=== PATIENT | female | born 1950 | race Caucasian/White ===

== ENCOUNTER 2016-08-07 04:04 | Inpatient (IN) | payer OTHER ==
[2016-08-07 04:35] LABS: MCH 31.9 pg (25.7-33.7); MCHC 32.9 g/dl (32.0-36.0); MEAN CELL VOLUME 96.7 fl (80-96); MEAN PLT VOLUME 7.9 fl (7.5-11.1); PLATELET COUNT 189 K/MM3 (134-434); RDW 14.4 % (11.6-15.6); WHITE BLOOD COUNT 9.3 K/mm3 (4.0-10.0)
[2016-08-07 04:48] LABS: INR 2.95 (0.82-1.09); PROTHROMBIN TIME (PATIENT) 33.2 SEC (9.98-11.88)
--- NOTE | 2016-08-07 05:02 | PDOC ---
History of Present Illness - General History Source: Patient Exam Limitations: No Limitations - History of Present Illness Initial Comments: 08/07/16 06:48 The patient is a 65-year-old female with a significant past medical history of diabetes, HTN, HLD, and presents to the emergency department from [facility] for evaluation of vaginal bleeding vs. rectal bleeding. As per DC, the patient has had blood in her diapers for the past few days, that are clotted in appearance. They are not sure whether the source of the bleeding is from the vagina or the rectum. The patient reports gassiness but states she has been having regular bowel movements. The patient denies chest pain, shortness of breath, headache and dizziness. The patient denies fever, chills, nausea, vomit, and constipation. The patient denies dysuria, frequency, urgency. Allergies: sulfa, penicillins Past Surgical History: two amputated toes Social History: No toxic habits reported PCP: Dr. Clyde Negron <Louisa Aguila - Last Filed: 08/07/16 06:48> <Allison Serrano - Last Filed: 08/07/16 22:55> - General Chief Complaint: Vaginal Bleeding Stated Complaint: VAGINAL BLEEING Time Seen by Provider: 08/07/16 04:18 Past History <Louisa Aguila - Last Filed: 08/07/16 06:48> - Past Medical History Diabetes: Yes HTN: Yes Hypercholesterolemia: Yes - Surgical History Abdominal Surgery: No Appendectomy: No Cardiac Surgery: No Cholecystectomy: No Lung Surgery: No Neurologic Surgery: No Orthopedic Surgery: Yes - Immunization History Immunization Up to Date: (PT NOT CLEAR ON STATUS) - Psycho/Social/Smoking Cessation Hx Anxiety: No Suicidal Ideation: No Smoking Status: No Smoking History: Never smoked Years of Tobacco Use: 0 Have you smoked in the past 12 months: No Number of Cigarettes Smoked Daily: 0 Cigars Per Day: 0 Information on smoking cessation initiated: No Hx Alcohol Use: No Drug/Substance Use Hx: No Substance Use Type: None Hx Substance Use Treatment: No <Allison Serrano - Last Filed: 08/07/16 22:55> - Past Medical History Allergies/Adverse Reactions: Allergies Allergy/AdvReac Type Severity Reaction Status Date / Time Sulfa (Sulfonamide Allergy Unknown Verified 08/07/16 04:08 Antibiotics) Penicillins Allergy Verified 08/07/16 04:08 Home Medications: Ambulatory Orders Atorvastatin Ca [Lipitor] 20 mg PO HS 04/11/15 Fenofibrate Nanocrystallized [Fenofibrate] 145 mg PO DAILY 04/11/15 Acetaminophen [Tylenol] 650 mg PO PRN 08/07/16 Docusate Sodium [Colace -] 100 mg PO DAILY 08/07/16 Escitalopram Oxalate [Lexapro -] 10 mg PO DAILY 08/07/16 Insulin Sliding Scale [Novolog Vial Sliding Scale -] 0 units SQ TIDAC 08/07/16 Oxybutynin Chloride 5 mg PO BID 08/07/16 Repaglinide 2 mg PO BID 08/07/16 Saxagliptin HCl [Onglyza] 5 mg PO DAILY 08/07/16 Saxagliptin HCl [Onglyza] 5 mg PO DAILY 08/07/16 Trazodone HCl 100 mg PO DAILY 08/07/16 Valsartan 80 mg PO DAILY 08/07/16 Warfarin Sodium [Coumadin] 4 mg PO HS 08/07/16 Review of Systems - Review of Systems Able to Perform ROS?: Yes Comments:: 08/07/16 06:48 CONSTITUTIONAL: Absent: fever, chills, diaphoresis, generalized weakness, malaise, loss of appetite HEENT: Absent: rhinorrhea, nasal congestion, throat pain, throat swelling, difficulty swallowing, mouth swelling, ear pain, eye pain, visual changes CARDIOVASCULAR: Absent: chest pain, syncope, palpitations, irregular heart rate, lightheadedness , peripheral edema RESPIRATORY: Absent: cough, shortness of breath, dyspnea with exertion, orthopnea, wheezing, stridor, hemoptysis GASTROINTESTINAL: Present: (+) gassiness Absent: abdominal pain, abdominal distension, nausea, vomiting, diarrhea, constipation, melena, hematochezia GENITOURINARY: Present: (+) hematuria Absent: dysuria, frequency, urgency, hesitancy, flank pain, genital pain MUSCULOSKELETAL: Absent: myalgia, arthralgia, joint swelling SKIN: Absent: rash, itching, pallor HEMATOLOGIC/IMMUNOLOGIC: Absent: easy bleeding, easy bruising, lymphadenopathy, frequent infections ENDOCRINE: Absent: unexplained weight gain, unexplained weight loss, heat intolerance, cold intolerance NEUROLOGIC: Absent: headache, focal weakness or paresthesias, dizziness, unsteady gait, seizure, mental status changes, bladder or bowel incontinence PSYCHIATRIC: Absent: anxiety, depression, suicidal or homicidal ideation, hallucinations. <AguilaLouisa - Last Filed: 08/07/16 06:48> *Physical Exam - Vital Signs Last Vital Signs Temp Pulse Resp BP Pulse Ox 97.6 F 89 18 146/79 96 08/07/16 04:08 08/07/16 04:08 08/07/16 04:08 08/07/16 04:08 08/07/16 04:08 - Physical Exam Comments: 08/07/16 06:49 GENERAL: Well developed, well nourished. Awake and alert. No acute distress. (+) Answering questions. HEENT: Normocephalic, atraumatic. PERRLA, EOMI. No conjunctival pallor. Sclera are non- icteric. (+) Dry mouth. Oropharynx is clear. NECK: Supple. Full ROM. No JVD. Carotid pulses 2+ and symmetric, without bruits. No thyromegaly. No lymphadenopathy. CARDIOVASCULAR: Regular rate and rhythm. No murmurs, rubs, or gallops. Distal pulses are 2+ and symmetric. PULMONARY: No evidence of respiratory distress. Lungs clear to auscultation bilaterally. No wheezing, rales or rhonchi. ABDOMINAL: (+) Diffusely tender. Soft. Non-distended. No rebound or guarding. No organomegaly. Normoactive bowel sounds. (+) Guaic negative. GENITOURINARY: No blood in the vaginal exam. (+) Hematuria with straight catheter. MUSCULOSKELETAL Normal range of motion at all joints. No bony deformities or tenderness. No CVA tenderness. EXTREMITIES: No cyanosis. No clubbing. No pitting edema. No calf tenderness. SKIN: (+) Tinea capitus at center of scalp. (+) Small abrasion on the right LE. (+) Healed sacral ulcer. Warm and dry. Normal capillary refill. No rashes. No jaundice. NEUROLOGICAL: Alert, awake, appropriate. Cranial nerves 2-12 intact. No deficits to light touch and temperature in face, upper extremities and lower extremities. No motor deficits in the in face, upper extremities and lower extremities. Normoreflexic in the upper and lower extremities. Normal speech. Toes are down- going bilaterally. PSYCHIATRIC: Cooperative. Good eye contact. Appropriate mood and affect. <Aguila,Louisa - Last Filed: 08/07/16 06:48> - Vital Signs Last Vital Signs Temp Pulse Resp BP Pulse Ox 97.6 F 89 18 146/79 96 08/07/16 04:08 08/07/16 04:08 08/07/16 04:08 08/07/16 04:08 08/07/16 04:08 <SerranoAllison - Last Filed: 08/07/16 22:55> ED Treatment Course - LABORATORY CBC & Chemistry Diagram: 08/07/16 04:28 08/07/16 04:28 - ADDITIONAL ORDERS Additional order review: Laboratory Results 08/07/16 08/07/16 08/07/16 05:00 04:44 04:28 INR Sodium 142 Potassium 4.9 Chloride 109 H Carbon Dioxide 20 L Anion Gap 13 BUN 39 H Creatinine 1.3 H D Creat Clearance w eGFR 40.98 Random Glucose 280 H D Calcium 9.3 Total Bilirubin 0.3 AST 25 D ALT 18 Alkaline Phosphatase 60 D Total Protein 6.6 Albumin 2.8 L Urine Color Red Urine Appearance Cloudy Urine pH 8.5 H D Urine Protein 3+ H Urine Glucose (UA) Negative Urine Ketones Trace H Urine Blood 3+ H Urine Nitrite Positive Urine Bilirubin 1+ H Urine Urobilinogen 1.0 e.u/dl Ur Leukocyte Esterase 2+ H Urine RBC 6354 Urine WBC 598 Urine Bacteria Few Stool Occult Blood Negative 08/07/16 04:28 INR 2.95 H D Sodium Potassium Chloride Carbon Dioxide Anion Gap BUN Creatinine Creat Clearance w eGFR Random Glucose Calcium Total Bilirubin AST ALT Alkaline Phosphatase Total Protein Albumin Urine Color Urine Appearance Urine pH Urine Protein Urine Glucose (UA) Urine Ketones Urine Blood Urine Nitrite Urine Bilirubin Urine Urobilinogen Ur Leukocyte Esterase Urine RBC Urine WBC Urine Bacteria Stool Occult Blood 08/07/16 04:28 RBC 3.08 L MCV 96.7 H MCHC 32.9 RDW 14.4 MPV 7.9 D Neutrophils % Y Lymphocytes % Y - Medications Given in the ED: ED Medications Discontinued Medications Generic Name Dose Route Start Last Admin Trade Name Freq PRN Reason Stop Dose Admin Levofloxacin 100 mls @ 100 mls/hr 08/07/16 05:49 08/07/16 05:51 Levaquin 500 Mg Premixed Ivpb - IVPB 08/07/16 06:48 100 mls/hr ONCE ONE Administration Sodium Chloride 500 ml 08/07/16 05:52 08/07/16 05:58 Normal Saline - IV 08/07/16 05:53 500 ml ONCE ONE Administration <Louisa Aguila - Last Filed: 08/07/16 06:48> - LABORATORY CBC & Chemistry Diagram: 08/07/16 04:28 08/07/16 04:28 - ADDITIONAL ORDERS Additional order review: 08/07/16 04:28 RBC 3.08 L MCV 96.7 H MCHC 32.9 RDW 14.4 MPV 7.9 D Neutrophils % Y Lymphocytes % Y <Allison Serrano - Last Filed: 08/07/16 22:55> Medical Decision Making - Medical Decision Making 08/07/16 05:02 Pt comes with bleeding in her diaper unclear if this is from GI tract or vaginal. On exam, she has brown stool; stool guaiac sent. Pt has no blood in the vagina; I cannot examine deep into her vagina secondary to atrophy and stricture.. Pt has faint blood in her diaper. Likely blood iis coming from her urethra. Straight cath urine specimen confims that her urine is bloody with clots and is the source of the blood in her diaper. Labs pending. 08/07/16 05:05 Pt's Hb/HCT is stable, compared to old results. INR is 2.95 Chem pending. 08/07/16 06:59 Admitted to hospitalist service for hematuria and clots in the urine. Pt is on coumadin. SHe will be followed on med surg and treated for UTI, if she has infection. Urology consult as needed <Allison Serrano - Last Filed: 08/07/16 22:55> *DC/Admit/Observation/Transfer - Attestations Scribe Attestion: 08/07/16 06:49 Documentation prepared by Louisa Aguila, acting as medical examiner for Allison Serrano MD. <Louisa Aguila - Last Filed: 08/07/16 06:48> - Discharge Dispostion Admit: Yes <Allison Serrano - Last Filed: 08/07/16 22:55> Diagnosis at time of Disposition: Hematuria, Abdominal pain, Elevated INR - Referrals
[2016-08-07 05:19] LABS: PH,URINE 8.5 (5.0-8.0); URINE BILIRUBIN 1+ (NEGATIVE); URINE COLOR RED; URINE GLUCOSE (UA) NEGATIVE (NEGATIVE); URINE KETONE TRACE (NEGATIVE); URINE UROBILINOGEN 1.0 E.U/dl E.U./dl (0.2-1.0)
[2016-08-07 05:34] LABS: CALCIUM 9.3 mg/dL (8.5-10.1); COCKROFT - GAULT 91.443; CREATININE 1.3 mg/dL (0.55-1.02); TOT PROT 6.6 g/dl (6.4-8.2)
[2016-08-07 05:35] LABS: URINE BLOOD 3+ (NEGATIVE); URINE LEUK ESTERASE 2+ (NEGATIVE); URINE NITRITE POSITIVE (NEGATIVE); URINE PROTEIN 3+ (NEGATIVE)
[2016-08-07 05:35] LABS: ALBUMIN 2.8 g/dl (3.4-5.0); BILIRUBIN,TOTAL 0.3 mg/dL (0.2-1.0)
[2016-08-07 05:36] LABS: URINE APPEARANCE CLOUDY
[2016-08-07] MEDS ORDERED: LEVOFLOXACIN 500 MG IVPB 100 ML IVPB ONE ×2 (05:49→05:53)
[2016-08-07] MEDS ORDERED: SODIUM CHLORIDE 0.9% 1000 ML INFUS.BAG IV ONE (05:52)
[2016-08-07 05:56] LABS: URINE BACTERIA FEW /hpf (NONE SEEN); URINE RBC 6354 /hpf (0-3); URINE WBC 598 /hpf (3-5)
[2016-08-07] MEDS ORDERED: ACETAMINOPHEN 325 MG TABLET (FP) PO PRN (10:16)
[2016-08-07] MEDS ORDERED: ONDANSETRON 4 MG/2 ML VIAL IVPB PRN (10:16)
--- NOTE | 2016-08-07 10:20 | HP ---
Admitting History and Physical - Primary Care Physician PCP: Clyde Negron - Admission Chief Complaint: I was told I was bleeding History of Present Illness: Ms Mckeon is a 65 year old woman who is at [facility] that was sent in for bleeding. Patient says she did not notice any bleeding and feels so-so. When asked to describe why she feels so-so she cannot tell me, she says she just does. She says she has lightheadedness when asked, and says it has been present all her life. She states she is at [facility] because the lightheadedness causes her difficulty walking. She denies passing out, chest pain, shortness of breath, nausea, vomiting, diarrhea, constipation, or swelling. Per medical notes she was noted to have blood in her diapers at [facility] for the past few days. There was uncertainty whether it was rectal or vaginal and she was sent here for further evaluation. History Source: Patient, Medical Record Limitations to Obtaining History: Poor Historian - Past Medical History Cardiovascular: Yes: AFIB Psych: Yes: Other (Unspecified Psychiatric Disorder) Endocrine: Yes: Diabetes Mellitus - Past Surgical History Past Surgical History: Yes: None - Smoking History Smoking history: Never smoked Have you smoked in the past 12 months: No Aproximately how many cigarettes per day: 0 - Alcohol/Substance Use Hx Alcohol Use: No History of Substance Use: reports: None - Social History Usual Living Arrangement: Yes: Long Term ADL: Family Assistance Occupation: Retired History of Recent Travel: No Home Medications - Allergies Allergies/Adverse Reactions: Allergies Allergy/AdvReac Type Severity Reaction Status Date / Time Sulfa (Sulfonamide Allergy Unknown Verified 08/07/16 04:08 Antibiotics) Penicillins Allergy Verified 08/07/16 04:08 - Home Medications Home Medications: Ambulatory Orders Atorvastatin Ca [Lipitor] 20 mg PO HS 04/11/15 Fenofibrate Nanocrystallized [Fenofibrate] 145 mg PO DAILY 04/11/15 Acetaminophen [Tylenol] 650 mg PO PRN 08/07/16 Docusate Sodium [Colace -] 100 mg PO DAILY 08/07/16 Escitalopram Oxalate [Lexapro -] 10 mg PO DAILY 08/07/16 Novolog Vial Sliding Scale - 08/07/16 Onglyza 5 mg PO DAILY 08/07/16 Oxybutynin Chloride 5 mg PO BID 08/07/16 Repaglinide 2 mg PO BID 08/07/16 Saxagliptin HCl [Onglyza] 5 mg PO DAILY 08/07/16 Trazodone HCl 100 mg PO DAILY 08/07/16 Valsartan 80 mg PO DAILY 08/07/16 Warfarin Sodium [Coumadin] 4 mg PO HS 08/07/16 Family Disease History - Family Disease History Family Disease History: Diabetes: Grandparent (Grandmother), Other: Father ( , unknown cause), Mother (, unknown cause) Review of Systems Findings/Remarks: Full review of systems obtained, as per HPI and otherwise negative Physical Examination Vital Signs: Vital Signs Temperature 97.6 F 08/07/16 04:08 Pulse Rate 80 08/07/16 07:24 Respiratory Rate 18 08/07/16 07:24 Blood Pressure 129/73 08/07/16 07:24 O2 Sat by Pulse Oximetry (%) 97 08/07/16 07:24 Constitutional: Yes: Well Nourished, No Distress, Calm Eyes: Yes: Conjunctiva Clear, EOM Intact, PERRL HENT: Yes: Atraumatic, Normocephalic Cardiovascular: Yes: Pulse Irregular. No: Tachycardia, Gallop, Murmur, Rub Respiratory: Yes: Regular, CTA Bilaterally. No: Rales, Rhonchi, Wheezes Gastrointestinal: Yes: Normal Bowel Sounds, Soft. No: Distention, Tenderness Extremities: Yes: WNL Edema: No Labs: Laboratory Results - last 24 hr 08/07/16 08/07/16 08/07/16 04:28 04:28 04:28 WBC 9.3 RBC 3.08 L Hgb 9.8 L D Hct 29.8 L D MCV 96.7 H MCHC 32.9 RDW 14.4 Plt Count 189 D MPV 7.9 D Neutrophils % Y Lymphocytes % Y INR 2.95 H D Sodium 142 Potassium 4.9 Chloride 109 H Carbon Dioxide 20 L Anion Gap 13 BUN 39 H Creatinine 1.3 H D Creat Clearance w eGFR 40.98 Random Glucose 280 H D Calcium 9.3 Total Bilirubin 0.3 AST 25 D ALT 18 Alkaline Phosphatase 60 D Total Protein 6.6 Albumin 2.8 L Urine Color Urine Appearance Urine pH Urine Protein Urine Glucose (UA) Urine Ketones Urine Blood Urine Nitrite Urine Bilirubin Urine Urobilinogen Ur Leukocyte Esterase Urine RBC Urine WBC Urine Bacteria Stool Occult Blood Blood Type Antibody Screen 08/07/16 08/07/16 08/07/16 04:28 04:44 05:00 WBC RBC Hgb Hct MCV MCHC RDW Plt Count MPV Neutrophils % Lymphocytes % INR Sodium Potassium Chloride Carbon Dioxide Anion Gap BUN Creatinine Creat Clearance w eGFR Random Glucose Calcium Total Bilirubin AST ALT Alkaline Phosphatase Total Protein Albumin Urine Color Red Urine Appearance Cloudy Urine pH 8.5 H D Urine Protein 3+ H Urine Glucose (UA) Negative Urine Ketones Trace H Urine Blood 3+ H Urine Nitrite Positive Urine Bilirubin 1+ H Urine Urobilinogen 1.0 e.u/dl Ur Leukocyte Esterase 2+ H Urine RBC 6354 Urine WBC 598 Urine Bacteria Few Stool Occult Blood Negative Blood Type O POSITIVE Antibody Screen Negative Problem List - Problems (1) Urinary tract infection Assessment/Plan: -urinalysis positive for UTI -previous admission last year showing UTI in April -given levaquin in the ED -will place on rocephin -follow up culture Code(s): N39.0 - URINARY TRACT INFECTION, SITE NOT SPECIFIED Qualifiers: Urinary tract infection type: acute cystitis Hematuria presence: with hematuria Qualified Code(s): N30.01 - Acute cystitis with hematuria (2) Hematuria Assessment/Plan: -with therapeutic INR -however suspect secondary to UTI -consult urology -hydration Code(s): R31.9 - HEMATURIA, UNSPECIFIED (3) Diabetes Assessment/Plan: -diabetic diet -continue outpatient regimen -FSBS and SSI Code(s): E11.9 - TYPE 2 DIABETES MELLITUS WITHOUT COMPLICATIONS Qualifiers: Diabetes mellitus type: type 2 Diabetes mellitus complication status: with unspecified complications Diabetes mellitus middle or intermediate school principal insulin use: without middle or intermediate school principal use Qualified Code(s): E11.8 - Type 2 diabetes mellitus with unspecified complications; Z79.4 - skilled nursing (current) use of insulin (4) Afib Assessment/Plan: -rate controlled -holding coumadin secondary to bleeding Code(s): I48.91 - UNSPECIFIED ATRIAL FIBRILLATION Qualifiers: Atrial fibrillation type: chronic Qualified Code(s): I48.2 - Chronic atrial fibrillation (5) Anemia Assessment/Plan: -stable -monitor Code(s): D64.9 - ANEMIA, UNSPECIFIED (6) HTN (hypertension) Assessment/Plan: -continue diovan Code(s): I10 - ESSENTIAL (PRIMARY) HYPERTENSION (7) HLD (hyperlipidemia) Assessment/Plan: -continue statin Code(s): E78.5 - HYPERLIPIDEMIA, UNSPECIFIED
[2016-08-07] MEDS: LACTOBACILLUS ACIDOPHILUS 1 EACH TAB (FP) PO SCH (10:58)
[2016-08-07] MEDS: SODIUM CHLORIDE 1,000 ML IV SCH (10:58)
[2016-08-07 11:10] LABS: PLATELET ESTIMATE ADEQUATE (NORMAL); SMUDGE CELLS MANY
[2016-08-07] MEDS: INSULIN SLIDING SCALE (NOVOLOG) 1 VIAL SQ SCH ×3 (11:42→21:32)
[2016-08-07 13:25] VITALS: BMI 32.1
[2016-08-07] MEDS: CEFTRIAXONE 50 ML IVPB SCH (14:39)
--- NOTE | 2016-08-07 16:25 | EKG ---
Test Reason : Blood Pressure : / mmHG Vent. Rate : 070 BPM Atrial Rate : 070 BPM P-R Int : 258 ms QRS Dur : 144 ms QT Int : 484 ms P-R-T Axes : 042 -06 096 degrees QTc Int : 522 ms SINUS RHYTHM WITH 1ST DEGREE A-V BLOCK LEFT BUNDLE BRANCH BLOCK ABNORMAL ECG WHEN COMPARED WITH ECG OF 24-JUL-2015 16:30, PREMATURE SUPRAVENTRICULAR COMPLEXES ARE NO LONGER PRESENT OK INTERVAL HAS INCREASED Confirmed by RUTH COLVIN MD ([id number]) on 08/07/2016 4:25:09 PM Referred By: Confirmed By:RUTH COLVIN MD
[2016-08-07] MEDS ORDERED: WARFARIN NA 2 MG TABLET (UD) PO SCH (18:00)
[2016-08-07] MEDS ORDERED: INSULIN (NOVOLOG) ASPART 100 UNITS/ML 10ML VIAL ONE (20:34)
[2016-08-07] MEDS: ATORVASTATIN CA 20 MG TABLET (FP) PO SCH (21:32)
[2016-08-07] MEDS: OXYBUTYNIN CHLORIDE 5 MG TABLET PO SCH (21:32)
[2016-08-07] MEDS ORDERED: REPAGLINIDE 2 MG TABLET (FP) PO SCH (22:00)
[2016-08-07] MEDS ORDERED: PATIENT'S OWN MEDICATION (NON-FORMULARY) (Warfarin Sodium [Coumadin] 4 MG) PO SCH (22:00)
[2016-08-08] MEDS: sitaGLIPtin PHOSPHATE 100 MG TABLET (FP) PO SCH (06:00)
[2016-08-08] MEDS: INSULIN SLIDING SCALE (NOVOLOG) 1 VIAL SQ SCH ×4 (06:00→22:02)
[2016-08-08] MEDS ORDERED: PT OWN MED DRAWER 7, Y5N ONE ×2 (06:39→08:50)
[2016-08-08] MEDS ORDERED: INSULIN (NOVOLOG) ASPART 100 UNITS/ML 10ML VIAL ONE (06:39)
[2016-08-08 08:09] LABS: BASOPHIL 0.4 % (0-2.0); EOSINOPHIL 1.9 % (0-4.5); MCH 32.8 pg (25.7-33.7); MCHC 33.9 g/dl (32.0-36.0); MEAN CELL VOLUME 96.7 fl (80-96); MEAN PLT VOLUME 7.6 fl (7.5-11.1); NEUTROPHILS 45.8 % (42.8-82.8); PLATELET COUNT 161 K/MM3 (134-434); RDW 13.8 % (11.6-15.6)
[2016-08-08 08:30] LABS: CALCIUM 8.7 mg/dL (8.5-10.1); COCKROFT - GAULT 71.6805; CREATININE 1.1 mg/dL (0.55-1.02); MAGNESIUM 1.7 mg/dL (1.8-2.4); PHOSPHOROUS 2.5 mg/dL (2.5-4.9)
[2016-08-08 08:38] LABS: INR 1.98 (0.82-1.09); PROTHROMBIN TIME (PATIENT) 22.1 SEC (9.98-11.88)
[2016-08-08] MEDS: REPAGLINIDE 2 MG TABLET (FP) PO SCH ×2 (08:58→17:25)
[2016-08-08] MEDS ORDERED: LEVOFLOXACIN 500 MG IVPB 100 ML IVPB SCH (10:00)
[2016-08-08] MEDS ORDERED: traZODone HCL 50 MG TABLET (FP) ONE (10:07)
[2016-08-08] MEDS: CEFTRIAXONE 50 ML IVPB SCH (10:22)
[2016-08-08] MEDS: FENOFIBRIC ACID 135 MG CAP PO SCH (10:22)
[2016-08-08] MEDS: ESCITALOPRAM OXALATE 10 MG TABLET (FP) PO SCH (10:23)
[2016-08-08] MEDS: DOCUSATE SODIUM 100 MG CAPSULE (FP) PO SCH (10:23)
[2016-08-08] MEDS: OXYBUTYNIN CHLORIDE 5 MG TABLET PO SCH ×2 (10:23→22:02)
[2016-08-08] MEDS: LACTOBACILLUS ACIDOPHILUS 1 EACH TAB (FP) PO SCH (10:24)
[2016-08-08] MEDS: traZODone HCL 100 MG TABLET (FP) PO SCH (10:24)
[2016-08-08] MEDS: VALSARTAN 80 MG TABLET (UD) PO SCH (10:24)
[2016-08-08] MEDS: SODIUM CHLORIDE 1,000 ML IV SCH (11:19)
--- NOTE | 2016-08-08 15:40 | PN ---
Progress Note, Physician Chief Complaint: Ms Mckeon says she feels so-so, but says she does not know why she feels so-so. She denies fevers, cp, sob, n/v, or any other concerns. She does not know if she is still bleeding. - Current Medication List Current Medications: Active Medications Acetaminophen (Tylenol -) 650 mg PO Q4H PRN PRN Reason: FEVER OR PAIN Atorvastatin Calcium (Lipitor -) 20 mg PO HS [facility] Last Admin: 08/07/16 21:32 Dose: 20 mg Docusate Sodium (Colace -) 100 mg PO DAILY [facility] Last Admin: 08/08/16 10:23 Dose: 100 mg Escitalopram Oxalate (Lexapro -) 10 mg PO DAILY [facility] Last Admin: 08/08/16 10:23 Dose: 10 mg Fenofibric Acid (Trilipix -) 135 mg PO DAILY [facility] Last Admin: 08/08/16 10:22 Dose: 135 mg Sodium Chloride (Normal Saline -) 1,000 mls @ 42 mls/hr IV ASDIR [facility] Last Admin: 08/08/16 11:19 Dose: 42 mls/hr Ceftriaxone Sodium (Rocephin 1gm Ivpb (Pre-Docked)) 50 mls @ 100 mls/hr IVPB DAILY [facility] Last Admin: 08/08/16 10:22 Dose: 100 mls/hr Insulin Aspart (Novolog Vial Sliding Scale -) 0 vial SQ ACHS [facility] PRN Reason: Protocol Last Admin: 08/08/16 11:19 Dose: 5 units Lactobacillus Acidophilus (Bacid -) 1 tab PO DAILY [facility] Last Admin: 08/08/16 10:24 Dose: 1 tab Ondansetron HCl (Zofran Injection) 4 mg IVPB Q6H PRN PRN Reason: NAUSEA Oxybutynin Chloride (Ditropan -) 5 mg PO BID [facility] Last Admin: 08/08/16 10:23 Dose: 5 mg Repaglinide (Prandin -) 2 mg PO BIDWM [facility] Last Admin: 08/08/16 08:58 Dose: 2 mg Sitagliptin Phosphate (Januvia -) 100 mg PO DAILY@0700 [facility] Last Admin: 08/08/16 06:00 Dose: 100 mg Trazodone HCl (Desyrel -) 100 mg PO DAILY [facility] Last Admin: 08/08/16 10:24 Dose: 100 mg Valsartan (Diovan -) 80 mg PO DAILY [facility] Last Admin: 08/08/16 10:24 Dose: 80 mg - Objective Vital Signs: Vital Signs Temperature 98.1 F 08/08/16 09:00 Pulse Rate 70 08/08/16 09:00 Respiratory Rate 18 08/08/16 09:00 Blood Pressure 110/62 08/08/16 09:00 O2 Sat by Pulse Oximetry (%) 92 L 08/07/16 21:00 Constitutional: Yes: No Distress, Calm, Obese Cardiovascular: Yes: Regular Rate and Rhythm. No: Gallop, Murmur, Rub Respiratory: Yes: Regular, CTA Bilaterally. No: Rales, Rhonchi, Wheezes Gastrointestinal: Yes: Normal Bowel Sounds, Soft. No: Distention, Tenderness Extremities: Yes: WNL Edema: No Labs: CBC, BMP 08/08/16 07:08 08/08/16 07:08 INR, PTT INR 1.98 (0.82-1.09) H D 08/08/16 07:08 Problem List - Problems (1) Urinary tract infection Code(s): N39.0 - URINARY TRACT INFECTION, SITE NOT SPECIFIED Qualifiers: Urinary tract infection type: acute cystitis Hematuria presence: with hematuria Qualified Code(s): N30.01 - Acute cystitis with hematuria (2) Hematuria Code(s): R31.9 - HEMATURIA, UNSPECIFIED (3) Diabetes Code(s): E11.9 - TYPE 2 DIABETES MELLITUS WITHOUT COMPLICATIONS Qualifiers: Diabetes mellitus type: type 2 Diabetes mellitus complication status: with unspecified complications Diabetes mellitus mcfp insulin use: without mcfp use Qualified Code(s): E11.8 - Type 2 diabetes mellitus with unspecified complications; Z79.4 - intermediate frame tender (current) use of insulin (4) Afib Code(s): I48.91 - UNSPECIFIED ATRIAL FIBRILLATION Qualifiers: Atrial fibrillation type: chronic Qualified Code(s): I48.2 - Chronic atrial fibrillation (5) Anemia Code(s): D64.9 - ANEMIA, UNSPECIFIED (6) HTN (hypertension) Code(s): I10 - ESSENTIAL (PRIMARY) HYPERTENSION (7) HLD (hyperlipidemia) Code(s): E78.5 - HYPERLIPIDEMIA, UNSPECIFIED Assessment/Plan (1) Urinary tract infection Assessment/Plan: -urinalysis positive for UTI -urine culture growing proteus -continue rocephin, day 2 of antibiotics Code(s): N39.0 - URINARY TRACT INFECTION, SITE NOT SPECIFIED Qualifiers: Urinary tract infection type: acute cystitis Hematuria presence: with hematuria Qualified Code(s): N30.01 - Acute cystitis with hematuria (2) Hematuria Assessment/Plan: -holding coumadin currently -suspect secondary to UTI -urology consulted Code(s): R31.9 - HEMATURIA, UNSPECIFIED (3) Diabetes Assessment/Plan: -diabetic diet -continue outpatient regimen -FSBS and SSI Code(s): E11.9 - TYPE 2 DIABETES MELLITUS WITHOUT COMPLICATIONS Qualifiers: Diabetes mellitus type: type 2 Diabetes mellitus complication status: with unspecified complications Diabetes mellitus termite technician insulin use: without termite technician use Qualified Code(s): E11.8 - Type 2 diabetes mellitus with unspecified complications; Z79.4 - residential (current) use of insulin (4) Afib Assessment/Plan: -rate controlled -holding coumadin secondary to bleeding Code(s): I48.91 - UNSPECIFIED ATRIAL FIBRILLATION Qualifiers: Atrial fibrillation type: chronic Qualified Code(s): I48.2 - Chronic atrial fibrillation (5) Anemia Assessment/Plan: -stable -monitor Code(s): D64.9 - ANEMIA, UNSPECIFIED (6) HTN (hypertension) Assessment/Plan: -continue diovan Code(s): I10 - ESSENTIAL (PRIMARY) HYPERTENSION (7) HLD (hyperlipidemia) Assessment/Plan: -continue statin Code(s): E78.5 - HYPERLIPIDEMIA, UNSPECIFIED
[2016-08-08] MEDS: ATORVASTATIN CA 20 MG TABLET (FP) PO SCH (22:02)
[2016-08-09] MEDS: SODIUM CHLORIDE 1,000 ML IV SCH ×2 (05:14→12:04)
[2016-08-09] MEDS: sitaGLIPtin PHOSPHATE 100 MG TABLET (FP) PO SCH (06:09)
[2016-08-09] MEDS: INSULIN SLIDING SCALE (NOVOLOG) 1 VIAL SQ SCH ×4 (06:12→21:39)
[2016-08-09 06:49] LABS: MCH 32.7 pg (25.7-33.7); MCHC 33.3 g/dl (32.0-36.0); MEAN CELL VOLUME 98.2 fl (80-96); MEAN PLT VOLUME 7.9 fl (7.5-11.1); PLATELET COUNT 167 K/MM3 (134-434); RDW 14.6 % (11.6-15.6); WHITE BLOOD COUNT 10.4 K/mm3 (4.0-10.0)
[2016-08-09 07:04] LABS: INR 1.43 (0.82-1.09); PROTHROMBIN TIME (PATIENT) 15.9 SEC (9.98-11.88)
[2016-08-09 07:22] LABS: CALCIUM 8.8 mg/dL (8.5-10.1); MAGNESIUM 1.7 mg/dL (1.8-2.4)
[2016-08-09 07:25] LABS: COCKROFT - GAULT 65.7135; CREATININE 1.2 mg/dL (0.55-1.02); PHOSPHOROUS 3.2 mg/dL (2.5-4.9)
[2016-08-09] MEDS ORDERED: PT OWN MED DRAWER 7, Y5N ONE (08:44)
[2016-08-09 09:03] LABS: PLATELET ESTIMATE ADEQUATE (NORMAL)
[2016-08-09] MEDS: REPAGLINIDE 1 MG TABLET PO SCH ×2 (09:18→17:51)
[2016-08-09] MEDS ORDERED: traZODone HCL 50 MG TABLET (FP) ONE (10:01)
[2016-08-09] MEDS: FENOFIBRIC ACID 135 MG CAP PO SCH (10:15)
[2016-08-09] MEDS: traZODone HCL 100 MG TABLET (FP) PO SCH (10:15)
[2016-08-09] MEDS: LACTOBACILLUS ACIDOPHILUS 1 EACH TAB (FP) PO SCH (10:15)
[2016-08-09] MEDS: ESCITALOPRAM OXALATE 10 MG TABLET (FP) PO SCH (10:15)
[2016-08-09] MEDS: OXYBUTYNIN CHLORIDE 5 MG TABLET PO SCH ×2 (10:15→21:37)
[2016-08-09] MEDS: DOCUSATE SODIUM 100 MG CAPSULE (FP) PO SCH (10:16)
[2016-08-09] MEDS: CEFTRIAXONE 50 ML IVPB SCH (10:16)
[2016-08-09] MEDS: VALSARTAN 80 MG TABLET (UD) PO SCH (10:16)
--- NOTE | 2016-08-09 10:27 | CONSULT ---
Consult Consult Specialty:: urology Referred by:: Cain Reason for Consultation:: bleeding - History of Present Illness Chief Complaint: bleeding History of Present Illness: 65 year old female with complaints of bleeding. 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 She is not in pain. UA has 3+ blood and is nitrite pos. Urine culture is positive - History Source History Provided By: Patient, Medical Record Limitations to Obtaining History: No Limitations - Past Medical History Cardio/Vascular: Yes: AFIB Renal/: Yes: Hematuria ...: No Psych: Yes: Other (Unspecified Psychiatric Disorder) Endocrine: Yes: Diabetes Mellitus - Past Surgical History Past Surgical History: Yes: None - Alcohol/Substance Use Hx Alcohol Use: No History of Substance Use: reports: None - Smoking History Smoking history: Never smoked Have you smoked in the past 12 months: No Aproximately how many cigarettes per day: 0 - Social History Usual Living Arrangement: Alone ADL: Family Assistance Occupation: Retired History of Recent Travel: No Home Medications - Allergies Allergies/Adverse Reactions: Allergies Allergy/AdvReac Type Severity Reaction Status Date / Time Sulfa (Sulfonamide Allergy Unknown Verified 08/07/16 04:08 Antibiotics) Penicillins Allergy Verified 08/07/16 04:08 - Home Medications Home Medications: Ambulatory Orders Atorvastatin Ca [Lipitor] 20 mg PO HS 04/11/15 Fenofibrate Nanocrystallized [Fenofibrate] 145 mg PO DAILY 04/11/15 Acetaminophen [Tylenol] 650 mg PO PRN 08/07/16 Docusate Sodium [Colace -] 100 mg PO DAILY 08/07/16 Escitalopram Oxalate [Lexapro -] 10 mg PO DAILY 08/07/16 Insulin Sliding Scale [Novolog Vial Sliding Scale -] 0 units SQ TIDAC 08/07/16 Oxybutynin Chloride 5 mg PO BID 08/07/16 Repaglinide 2 mg PO BID 08/07/16 Saxagliptin HCl [Onglyza] 5 mg PO DAILY 08/07/16 Saxagliptin HCl [Onglyza] 5 mg PO DAILY 08/07/16 Trazodone HCl 100 mg PO DAILY 08/07/16 Valsartan 80 mg PO DAILY 08/07/16 Warfarin Sodium [Coumadin] 4 mg PO HS 08/07/16 Family Disease History - Family Disease History Family Disease History: Diabetes: Grandparent (Grandmother), Other: Father ( , unknown cause), Mother (, unknown cause) Review of Systems - Review of Systems Genitourinary: reports: Hematuria. denies: Dysuria, Flank Pain, Frequency Physical Exam Vital Signs: Vital Signs Temperature 98.3 F 08/09/16 09:27 Pulse Rate 71 08/09/16 09:27 Respiratory Rate 20 08/09/16 09:27 Blood Pressure 127/68 08/09/16 09:27 O2 Sat by Pulse Oximetry (%) 93 L 08/08/16 21:00 Renal/: No: Bladder Distention, CVA Tenderness - Left, CVA Tenderness - Right Labs: CBC, BMP 08/09/16 06:20 08/09/16 06:20 Problem List - Problems (1) Hematuria Assessment/Plan: in presence of a UTI. CT scan ordered. Cysto to follow Code(s): R31.9 - HEMATURIA, UNSPECIFIED
[2016-08-09 11:09] LABS: SMUDGE CELLS MANY
[2016-08-09] MEDS ORDERED: INSULIN (NOVOLOG) ASPART 100 UNITS/ML 10ML VIAL ONE (12:00)
[2016-08-09] MEDS: MAGNESIUM OXIDE 400 MG TABLET (FP) PO SCH ×2 (12:33→21:37)
--- NOTE | 2016-08-09 14:22 | PN ---
Progress Note, Physician Chief Complaint: Ms Mckeon is without complaint. Says she is feeling fine. No cp, sob, n/v. - Current Medication List Current Medications: Active Medications Acetaminophen (Tylenol -) 650 mg PO Q4H PRN PRN Reason: FEVER OR PAIN Atorvastatin Calcium (Lipitor -) 20 mg PO HS [facility] Last Admin: 08/08/16 22:02 Dose: 20 mg Docusate Sodium (Colace -) 100 mg PO DAILY [facility] Last Admin: 08/09/16 10:16 Dose: 100 mg Escitalopram Oxalate (Lexapro -) 10 mg PO DAILY [facility] Last Admin: 08/09/16 10:15 Dose: 10 mg Fenofibric Acid (Trilipix -) 135 mg PO DAILY [facility] Last Admin: 08/09/16 10:15 Dose: 135 mg Sodium Chloride (Normal Saline -) 1,000 mls @ 42 mls/hr IV ASDIR [facility] Last Admin: 08/09/16 12:04 Dose: Not Given Ceftriaxone Sodium (Rocephin 1gm Ivpb (Pre-Docked)) 50 mls @ 100 mls/hr IVPB DAILY [facility] Last Admin: 08/09/16 10:16 Dose: 100 mls/hr Insulin Aspart (Novolog Vial Sliding Scale -) 0 vial SQ ACHS MEG PRN Reason: Protocol Last Admin: 08/09/16 12:05 Dose: 5 units Lactobacillus Acidophilus (Bacid -) 1 tab PO DAILY [facility] Last Admin: 08/09/16 10:15 Dose: 1 tab Magnesium Oxide (Mag-Ox -) 400 mg PO BID [facility] Last Admin: 08/09/16 12:33 Dose: 400 mg Ondansetron HCl (Zofran Injection) 4 mg IVPB Q6H PRN PRN Reason: NAUSEA Oxybutynin Chloride (Ditropan -) 5 mg PO BID [facility] Last Admin: 08/09/16 10:15 Dose: 5 mg Repaglinide (Prandin -) 2 mg PO BIDWM [facility] Last Admin: 08/09/16 09:18 Dose: 2 mg Sitagliptin Phosphate (Januvia -) 100 mg PO DAILY@0700 [facility] Last Admin: 08/09/16 06:09 Dose: 100 mg Trazodone HCl (Desyrel -) 100 mg PO DAILY [facility] Last Admin: 08/09/16 10:15 Dose: 100 mg Valsartan (Diovan -) 80 mg PO DAILY [facility] Last Admin: 08/09/16 10:16 Dose: 80 mg - Objective Vital Signs: Vital Signs Temperature 98.3 F 08/09/16 09:27 Pulse Rate 71 08/09/16 09:27 Respiratory Rate 20 08/09/16 09:27 Blood Pressure 127/68 08/09/16 09:27 O2 Sat by Pulse Oximetry (%) 95 08/09/16 09:00 Constitutional: Yes: Well Nourished, No Distress, Calm Cardiovascular: Yes: Pulse Irregular. No: Tachycardia, Gallop, Murmur, Rub Respiratory: Yes: Regular, CTA Bilaterally. No: Rales, Rhonchi, Wheezes Gastrointestinal: Yes: Normal Bowel Sounds, Soft. No: Distention, Tenderness Extremities: Yes: WNL Edema: No Labs: CBC, BMP 08/09/16 06:20 08/09/16 06:20 INR, PTT INR 1.43 (0.82-1.09) H 08/09/16 06:20 Problem List - Problems (1) Urinary tract infection Code(s): N39.0 - URINARY TRACT INFECTION, SITE NOT SPECIFIED Qualifiers: Urinary tract infection type: acute cystitis Hematuria presence: with hematuria Qualified Code(s): N30.01 - Acute cystitis with hematuria (2) Hematuria Code(s): R31.9 - HEMATURIA, UNSPECIFIED (3) Diabetes Code(s): E11.9 - TYPE 2 DIABETES MELLITUS WITHOUT COMPLICATIONS Qualifiers: Diabetes mellitus type: type 2 Diabetes mellitus complication status: with unspecified complications Diabetes mellitus pin game machine inspector insulin use: without senior living use Qualified Code(s): E11.8 - Type 2 diabetes mellitus with unspecified complications; Z79.4 - longterm (current) use of insulin (4) Afib Code(s): I48.91 - UNSPECIFIED ATRIAL FIBRILLATION Qualifiers: Atrial fibrillation type: chronic Qualified Code(s): I48.2 - Chronic atrial fibrillation (5) Anemia Code(s): D64.9 - ANEMIA, UNSPECIFIED (6) HTN (hypertension) Code(s): I10 - ESSENTIAL (PRIMARY) HYPERTENSION (7) HLD (hyperlipidemia) Code(s): E78.5 - HYPERLIPIDEMIA, UNSPECIFIED Assessment/Plan (1) Urinary tract infection Assessment/Plan: -urinalysis positive for UTI -urine culture growing proteus and e. coli, both sensitive to rocephin -proteus was not sensitive to levaquin -continue rocephin day 2 Code(s): N39.0 - URINARY TRACT INFECTION, SITE NOT SPECIFIED Qualifiers: Urinary tract infection type: acute cystitis Hematuria presence: with hematuria Qualified Code(s): N30.01 - Acute cystitis with hematuria (2) Hematuria Assessment/Plan: -holding coumadin currently -suspect secondary to UTI -appreciate urology assistance Code(s): R31.9 - HEMATURIA, UNSPECIFIED (3) Diabetes Assessment/Plan: -diabetic diet -continue outpatient regimen -FSBS and SSI Code(s): E11.9 - TYPE 2 DIABETES MELLITUS WITHOUT COMPLICATIONS Qualifiers: Diabetes mellitus type: type 2 Diabetes mellitus complication status: with unspecified complications Diabetes mellitus pin game machine inspector insulin use: without senior living use Qualified Code(s): E11.8 - Type 2 diabetes mellitus with unspecified complications; Z79.4 - tube inspector (current) use of insulin (4) Afib Assessment/Plan: -rate controlled -holding coumadin secondary to bleeding Code(s): I48.91 - UNSPECIFIED ATRIAL FIBRILLATION Qualifiers: Atrial fibrillation type: chronic Qualified Code(s): I48.2 - Chronic atrial fibrillation (5) Anemia Assessment/Plan: -stable -monitor Code(s): D64.9 - ANEMIA, UNSPECIFIED (6) HTN (hypertension) Assessment/Plan: -continue diovan Code(s): I10 - ESSENTIAL (PRIMARY) HYPERTENSION (7) HLD (hyperlipidemia) Assessment/Plan: -continue statin Code(s): E78.5 - HYPERLIPIDEMIA, UNSPECIFIED
[2016-08-09] MEDS: ATORVASTATIN CA 20 MG TABLET (FP) PO SCH (21:37)
[2016-08-10] MEDS: sitaGLIPtin PHOSPHATE 100 MG TABLET (FP) PO SCH (06:20)
[2016-08-10] MEDS: INSULIN SLIDING SCALE (NOVOLOG) 1 VIAL SQ SCH ×4 (06:24→23:00)
[2016-08-10 07:42] LABS: MCH 32.8 pg (25.7-33.7); MCHC 33.7 g/dl (32.0-36.0); MEAN CELL VOLUME 97.2 fl (80-96); MEAN PLT VOLUME 7.8 fl (7.5-11.1); PLATELET COUNT 173 K/MM3 (134-434); RDW 14.3 % (11.6-15.6); WHITE BLOOD COUNT 10.9 K/mm3 (4.0-10.0)
[2016-08-10 08:00] LABS: COCKROFT - GAULT 71.6805; CREATININE 1.1 mg/dL (0.55-1.02); MAGNESIUM 1.9 mg/dL (1.8-2.4); PHOSPHOROUS 2.9 mg/dL (2.5-4.9)
[2016-08-10 08:12] LABS: INR 1.2 (0.82-1.09); PROTHROMBIN TIME (PATIENT) 13.2 SEC (9.98-11.88)
[2016-08-10] MEDS ORDERED: PT OWN MED DRAWER 7, Y5N ONE ×3 (08:33→18:39)
[2016-08-10] MEDS: REPAGLINIDE 1 MG TABLET PO SCH ×2 (08:35→17:51)
[2016-08-10 09:17] LABS: PLATELET ESTIMATE ADEQUATE (NORMAL)
[2016-08-10] MEDS ORDERED: traZODone HCL 50 MG TABLET (FP) ONE (09:56)
[2016-08-10] MEDS: FENOFIBRIC ACID 135 MG CAP PO SCH (10:03)
[2016-08-10] MEDS: VALSARTAN 80 MG TABLET (UD) PO SCH (10:04)
[2016-08-10] MEDS: DOCUSATE SODIUM 100 MG CAPSULE (FP) PO SCH ×2 (10:04→10:13)
[2016-08-10] MEDS: ESCITALOPRAM OXALATE 10 MG TABLET (FP) PO SCH (10:04)
[2016-08-10] MEDS: LACTOBACILLUS ACIDOPHILUS 1 EACH TAB (FP) PO SCH (10:04)
[2016-08-10] MEDS: MAGNESIUM OXIDE 400 MG TABLET (FP) PO SCH ×2 (10:04→22:59)
[2016-08-10] MEDS: OXYBUTYNIN CHLORIDE 5 MG TABLET PO SCH ×2 (10:05→22:59)
[2016-08-10] MEDS: traZODone HCL 100 MG TABLET (FP) PO SCH (10:05)
[2016-08-10] MEDS: CEFTRIAXONE 50 ML IVPB SCH (10:06)
[2016-08-10] MEDS: SODIUM CHLORIDE 1,000 ML IV SCH (11:16)
[2016-08-10] MEDS ORDERED: INSULIN (NOVOLOG) ASPART 100 UNITS/ML 10ML VIAL ONE ×2 (11:49→18:38)
--- NOTE | 2016-08-10 12:32 | PN ---
Progress Note, Physician Chief Complaint: Ms Mckeon says she is feeling a lot better. No cp, sob, n/v. Does not think she is bleeding anymore but is unsure. - Current Medication List Current Medications: Active Medications Acetaminophen (Tylenol -) 650 mg PO Q4H PRN PRN Reason: FEVER OR PAIN Atorvastatin Calcium (Lipitor -) 20 mg PO HS [facility] Last Admin: 08/09/16 21:37 Dose: 20 mg Docusate Sodium (Colace -) 100 mg PO DAILY [facility] Last Admin: 08/10/16 10:13 Dose: Not Given Escitalopram Oxalate (Lexapro -) 10 mg PO DAILY [facility] Last Admin: 08/10/16 10:04 Dose: 10 mg Fenofibric Acid (Trilipix -) 135 mg PO DAILY [facility] Last Admin: 08/10/16 10:03 Dose: 135 mg Sodium Chloride (Normal Saline -) 1,000 mls @ 42 mls/hr IV ASDIR [facility] Last Admin: 08/10/16 11:16 Dose: 42 mls/hr Ceftriaxone Sodium (Rocephin 1gm Ivpb (Pre-Docked)) 50 mls @ 100 mls/hr IVPB DAILY [facility] Last Admin: 08/10/16 10:06 Dose: 100 mls/hr Insulin Aspart (Novolog Vial Sliding Scale -) 0 vial SQ ACHS MEG PRN Reason: Protocol Last Admin: 08/10/16 12:05 Dose: 3 units Lactobacillus Acidophilus (Bacid -) 1 tab PO DAILY [facility] Last Admin: 08/10/16 10:04 Dose: 1 tab Magnesium Oxide (Mag-Ox -) 400 mg PO BID [facility] Last Admin: 08/10/16 10:04 Dose: 400 mg Ondansetron HCl (Zofran Injection) 4 mg IVPB Q6H PRN PRN Reason: NAUSEA Oxybutynin Chloride (Ditropan -) 5 mg PO BID [facility] Last Admin: 08/10/16 10:05 Dose: 5 mg Repaglinide (Prandin -) 2 mg PO BIDWM [facility] Last Admin: 08/10/16 08:35 Dose: 2 mg Sitagliptin Phosphate (Januvia -) 100 mg PO DAILY@0700 [facility] Last Admin: 08/10/16 06:20 Dose: 100 mg Trazodone HCl (Desyrel -) 100 mg PO DAILY [facility] Last Admin: 08/10/16 10:05 Dose: 100 mg Valsartan (Diovan -) 80 mg PO DAILY [facility] Last Admin: 08/10/16 10:04 Dose: 80 mg - Objective Vital Signs: Vital Signs Temperature 97.4 F L 08/10/16 09:45 Pulse Rate 69 08/10/16 09:45 Respiratory Rate 20 08/10/16 09:45 Blood Pressure 135/68 08/10/16 09:45 O2 Sat by Pulse Oximetry (%) 95 08/09/16 21:00 Constitutional: Yes: Well Nourished, No Distress, Calm Cardiovascular: Yes: Pulse Irregular. No: Tachycardia, Gallop, Murmur, Rub Respiratory: Yes: Regular, CTA Bilaterally. No: Rales, Rhonchi, Wheezes Gastrointestinal: Yes: Normal Bowel Sounds, Soft. No: Distention, Tenderness Extremities: Yes: WNL Edema: No Labs: CBC, BMP 08/10/16 06:52 08/10/16 06:52 INR, PTT INR 1.20 (0.82-1.09) H 08/10/16 06:52 Problem List - Problems (1) Urinary tract infection Code(s): N39.0 - URINARY TRACT INFECTION, SITE NOT SPECIFIED Qualifiers: Urinary tract infection type: acute cystitis Hematuria presence: with hematuria Qualified Code(s): N30.01 - Acute cystitis with hematuria (2) Hematuria Code(s): R31.9 - HEMATURIA, UNSPECIFIED (3) Diabetes Code(s): E11.9 - TYPE 2 DIABETES MELLITUS WITHOUT COMPLICATIONS Qualifiers: Diabetes mellitus type: type 2 Diabetes mellitus complication status: with unspecified complications Diabetes mellitus detention insulin use: without detention use Qualified Code(s): E11.8 - Type 2 diabetes mellitus with unspecified complications; Z79.4 - retort engineer (current) use of insulin (4) Afib Code(s): I48.91 - UNSPECIFIED ATRIAL FIBRILLATION Qualifiers: Atrial fibrillation type: chronic Qualified Code(s): I48.2 - Chronic atrial fibrillation (5) Anemia Code(s): D64.9 - ANEMIA, UNSPECIFIED (6) HTN (hypertension) Code(s): I10 - ESSENTIAL (PRIMARY) HYPERTENSION (7) HLD (hyperlipidemia) Code(s): E78.5 - HYPERLIPIDEMIA, UNSPECIFIED Assessment/Plan (1) Urinary tract infection Assessment/Plan: -urinalysis positive for UTI -urine culture growing proteus and e. coli, both sensitive to rocephin -continue rocephin day 3 Code(s): N39.0 - URINARY TRACT INFECTION, SITE NOT SPECIFIED Qualifiers: Urinary tract infection type: acute cystitis Hematuria presence: with hematuria Qualified Code(s): N30.01 - Acute cystitis with hematuria (2) Hematuria Assessment/Plan: -holding coumadin currently -suspect secondary to UTI -appreciate urology assistance -urology planning for cystoscopy per note Code(s): R31.9 - HEMATURIA, UNSPECIFIED (3) Diabetes Assessment/Plan: -diabetic diet -continue outpatient regimen -FSBS and SSI Code(s): E11.9 - TYPE 2 DIABETES MELLITUS WITHOUT COMPLICATIONS Qualifiers: Diabetes mellitus type: type 2 Diabetes mellitus complication status: with unspecified complications Diabetes mellitus lens edge grinder machine insulin use: without detention use Qualified Code(s): E11.8 - Type 2 diabetes mellitus with unspecified complications; Z79.4 - skilled nursing (current) use of insulin (4) Afib Assessment/Plan: -rate controlled -holding coumadin secondary to bleeding -restart pending cystoscopy Code(s): I48.91 - UNSPECIFIED ATRIAL FIBRILLATION Qualifiers: Atrial fibrillation type: chronic Qualified Code(s): I48.2 - Chronic atrial fibrillation (5) Anemia Assessment/Plan: -stable -monitor Code(s): D64.9 - ANEMIA, UNSPECIFIED (6) HTN (hypertension) Assessment/Plan: -continue diovan Code(s): I10 - ESSENTIAL (PRIMARY) HYPERTENSION (7) HLD (hyperlipidemia) Assessment/Plan: -continue statin Code(s): E78.5 - HYPERLIPIDEMIA, UNSPECIFIED
[2016-08-10] MEDS: ATORVASTATIN CA 20 MG TABLET (FP) PO SCH (22:59)
[2016-08-11] MEDS: sitaGLIPtin PHOSPHATE 100 MG TABLET (FP) PO SCH (07:05)
[2016-08-11] MEDS: INSULIN SLIDING SCALE (NOVOLOG) 1 VIAL SQ SCH ×4 (07:06→22:12)
[2016-08-11 08:17] LABS: MCH 32.4 pg (25.7-33.7); MCHC 33.1 g/dl (32.0-36.0); MEAN CELL VOLUME 97.9 fl (80-96); MEAN PLT VOLUME 8.1 fl (7.5-11.1); PLATELET COUNT 168 K/MM3 (134-434); RDW 14.3 % (11.6-15.6); WHITE BLOOD COUNT 10.2 K/mm3 (4.0-10.0)
[2016-08-11 08:32] LABS: CALCIUM 8.9 mg/dL (8.5-10.1); COCKROFT - GAULT 65.7135; CREATININE 1.2 mg/dL (0.55-1.02); MAGNESIUM 1.9 mg/dL (1.8-2.4); PHOSPHOROUS 2.7 mg/dL (2.5-4.9)
[2016-08-11] MEDS: REPAGLINIDE 1 MG TABLET PO SCH ×2 (08:40→17:53)
[2016-08-11] MEDS ORDERED: traZODone HCL 50 MG TABLET (FP) ONE (08:41)
[2016-08-11] MEDS: OXYBUTYNIN CHLORIDE 5 MG TABLET PO SCH ×2 (09:18→22:11)
[2016-08-11] MEDS: ESCITALOPRAM OXALATE 10 MG TABLET (FP) PO SCH (09:18)
[2016-08-11] MEDS: DOCUSATE SODIUM 100 MG CAPSULE (FP) PO SCH (09:18)
[2016-08-11] MEDS: LACTOBACILLUS ACIDOPHILUS 1 EACH TAB (FP) PO SCH (09:19)
[2016-08-11] MEDS: CEFTRIAXONE 50 ML IVPB SCH (09:20)
[2016-08-11] MEDS: VALSARTAN 80 MG TABLET (UD) PO SCH (09:20)
[2016-08-11] MEDS: MAGNESIUM OXIDE 400 MG TABLET (FP) PO SCH ×2 (09:20→22:11)
[2016-08-11] MEDS: FENOFIBRIC ACID 135 MG CAP PO SCH (09:20)
[2016-08-11] MEDS: traZODone HCL 100 MG TABLET (FP) PO SCH (09:21)
[2016-08-11] MEDS: SODIUM CHLORIDE 1,000 ML IV SCH ×2 (09:25→12:10)
[2016-08-11 09:39] LABS: METAMYELOCYTE 1 % (0-2); PLATELET ESTIMATE ADEQUATE (NORMAL)
[2016-08-11 09:42] LABS: SMUDGE CELLS MANY
--- NOTE | 2016-08-11 12:12 | PN ---
Progress Note, Physician Chief Complaint: Ms Mckeon says she is feeling a lot better. No cp, sob, n/v. - Current Medication List Current Medications: Active Medications Acetaminophen (Tylenol -) 650 mg PO Q4H PRN PRN Reason: FEVER OR PAIN Atorvastatin Calcium (Lipitor -) 20 mg PO HS [facility] Last Admin: 08/10/16 22:59 Dose: 20 mg Docusate Sodium (Colace -) 100 mg PO DAILY [facility] Last Admin: 08/11/16 09:18 Dose: 100 mg Escitalopram Oxalate (Lexapro -) 10 mg PO DAILY [facility] Last Admin: 08/11/16 09:18 Dose: 10 mg Fenofibric Acid (Trilipix -) 135 mg PO DAILY [facility] Last Admin: 08/11/16 09:20 Dose: 135 mg Sodium Chloride (Normal Saline -) 1,000 mls @ 42 mls/hr IV ASDIR [facility] Last Admin: 08/11/16 09:25 Dose: 42 mls/hr Ceftriaxone Sodium (Rocephin 1gm Ivpb (Pre-Docked)) 50 mls @ 100 mls/hr IVPB DAILY [facility] Last Admin: 08/11/16 09:20 Dose: 100 mls/hr Insulin Aspart (Novolog Vial Sliding Scale -) 0 vial SQ ACHS MEG PRN Reason: Protocol Last Admin: 08/11/16 07:06 Dose: 3 units Lactobacillus Acidophilus (Bacid -) 1 tab PO DAILY [facility] Last Admin: 08/11/16 09:19 Dose: 1 tab Magnesium Oxide (Mag-Ox -) 400 mg PO BID [facility] Last Admin: 08/11/16 09:20 Dose: 400 mg Ondansetron HCl (Zofran Injection) 4 mg IVPB Q6H PRN PRN Reason: NAUSEA Oxybutynin Chloride (Ditropan -) 5 mg PO BID [facility] Last Admin: 08/11/16 09:18 Dose: 5 mg Repaglinide (Prandin -) 2 mg PO BIDWM [facility] Last Admin: 08/11/16 08:40 Dose: 2 mg Sitagliptin Phosphate (Januvia -) 100 mg PO DAILY@0700 [facility] Last Admin: 08/11/16 07:05 Dose: 100 mg Trazodone HCl (Desyrel -) 100 mg PO DAILY [facility] Last Admin: 08/11/16 09:21 Dose: 100 mg Valsartan (Diovan -) 80 mg PO DAILY [facility] Last Admin: 08/11/16 09:20 Dose: 80 mg Warfarin Sodium (Coumadin -) 4 mg PO DAILY@1800 [facility] - Objective Vital Signs: Vital Signs Temperature 98.5 F 08/11/16 06:00 Pulse Rate 76 08/11/16 06:00 Respiratory Rate 20 08/11/16 06:00 Blood Pressure 125/74 08/11/16 06:00 O2 Sat by Pulse Oximetry (%) 98 08/10/16 21:00 Constitutional: Yes: Well Nourished, No Distress, Calm Cardiovascular: Yes: Regular Rate and Rhythm. No: Gallop, Murmur, Rub Respiratory: Yes: Regular, CTA Bilaterally. No: Rales, Rhonchi, Wheezes Gastrointestinal: Yes: Normal Bowel Sounds, Soft. No: Distention, Tenderness Extremities: Yes: WNL Edema: No Labs: CBC, BMP 08/11/16 07:00 08/11/16 07:30 INR, PTT INR 1.20 (0.82-1.09) H 08/10/16 06:52 Problem List - Problems (1) Urinary tract infection Code(s): N39.0 - URINARY TRACT INFECTION, SITE NOT SPECIFIED Qualifiers: Urinary tract infection type: acute cystitis Hematuria presence: with hematuria Qualified Code(s): N30.01 - Acute cystitis with hematuria (2) Hematuria Code(s): R31.9 - HEMATURIA, UNSPECIFIED (3) Diabetes Code(s): E11.9 - TYPE 2 DIABETES MELLITUS WITHOUT COMPLICATIONS Qualifiers: Diabetes mellitus type: type 2 Diabetes mellitus complication status: with unspecified complications Diabetes mellitus skilled nursing insulin use: without skilled nursing use Qualified Code(s): E11.8 - Type 2 diabetes mellitus with unspecified complications; Z79.4 - extermination supervisor (current) use of insulin (4) Afib Code(s): I48.91 - UNSPECIFIED ATRIAL FIBRILLATION Qualifiers: Atrial fibrillation type: chronic Qualified Code(s): I48.2 - Chronic atrial fibrillation (5) Anemia Code(s): D64.9 - ANEMIA, UNSPECIFIED (6) HTN (hypertension) Code(s): I10 - ESSENTIAL (PRIMARY) HYPERTENSION (7) HLD (hyperlipidemia) Code(s): E78.5 - HYPERLIPIDEMIA, UNSPECIFIED Assessment/Plan (1) Urinary tract infection Assessment/Plan: -urinalysis positive for UTI -urine culture growing proteus and e. coli, both sensitive to rocephin -continue rocephin day 5 Code(s): N39.0 - URINARY TRACT INFECTION, SITE NOT SPECIFIED Qualifiers: Urinary tract infection type: acute cystitis Hematuria presence: with hematuria Qualified Code(s): N30.01 - Acute cystitis with hematuria (2) Hematuria Assessment/Plan: -well d/w urology if planning on cystoscopy as inpatient vs outpatient Code(s): R31.9 - HEMATURIA, UNSPECIFIED (3) Diabetes Assessment/Plan: -diabetic diet -continue outpatient regimen -FSBS and SSI Code(s): E11.9 - TYPE 2 DIABETES MELLITUS WITHOUT COMPLICATIONS Qualifiers: Diabetes mellitus type: type 2 Diabetes mellitus complication status: with unspecified complications Diabetes mellitus skilled nursing insulin use: without manager long term care use Qualified Code(s): E11.8 - Type 2 diabetes mellitus with unspecified complications; Z79.4 - extermination supervisor (current) use of insulin (4) Afib Assessment/Plan: -rate controlled -will restart coumadin unless planning for cystoscopy as an inpatient Code(s): I48.91 - UNSPECIFIED ATRIAL FIBRILLATION Qualifiers: Atrial fibrillation type: chronic Qualified Code(s): I48.2 - Chronic atrial fibrillation (5) Anemia Assessment/Plan: -stable -monitor Code(s): D64.9 - ANEMIA, UNSPECIFIED (6) HTN (hypertension) Assessment/Plan: -continue diovan Code(s): I10 - ESSENTIAL (PRIMARY) HYPERTENSION (7) HLD (hyperlipidemia) Assessment/Plan: -continue statin Code(s): E78.5 - HYPERLIPIDEMIA, UNSPECIFIED Dispo -possible discharge tomorrow
[2016-08-11] MEDS ORDERED: WARFARIN NA 2 MG TABLET (UD) PO SCH (18:00)
[2016-08-11 18:23] LABS: INR 1.1 (0.82-1.09); PROTHROMBIN TIME (PATIENT) 12.1 SEC (9.98-11.88)
[2016-08-11] MEDS: ATORVASTATIN CA 20 MG TABLET (FP) PO SCH (22:11)
[2016-08-12] MEDS: sitaGLIPtin PHOSPHATE 100 MG TABLET (FP) PO SCH (06:34)
[2016-08-12] MEDS: INSULIN SLIDING SCALE (NOVOLOG) 1 VIAL SQ SCH ×2 (06:36→11:50)
[2016-08-12 07:39] LABS: MCH 32.8 pg (25.7-33.7); MCHC 33.5 g/dl (32.0-36.0); MEAN PLT VOLUME 8.1 fl (7.5-11.1); PLATELET COUNT 179 K/MM3 (134-434); RDW 14.6 % (11.6-15.6); WHITE BLOOD COUNT 10.9 K/mm3 (4.0-10.0)
[2016-08-12 07:44] LABS: INR 1.08 (0.82-1.09); PROTHROMBIN TIME (PATIENT) 11.9 SEC (9.98-11.88)
[2016-08-12 08:00] LABS: CALCIUM 9.4 mg/dL (8.5-10.1)
[2016-08-12 08:01] LABS: COCKROFT - GAULT 65.7135; CREATININE 1.2 mg/dL (0.55-1.02)
[2016-08-12] MEDS ORDERED: traZODone HCL 50 MG TABLET (FP) ONE (09:09)
[2016-08-12 09:14] LABS: HYPOCHROMIA 1+; PLATELET ESTIMATE ADEQUATE (NORMAL); POLYCHROMASIA FEW
[2016-08-12 09:15] LABS: SMUDGE CELLS FEW
[2016-08-12] MEDS: SODIUM CHLORIDE 1,000 ML IV SCH (10:38)
[2016-08-12] MEDS: CEFTRIAXONE 50 ML IVPB SCH (10:38)
[2016-08-12] MEDS: OXYBUTYNIN CHLORIDE 5 MG TABLET PO SCH (10:40)
[2016-08-12] MEDS: VALSARTAN 80 MG TABLET (UD) PO SCH (10:40)
[2016-08-12] MEDS: MAGNESIUM OXIDE 400 MG TABLET (FP) PO SCH (10:40)
[2016-08-12] MEDS: DOCUSATE SODIUM 100 MG CAPSULE (FP) PO SCH (10:40)
[2016-08-12] MEDS: LACTOBACILLUS ACIDOPHILUS 1 EACH TAB (FP) PO SCH (10:40)
[2016-08-12] MEDS: ESCITALOPRAM OXALATE 10 MG TABLET (FP) PO SCH (10:40)
[2016-08-12] MEDS: REPAGLINIDE 1 MG TABLET PO SCH (10:41)
[2016-08-12] MEDS: traZODone HCL 100 MG TABLET (FP) PO SCH (10:41)
--- NOTE | 2016-08-12 12:29 | DS ---
Physical Examination Vital Signs: Vital Signs Temperature 98.3 F 08/12/16 10:00 Pulse Rate 74 08/12/16 10:00 Respiratory Rate 18 08/12/16 10:00 Blood Pressure 154/84 08/12/16 10:00 O2 Sat by Pulse Oximetry (%) 98 08/11/16 21:00 Constitutional: Yes: Well Nourished, No Distress, Calm Cardiovascular: Yes: Regular Rate and Rhythm. No: Gallop, Murmur, Rub Respiratory: Yes: Regular, CTA Bilaterally. No: Rales, Rhonchi, Wheezes Gastrointestinal: Yes: Normal Bowel Sounds, Soft. No: Distention, Tenderness Extremities: Yes: WNL Edema: No Labs: CBC, BMP 08/12/16 06:45 08/12/16 06:45 Discharge Summary Reason For Visit: HEMATURIA, ELEVATED INR, ABDOMINAL PAIN Current Active Problems Abdominal pain (Acute) Anemia (Acute) Elevated INR (Acute) HLD (hyperlipidemia) (Acute) HTN (hypertension) (Acute) Hematuria (Acute) Hospital Course: (1) Urinary tract infection Code(s): N39.0 - URINARY TRACT INFECTION, SITE NOT SPECIFIED Qualifiers: Urinary tract infection type: acute cystitis Hematuria presence: with hematuria Qualified Code(s): N30.01 - Acute cystitis with hematuria (2) Hematuria Code(s): R31.9 - HEMATURIA, UNSPECIFIED (3) Diabetes Code(s): E11.9 - TYPE 2 DIABETES MELLITUS WITHOUT COMPLICATIONS Qualifiers: Diabetes mellitus type: type 2 Diabetes mellitus complication status: with unspecified complications Diabetes mellitus continuous churn buttermaker insulin use: without continuous churn buttermaker use Qualified Code(s): E11.8 - Type 2 diabetes mellitus with unspecified complications; Z79.4 - correction (current) use of insulin (4) Afib Code(s): I48.91 - UNSPECIFIED ATRIAL FIBRILLATION Qualifiers: Atrial fibrillation type: chronic Qualified Code(s): I48.2 - Chronic atrial fibrillation (5) Anemia Code(s): D64.9 - ANEMIA, UNSPECIFIED (6) HTN (hypertension) Code(s): I10 - ESSENTIAL (PRIMARY) HYPERTENSION (7) HLD (hyperlipidemia) Code(s): E78.5 - HYPERLIPIDEMIA, UNSPECIFIED Ms Mckeon is a 65 year old female who was sent in with hematuria and supratherapeutic INR. She was admitted to the hospital and found to have a UTI. She finished a course of antibiotics and her hematuria resolved. She was seen by urology and plans for outpatient cystoscopy if hematuria recurred. Most likely cause is UTI with supratherapeutic INR. She can restart her coumadin and is safe for discharge home. 32 minutes spent in preparation of this discharge Condition: Good - Instructions Diet, Activity, Other Instructions: diabetic diet. Up with assistance, further activity per PT Referrals: Clyde Negron MD [Primary Care Provider] - Riki Mccartney MD [Staff Physician] - Disposition: [facility] - Home Medications Comprehensive Discharge Medication List: Ambulatory Orders Atorvastatin Ca [Lipitor] 20 mg PO HS 04/11/15 Fenofibrate Nanocrystallized [Fenofibrate] 145 mg PO DAILY 04/11/15 Acetaminophen [Tylenol] 650 mg PO PRN 08/07/16 Docusate Sodium [Colace -] 100 mg PO DAILY 08/07/16 Escitalopram Oxalate [Lexapro -] 10 mg PO DAILY 08/07/16 Insulin Sliding Scale [Novolog Vial Sliding Scale -] 0 units SQ TIDAC 08/07/16 Oxybutynin Chloride 5 mg PO BID 08/07/16 Repaglinide 2 mg PO BID 08/07/16 Saxagliptin HCl [Onglyza] 5 mg PO DAILY 08/07/16 Saxagliptin HCl [Onglyza] 5 mg PO DAILY 08/07/16 Trazodone HCl 100 mg PO DAILY 08/07/16 Valsartan 80 mg PO DAILY 08/07/16 Warfarin Sodium [Coumadin] 4 mg PO HS 08/07/16
[2016-08-12] MEDS: FENOFIBRIC ACID 135 MG CAP PO SCH (13:53)
[2016-08-12 14:00] VITALS: BP 111/62; PULSE 72; TEMP 97.8
== END 2016-08-12 16:40 | DRG 813 ==
LOC: JER 04:04 → JERBED 07:05 → OBSVTOIN 10:17 → J5S 11:25
PROVIDERS: ADMIT Internal Medicine Geriatric Medicine; ATTEND Internal Medicine Geriatric Medicine
DX: D68.32 Hemorrhagic disorder due to extrinsic circulating anticoagulants (principal); N39.0 Urinary tract infection, site not specified; E11.9 Type 2 diabetes mellitus without complications; T45.515A Adverse effect of anticoagulants, initial encounter; I48.2 Chronic atrial fibrillation; D64.9 Anemia, unspecified; I10 Essential (primary) hypertension; E78.5 Hyperlipidemia, unspecified; Z79.4 Long term (current) use of insulin; Z88.0 Allergy status to penicillin; Z89.429 Acquired absence of other toe(s), unspecified side; Z79.01 Long term (current) use of anticoagulants
CPT/HCPCS: 36415; 71010-TC; 80048; 80053; 81003; 81015; 82272; 83735; 84100; 85025; 85610; 86850; 86900; 86901; 87086; 87186; 93005; 93010; 94010; 97116-GP; 97161-GP; 99283-25; G0378

== ENCOUNTER 2016-09-14 12:50 | Emergency (ER) | payer OTHER ==
--- NOTE | 2016-09-14 13:08 | PDOC ---
History of Present Illness - General Chief Complaint: Injury Stated Complaint: FALL Time Seen by Provider: 09/14/16 13:06 Past History - Past Medical History Allergies/Adverse Reactions: Allergies Allergy/AdvReac Type Severity Reaction Status Date / Time Sulfa (Sulfonamide Allergy Unknown Verified 08/07/16 04:08 Antibiotics) Penicillins Allergy Verified 08/07/16 04:08 Home Medications: Ambulatory Orders Atorvastatin Ca [Lipitor] 20 mg PO HS 04/11/15 Fenofibrate Nanocrystallized [Fenofibrate] 145 mg PO DAILY 04/11/15 Acetaminophen [Tylenol] 650 mg PO PRN 08/07/16 Docusate Sodium [Colace -] 100 mg PO DAILY 08/07/16 Escitalopram Oxalate [Lexapro -] 10 mg PO DAILY 08/07/16 Insulin Sliding Scale [Novolog Vial Sliding Scale -] 0 units SQ TIDAC 08/07/16 Oxybutynin Chloride 5 mg PO BID 08/07/16 Repaglinide 2 mg PO BID 08/07/16 Saxagliptin HCl [Onglyza] 5 mg PO DAILY 08/07/16 Saxagliptin HCl [Onglyza] 5 mg PO DAILY 08/07/16 Trazodone HCl 100 mg PO DAILY 08/07/16 Valsartan 80 mg PO DAILY 08/07/16 Warfarin Sodium [Coumadin] 4 mg PO HS 08/07/16 Cardiac Disorders: Yes (A FIB) Diabetes: Yes HTN: Yes Hypercholesterolemia: Yes Psychiatric Problems: Yes (depression) - Surgical History Abdominal Surgery: No Appendectomy: No Cardiac Surgery: No Cholecystectomy: No Lung Surgery: No Neurologic Surgery: No Orthopedic Surgery: Yes - Immunization History Immunization Up to Date: (PT NOT CLEAR ON STATUS) - Psycho/Social/Smoking Cessation Hx Anxiety: No Suicidal Ideation: No Smoking Status: No Smoking History: Never smoked Years of Tobacco Use: 0 Have you smoked in the past 12 months: No Number of Cigarettes Smoked Daily: 0 Cigars Per Day: 0 Hx Alcohol Use: No Drug/Substance Use Hx: No Substance Use Type: None Hx Substance Use Treatment: No
--- NOTE | 2016-09-14 13:08 | PDOC ---
History of Present Illness - General History Source: Patient Exam Limitations: No Limitations - History of Present Illness Initial Comments: CHIEF COMPLAINT: 64 y/o afebrile female with PMH HTN, DM, HLD sent in from [facility] after unwitnessed fall this morning. HISTORY OF PRESENT ILLNESS: The patient states while eating breakfast she slipped off of the bed and admits hitting her head. She is on coumadin. She also admits that both of her hips are sore. She denies LOC, bleeding from ears/ nose, f/c, n/v/d, CP, SOB, abd pain, back pain, numbness/tingling in extremities. Vital signs on arrival are within normal limits. REVIEW OF SYSTEMS: GENERAL/CONSTITUTIONAL: No fever/chills. No weakness. No weight change. HEAD, EYES, EARS, NOSE AND THROAT: No change in vision. No ear pain or discharge. No sore throat. CARDIOVASCULAR: No chest pain or shortness of breath. RESPIRATORY: No cough, wheezing, or hemoptysis. GASTROINTESTINAL: No abd pain, nausea, vomiting, diarrhea. GENITOURINARY: No dysuria, frequency, or change in urination. MUSCULOSKELETAL: No joint or muscle swelling or pain. No neck or back pain. SKIN: No rash or easy bruising. NEUROLOGIC: +head trauma. No headache, vertigo, loss of consciousness, or loss of sensation. PHYSICAL EXAM: GENERAL: The patient is awake, alert, sometimes confused (this is her baseline) , in NAD or obvious discomfort. HEAD: Normal with no signs of trauma. No hematomas. Shaved area on top of head with healing psoriasis NECK: No midline cervical spine TTP or step offs. ENT: Pupils equal, round and reactive to light, extraocular movements intact, sclera anicteric. Conjunctivitis in right eye (currently being treated) LUNGS: Clear to auscultation bilaterally. Normal excursion. No respiratory distress or use of accessory muscles. CV: RRR, S1/S2, no MRG. Cap refill < 2 sec. ABDOMEN: Soft, non-distended, non-tender even to deep palpation, no hepatomegaly or splenomegaly, no masses. BACK: No midline thoracic or lumbar spine TTP or step offs. EXTREMITIES: Normal range of motion, no edema. NEUROLOGICAL: Normal speech. CN II-XII grossly intact. PSYCH: Normal mood, normal affect. SKIN: Warm, dry, normal turgor, no rashes or lesions noted. <YamileMaria Luz ken - Last Filed: 09/14/16 15:08> <Carlin Luther - Last Filed: 09/15/16 09:53> - General Chief Complaint: Injury Stated Complaint: FALL Time Seen by Provider: 09/14/16 13:06 Past History - Past Medical History Cardiac Disorders: Yes (A FIB) Diabetes: Yes HTN: Yes Hypercholesterolemia: Yes Psychiatric Problems: Yes (depression) - Surgical History Abdominal Surgery: No Appendectomy: No Cardiac Surgery: No Cholecystectomy: No Lung Surgery: No Neurologic Surgery: No Orthopedic Surgery: Yes - Immunization History Immunization Up to Date: (PT NOT CLEAR ON STATUS) - Psycho/Social/Smoking Cessation Hx Anxiety: No Suicidal Ideation: No Smoking Status: No Smoking History: Never smoked Years of Tobacco Use: 0 Have you smoked in the past 12 months: No Number of Cigarettes Smoked Daily: 0 Cigars Per Day: 0 Hx Alcohol Use: No Drug/Substance Use Hx: No Substance Use Type: None Hx Substance Use Treatment: No <Maria Luz Rodriguez - Last Filed: 09/14/16 15:08> <Carlin Luther - Last Filed: 09/15/16 09:53> - Past Medical History Allergies/Adverse Reactions: Allergies Allergy/AdvReac Type Severity Reaction Status Date / Time Sulfa (Sulfonamide Allergy Unknown Verified 09/14/16 13:26 Antibiotics) Penicillins Allergy Verified 09/14/16 13:26 Home Medications: Ambulatory Orders Atorvastatin Ca [Lipitor] 20 mg PO HS 04/11/15 Acetaminophen [Tylenol] 650 mg PO PRN 08/07/16 Docusate Sodium [Colace -] 100 mg PO DAILY 08/07/16 Escitalopram Oxalate [Lexapro -] 10 mg PO DAILY 08/07/16 Insulin Sliding Scale [Novolog Vial Sliding Scale -] 0 units SQ TIDAC 08/07/16 Oxybutynin Chloride 5 mg PO BID 08/07/16 Repaglinide 2 mg PO BID 08/07/16 Trazodone HCl 100 mg PO DAILY 08/07/16 Valsartan 80 mg PO DAILY 08/07/16 Warfarin Sodium [Coumadin] 5 mg PO HS 08/07/16 Lactobacillus Acidophilus [Bacid -] 1 each PO DAILY 09/14/16 Lofibra 160 mg PO DAILY 09/14/16 Magnesium Oxide 400 mg PO BID 09/14/16 Sitagliptin Phosphate [Januvia] 100 mg PO DAILY 09/14/16 *Physical Exam - Vital Signs Last Vital Signs Temp Pulse Resp BP Pulse Ox 98.1 F 69 20 112/63 98 09/14/16 13:05 09/14/16 15:34 09/14/16 15:34 09/14/16 15:34 09/14/16 13:05 <Carlin Luther - Last Filed: 09/15/16 09:53> Medical Decision Making - Medical Decision Making A/P: 65 y/o afebrile female with unwitnessed fall and reported head trauma this morning. Plan is as follows: 1. Head CT 2. B/l hip and pelvis xrays Head CT IMPRESSION: No evidence of acute intracranial hemorrhage, edema, midline shift , mass effect, or skull fracture. No CT evidence of acute territorial ischemic changes. Hip/pelvis xray b/l IMPRESSION: No acute fracture The patient was given all of her results. Will discharge back to [facility]. <Maria Luz Rodriguez - Last Filed: 09/14/16 15:08> - Medical Decision Making The patient was seen and evaluated in conjunction with MAHAMED Rodriguez under my direct supervision, ancillary studies were reviewed. I agree with the plan as outlined by MAHAMED Rodriguez . <Carlin Luther - Last Filed: 09/15/16 09:53> *DC/Admit/Observation/Transfer <Maria Luz Rodriguez - Last Filed: 09/14/16 15:08> <Carlin Luther - Last Filed: 09/15/16 09:53> Diagnosis at time of Disposition: Hip pain, bilateral Fall Qualifiers: Encounter type: initial encounter Qualified Code(s): W19.XXXA - Unspecified fall, initial encounter Head trauma Qualifiers: Encounter type: initial encounter Qualified Code(s): S09.90XA - Unspecified injury of head, initial encounter - Discharge Dispostion Disposition: LONGTERM FACILITY Condition at time of disposition: Good - Referrals Referrals: Clyde Negron MD [Primary Care Provider] - - Patient Instructions Printed Discharge Instructions: DI for Closed Head Injury, Help for Hip Pain Additional Instructions: Discharge Instructions: -The CT scan of your head was normal -The xrays of your pelvic and hip bones were normal -Please return to the ER with any worsening or concerning symptoms
[2016-09-14 13:11] VITALS: TEMP 98.1; BMI 31.0
[2016-09-14 15:35] VITALS: BP 112/63; PULSE 69
== END 2016-09-14 16:21 ==
LOC: JER 12:50
DX: M25.552 Pain in left hip (principal); M25.551 Pain in right hip; W06.XXXA Fall from bed, initial encounter; Y93.89 Activity, other specified; Y92.129 Unspecified place in nursing home as the place of occurrence of the external cause; I48.91 Unspecified atrial fibrillation; E11.9 Type 2 diabetes mellitus without complications; I10 Essential (primary) hypertension; E78.00 Pure hypercholesterolemia, unspecified; F32.9 Major depressive disorder, single episode, unspecified; Z79.01 Long term (current) use of anticoagulants
CPT/HCPCS: 70450-TC; 73523-TC; 99282-25

== ENCOUNTER 2017-05-04 20:40 | Inpatient (IN) | payer OTHER ==
[2017-05-04 20:57] VITALS: BMI 26.5
--- NOTE | 2017-05-04 21:09 | PDOC ---
History of Present Illness - General Chief Complaint: Coffee Ground Emesis Stated Complaint: POSSIBLE GI BLEED Time Seen by Provider: 05/04/17 20:47 History Source: Patient Exam Limitations: No Limitations - History of Present Illness Travel History: No Initial Comments: 05/04/17 21:10 65y from [facility] with hx of dm, htn, hl, on coumadin, presents with complaint of coffee ground emesis. Pt states she had a couple of episodes of vomiting today that was dark in color, but she didnt have her glassess so couldnt see it cleraly, but does ont think it looked red. pt also recalls having a few episodes of dark color stool without blood. pt denies any abdominal pain but notes it feels 'gassy'. denies any chest pain, sob, headache, lightheadedness. denies any nausa currently. pt states she has ahisotory of bleeding bu tis not sure if itwas GIB or vag bleeing in the past. Past History - Past Medical History Allergies/Adverse Reactions: Allergies Allergy/AdvReac Type Severity Reaction Status Date / Time Sulfa (Sulfonamide Allergy Unknown Verified 05/04/17 21:52 Antibiotics) Penicillins Allergy Verified 05/04/17 21:52 Home Medications: Ambulatory Orders Atorvastatin Ca [Lipitor] 20 mg PO HS 04/11/15 Acetaminophen [Tylenol] 650 mg PO PRN 08/07/16 Docusate Sodium [Colace -] 100 mg PO DAILY 08/07/16 Escitalopram Oxalate [Lexapro -] 10 mg PO DAILY 08/07/16 Insulin Sliding Scale [Novolog Vial Sliding Scale -] 0 units SQ TIDAC 08/07/16 Oxybutynin Chloride 5 mg PO BID 08/07/16 Repaglinide 2 mg PO BID 08/07/16 Trazodone HCl 100 mg PO DAILY 08/07/16 Valsartan 80 mg PO DAILY 08/07/16 Warfarin Sodium [Coumadin] 5 mg PO HS 08/07/16 Lactobacillus Acidophilus [Bacid -] 1 each PO DAILY 09/14/16 Lofibra 160 mg PO DAILY 09/14/16 Magnesium Oxide 400 mg PO BID 09/14/16 Sitagliptin Phosphate [Januvia] 100 mg PO DAILY 09/14/16 Cardiac Disorders: Yes (A FIB) Diabetes: Yes Disorders: Yes (chronic obstructive pylonephritis) HTN: Yes Hypercholesterolemia: Yes Psychiatric Problems: Yes (depression) - Surgical History Abdominal Surgery: No Appendectomy: No Cardiac Surgery: No Cholecystectomy: No Lung Surgery: No Neurologic Surgery: No Orthopedic Surgery: Yes - Immunization History Immunization Up to Date: (PT NOT CLEAR ON STATUS) - Suicide/Smoking/Psychosocial Hx Smoking Status: No Smoking History: Unknown if ever smoked Years of Tobacco Use: 0 Have you smoked in the past 12 months: No Number of Cigarettes Smoked Daily: 0 Cigars Per Day: 0 Information on smoking cessation initiated: No Hx Alcohol Use: No Drug/Substance Use Hx: No Substance Use Type: None Hx Substance Use Treatment: No Review of Systems - Review of Systems Able to Perform ROS?: Yes Comments:: 05/04/17 21:18 All other systems reviewed and are negative except noted in HPI *Physical Exam - Vital Signs Last Vital Signs Temp Pulse Resp BP Pulse Ox 97.4 F L 82 18 112/58 96 05/04/17 20:55 05/04/17 20:55 05/04/17 20:55 05/04/17 20:55 05/04/17 20:55 - Physical Exam Comments: 05/04/17 21:18 GENERAL: The patient is awake, alert, Nontoxic - in no acute distress. morbidly obedse HEAD: Normocephalic, atraumatic. EYES: extraocular movements intact, sclera anicteric, conjunctiva clear. ENT: Normal voice, Dry mucous membranes. NECK: Normal range of motion, supple LUNGS: Breath sounds equal, clear to auscultation bilaterally. No wheezes, no rhonchi, no rales. HEART: irregular ABDOMEN: Soft, nontender, slidghtly distended/obese, No guarding, no rebound. no CVA tenderness RECTAL: brown/yellow stool EXTREMITIES: Normal range of motion, no edema. No clubbing or cyanosis. No cords, erythema, or tenderness. NEUROLOGICAL: No facial assymetry, Normal speech, PSYCH: Normal mood, normal affect. SKIN: Warm, Dry, normal turgor, Heart Score/ECG Review - ECG Impressions Comment:: 05/04/17 21:19 Twelve-lead EKG was performed and reviewed by me. There is normal sinus rhythm with a normal rate. rate of 87 1st degere av block lbbb no st changes suggestie of ischemia ED Treatment Course - LABORATORY CBC & Chemistry Diagram: 05/04/17 21:20 05/04/17 21:20 - RADIOLOGY Radiology Studies Ordered: Category Date Time Status CHEST X-RAY PORTABLE* [RAD] Stat Radiology 05/04/17 20:57 Ordered Medical Decision Making - Medical Decision Making 05/04/17 22:05 ddx - GIB, gastritis, pt noted febrile here to 100.9 - sepsis orderset placed will ck labs tylenol for fever will reassess, anticpate admission for concern of GIB 05/05/17 00:08 pts UA cw UTI unclera if pts vomiting was due to GIB vs rection to her UTI but iwll give her dose of protonix will admit for further management 05/05/17 01:[address] polanco agreed with management and admission for UTI and possible hemetemsis Vitals stable stable for med surg Case discussed in detail with admitting physician including history, physical exam and ancillary studies. Admitting physician has assumed care for the patient, will follow all pending diagnostics and will complete the evaluation and treatment. *DC/Admit/Observation/Transfer Diagnosis at time of Disposition: Vomiting Qualifiers: Vomiting type: unspecified Vomiting Intractability: unspecified Nausea presence : with nausea Qualified Code(s): R11.2 - Nausea with vomiting, unspecified Anemia Qualifiers: Anemia type: other cause Other causes of anemia: other cause, not classified Qualified Code(s): D64.89 - Other specified anemias UTI (urinary tract infection) Qualifiers: Urinary tract infection type: site unspecified Hematuria presence: with hematuria Qualified Code(s): N39.0 - Urinary tract infection, site not specified ; R31.9 - Hematuria, unspecified; R31.9 - Hematuria, unspecified Sepsis Qualifiers: Sepsis type: sepsis due to unspecified organism Qualified Code(s): A41.9 - Sepsis, unspecified organism Acute renal failure Qualifiers: Acute renal failure type: unspecified Qualified Code(s): N17.9 - Acute kidney failure, unspecified - Discharge Dispostion Condition at time of disposition: Guarded Admit: Yes - Referrals - Patient Instructions - Post Discharge Activity
[2017-05-04 21:32] LABS: BASO % 0.2 % (0-2.0); EOS % 0.2 % (0-4.5); HEMATOCRIT 24.7 % (32.4-45.2); HEMOGLOBIN 8.1 GM/dL (10.7-15.3); LYMPH % 43.1 % (8-40); MCH 30.9 pg (25.7-33.7); MCHC 32.9 g/dl (32.0-36.0); MEAN CELL VOLUME 93.9 fl (80-96); MEAN PLT VOLUME 7.9 fl (7.5-11.1); MONO % 2.8 % (3.8-10.2); NEUT % 53.7 % (42.8-82.8); PLATELET COUNT 376 K/MM3 (134-434); RBC 2.63 M/mm3 (3.60-5.2); RDW 16.1 % (11.6-15.6); WHITE BLOOD COUNT 12.1 K/mm3 (4.0-10.0)
[2017-05-04] MEDS ORDERED: ACETAMINOPHEN 325 MG TABLET (FP) PO ONE (21:58)
[2017-05-04 22:03] LABS: ALBUMIN 2.5 g/dl (3.4-5.0); ANION GAP 14 (8-16); BILIRUBIN,TOTAL 0.3 mg/dL (0.2-1.0); BLOOD UREA NITROGEN 90 mg/dL (7-18); CALCIUM 7.8 mg/dL (8.5-10.1); CHLORIDE 104 mmol/L (98-107); CO2 16 mmol/L (21-32); CREATININE 4.5 mg/dL (0.55-1.02); GLUCOSE,RANDOM 115 mg/dL (74-106); LIPASE 59 U/L (73-393); POTASSIUM 4.1 mmol/L (3.5-5.1); SGOT/AST 9 U/L (15-37); SGPT/ALT 8 U/L (12-78); SODIUM 134 mmol/L (136-145); TOT PROT 7.2 g/dl (6.4-8.2)
[2017-05-04 22:06] LABS: ALK PHOS 34 U/L (45-117)
[2017-05-04] MEDS ORDERED: ACETAMINOPHEN 325 MG TABLET (FP) ONE (22:07)
[2017-05-04 22:35] LABS: VENOUS PC02 32.9 mmHg (38-52); VENOUS PH 7.34 (7.32-7.42)
[2017-05-04 22:36] LABS: VENOUS PO2 24.3 mmHg (28-48)
[2017-05-04 22:36] LABS: INR 3.65 (0.82-1.09); PROTHROMBIN TIME (PATIENT) 41.3 SEC (9.98-11.88)
[2017-05-04 22:38] LABS: ACTIVATED PTT 42.2 SECONDS (26.9-34.4)
[2017-05-04] MEDS ORDERED: SODIUM CHLORIDE 1,000 ML IV ONE (23:03)
[2017-05-04 23:41] LABS: URINE APPEARANCE TURBID; URINE BILIRUBIN NEGATIVE (NEGATIVE); URINE BLOOD 1+ (NEGATIVE); URINE COLOR YELLOW; URINE GLUCOSE (UA) NEGATIVE (NEGATIVE); URINE KETONE NEGATIVE (NEGATIVE); URINE LEUK ESTERASE 2+ (NEGATIVE); URINE NITRITE NEGATIVE (NEGATIVE); URINE PROTEIN 3+ (NEGATIVE); URINE UROBILINOGEN NEGATIVE mg/dL (0.2-1.0)
[2017-05-04 23:43] LABS: EPI CELLS RARE /HPF (FEW); URINE BACTERIA MODERATE /hpf (NONE SEEN); URINE MUCUS RARE
[2017-05-05] MEDS ORDERED: PANTOPRAZOLE SODIUM 40 MG in SODIUM CHLORIDE 100 ML IVPB ONE (00:08)
[2017-05-05] MEDS ORDERED: PANTOPRAZOLE SODIUM 40 MG VIAL ONE (00:44)
--- NOTE | 2017-05-05 02:46 | HP ---
CHIEF COMPLAINT: coffee ground emesis PCP: Migdalia HISTORY OF PRESENT ILLNESS: This is a 66 year old female with a significant PMH of Afib on coumadin who presented to the ED with a report of coffee ground emesis. On exam pt was sound asleep and had to be awoken and wasn't very communicative. She denies pain or further vomiting. ER course was notable for: (1) Hgb 8.1 (2) WBC 12.1 (3) stool occ blood neg Recent Travel: pt denies PAST MEDICAL HISTORY: DM, HTN, HLD, afib on coumadin, chronic obstructive pyelonephritis, depression PAST SURGICAL HISTORY: none Social History: Smoking: pt denies Alcohol: pt denies Drugs: pt denies Family History: unk Allergies Sulfa (Sulfonamide Antibiotics) Allergy (Unknown, Verified 05/04/17 21:52) Penicillins Allergy (Verified 05/04/17 21:52) HOME MEDICATIONS: 3 Medication Instructions Recorded Atorvastatin Ca [Lipitor] 20 mg PO HS 04/11/15 Acetaminophen [Tylenol] 650 mg PO PRN 08/07/16 Docusate Sodium [Colace -] 100 mg PO DAILY 08/07/16 Escitalopram Oxalate [Lexapro -] 10 mg PO DAILY 08/07/16 Insulin Sliding Scale [Novolog 0 units SQ TIDAC 08/07/16 Vial Sliding Scale -] Oxybutynin Chloride 5 mg PO BID 08/07/16 Repaglinide 2 mg PO BID 08/07/16 Trazodone HCl 100 mg PO DAILY 08/07/16 Valsartan 80 mg PO DAILY 08/07/16 Warfarin Sodium [Coumadin] 5 mg PO HS 08/07/16 Lactobacillus Acidophilus [Bacid -] 1 each PO DAILY 09/14/16 Lofibra 160 mg PO DAILY 09/14/16 Magnesium Oxide 400 mg PO BID 09/14/16 Sitagliptin Phosphate [Januvia] 100 mg PO DAILY 09/14/16 REVIEW OF SYSTEMS CONSTITUTIONAL: Absent: fever, chills, diaphoresis, generalized weakness, malaise, loss of appetite, weight change HEENT: Absent: rhinorrhea, nasal congestion, throat pain, throat swelling, difficulty swallowing, mouth swelling, ear pain, eye pain, visual changes CARDIOVASCULAR: Absent: chest pain, syncope, palpitations, irregular heart rate, lightheadedness , peripheral edema RESPIRATORY: Absent: cough, shortness of breath, dyspnea with exertion, orthopnea, wheezing, stridor, hemoptysis GASTROINTESTINAL: Present: nausea, vomiting, coffee ground emesis Absent: abdominal pain, abdominal distension, diarrhea, constipation, melena, hematochezia GENITOURINARY: Absent: dysuria, frequency, urgency, hesitancy, hematuria, flank pain, genital pain MUSCULOSKELETAL: Absent: myalgia, arthralgia, joint swelling, back pain, neck pain SKIN: Absent: rash, itching, pallor HEMATOLOGIC/IMMUNOLOGIC: Absent: easy bleeding, easy bruising, lymphadenopathy, frequent infections ENDOCRINE: Absent: unexplained weight gain, unexplained weight loss, heat intolerance, cold intolerance NEUROLOGIC: Absent: headache, focal weakness or paresthesias, dizziness, unsteady gait, seizure, mental status changes, bladder or bowel incontinence PSYCHIATRIC: Absent: anxiety, depression, suicidal or homicidal ideation, hallucinations. PHYSICAL EXAMINATION Vital Signs - 24 hr 3 05/04/17 05/04/17 05/05/17 20:55 21:59 02:18 Temperature 97.4 F L 100.9 F H 98.9 F Pulse Rate 82 Pulse Rate [ 89 69 Left Apical] Respiratory 18 19 18 Rate Blood Pressure 112/58 Blood Pressure 110/56 116/72 [Right Arm] O2 Sat by Pulse 96 96 99 Oximetry (%) GENERAL: Awake, alert, and fully oriented, in no acute distress. HEAD: Normal with no signs of trauma. EYES: Pupils equal, round and reactive to light, extraocular movements intact, sclera anicteric, conjunctiva clear. No lid lag. EARS, NOSE, THROAT: Ears normal, nares patent, oropharynx clear without exudates. Moist mucous membranes. NECK: Normal range of motion, supple without lymphadenopathy, JVD, or masses. LUNGS: Breath sounds equal, clear to auscultation bilaterally. No wheezes, and no crackles. No accessory muscle use. HEART: Regular rate and rhythm, normal S1 and S2 without murmur, rub or gallop. ABDOMEN: Soft, nontender, not distended, normoactive bowel sounds, no guarding, no rebound, no masses. No hepatomegaly or splenomegaly. MUSCULOSKELETAL: Normal range of motion at all joints. No bony deformities or tenderness. No CVA tenderness. UPPER EXTREMITIES: 2+ pulses, warm, well-perfused. No cyanosis. No clubbing. No peripheral edema. LOWER EXTREMITIES: 2+ pulses, warm, well-perfused. No calf tenderness. No peripheral edema. NEUROLOGICAL: Cranial nerves II-XII intact. Normal speech. Normal gait. PSYCHIATRIC: Cooperative. Good eye contact. Appropriate mood and affect. SKIN: Warm, dry, normal turgor, no rashes or lesions noted, normal capillary refill. Laboratory Results - last 24 hr 3 05/04/17 05/04/17 05/04/17 21:20 21:20 21:20 WBC 12.1 H RBC 2.63 L Hgb 8.1 L D Hct 24.7 L D MCV 93.9 MCH 30.9 MCHC 32.9 RDW 16.1 H D Plt Count 376 D MPV 7.9 Neutrophils % 53.7 D Lymphocytes % 43.1 H D Monocytes % 2.8 L Eosinophils % 0.2 D Basophils % 0.2 PT with INR INR PTT (Actin FS) VBG pH POC VBG pCO2 POC VBG pO2 Mixed VBG HCO3 Sodium 134 L Potassium 4.1 Chloride 104 Carbon Dioxide 16 L Anion Gap 14 BUN 90 H Creatinine 4.5 H Creat Clearance w eGFR 9.75 Random Glucose 115 H Lactic Acid Calcium 7.8 L Total Bilirubin 0.3 AST 9 L ALT 8 L Alkaline Phosphatase 34 L Creatine Kinase 97 Troponin I < 0.02 Total Protein 7.2 Albumin 2.5 L Lipase 59 L Urine Color Urine Appearance Urine pH Ur Specific Farner Urine Protein Urine Glucose (UA) Urine Ketones Urine Blood Urine Nitrite Urine Bilirubin Urine Urobilinogen Ur Leukocyte Esterase Urine WBC (Auto) Urine RBC (Auto) Ur Epithelial Cells Urine Bacteria Urine Mucus Stool Occult Blood Blood Type O POSITIVE Antibody Screen Negative 3 05/04/17 05/04/17 05/04/17 21:30 22:11 22:15 WBC RBC Hgb Hct MCV MCH MCHC RDW Plt Count MPV Neutrophils % Lymphocytes % Monocytes % Eosinophils % Basophils % PT with INR 41.30 H INR 3.65 H D PTT (Actin FS) 42.2 H VBG pH 7.34 POC VBG pCO2 32.9 L POC VBG pO2 24.3 L Mixed VBG HCO3 17.2 L Sodium Potassium Chloride Carbon Dioxide Anion Gap BUN Creatinine Creat Clearance w eGFR Random Glucose Lactic Acid 0.6 Calcium Total Bilirubin AST ALT Alkaline Phosphatase Creatine Kinase Troponin I Total Protein Albumin Lipase Urine Color Urine Appearance Urine pH Ur Specific Farner Urine Protein Urine Glucose (UA) Urine Ketones Urine Blood Urine Nitrite Urine Bilirubin Urine Urobilinogen Ur Leukocyte Esterase Urine WBC (Auto) Urine RBC (Auto) Ur Epithelial Cells Urine Bacteria Urine Mucus Stool Occult Blood Negative Blood Type Antibody Screen 3 Urine Color Yellow 05/04/17 23:30 Urine Appearance Turbid 05/04/17 23:30 Urine pH 8.0 (5.0-8.0) 05/04/17 23:30 Ur Specific Farner 1.010 (1.001-1.035) 05/04/17 23:30 Urine Protein 3+ (NEGATIVE) H 05/04/17 23:30 Urine Glucose (UA) Negative (NEGATIVE) 05/04/17 23:30 Urine Ketones Negative (NEGATIVE) 05/04/17 23:30 Urine Blood 1+ (NEGATIVE) H 05/04/17 23:30 Urine Nitrite Negative (NEGATIVE) 05/04/17 23:30 Urine Bilirubin Negative (NEGATIVE) 05/04/17 23:30 Ur Leukocyte Esterase 2+ (NEGATIVE) H 05/04/17 23:30 Ur Epithelial Cells Rare /HPF (FEW) 05/04/17 23:30 Urine WBC (Auto) 645 05/04/17 23:30 Urine RBC (Auto) 43 05/04/17 23:30 Ur Epithelial Cells Rare 05/04/17 23:30 Urine Bacteria Moderate /hpf (NONE SEEN) 05/04/17 23:30 Urine Mucus Rare 05/04/17 23:30 ECG Sinus rhythm with 1st degree AV block vent rate 87, QTC 539 LBBB ASSESSMENT/PLAN: 66yF with PMH DM, HTN, HLD, afib on coumadin, chronic obstructive pyelonephritis , depression presented to the ED with coffee ground emesis. Coffee ground emesis - guaiac negative - trend H/H - consider Gi consult - NPO Acute kidney failure - Cr 4.5 up from 1.2 - will need renal consult, defer to PCP - gentle IV hydration NS @75cc/hr UTI - given levaquin in the ED, will change to ceftriaxone as previous culture organism resistant to levaquin HTN - cont home meds Afib - hold warfarin DM - home lantus changed to levemir depression - cont home meds DVT PPX - Hold coumadin, inr elevated FEN - NS @ 75cc/hr - BMP in am - NPO Dispo: pt currently requires inpatient management of her emergent conditions. Visit type - Emergency Visit Emergency Visit: Yes ED Registration Date: 05/04/17 Care time: The patient presented to the Emergency Department on the above date and was hospitalized for further evaluation of their emergent condition. - New Patient This patient is new to me today: Yes Date on this admission: 05/05/17 - Critical Care Critical Care patient: No Hospitalist Screening - Colonoscopy Questionnaire Colonoscopy Questionnaire: Colonoscopy Questionnaire - Patient: 50 - 75 years old and never had a screening colonoscopy: Unknown History of colon or rectal polyps, or CA: Unknown History of IBD, Crohn's disease or UC: Unknown History of abdominal radiation therapy as a child: Unknown - Relative: 1 with colon or rectal CA, or polyps at age 60 or younger: Unknown Colon or rectal CA diagnosed at age 45 or younger: Unknown Multiple relatives with colon or rectal CA: Unknown - Outcome: Screening Result: Negative Screen
[2017-05-05] MEDS ORDERED: SODIUM CHLORIDE 1,000 ML IV SCH (04:45)
[2017-05-05] MEDS ORDERED: HEPARIN NA (PORCINE) 5,000 UNITS/ML 1ML VIAL SQ SCH (06:00)
[2017-05-05] MEDS ORDERED: DEXTROSE 50%-WATER 25 GM/50 ML DISP.SYRIN IVPUSH ONE (06:00)
[2017-05-05] MEDS: INSULIN DETEMIR 100 UNITS/ML MDV SQ SCH ×2 (06:17→22:25)
[2017-05-05] MEDS: INSULIN SLIDING SCALE (NOVOLOG) 1 VIAL SQ SCH ×3 (06:17→17:19)
[2017-05-05 09:00] LABS: BASO % 0.3 % (0-2.0); EOS % 0.7 % (0-4.5); HEMATOCRIT 23.1 % (32.4-45.2); HEMOGLOBIN 7.6 GM/dL (10.7-15.3); LYMPH % 48.1 % (8-40); MCH 31.1 pg (25.7-33.7); MCHC 32.8 g/dl (32.0-36.0); MEAN CELL VOLUME 94.8 fl (80-96); MEAN PLT VOLUME 8.5 fl (7.5-11.1); MONO % 2.7 % (3.8-10.2); NEUT % 48.2 % (42.8-82.8); PLATELET COUNT 351 K/MM3 (134-434); RBC 2.44 M/mm3 (3.60-5.2); RDW 16.1 % (11.6-15.6); WHITE BLOOD COUNT 11.1 K/mm3 (4.0-10.0)
[2017-05-05 09:18] LABS: ANION GAP 13 (8-16); BLOOD UREA NITROGEN 88 mg/dL (7-18); CALCIUM 7.5 mg/dL (8.5-10.1); CHLORIDE 108 mmol/L (98-107); CO2 15 mmol/L (21-32); GLUCOSE,RANDOM 109 mg/dL (74-106); MAGNESIUM 3.3 mg/dL (1.8-2.4); POTASSIUM 4.2 mmol/L (3.5-5.1); SODIUM 136 mmol/L (136-145)
[2017-05-05 09:21] LABS: CREATININE 4.3 mg/dL (0.55-1.02); PHOSPHOROUS 5.2 mg/dL (2.5-4.9)
--- NOTE | 2017-05-05 09:55 | PN ---
Progress Note, Physician Chief Complaint: No c/o hemetmesis or melena since hospitalization History of Present Illness: 66 yrs old F with H/O HTN, PAfib on AC, HTN, Chronic anemia, Depression, chronic obstructive Pyelonephritis transferred from [facility] after staff noticed brown color vomiting in the Ed stool occult blood -ve. - Current Medication List Current Medications: Active Medications Artificial Tears (Artificial Tears) 1 drop OU BID [facility] Atorvastatin Calcium (Lipitor -) 20 mg PO HS [facility] Cholecalciferol (Vitamin D3 -) 2,000 unit PO DAILY [facility] Citalopram Hydrobromide (Celexa -) 20 mg PO DAILY [facility] Docusate Sodium (Colace -) 100 mg PO DAILY [facility] Fenofibric Acid (Trilipix -) 135 mg PO DAILY [facility] Sodium Chloride (Normal Saline -) 1,000 mls @ 75 mls/hr IV ASDIR [facility] Last Admin: 05/05/17 05:42 Dose: 75 mls/hr CEFTRIAXONE 1 G/50 ML PREMIX (Ceftriaxone 1 Gm-D5w Bag) 50 mls @ 100 mls/hr IVPB HS [facility] Influenza Virus Vaccine Quadrival (Flulaval Quad 9200-9018) 60 mcg IM .ONCE ONE Stop: 05/05/17 10:01 Insulin Aspart (Novolog Vial Sliding Scale -) 1 vial SQ TIDAC [facility] PRN Reason: Protocol Last Admin: 05/05/17 06:17 Dose: Not Given Insulin Detemir (Levemir Vial) 14 units SQ AM [facility] Last Admin: 05/05/17 06:17 Dose: Not Given Insulin Detemir (Levemir Vial) 22 units SQ HS [facility] Lactobacillus Acidophilus (Bacid -) 1 tab PO DAILY [facility] Magnesium Oxide (Mag-Ox -) 400 mg PO BID [facility] Olanzapine (Zyprexa -) 5 mg PO DAILY@1700 [facility] Oxybutynin Chloride (Ditropan -) 5 mg PO BID [facility] Trazodone HCl (Desyrel -) 100 mg PO DAILY [facility] - Objective Vital Signs: Vital Signs Temperature 98.3 F 05/05/17 06:00 Pulse Rate 86 05/05/17 06:00 Respiratory Rate 18 05/05/17 06:00 Blood Pressure 99/49 05/05/17 06:00 O2 Sat by Pulse Oximetry (%) 99 05/05/17 02:18 Elderly F no c/o nausea, vomiting abd distention or melena HEENT: Mm moist, anemia, no JVd No Bruit CHEST: Minimal basal crepts CVS: S1S2 R no m/g/r ABD: obese, non tender Bs + EXT: No lyudmila afeet, no calf tenderness EROSION CONTROL SPECIALIST: Alert but oriented to self moving all extermities Labs: CBC, BMP 05/05/17 08:22 05/05/17 08:22 INR, PTT INR 3.65 (0.82-1.09) H D 05/04/17 22:11 Problem List - Problems (1) Upper GI bleed Assessment/Plan: as per ID chart patient had ?? coffe ground vomiting , no melena base line H/H 9.8/28.3 69/17 last night 8.1/24.7 normocytic am after hydration 7.8/24.7 no active bleeding patient is on coumadin will start PPI, GI Consult F/U serial H/ H Type and screen. Code(s): K92.2 - GASTROINTESTINAL HEMORRHAGE, UNSPECIFIED (2) Anemia Assessment/Plan: Chronic normocytic anemia most likely due to cKD will F/U anemia w/u Sr Iron TIBC B12, Ferritin Code(s): D64.9 - ANEMIA, UNSPECIFIED Qualifiers: Anemia type: other cause Other causes of anemia: other cause, not classified Qualified Code(s): D64.89 - Other specified anemias (3) HTN (hypertension) Code(s): I10 - ESSENTIAL (PRIMARY) HYPERTENSION (4) HTN (hypertension) Assessment/Plan: Cont Home meds Code(s): I10 - ESSENTIAL (PRIMARY) HYPERTENSION (5) ESRD (end stage renal disease) Assessment/Plan: Gradually worsening renal functions from 30/1.2 on 08/12/16 to 91/4.5 documented obstructive Pyelonephritis renal ultrasound and Nephrology consult F/U BMP Code(s): N18.6 - END STAGE RENAL DISEASE (6) Depressed Assessment/Plan: Cont all home meds Code(s): F32.9 - MAJOR DEPRESSIVE DISORDER, SINGLE EPISODE, UNSPECIFIED (7) Elevated INR Assessment/Plan: low dose vit K 2.5 mg F/U INR in am Code(s): R79.1 - ABNORMAL COAGULATION PROFILE (8) Paroxysmal A-fib Assessment/Plan: rate controlled on AC , INR supratherapeutic will add low dose Vit K as admitted with coffe ground emesis with dropping H/H Code(s): I48.0 - PAROXYSMAL ATRIAL FIBRILLATION (9) Urinary tract infection Assessment/Plan: f/u urine culture cont Ceftriaxone Code(s): N39.0 - URINARY TRACT INFECTION, SITE NOT SPECIFIED Qualifiers: Urinary tract infection type: site unspecified Hematuria presence: with hematuria Qualified Code(s): N39.0 - Urinary tract infection, site not specified; R31.9 - Hematuria, unspecified; R31.9 - Hematuria, unspecified
[2017-05-05] MEDS ORDERED: DOCUSATE SODIUM 100 MG CAPSULE (FP) PO SCH (10:00)
[2017-05-05] MEDS ORDERED: FLU VACCINE QUAD 60 MCG/0.5 ML (MDV 17-18) IM ONE (10:00)
--- NOTE | 2017-05-05 10:03 | EKG ---
Test Reason : Blood Pressure : / mmHG Vent. Rate : 087 BPM Atrial Rate : 087 BPM P-R Int : 230 ms QRS Dur : 138 ms QT Int : 448 ms P-R-T Axes : 000 -06 092 degrees QTc Int : 539 ms SINUS RHYTHM WITH 1ST DEGREE A-V BLOCK LEFT BUNDLE BRANCH BLOCK ABNORMAL ECG WHEN COMPARED WITH ECG OF 07-AUG-2016 08:28, NO SIGNIFICANT CHANGE WAS FOUND Confirmed by BRANDAN ORDOÑEZ MD ([id number]) on 05/05/2017 10:03:00 AM Referred By: Confirmed By:BRANDAN ORDOÑEZ MD
[2017-05-05] MEDS ORDERED: PT OWN MED DRAWER 7, Y5N ONE ×2 (10:05→17:15)
[2017-05-05] MEDS: LACTOBACILLUS ACIDOPHILUS 1 CAP PO SCH (10:09)
[2017-05-05] MEDS: ARTIFICIAL TEARS (POLYVINYL ALCOHOL 1.4%) OPTH DROPS OU SCH ×2 (10:09→22:24)
[2017-05-05] MEDS: CITALOPRAM HYDROBROMIDE 20 MG TABLET (FP) PO SCH (10:10)
[2017-05-05] MEDS: traZODone HCL 50 MG TABLET (FP) PO SCH (10:10)
[2017-05-05] MEDS: OXYBUTYNIN CHLORIDE 5 MG TABLET PO SCH ×2 (10:10→22:25)
[2017-05-05] MEDS: CHOLECALCIFEROL (VITAMIN D3) 1,000 UNIT TABLET (FP) PO SCH (10:12)
[2017-05-05] MEDS: MAGNESIUM OXIDE 400 MG TABLET (FP) PO SCH ×2 (10:12→22:26)
[2017-05-05] MEDS: FENOFIBRIC ACID 135 MG CAP PO SCH (10:12)
[2017-05-05 10:55] LABS: PROTHROMBIN TIME (PATIENT) 50.6 SEC (9.98-11.88)
[2017-05-05 11:14] LABS: INR 4.48 (0.82-1.09)
[2017-05-05] MEDS ORDERED: D5-1/2NS+10 MEQ KCL - 10 MEQ/1,000 ML INFUS.BAG IV SCH (12:15)
[2017-05-05] MEDS ORDERED: PHYTONADIONE 10 MG/1 ML AMP IVPB ONE (12:45)
--- NOTE | 2017-05-05 14:59 | CON.GI ---
Consult Consult Specialty:: GI Referred by:: Dr. Jarvis Elise Reason for Consultation:: Coffee ground vomiting - History of Present Illness Chief Complaint: I vomited History of Present Illness: 66F Admitted through [facility] ER for evaluation of coffee ground emesis. There has been no vomiting since admission and she denies any abdominal pain / similar episodes in the past. She has a supratherapeutic INR. She has never had an upper endoiscopy or colonoscopy. There is no family history of colorectal cancer or other GI malignancy. - History Source History Provided By: Patient, Medical Record - Past Medical History Cardio/Vascular: Yes: AFIB Renal/: Yes: Hematuria Psych: Yes: Other (Unspecified Psychiatric Disorder) Musculoskeletal: Yes: Osteoarthritis Endocrine: Yes: Diabetes Mellitus - Past Surgical History Past Surgical History: Yes: None - Alcohol/Substance Use Hx Alcohol Use: No History of Substance Use: reports: None - Smoking History Smoking history: Unknown if ever smoked Have you smoked in the past 12 months: No Aproximately how many cigarettes per day: 0 - Social History Usual Living Arrangement: Alone ADL: Family Assistance 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 History of Recent Travel: No Home Medications - Allergies Allergies/Adverse Reactions: Allergies Allergy/AdvReac Type Severity Reaction Status Date / Time Sulfa (Sulfonamide Allergy Unknown Verified 05/04/17 21:52 Antibiotics) Penicillins Allergy Verified 05/04/17 21:52 - Home Medications Home Medications: Ambulatory Orders Atorvastatin Ca [Lipitor] 20 mg PO HS 04/11/15 Acetaminophen [Tylenol] 650 mg PO PRN 08/07/16 Docusate Sodium [Colace -] 100 mg PO DAILY 08/07/16 Insulin Sliding Scale [Novolog Vial Sliding Scale -] 0 units SQ TIDAC 08/07/16 Oxybutynin Chloride 5 mg PO BID 08/07/16 Trazodone HCl 100 mg PO DAILY 08/07/16 Warfarin Sodium [Coumadin] 3 mg PO HS 08/07/16 Lactobacillus Acidophilus [Bacid -] 1 each PO DAILY 09/14/16 Lofibra 160 mg PO DAILY 09/14/16 Magnesium Oxide 400 mg PO BID 09/14/16 Citalopram Hydrobromide [Citalopram HBr] 20 mg PO DAILY 05/05/17 Ergocalciferol (Vitamin D2) [Vitamin D2] 2,000 unit PO DAILY 05/05/17 Glipizide [Glipizide ER] 2.5 mg PO DAILY 05/05/17 Insulin Glargine,Hum.rec.anlog [Lantus (nf)] units SQ HS 05/05/17 Olanzapine 5 mg PO DAILY@1700 05/05/17 Polyvinyl Alcohol [Artificial Tears] 1 drop OU BID 05/05/17 Saxagliptin HCl [Onglyza] 2.5 mg PO DAILY 05/05/17 Family Disease History - Family Disease History Family Disease History: Diabetes: Grandparent (Grandmother), Other: Father ( , unknown cause), Mother (, unknown cause) Other Family History: No children. No siblings. No family history of colorectal cancer or other GI malignancy Review of Systems - Review of Systems Constitutional: denies: Chills Cardiovascular: denies: Chest Pain Respiratory: denies: Cough Gastrointestinal: reports: Bloating, Constipation, Vomiting. denies: Abdominal Pain, Diarrhea, Melena, Nausea, Rectal Bleeding, Vomiting Blood Physical Exam-GI Vital Signs: Vital Signs Temperature 98.1 F 05/05/17 14:00 Pulse Rate 86 05/05/17 14:00 Respiratory Rate 20 05/05/17 14:00 Blood Pressure 104/44 05/05/17 14:00 O2 Sat by Pulse Oximetry (%) 100 05/05/17 09:00 Constitutional: No: Calm Cardiovascular: Yes: Regular Rate and Rhythm, Murmur Respiratory: Yes: CTA Bilaterally Gastrointestinal Inspection: Yes: Other (softly protuberant) ...Auscultate: Yes: Normoactive Bowel Sounds ...Palpate: Yes: Soft (Protuberant abdomen). No: Hepatomegaly, Splenomegaly ...Percussion: Yes: Tympanitic (Mild central abdominal tympany) ...Rectal Exam: Yes: Other (With chaerpone present: External skin tags. Rectum impacted with a large amount of light brown guaiac negative stool.) Edema: No (No LE edema) Neurological: Yes: Alert, Oriented Labs: CBC, BMP 05/05/17 08:22 05/05/17 08:22 INR, PTT INR 4.48 (0.82-1.09) H* 05/05/17 10:10 Imaging - Results Ultrasound: Report Reviewed (bilateral hydronephrosis) Problem List - Problems (1) Coffee ground emesis Assessment/Plan: No further vomiting Suspect that her vomiting is secondary to her fecal retention / fecal impaction with suspected subsequent obstructive uropathy as opposed to UGIB. She was disimpacted as much as could be reached however I suspect that she will have more proximally impacted stool as well I did discuss the possibility of performing EGD/Colonoscopy on Ms. Li when acute issues are resolved. We discussed potential rirks of the procedure like but not limited to bleeding, perforation, infection, sedation medication effects all of which could be potentially life threatening. She has declined procedures In the interim: CT scan of the abdomen/pelvis with PO contrast to assess fecal retention / hydronephrosis and exclude alternate bowel pathololgy such as SBO Clear liquid diet Protonix 40mg once daily Mineral oil enema daily x 3 days Check TSH MiraLAX 17g PO TID. If not facilitating bowel movements, syeda Code(s): K92.0 - HEMATEMESIS
--- NOTE | 2017-05-05 15:09 | CONSULT ---
Consultation: REQUESTING PROVIDER: Dr. Arik Tesfaye CONSULT REQUEST: We have been asked to medically evaluate this patient for BRYAN. HISTORY OF PRESENT ILLNESS: Patient is a 65 year old female with a PMHx of HTN, HLD, IDDMII, A.fib on Coumadin, Chronic pylenephritis who was sent [facility] after an episode of dark bloody vomiting. Patient is a poor historian and reports that she did not see blood but then reports she had 3 pints of bloody vomitous. Patient reports she is feeling weak and fatigued for the last week. Since admission, patient has not had an episode of vomiting or bloody stool. In the ED, patient was found to have acute kidney injury with a BUN/Cr 90/4.5, UTI, and supratherapeutic INR. Patient otherwise denies fever, chills, nausea, abdominal pain, chest pain, palpitations, headaches, acute vision changes, dysuria, frequency. PMHx: HTN, HLD, IDDMII, A.fib on Coumadin, Depression PSHx: Unknown orthopedic surgery Social: Denies drugs, alcohol, smoking. Lives in [facility] [place]. 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 [place] Allergies: Penicillins and Sulfa drugs REVIEW OF SYSTEMS: CONSTITUTIONAL: generalized weakness Absent: fever, chills, diaphoresis, malaise, loss of appetite, weight change HEENT: Absent: rhinorrhea, nasal congestion, throat pain, throat swelling, difficulty swallowing, mouth swelling, ear pain, eye pain, visual changes CARDIOVASCULAR: Absent: chest pain, syncope, palpitations, irregular heart rate, lightheadedness , peripheral edema RESPIRATORY: shortness of breath Absent: cough, dyspnea with exertion, orthopnea, wheezing, stridor, hemoptysis GASTROINTESTINAL: Absent: abdominal pain, abdominal distension, nausea, vomiting, diarrhea, constipation, melena, hematochezia GENITOURINARY: hematuria Absent: dysuria, frequency, urgency, hesitancy, flank pain, genital pain MUSCULOSKELETAL: Absent: myalgia, arthralgia, joint swelling, back pain, neck pain SKIN: Absent: rash, itching, pallor HEMATOLOGIC/IMMUNOLOGIC: Absent: easy bleeding, easy bruising, lymphadenopathy, frequent infections ENDOCRINE: Absent: unexplained weight gain, unexplained weight loss, heat intolerance, cold intolerance NEUROLOGIC: Absent: headache, focal weakness or paresthesias, dizziness, unsteady gait, seizure, mental status changes, bladder or bowel incontinence PSYCHIATRIC: Absent: anxiety, depression, suicidal or homicidal ideation, hallucinations. PHYSICAL EXAMINATION Vital Signs - 24 hr 05/04/17 05/04/17 05/05/17 20:55 21:59 02:18 Temperature 97.4 F L 100.9 F H 98.9 F Pulse Rate 82 Pulse Rate [ 89 69 Left Apical] Respiratory 18 19 18 Rate Blood Pressure 112/58 Blood Pressure 110/56 116/72 [Right Arm] O2 Sat by Pulse 96 96 99 Oximetry (%) 05/05/17 05/05/17 05/05/17 03:00 04:32 06:00 Temperature 98.8 F 98.8 F 98.3 F Pulse Rate 87 87 86 Pulse Rate [ Left Apical] Respiratory 18 18 18 Rate Blood Pressure 100/52 100/52 99/49 Blood Pressure [Right Arm] O2 Sat by Pulse Oximetry (%) 05/05/17 05/05/17 05/05/17 09:00 09:54 14:00 Temperature 98.1 F Pulse Rate 80 86 Pulse Rate [ Left Apical] Respiratory 20 20 Rate Blood Pressure 96/37 104/44 Blood Pressure [Right Arm] O2 Sat by Pulse 100 Oximetry (%) GENERAL: Awake, alert, and fully oriented, in no acute distress. HEAD: Normal with no signs of trauma. EYES: Pupils equal, round and reactive to light, extraocular movements intact, sclera anicteric, conjunctiva clear. No lid lag. EARS, NOSE, THROAT: Oropharynx clear without exudates. Moist mucous membranes. NECK: Normal range of motion, supple without lymphadenopathy, JVD, or masses. LUNGS: Decreased breath sounds throughout lung bases, No wheezes, and no crackles. No accessory muscle use. HEART: Irregularly irregular rhythm with regular rate, normal S1 and S2 without murmur, rub or gallop. ABDOMEN: Soft, nontender, not distended, hyperactive bowel sounds, no guarding, no rebound, no masses. MUSCULOSKELETAL: No CVA tenderness. UPPER EXTREMITIES: No peripheral edema. LOWER EXTREMITIES: No calf tenderness. Trace pitting edema bilaterally NEUROLOGICAL: Cranial nerves II-XII intact. Normal speech. No facial droop. PSYCHIATRIC: Cooperative. Good eye contact. Appropriate mood and affect. SKIN: Warm, dry, normal turgor, no rashes or lesions noted. Laboratory Results - last 24 hr CBC, BMP 05/05/17 08:22 05/05/17 08:22 Laboratory Tests 05/04/17 05/04/17 05/05/17 21:30 23:30 08:22 INR Calcium 7.5 L Phosphorus 5.2 H Magnesium 3.3 H Urine pH 8.0 Urine Protein 3+ H Urine Blood 1+ H Ur Leukocyte Esterase 2+ H Urine WBC (Auto) 645 Urine RBC (Auto) 43 Urine Bacteria Moderate Stool Occult Blood Negative 05/05/17 10:10 INR 4.48 H* Calcium Phosphorus Magnesium Urine pH Urine Protein Urine Blood Ur Leukocyte Esterase Urine WBC (Auto) Urine RBC (Auto) Urine Bacteria Stool Occult Blood Active Medications Generic Name Dose Route Start Last Admin Trade Name Freq PRN Reason Stop Dose Admin Artificial Tears 1 drop 05/05/17 10:00 05/05/17 10:09 Artificial Tears OU 1 drop BID MEG Administration Atorvastatin Calcium 20 mg 05/05/17 22:00 Lipitor - PO HS MEG Cholecalciferol 2,000 unit 05/05/17 10:00 05/05/17 10:12 Vitamin D3 - PO 2,000 unit DAILY MEG Administration Citalopram Hydrobromide 20 mg 05/05/17 10:00 05/05/17 10:10 Celexa - PO 20 mg DAILY MEG Administration Docusate Sodium 100 mg 05/05/17 10:00 05/05/17 10:10 Colace - PO 100 mg DAILY MEG Administration Fenofibric Acid 135 mg 05/05/17 10:00 05/05/17 10:12 Trilipix - PO 135 mg DAILY MEG Administration CEFTRIAXONE 1 G/50 ML PREMIX 50 mls @ 100 mls/hr 05/05/17 22:00 Ceftriaxone 1 Gm-D5w Bag IVPB HS MEG Ceftriaxone Sodium 1 gm/ 50 mls @ 100 mls/hr 05/06/17 10:00 Dextrose IVPB DAILY [facility] Potassium Chloride/Dextrose/Sod Cl 10 meq in 1,000 mls @ 75 mls/hr 05/05/17 12 :15 D5-1/2ns+10 Meq Kcl - IV ASDIR [facility] Insulin Aspart 1 vial 05/05/17 07:00 05/05/17 11:43 Novolog Vial Sliding Scale - SQ Not Given TIDAC [facility] Protocol Insulin Detemir 14 units 05/05/17 07:00 05/05/17 06:17 Levemir Vial SQ Not Given AM [facility] Insulin Detemir 22 units 05/05/17 22:00 Levemir Vial SQ HS MEG Lactobacillus Acidophilus 1 tab 05/05/17 10:00 05/05/17 10:09 Bacid - PO 1 tab DAILY MEG Administration Magnesium Oxide 400 mg 05/05/17 10:00 05/05/17 10:12 Mag-Ox - PO 400 mg BID MEG Administration Olanzapine 5 mg 05/05/17 17:00 Zyprexa - PO DAILY@1700 [facility] Oxybutynin Chloride 5 mg 05/05/17 10:00 05/05/17 10:10 Ditropan - PO 5 mg BID MEG Administration Pantoprazole Sodium 40 mg 05/05/17 22:00 Protonix Iv IVPUSH BID MEG Trazodone HCl 100 mg 05/05/17 10:00 05/05/17 10:10 Desyrel - PO 100 mg DAILY MEG Administration ASSESSMENT/PLAN: Patient is a 66 year old female who was sent over from [facility] [place] after an episode of coffee ground emesis. Patient was found to have acute kidney injury and admitted for further monitoring and management. Acute Kidney Injury -Likely secondary to obstructive uropathy with hypovolemia and hypoperfusion -Patient had disimpaction by GI and is likely a cause of the BRYAN -Will Continue IV fluids with Isotonic fluids - D5-1/2 NS @75mls/hr -Renal U/S revealed chronic pyelo with bilateral hydronephrosis. Urology consult recommended if obstruction does not improve -Caclulate FeNa -Avoid Nephrotoxic medications -Renally dose medications -Continue to trend BMP daily Anion Gap with Non Anion Gap Metabolic Acidosis -Anion Gap likely secondary to Uremia from BRYAN -Non anion gap likely secondary to GI losses vs. RTA -Will need to calculate urine anion gap to differentiate for non anion gap causes -Sodium Bicarbonate started at 650mg BID -Continue to monitor Bicarb and calcium -Continue to monitor BMP daily Hematemesis -Suspected GI bleed -GI consult placed -Patient denied procedures -Patient placed on clear liquid diet with Protonix 40mg daily, Mineral oil enema daily for three days, and Miralax TID Dispo: We will continue to follow the patient. Thank you for this consultative opportunity. Tracie Lao [id number] Visit type - Emergency Visit Emergency Visit: Yes ED Registration Date: 05/05/17 Care time: The patient presented to the Emergency Department on the above date and was hospitalized for further evaluation of their emergent condition. - New Patient This patient is new to me today: Yes Date on this admission: 05/05/17 - Critical Care Critical Care patient: No
[2017-05-05] MEDS: DEXTROSE 5%-0.45% SALINE 1,000 ML IV SCH (15:23)
--- NOTE | 2017-05-05 15:42 | PN ---
Teaching Attending Note Name of Resident: Tracie Lao (Nephrology) ATTENDING PHYSICIAN STATEMENT I saw and evaluated the patient. I reviewed the resident's note and discussed the case with the resident. I agree with the resident's findings and plan as documented. SUBJECTIVE: This is a 66 year old woman with PMhx of Afib on coumadin, Hypertension, CKD who presented with N/v with suspected coffee grounds and found to have BRYAN with BUN/Cr of 88/4.3 and b/l hydronephrosis. Pt denies any history of CKD but does have urinary incontiance. NO NSAID use at home. NO contrast expsoure. PMHx: as above Allergies: PCN, Sulfa ROS: No QUEEN, confuison, CP, abd pain, N/V/D + constapation. Family Hx: NC social Hx: No T/A/D Home Medications Medication Instructions Recorded Atorvastatin Ca [Lipitor] 20 mg PO HS 04/11/15 Acetaminophen [Tylenol] 650 mg PO PRN 08/07/16 Docusate Sodium [Colace -] 100 mg PO DAILY 08/07/16 Insulin Sliding Scale [Novolog 0 units SQ TIDAC 08/07/16 Vial Sliding Scale -] Oxybutynin Chloride 5 mg PO BID 08/07/16 Trazodone HCl 100 mg PO DAILY 08/07/16 Warfarin Sodium [Coumadin] 3 mg PO HS 08/07/16 Lactobacillus Acidophilus [Bacid -] 1 each PO DAILY 09/14/16 Lofibra 160 mg PO DAILY 09/14/16 Magnesium Oxide 400 mg PO BID 09/14/16 Citalopram Hydrobromide 20 mg PO DAILY 05/05/17 [Citalopram HBr] Ergocalciferol (Vitamin D2) 2,000 unit PO DAILY 05/05/17 [Vitamin D2] Glipizide [Glipizide ER] 2.5 mg PO DAILY 05/05/17 Insulin Glargine,Hum.rec.anlog units SQ HS 05/05/17 [Lantus (nf)] Olanzapine 5 mg PO DAILY@1700 05/05/17 Polyvinyl Alcohol [Artificial 1 drop OU BID 05/05/17 Tears] Saxagliptin HCl [Onglyza] 2.5 mg PO DAILY 05/05/17 OBJECTIVE: Vital Signs Temperature 98.1 F 05/05/17 14:00 Pulse Rate 86 05/05/17 14:00 Respiratory Rate 20 05/05/17 14:00 Blood Pressure 104/44 05/05/17 14:00 O2 Sat by Pulse Oximetry (%) 100 05/05/17 09:00 Intake & Output 05/02/17 05/03/17 05/04/17 05/05/17 23:59 23:59 23:59 23:59 Intake Total 100 Balance 100 Weight 68.039 kg 68.039 kg NAD awake and alert RRR soft NT/ND No LE edema CBC, BMP 05/05/17 08:22 05/05/17 08:22 Laboratory Tests 05/04/17 05/04/17 05/05/17 21:30 23:30 08:22 MCV 94.8 Calcium Phosphorus Magnesium Urine pH 8.0 Urine Protein 3+ H Urine Blood 1+ H Urine Urobilinogen Negative Stool Occult Blood Negative 05/05/17 08:22 MCV Calcium 7.5 L Phosphorus 5.2 H Magnesium 3.3 H Urine pH Urine Protein Urine Blood Urine Urobilinogen Stool Occult Blood Current Medications Artificial Tears (Artificial Tears) 1 drop OU BID [facility] Last Admin: 05/05/17 10:09 Dose: 1 drop Atorvastatin Calcium (Lipitor -) 20 mg PO [facility] Cholecalciferol (Vitamin D3 -) 2,000 unit PO DAILY [facility] Last Admin: 05/05/17 10:12 Dose: 2,000 unit Citalopram Hydrobromide (Celexa -) 20 mg PO DAILY [facility] Last Admin: 05/05/17 10:10 Dose: 20 mg Docusate Sodium (Colace -) 100 mg PO DAILY [facility] Last Admin: 05/05/17 10:10 Dose: 100 mg Fenofibric Acid (Trilipix -) 135 mg PO DAILY [facility] Last Admin: 05/05/17 10:12 Dose: 135 mg CEFTRIAXONE 1 G/50 ML PREMIX (Ceftriaxone 1 Gm-D5w Bag) 50 mls @ 100 mls/hr IVPB [facility] Ceftriaxone Sodium 1 gm/ (Dextrose) 50 mls @ 100 mls/hr IVPB DAILY [facility] Dextrose/Sodium Chloride (D5-1/2ns -) 1,000 mls @ 75 mls/hr IV ASDIR [facility] Last Admin: 05/05/17 15:23 Dose: 75 mls/hr Insulin Aspart (Novolog Vial Sliding Scale -) 1 vial SQ TIDAC [facility] PRN Reason: Protocol Last Admin: 05/05/17 11:43 Dose: Not Given Insulin Detemir (Levemir Vial) 14 units SQ AM [facility] Last Admin: 05/05/17 06:17 Dose: Not Given Insulin Detemir (Levemir Vial) 22 units SQ HS [facility] Lactobacillus Acidophilus (Bacid -) 1 tab PO DAILY [facility] Last Admin: 05/05/17 10:09 Dose: 1 tab Magnesium Oxide (Mag-Ox -) 400 mg PO BID [facility] Last Admin: 05/05/17 10:12 Dose: 400 mg Olanzapine (Zyprexa -) 5 mg PO DAILY@1700 [facility] Oxybutynin Chloride (Ditropan -) 5 mg PO BID [facility] Last Admin: 05/05/17 10:10 Dose: 5 mg Pantoprazole Sodium (Protonix Iv) 40 mg IVPUSH BID [facility] Trazodone HCl (Desyrel -) 100 mg PO DAILY [facility] Last Admin: 05/05/17 10:10 Dose: 100 mg ASSESSMENT AND PLAN: 66 year old woman with PMhx of Afib on coumadin, Hypertension, CKD who presented with N/v with suspected coffee grounds and found to have BRYAN with BUN/ Cr of 88/4.3 and b/l hydronephrosis. #BRYAN secondary to obstructive uropathy +/- volume depletion cause of obstruction could have been severe stool impaction s/p disimpaction by GI Would repeat BMP this evening continue gentle isotonic fluids dose all meds for CrCl less then 15 avoid nephrotoxins, IV contrast #Anion gap + non-anion gap metabolic acidosis from renal failure +/- GI losses/RTA would start oral sodium bicarb 650mg BID Trend serum bicarb for now check urine electrolytes for urine anion gap #N/V with suspected GI bleed management per GI #Anemia Trend CBC transfuse as per primary team Thank you Robert Casiano DO
[2017-05-05] MEDS: OLANZapine 5 MG TABLET PO SCH (17:19)
[2017-05-05 17:38] LABS: BASO % 0.1 % (0-2.0); EOS % 0.6 % (0-4.5); HEMATOCRIT 24.4 % (32.4-45.2); LYMPH % 47.6 % (8-40); MCH 31.3 pg (25.7-33.7); MCHC 32.7 g/dl (32.0-36.0); MEAN CELL VOLUME 95.5 fl (80-96); MEAN PLT VOLUME 8.6 fl (7.5-11.1); MONO % 2.8 % (3.8-10.2); NEUT % 48.9 % (42.8-82.8); PLATELET COUNT 334 K/MM3 (134-434); RBC 2.55 M/mm3 (3.60-5.2); RDW 16.2 % (11.6-15.6); WHITE BLOOD COUNT 11.6 K/mm3 (4.0-10.0)
[2017-05-05] MEDS ORDERED: WARFARIN NA 3 MG TABLET PO SCH (18:00)
[2017-05-05 19:12] LABS: ANION GAP 11 (8-16); BLOOD UREA NITROGEN 84 mg/dL (7-18); CALCIUM 7.5 mg/dL (8.5-10.1); CHLORIDE 109 mmol/L (98-107); CO2 17 mmol/L (21-32); CREATININE 4.3 mg/dL (0.55-1.02); GLUCOSE,RANDOM 126 mg/dL (74-106); POTASSIUM 4.1 mmol/L (3.5-5.1); SODIUM 137 mmol/L (136-145)
[2017-05-05] MEDS ORDERED: WARFARIN SODIUM 3 MG PO SCH (22:00)
[2017-05-05] MEDS: CEFTRIAXONE 1 G/50 ML PREMIX 50 ML IVPB SCH (22:24)
[2017-05-05] MEDS: PANTOPRAZOLE SODIUM 40 MG VIAL IVPUSH SCH (22:26)
[2017-05-05] MEDS: ATORVASTATIN CA 20 MG TABLET (FP) PO SCH (22:26)
[2017-05-05] MEDS: SODIUM BICARBONATE 650 MG TABLET PO SCH (22:26)
[2017-05-05] MEDS: POLYETHYLENE GLYCOL 3350 119 GM BTL PO SCH (22:26)
[2017-05-06] MEDS: POLYETHYLENE GLYCOL 3350 119 GM BTL PO SCH ×3 (06:38→21:18)
[2017-05-06] MEDS: INSULIN SLIDING SCALE (NOVOLOG) 1 VIAL SQ SCH ×3 (06:39→16:43)
[2017-05-06] MEDS: INSULIN DETEMIR 100 UNITS/ML MDV SQ SCH ×2 (06:40→21:13)
[2017-05-06] MEDS: DEXTROSE 5%-0.45% SALINE 1,000 ML IV SCH ×2 (06:42→18:13)
[2017-05-06 08:27] LABS: CHLORIDE 110 mmol/L (98-107); POTASSIUM 4.3 mmol/L (3.5-5.1); SODIUM 137 mmol/L (136-145)
[2017-05-06 08:36] LABS: ALBUMIN 1.9 g/dl (3.4-5.0); ALK PHOS 30 U/L (45-117); ANION GAP 10 (8-16); BASO % 0.2 % (0-2.0); BILIRUBIN,TOTAL 0.4 mg/dL (0.2-1.0); BLOOD UREA NITROGEN 80 mg/dL (7-18); CALCIUM 7.1 mg/dL (8.5-10.1); CO2 17 mmol/L (21-32); EOS % 1.4 % (0-4.5); GLUCOSE,RANDOM 100 mg/dL (74-106); LYMPH % 46.8 % (8-40); MCH 31.6 pg (25.7-33.7); MCHC 33.4 g/dl (32.0-36.0); MEAN CELL VOLUME 94.6 fl (80-96); MEAN PLT VOLUME 8.3 fl (7.5-11.1); MONO % 3.6 % (3.8-10.2); PLATELET COUNT 309 K/MM3 (134-434); RBC 2.09 M/mm3 (3.60-5.2); RDW 16.1 % (11.6-15.6); SGOT/AST 11 U/L (15-37); SGPT/ALT 6 U/L (12-78); TOT PROT 5.8 g/dl (6.4-8.2)
[2017-05-06 08:45] LABS: INR 1.52 (0.82-1.09); PROTHROMBIN TIME (PATIENT) 17.2 SEC (9.98-11.88)
[2017-05-06 08:46] LABS: HEMATOCRIT 19.7 % (32.4-45.2); HEMOGLOBIN 6.6 GM/dL (10.7-15.3)
[2017-05-06] MEDS ORDERED: PT OWN MED DRAWER 7, Y5N ONE ×2 (09:37→16:35)
[2017-05-06] MEDS: LACTOBACILLUS ACIDOPHILUS 1 CAP PO SCH (09:50)
[2017-05-06] MEDS: traZODone HCL 50 MG TABLET (FP) PO SCH (09:51)
[2017-05-06] MEDS: MAGNESIUM OXIDE 400 MG TABLET (FP) PO SCH ×2 (09:51→21:13)
[2017-05-06] MEDS: OXYBUTYNIN CHLORIDE 5 MG TABLET PO SCH ×2 (09:51→21:12)
[2017-05-06] MEDS: SODIUM BICARBONATE 650 MG TABLET PO SCH ×2 (09:51→21:13)
[2017-05-06] MEDS: CITALOPRAM HYDROBROMIDE 20 MG TABLET (FP) PO SCH (09:51)
[2017-05-06] MEDS: FENOFIBRIC ACID 135 MG CAP PO SCH (09:52)
[2017-05-06] MEDS: CHOLECALCIFEROL (VITAMIN D3) 1,000 UNIT TABLET (FP) PO SCH (09:52)
[2017-05-06] MEDS: PANTOPRAZOLE SODIUM 40 MG VIAL IVPUSH SCH ×2 (09:52→21:16)
[2017-05-06] MEDS ORDERED: CEFTRIAXONE 1 GM in DEXTROSE 5%-WATER - 50 ML IVPB SCH (10:00)
[2017-05-06 10:27] LABS: HEMATOCRIT 23.6 % (32.4-45.2); HEMOGLOBIN 7.8 GM/dL (10.7-15.3); MCH 31.2 pg (25.7-33.7); MEAN CELL VOLUME 94.4 fl (80-96); MEAN PLT VOLUME 8.4 fl (7.5-11.1); PLATELET COUNT 328 K/MM3 (134-434); RDW 15.9 % (11.6-15.6); WHITE BLOOD COUNT 11.9 K/mm3 (4.0-10.0)
[2017-05-06] MEDS: MINERAL OIL ENEMA 133 ML ENEMA PR SCH (11:01)
[2017-05-06] MEDS: ARTIFICIAL TEARS (POLYVINYL ALCOHOL 1.4%) OPTH DROPS OU SCH ×2 (11:38→21:15)
[2017-05-06] MEDS: OLANZapine 5 MG TABLET PO SCH (16:43)
--- NOTE | 2017-05-06 17:53 | PN ---
Progress Note, Physician History of Present Illness: Covering for Dr. Perera, who will resume care on Monday No events. Hgb 7.8g/dl this am (6.6 - ?lab error) . No signs of bleeding. CT scan results reviewed. Renal on the case. Had BMs overnight and one at the time of this encounter. Abdomen soft and non-tender. - Current Medication List Current Medications: Active Medications Artificial Tears (Artificial Tears) 1 drop OU BID [facility] Last Admin: 05/06/17 11:38 Dose: 1 drop Atorvastatin Calcium (Lipitor -) 20 mg PO HS [facility] Last Admin: 05/05/17 22:26 Dose: 20 mg Cholecalciferol (Vitamin D3 -) 2,000 unit PO DAILY [facility] Last Admin: 05/06/17 09:52 Dose: 2,000 unit Citalopram Hydrobromide (Celexa -) 20 mg PO DAILY [facility] Last Admin: 05/06/17 09:51 Dose: 20 mg Fenofibric Acid (Trilipix -) 135 mg PO DAILY [facility] Last Admin: 05/06/17 09:52 Dose: 135 mg CEFTRIAXONE 1 G/50 ML PREMIX (Ceftriaxone 1 Gm-D5w Bag) 50 mls @ 100 mls/hr IVPB HS [facility] Last Admin: 05/05/17 22:24 Dose: 100 mls/hr Dextrose/Sodium Chloride (D5-1/2ns -) 1,000 mls @ 75 mls/hr IV ASDIR [facility] Last Admin: 05/06/17 06:42 Dose: 75 mls/hr Insulin Aspart (Novolog Vial Sliding Scale -) 1 vial SQ TIDAC [facility] PRN Reason: Protocol Last Admin: 05/06/17 16:43 Dose: 3 units Insulin Detemir (Levemir Vial) 14 units SQ AM [facility] Last Admin: 05/06/17 06:40 Dose: Not Given Insulin Detemir (Levemir Vial) 22 units SQ HS [facility] Last Admin: 05/05/17 22:25 Dose: 22 units Lactobacillus Acidophilus (Bacid -) 1 tab PO DAILY [facility] Last Admin: 05/06/17 09:50 Dose: 1 tab Magnesium Oxide (Mag-Ox -) 400 mg PO BID [facility] Last Admin: 05/06/17 09:51 Dose: 400 mg Mineral Oil (Fleet Mineral Oil Rectal Enema -) 133 ml AL DAILY [facility] Stop: 05/09/17 09:59 Last Admin: 05/06/17 11:01 Dose: 133 ml Olanzapine (Zyprexa -) 5 mg PO DAILY@1700 [facility] Last Admin: 05/06/17 16:43 Dose: 5 mg Oxybutynin Chloride (Ditropan -) 5 mg PO BID [facility] Last Admin: 05/06/17 09:51 Dose: 5 mg Pantoprazole Sodium (Protonix Iv) 40 mg IVPUSH BID [facility] Last Admin: 05/06/17 09:52 Dose: 40 mg Polyethylene Glycol (Miralax (For Daily Use) -) 17 gm PO TID [facility] Last Admin: 05/06/17 13:32 Dose: 17 gm Sodium Bicarbonate (Sodium Bicarbonate -) 650 mg PO BID [facility] Last Admin: 05/06/17 09:51 Dose: 650 mg Trazodone HCl (Desyrel -) 100 mg PO DAILY [facility] Last Admin: 05/06/17 09:51 Dose: 100 mg Warfarin Sodium (Coumadin -) 3 mg PO DAILY@1800 [facility] - Objective Vital Signs: Vital Signs Temperature 98.0 F 05/06/17 15:08 Pulse Rate 70 05/06/17 15:08 Respiratory Rate 16 05/06/17 15:08 Blood Pressure 100/58 05/06/17 15:08 O2 Sat by Pulse Oximetry (%) 98 05/05/17 21:00 Labs: CBC, BMP 05/06/17 09:20 05/06/17 07:00 INR, PTT INR 1.52 (0.82-1.09) H D 05/06/17 07:00 CBCD WBC 11.9 K/mm3 (4.0-10.0) H 05/06/17 09:20 RBC 2.50 M/mm3 (3.60-5.2) L 05/06/17 09:20 Hgb 7.8 GM/dL (10.7-15.3) L D 05/06/17 09:20 Hct 23.6 % (32.4-45.2) L D 05/06/17 09:20 MCV 94.4 fl (80-96) 05/06/17 09:20 MCHC 33.0 g/dl (32.0-36.0) 05/06/17 09:20 RDW 15.9 % (11.6-15.6) H 05/06/17 09:20 Plt Count 328 K/MM3 (134-434) 05/06/17 09:20 MPV 8.4 fl (7.5-11.1) 05/06/17 09:20 CMP Sodium 137 mmol/L (136-145) 05/06/17 07:00 Potassium 4.3 mmol/L (3.5-5.1) 05/06/17 07:00 Chloride 110 mmol/L (98-107) H 05/06/17 07:00 Carbon Dioxide 17 mmol/L (21-32) L 05/06/17 07:00 Anion Gap 10 (8-16) 05/06/17 07:00 BUN 80 mg/dL (7-18) H 05/06/17 07:00 Creatinine 4.0 mg/dL (0.55-1.02) H 05/06/17 07:00 Creat Clearance w eGFR 11.17 (>60) 05/06/17 07:00 Calcium 7.1 mg/dL (8.5-10.1) L 05/06/17 07:00 Total Bilirubin 0.4 mg/dL (0.2-1.0) D 05/06/17 07:00 AST 11 U/L (15-37) L 05/06/17 07:00 ALT 6 U/L (12-78) L 05/06/17 07:00 Alkaline Phosphatase 30 U/L (45-117) L 05/06/17 07:00 Total Protein 5.8 g/dl (6.4-8.2) L 05/06/17 07:00 Albumin 1.9 g/dl (3.4-5.0) L 05/06/17 07:00 Assessment/Plan continue current bowel regiment Hgb in am monitor for signs of bleeding
[2017-05-06] MEDS: WARFARIN NA 3 MG TABLET PO SCH (18:12)
--- NOTE | 2017-05-06 19:08 | PN ---
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 #BRYAN secondary to obstructive uropathy +/- volume depletion cause of obstruction could have been severe stool impaction s/p disimpaction by GI Would repeat BMP this evening continue gentle isotonic fluids dose all meds for CrCl less then 15 avoid nephrotoxins, IV contrast #Anion gap + non-anion gap metabolic acidosis from renal failure +/- GI losses/RTA would start oral sodium bicarb 650mg BID Trend serum bicarb for now check urine electrolytes for urine anion gap #N/V with suspected GI bleed management per GI #Anemia Trend CBC transfuse as per primary team Current Medications Artificial Tears (Artificial Tears) 1 drop OU BID [facility] Last Admin: 05/06/17 11:38 Dose: 1 drop Atorvastatin Calcium (Lipitor -) 20 mg PO HS [facility] Last Admin: 05/05/17 22:26 Dose: 20 mg Cholecalciferol (Vitamin D3 -) 2,000 unit PO DAILY [facility] Last Admin: 05/06/17 09:52 Dose: 2,000 unit Citalopram Hydrobromide (Celexa -) 20 mg PO DAILY [facility] Last Admin: 05/06/17 09:51 Dose: 20 mg Fenofibric Acid (Trilipix -) 135 mg PO DAILY [facility] Last Admin: 05/06/17 09:52 Dose: 135 mg CEFTRIAXONE 1 G/50 ML PREMIX (Ceftriaxone 1 Gm-D5w Bag) 50 mls @ 100 mls/hr IVPB HS [facility] Last Admin: 05/05/17 22:24 Dose: 100 mls/hr Dextrose/Sodium Chloride (D5-1/2ns -) 1,000 mls @ 75 mls/hr IV ASDIR [facility] Last Admin: 05/06/17 18:13 Dose: Not Given Insulin Aspart (Novolog Vial Sliding Scale -) 1 vial SQ TIDAC [facility] PRN Reason: Protocol Last Admin: 05/06/17 16:43 Dose: 3 units Insulin Detemir (Levemir Vial) 14 units SQ AM [facility] Last Admin: 05/06/17 06:40 Dose: Not Given Insulin Detemir (Levemir Vial) 22 units SQ HS [facility] Last Admin: 03/02/18 22:25 Dose: 22 units Lactobacillus Acidophilus (Bacid -) 1 tab PO DAILY [facility] Last Admin: 05/06/17 09:50 Dose: 1 tab Magnesium Oxide (Mag-Ox -) 400 mg PO BID [facility] Last Admin: 05/06/17 09:51 Dose: 400 mg Mineral Oil (Fleet Mineral Oil Rectal Enema -) 133 ml ME DAILY [facility] Stop: 05/09/17 09:59 Last Admin: 05/06/17 11:01 Dose: 133 ml Olanzapine (Zyprexa -) 5 mg PO DAILY@1700 [facility] Last Admin: 05/06/17 16:43 Dose: 5 mg Oxybutynin Chloride (Ditropan -) 5 mg PO BID [facility] Last Admin: 05/06/17 09:51 Dose: 5 mg Pantoprazole Sodium (Protonix Iv) 40 mg IVPUSH BID [facility] Last Admin: 05/06/17 09:52 Dose: 40 mg Polyethylene Glycol (Miralax (For Daily Use) -) 17 gm PO TID [facility] Last Admin: 05/06/17 13:32 Dose: 17 gm Sodium Bicarbonate (Sodium Bicarbonate -) 650 mg PO BID [facility] Last Admin: 05/06/17 09:51 Dose: 650 mg Trazodone HCl (Desyrel -) 100 mg PO DAILY [facility] Last Admin: 05/06/17 09:51 Dose: 100 mg Warfarin Sodium (Coumadin -) 3 mg PO DAILY@1800 [facility] Last Admin: 05/06/17 18:12 Dose: 3 mg Last Vital Signs Temp Pulse Resp BP Pulse Ox 98.0 F 70 16 100/58 98 05/06/17 15:08 05/06/17 15:08 05/06/17 15:08 05/06/17 15:08 05/05/17 21:00 CBC, BMP 05/06/17 09:20 05/06/17 07:00
[2017-05-06 20:24] LABS: URINE APPEARANCE TURBID; URINE BILIRUBIN NEGATIVE (NEGATIVE); URINE BLOOD 2+ (NEGATIVE); URINE COLOR YELLOW; URINE GLUCOSE (UA) 1+ (NEGATIVE); URINE KETONE NEGATIVE (NEGATIVE); URINE NITRITE NEGATIVE (NEGATIVE); URINE UROBILINOGEN NEGATIVE mg/dL (0.2-1.0)
[2017-05-06 20:48] LABS: URINE LEUK ESTERASE 3+ (NEGATIVE); URINE PROTEIN 1+ (NEGATIVE)
[2017-05-06 20:49] LABS: URINE BACTERIA RARE /hpf (NONE SEEN)
[2017-05-06] MEDS ORDERED: INSULIN (NOVOLOG) ASPART 100 UNITS/ML 10ML VIAL ONE (20:59)
[2017-05-06] MEDS: CEFTRIAXONE 1 G/50 ML PREMIX 50 ML IVPB SCH (21:11)
[2017-05-06] MEDS: ATORVASTATIN CA 20 MG TABLET (FP) PO SCH (21:12)
--- NOTE | 2017-05-06 22:49 | PN ---
Physical Exam: SUBJECTIVE: Patient seen and examined at bedside. Several BMs today. OBJECTIVE: Vital Signs Period Temp Pulse Resp BP Sys/[place] Pulse Ox Last 24 Hr 97.3 F-98.1 F 70-86 16-20 95-110/45-60 100 GENERAL: The patient is awake, alert, and fully oriented, in no acute distress HEAD: patch of hair pulled out center forehead LUNGS: Breath sounds equal, clear to auscultation bilaterally, no wheezes, no crackles, no accessory muscle use. HEART: Regular rate and rhythm, S1, S2 ABDOMEN: Soft, nontender, nondistended, normoactive bowel sounds, no guarding, no rebound EXTREMITIES: 2+ pulses, warm, well-perfused, no edema. NEUROLOGICAL: Cranial nerves II through XII grossly intact. Normal speech, gait not observed. Laboratory Results - last 24 hr 05/05/17 05/06/17 05/06/17 16:20 02:56 06:38 WBC RBC Hgb Hct MCV MCH MCHC RDW Plt Count MPV Neutrophils % Lymphocytes % Monocytes % Eosinophils % Basophils % PT with INR INR Sodium Potassium Chloride Carbon Dioxide Anion Gap BUN Creatinine Creat Clearance w eGFR POC Glucometer 104 109 Random Glucose Hemoglobin A1c % Calcium Total Bilirubin AST ALT Alkaline Phosphatase Total Protein Albumin Urine Color Urine Appearance Urine pH Ur Specific [place] Urine Protein Urine Glucose (UA) Urine Ketones Urine Blood Urine Nitrite Urine Bilirubin Urine Urobilinogen Ur Leukocyte Esterase Urine WBC (Auto) Urine RBC (Auto) Urine Bacteria U Random Total Protein 295 H 05/06/17 05/06/17 05/06/17 07:00 07:00 07:00 WBC 10.0 RBC 2.09 L Hgb 6.6 L* D Hct 19.7 L D MCV 94.6 MCH 31.6 MCHC 33.4 RDW 16.1 H Plt Count 309 MPV 8.3 Neutrophils % 48.0 Lymphocytes % 46.8 H Monocytes % 3.6 L Eosinophils % 1.4 D Basophils % 0.2 PT with INR 17.20 H INR 1.52 H D Sodium 137 Potassium 4.3 Chloride 110 H Carbon Dioxide 17 L Anion Gap 10 BUN 80 H Creatinine 4.0 H Creat Clearance w eGFR 11.17 POC Glucometer Random Glucose 100 Hemoglobin A1c % Calcium 7.1 L Total Bilirubin 0.4 D AST 11 L ALT 6 L Alkaline Phosphatase 30 L Total Protein 5.8 L Albumin 1.9 L Urine Color Urine Appearance Urine pH Ur Specific [place] Urine Protein Urine Glucose (UA) Urine Ketones Urine Blood Urine Nitrite Urine Bilirubin Urine Urobilinogen Ur Leukocyte Esterase Urine WBC (Auto) Urine RBC (Auto) Urine Bacteria U Random Total Protein 05/06/17 05/06/17 05/06/17 07:00 09:20 11:40 WBC 11.9 H RBC 2.50 L Hgb 7.8 L D Hct 23.6 L D MCV 94.4 MCH 31.2 MCHC 33.0 RDW 15.9 H Plt Count 328 MPV 8.4 Neutrophils % Lymphocytes % Monocytes % Eosinophils % Basophils % PT with INR INR Sodium Potassium Chloride Carbon Dioxide Anion Gap BUN Creatinine Creat Clearance w eGFR POC Glucometer 344 Random Glucose Hemoglobin A1c % 8.5 H Calcium Total Bilirubin AST ALT Alkaline Phosphatase Total Protein Albumin Urine Color Urine Appearance Urine pH Ur Specific [place] Urine Protein Urine Glucose (UA) Urine Ketones Urine Blood Urine Nitrite Urine Bilirubin Urine Urobilinogen Ur Leukocyte Esterase Urine WBC (Auto) Urine RBC (Auto) Urine Bacteria U Random Total Protein 05/06/17 05/06/17 05/06/17 16:40 17:42 21:12 WBC RBC Hgb Hct MCV MCH MCHC RDW Plt Count MPV Neutrophils % Lymphocytes % Monocytes % Eosinophils % Basophils % PT with INR INR Sodium Potassium Chloride Carbon Dioxide Anion Gap BUN Creatinine Creat Clearance w eGFR POC Glucometer 203 252 Random Glucose Hemoglobin A1c % Calcium Total Bilirubin AST ALT Alkaline Phosphatase Total Protein Albumin Urine Color Yellow Urine Appearance Turbid Urine pH 6.0 D Ur Specific [place] 1.008 Urine Protein 1+ H D Urine Glucose (UA) 1+ H Urine Ketones Negative Urine Blood 2+ H Urine Nitrite Negative Urine Bilirubin Negative Urine Urobilinogen Negative Ur Leukocyte Esterase 3+ H Urine WBC (Auto) 905 Urine RBC (Auto) 17 Urine Bacteria Rare U Random Total Protein Active Medications Generic Name Dose Route Start Last Admin Trade Name Freq PRN Reason Stop Dose Admin Artificial Tears 1 drop 05/05/17 10:00 05/06/17 21:15 Artificial Tears OU 1 drop BID MEG Administration Atorvastatin Calcium 20 mg 05/05/17 22:00 05/06/17 21:12 Lipitor - PO 20 mg HS MEG Administration Cholecalciferol 2,000 unit 05/05/17 10:00 05/06/17 09:52 Vitamin D3 - PO 2,000 unit DAILY MEG Administration Citalopram Hydrobromide 20 mg 05/05/17 10:00 05/06/17 09:51 Celexa - PO 20 mg DAILY MEG Administration Fenofibric Acid 135 mg 05/05/17 10:00 05/06/17 09:52 Trilipix - PO 135 mg DAILY MEG Administration CEFTRIAXONE 1 G/50 ML PREMIX 50 mls @ 100 mls/hr 05/05/17 22:00 05/06/17 21: 11 Ceftriaxone 1 Gm-D5w Bag IVPB 100 mls/hr HS MEG Administration Sodium Chloride 1,000 mls @ 50 mls/hr 05/06/17 23:00 Normal Saline - IV 05/07/17 22:47 ASDIR MEG Insulin Aspart 1 vial 05/05/17 07:00 05/06/17 16:43 Novolog Vial Sliding Scale - SQ 3 units TIDAC MEG Administration Protocol Insulin Detemir 14 units 05/05/17 07:00 05/06/17 06:40 Levemir Vial SQ Not Given AM [facility] Insulin Detemir 22 units 05/05/17 22:00 05/06/17 21:13 Levemir Vial SQ 22 units HS MEG Administration Lactobacillus Acidophilus 1 tab 05/05/17 10:00 05/06/17 09:50 Bacid - PO 1 tab DAILY MEG Administration Magnesium Oxide 400 mg 05/05/17 10:00 05/06/17 21:13 Mag-Ox - PO 400 mg BID MEG Administration Mineral Oil 133 ml 05/06/17 10:00 05/06/17 11:01 Fleet Mineral Oil Rectal Enema - IN 05/09/17 09:59 133 ml DAILY MEG Administration Olanzapine 5 mg 05/05/17 17:00 05/06/17 16:43 Zyprexa - PO 5 mg DAILY@1700 MEG Administration Oxybutynin Chloride 5 mg 05/05/17 10:00 05/06/17 21:12 Ditropan - PO 5 mg BID MEG Administration Pantoprazole Sodium 40 mg 05/05/17 22:00 05/06/17 21:16 Protonix Iv IVPUSH 40 mg BID MEG Administration Polyethylene Glycol 17 gm 05/05/17 22:00 05/06/17 21:18 Miralax (For Daily Use) - PO 17 gm TID MEG Administration Sodium Bicarbonate 650 mg 05/05/17 22:00 05/06/17 21:13 Sodium Bicarbonate - PO 650 mg BID MEG Administration Trazodone HCl 100 mg 05/05/17 10:00 05/06/17 09:51 Desyrel - PO 100 mg DAILY [facility]G Administration Warfarin Sodium 3 mg 05/06/17 18:00 05/06/17 18:12 Coumadin - PO 3 mg DAILY@1800 [facility]G Administration ASSESSMENT/PLAN 66 year-old female with a PMH significant for HTN, HLD, afib on coumadin, chronic anemia, CKD, chronic obstructive pyelonephritis, depression. Sent from [facility] with a report of "brown" vomiting. Patient found in ED with acute renal failure, UTI, and supratherapeutic INR. r/o upper GI bleed --no episodes of coffee-ground emesis or any other vomiting since admission --Hgb 8.1 on admission, 7.8 today, continue to trend --protonix BID Fecal retention --seen and evaluated by GI, disimpacted --patient declines EGD/colonoscopy --CTAP: moderate fecal retention --bowel regimen per GI Hydronephrosis --CTAP: moderate bilateral hydronephrosis with marked dilitation both ureters to bladder Acute on chronic renal insufficiency --BUN/Cr 90/4.5 on admission, baseline 1.2 --Cr trending down, 4.0 today --continue IV fluids --continue ditropan UTI --given levaquin in the ED, will change to ceftriaxone as previous cultured organism resistant to levaquin HTN --BP stable --not on anti-hypertensives Atrial fibrillation --rate well-controlled --INR on admission 4.48, today 1.52 --dose coumadin 3mg tonight --trend INR IDDM --Levemir 14U am, 22U qhs --Novolog sliding scale coverage Depression --continue Celexa, trazadone, Zyprexa FEN Fluids: NS@50mL/hr Electrolytes: replete as indicated Nutrition: clears DVT prophylaxis: restart coumadin, oob, ambulation Physical therapy evaluation Dispo: continues to require inpatient care. Full code. Visit type - Emergency Visit Emergency Visit: Yes ED Registration Date: 05/05/17 Care time: The patient presented to the Emergency Department on the above date and was hospitalized for further evaluation of their emergent condition. - New Patient This patient is new to me today: Yes Date on this admission: 05/07/17 - Critical Care Critical Care patient: No
[2017-05-06] MEDS ORDERED: SODIUM CHLORIDE 1,000 ML IV SCH (23:00)
[2017-05-07] MEDS: POLYETHYLENE GLYCOL 3350 119 GM BTL PO SCH ×3 (06:23→21:13)
[2017-05-07] MEDS: INSULIN SLIDING SCALE (NOVOLOG) 1 VIAL SQ SCH ×3 (06:38→16:58)
[2017-05-07] MEDS: INSULIN DETEMIR 100 UNITS/ML MDV SQ SCH ×2 (06:38→21:11)
[2017-05-07 07:44] LABS: HEMOGLOBIN 7.3 GM/dL (10.7-15.3); MCH 31.5 pg (25.7-33.7); MCHC 33.2 g/dl (32.0-36.0); MEAN CELL VOLUME 94.9 fl (80-96); MEAN PLT VOLUME 8.4 fl (7.5-11.1); PLATELET COUNT 301 K/MM3 (134-434); RBC 2.32 M/mm3 (3.60-5.2); RDW 16.2 % (11.6-15.6)
[2017-05-07 07:46] LABS: INR 1.42 (0.82-1.09)
[2017-05-07 08:13] LABS: ALBUMIN 1.9 g/dl (3.4-5.0); ALK PHOS 33 U/L (45-117); ANION GAP 15 (8-16); BILIRUBIN,TOTAL 0.2 mg/dL (0.2-1.0); BLOOD UREA NITROGEN 61 mg/dL (7-18); CALCIUM 7.9 mg/dL (8.5-10.1); CHLORIDE 109 mmol/L (98-107); CO2 18 mmol/L (21-32); CREATININE 3.5 mg/dL (0.55-1.02); GLUCOSE,RANDOM 75 mg/dL (74-106); MAGNESIUM 3.5 mg/dL (1.8-2.4); PHOSPHOROUS 3.3 mg/dL (2.5-4.9); POTASSIUM 3.9 mmol/L (3.5-5.1); SGOT/AST 12 U/L (15-37); SGPT/ALT 8 U/L (12-78); SODIUM 142 mmol/L (136-145); TOT PROT 6.2 g/dl (6.4-8.2)
[2017-05-07] MEDS ORDERED: PT OWN MED DRAWER 7, Y5N ONE ×2 (09:53→16:51)
[2017-05-07] MEDS: CITALOPRAM HYDROBROMIDE 20 MG TABLET (FP) PO SCH (09:57)
[2017-05-07] MEDS: LACTOBACILLUS ACIDOPHILUS 1 CAP PO SCH (09:57)
[2017-05-07] MEDS: MAGNESIUM OXIDE 400 MG TABLET (FP) PO SCH ×2 (09:58→21:08)
[2017-05-07] MEDS: SODIUM BICARBONATE 650 MG TABLET PO SCH ×2 (09:58→21:07)
[2017-05-07] MEDS: OXYBUTYNIN CHLORIDE 5 MG TABLET PO SCH ×2 (09:58→21:08)
[2017-05-07] MEDS: traZODone HCL 50 MG TABLET (FP) PO SCH (09:58)
[2017-05-07] MEDS: FENOFIBRIC ACID 135 MG CAP PO SCH (09:59)
[2017-05-07] MEDS: CHOLECALCIFEROL (VITAMIN D3) 1,000 UNIT TABLET (FP) PO SCH (09:59)
[2017-05-07] MEDS: ARTIFICIAL TEARS (POLYVINYL ALCOHOL 1.4%) OPTH DROPS OU SCH ×2 (09:59→21:09)
[2017-05-07] MEDS: PANTOPRAZOLE SODIUM 40 MG VIAL IVPUSH SCH ×2 (09:59→21:13)
[2017-05-07 10:02] LABS: PLATELET ESTIMATE ADEQUATE
[2017-05-07] MEDS: MINERAL OIL ENEMA 133 ML ENEMA PR SCH (11:32)
[2017-05-07] MEDS: OLANZapine 5 MG TABLET PO SCH (16:58)
--- NOTE | 2017-05-07 17:05 | PN ---
Progress Note, Physician History of Present Illness: Covering for Dr. Maria, who will resume care tomorrow. Hg7 No events. Comfortable. No signs of bleeding. Abdomen soft and non-tender. Brown stools, per nurse. Hgb 7.3 g/dl. - Current Medication List Current Medications: Active Medications Artificial Tears (Artificial Tears) 1 drop OU BID [facility] Last Admin: 05/07/17 09:59 Dose: 1 drop Atorvastatin Calcium (Lipitor -) 20 mg PO HS [facility] Last Admin: 05/06/17 21:12 Dose: 20 mg Cholecalciferol (Vitamin D3 -) 2,000 unit PO DAILY [facility] Last Admin: 05/07/17 09:59 Dose: 2,000 unit Citalopram Hydrobromide (Celexa -) 20 mg PO DAILY [facility] Last Admin: 05/07/17 09:57 Dose: 20 mg Fenofibric Acid (Trilipix -) 135 mg PO DAILY [facility] Last Admin: 05/07/17 09:59 Dose: 135 mg CEFTRIAXONE 1 G/50 ML PREMIX (Ceftriaxone 1 Gm-D5w Bag) 50 mls @ 100 mls/hr IVPB HS [facility] Last Admin: 05/06/17 21:11 Dose: 100 mls/hr Sodium Chloride (Normal Saline -) 1,000 mls @ 50 mls/hr IV ASDIR [facility] Stop: 05/07/17 22:47 Last Admin: 05/06/17 22:57 Dose: 50 mls/hr Insulin Aspart (Novolog Vial Sliding Scale -) 1 vial SQ TIDAC [facility] PRN Reason: Protocol Last Admin: 05/07/17 16:58 Dose: 3 units Insulin Detemir (Levemir Vial) 14 units SQ AM [facility] Last Admin: 05/07/17 06:38 Dose: Not Given Insulin Detemir (Levemir Vial) 22 units SQ HS [facility] Last Admin: 05/06/17 21:13 Dose: 22 units Lactobacillus Acidophilus (Bacid -) 1 tab PO DAILY [facility] Last Admin: 05/07/17 09:57 Dose: 1 tab Magnesium Oxide (Mag-Ox -) 400 mg PO BID [facility] Last Admin: 05/07/17 09:58 Dose: 400 mg Mineral Oil (Fleet Mineral Oil Rectal Enema -) 133 ml SC DAILY [facility] Stop: 05/09/17 09:59 Last Admin: 05/07/17 11:32 Dose: 133 ml Olanzapine (Zyprexa -) 5 mg PO DAILY@1700 [facility] Last Admin: 05/07/17 16:58 Dose: 5 mg Oxybutynin Chloride (Ditropan -) 5 mg PO BID [facility] Last Admin: 05/07/17 09:58 Dose: 5 mg Pantoprazole Sodium (Protonix Iv) 40 mg IVPUSH BID [facility] Last Admin: 05/07/17 09:59 Dose: 40 mg Polyethylene Glycol (Miralax (For Daily Use) -) 17 gm PO TID [facility] Last Admin: 05/07/17 13:56 Dose: 17 gm Sodium Bicarbonate (Sodium Bicarbonate -) 650 mg PO BID [facility] Last Admin: 05/07/17 09:58 Dose: 650 mg Trazodone HCl (Desyrel -) 100 mg PO DAILY [facility] Last Admin: 05/07/17 09:58 Dose: 100 mg Warfarin Sodium (Coumadin -) 3 mg PO DAILY@1800 [facility] Last Admin: 05/06/17 18:12 Dose: 3 mg - Objective Vital Signs: Vital Signs Temperature 98.2 F 05/07/17 14:59 Pulse Rate 78 05/07/17 14:59 Respiratory Rate 16 05/07/17 14:59 Blood Pressure 129/78 05/07/17 14:59 O2 Sat by Pulse Oximetry (%) 100 05/06/17 21:00 Gastrointestinal: Yes: Soft. No: Distention, Tenderness, Vomiting Neurological: Yes: Alert Labs: CBC, BMP 05/07/17 07:27 05/07/17 07:27 INR, PTT INR 1.42 (0.82-1.09) H 05/07/17 07:27 CBCD WBC 13.0 K/mm3 (4.0-10.0) H 05/07/17 07:27 RBC 2.32 M/mm3 (3.60-5.2) L 05/07/17 07:27 Hgb 7.3 GM/dL (10.7-15.3) L 05/07/17 07:27 Hct 22.0 % (32.4-45.2) L 05/07/17 07:27 MCV 94.9 fl (80-96) 05/07/17 07:27 MCHC 33.2 g/dl (32.0-36.0) 05/07/17 07:27 RDW 16.2 % (11.6-15.6) H 05/07/17 07:27 Plt Count 301 K/MM3 (134-434) 05/07/17 07:27 MPV 8.4 fl (7.5-11.1) 05/07/17 07:27 CMP Sodium 142 mmol/L (136-145) 05/07/17 07:27 Potassium 3.9 mmol/L (3.5-5.1) 05/07/17 07:27 Chloride 109 mmol/L (98-107) H 05/07/17 07:27 Carbon Dioxide 18 mmol/L (21-32) L 05/07/17 07:27 Anion Gap 15 (8-16) 05/07/17 07:27 BUN 61 mg/dL (7-18) H 05/07/17 07:27 Creatinine 3.5 mg/dL (0.55-1.02) H 05/07/17 07:27 Creat Clearance w eGFR 13.03 (>60) 05/07/17 07:27 Calcium 7.9 mg/dL (8.5-10.1) L 05/07/17 07:27 Total Bilirubin 0.2 mg/dL (0.2-1.0) D 05/07/17 07:27 AST 12 U/L (15-37) L 05/07/17 07:27 ALT 8 U/L (12-78) L 05/07/17 07:27 Alkaline Phosphatase 33 U/L (45-117) L 05/07/17 07:27 Total Protein 6.2 g/dl (6.4-8.2) L 05/07/17 07:27 Albumin 1.9 g/dl (3.4-5.0) L 05/07/17 07:27 Assessment/Plan continue current bowel regiment Hgb in am monitor for signs of bleeding
[2017-05-07] MEDS: WARFARIN NA 3 MG TABLET PO SCH (17:57)
--- NOTE | 2017-05-07 20:07 | PN ---
Physical Exam: SUBJECTIVE: Patient seen and examined at bedside. Has no complaints. Two BMs today, one very large. OBJECTIVE: Vital Signs Period Temp Pulse Resp BP Sys/[place] Pulse Ox Last 24 Hr 97.3 F-98.2 F 72-85 16-20 100-129/49-78 100 GENERAL: The patient is awake, alert, and fully oriented, in no acute distress HEAD: patch of hair pulled out center forehead LUNGS: Breath sounds equal, clear to auscultation bilaterally, no wheezes, no crackles, no accessory muscle use. HEART: Regular rate and rhythm, S1, S2 ABDOMEN: Soft, nontender, nondistended, normoactive bowel sounds, no guarding, no rebound EXTREMITIES: 2+ pulses, warm, well-perfused, no edema. NEUROLOGICAL: Cranial nerves II through XII grossly intact. Normal speech, gait not observed. Laboratory Results - last 24 hr 05/06/17 05/06/17 05/07/17 17:42 21:12 06:37 WBC RBC Hgb Hct MCV MCH MCHC RDW Plt Count MPV Total Counted Neutrophils % Neutrophils % (Manual) Band Neutrophils % Lymphocytes % Lymphocytes % (Manual) Eosinophils % (Manual) Platelet Estimate PT with INR INR Sodium Potassium Chloride Carbon Dioxide Anion Gap BUN Creatinine Creat Clearance w eGFR POC Glucometer 252 84 Random Glucose Calcium Phosphorus Magnesium Total Bilirubin AST ALT Alkaline Phosphatase Total Protein Albumin Urine Color Yellow Urine Appearance Turbid Urine pH 6.0 D Ur Specific [place] 1.008 Urine Protein 1+ H D Urine Glucose (UA) 1+ H Urine Ketones Negative Urine Blood 2+ H Urine Nitrite Negative Urine Bilirubin Negative Urine Urobilinogen Negative Ur Leukocyte Esterase 3+ H Urine WBC (Auto) 905 Urine RBC (Auto) 17 Urine Bacteria Rare 05/07/17 05/07/17 05/07/17 07:27 07:27 07:27 WBC 13.0 H RBC 2.32 L Hgb 7.3 L Hct 22.0 L MCV 94.9 MCH 31.5 MCHC 33.2 RDW 16.2 H Plt Count 301 MPV 8.4 Total Counted 100 Neutrophils % No Result Required. Neutrophils % (Manual) 36.0 L Band Neutrophils % 1.0 Lymphocytes % No Result Required. Lymphocytes % (Manual) 59.0 H Eosinophils % (Manual) 4.0 Platelet Estimate Adequate PT with INR 16.00 H INR 1.42 H Sodium 142 Potassium 3.9 Chloride 109 H Carbon Dioxide 18 L Anion Gap 15 BUN 61 H Creatinine 3.5 H Creat Clearance w eGFR 13.03 POC Glucometer Random Glucose 75 Calcium 7.9 L Phosphorus 3.3 Magnesium 3.5 H Total Bilirubin 0.2 D AST 12 L ALT 8 L Alkaline Phosphatase 33 L Total Protein 6.2 L Albumin 1.9 L Urine Color Urine Appearance Urine pH Ur Specific [place] Urine Protein Urine Glucose (UA) Urine Ketones Urine Blood Urine Nitrite Urine Bilirubin Urine Urobilinogen Ur Leukocyte Esterase Urine WBC (Auto) Urine RBC (Auto) Urine Bacteria 05/07/17 05/07/17 11:43 16:55 WBC RBC Hgb Hct MCV MCH MCHC RDW Plt Count MPV Total Counted Neutrophils % Neutrophils % (Manual) Band Neutrophils % Lymphocytes % Lymphocytes % (Manual) Eosinophils % (Manual) Platelet Estimate PT with INR INR Sodium Potassium Chloride Carbon Dioxide Anion Gap BUN Creatinine Creat Clearance w eGFR POC Glucometer 210 205 Random Glucose Calcium Phosphorus Magnesium Total Bilirubin AST ALT Alkaline Phosphatase Total Protein Albumin Urine Color Urine Appearance Urine pH Ur Specific [place] Urine Protein Urine Glucose (UA) Urine Ketones Urine Blood Urine Nitrite Urine Bilirubin Urine Urobilinogen Ur Leukocyte Esterase Urine WBC (Auto) Urine RBC (Auto) Urine Bacteria Current Medications Generic Name Dose Route Start Last Admin Trade Name Freq PRN Reason Stop Dose Admin Artificial Tears 1 drop 05/05/17 10:00 05/07/17 21:09 Artificial Tears OU 1 drop BID [facility] Administration Atorvastatin Calcium 20 mg 05/05/17 22:00 05/07/17 21:07 Lipitor - PO 20 mg HS [facility] Administration Cholecalciferol 2,000 unit 05/05/17 10:00 05/07/17 09:59 Vitamin D3 - PO 2,000 unit DAILY [facility] Administration Citalopram Hydrobromide 20 mg 05/05/17 10:00 05/07/17 09:57 Celexa - PO 20 mg DAILY [facility] Administration Fenofibric Acid 135 mg 05/05/17 10:00 05/07/17 09:59 Trilipix - PO 135 mg DAILY [facility] Administration CEFTRIAXONE 1 G/50 ML PREMIX 50 mls @ 100 mls/hr 05/05/17 22:00 05/07/17 21: 09 Ceftriaxone 1 Gm-D5w Bag IVPB 100 mls/hr HS [facility] Administration Sodium Chloride 1,000 mls @ 50 mls/hr 05/06/17 23:00 05/06/17 22:57 Normal Saline - IV 05/07/17 22:47 50 mls/hr ASDIR [facility] Administration Insulin Aspart 1 vial 05/05/17 07:00 05/07/17 16:58 Novolog Vial Sliding Scale - SQ 3 units TIDAC [facility] Administration Protocol Insulin Detemir 14 units 05/05/17 07:00 05/07/17 06:38 Levemir Vial SQ Not Given AM [facility] Insulin Detemir 22 units 05/05/17 22:00 05/07/17 21:11 Levemir Vial SQ 22 units HS [facility] Administration Lactobacillus Acidophilus 1 tab 05/05/17 10:00 05/07/17 09:57 Bacid - PO 1 tab DAILY [facility] Administration Magnesium Oxide 400 mg 05/05/17 10:00 05/07/17 21:08 Mag-Ox - PO 400 mg BID [facility] Administration Mineral Oil 133 ml 05/06/17 10:00 05/07/17 11:32 Fleet Mineral Oil Rectal Enema - [place] 05/09/17 09:59 133 ml DAILY [facility] Administration Olanzapine 5 mg 05/05/17 17:00 05/07/17 16:58 Zyprexa - PO 5 mg DAILY@1700 [facility] Administration Oxybutynin Chloride 5 mg 05/05/17 10:00 05/07/17 21:08 Ditropan - PO 5 mg BID [facility] Administration Pantoprazole Sodium 40 mg 05/05/17 22:00 05/07/17 21:13 Protonix Iv IVPUSH 40 mg BID [facility] Administration Polyethylene Glycol 17 gm 05/05/17 22:00 05/07/17 21:13 Miralax (For Daily Use) - PO 17 gm TID [facility] Administration Sodium Bicarbonate 650 mg 05/05/17 22:00 05/07/17 21:07 Sodium Bicarbonate - PO 650 mg BID [facility] Administration Trazodone HCl 100 mg 05/05/17 10:00 05/07/17 09:58 Desyrel - PO 100 mg DAILY [facility] Administration Warfarin Sodium 5 mg 05/08/17 18:00 Coumadin - PO DAILY@1800 [facility] ASSESSMENT/PLAN 66 year-old female with a PMH significant for HTN, HLD, afib on coumadin, chronic anemia, CKD, chronic obstructive pyelonephritis, depression. Sent from [facility] with a report of "brown" vomiting. Patient found in ED with acute renal failure, UTI, and supratherapeutic INR. r/o upper GI bleed Normocytic anemia --no episodes of coffee-ground emesis or any other vomiting since admission; no signs of bleeding --Hgb 8.1 on admission-->7.8-->7.3 today --hemodynamically stable --refusing EGD and colonoscopy --anemia studies ordered --transfuse <7 --continue protonix BID --closely monitor h/h Fecal retention --CTAP: moderate fecal retention --seen and evaluated by GI, disimpacted --four BMs over past 2 days --bowel regimen per GI Hydronephrosis --CTAP: moderate bilateral hydronephrosis with marked dilitation both ureters to bladder Acute on chronic renal insufficiency --BUN/Cr 90/4.5 on admission, baseline 1.2 --Cr continues to trend down, 3.5 today --continue IV fluids UTI --continue ceftriaxone (day #3) HTN --BP stable --not on anti-hypertensives Atrial fibrillation --rate well-controlled --INR on admission 4.48, today 1.42 --increase coumadin dose tonight to 5mg --trend INR --if h/h drops again, will need to stop coumadin and start heparin drip IDDM --Levemir 14U am, 22U qhs --Novolog sliding scale coverage Depression --continue Celexa, trazadone, Zyprexa FEN Fluids: NS@50mL/hr Electrolytes: replete as indicated Nutrition: clears DVT prophylaxis: coumadin, oob, ambulation Physical therapy evaluation Dispo: continues to require inpatient care. Full code. Visit type - Emergency Visit Emergency Visit: Yes ED Registration Date: 05/05/17 Care time: The patient presented to the Emergency Department on the above date and was hospitalized for further evaluation of their emergent condition. - New Patient This patient is new to me today: No - Critical Care Critical Care patient: No
[2017-05-07] MEDS ORDERED: WARFARIN NA 2 MG TABLET (UD) PO ONE (20:30)
[2017-05-07] MEDS ORDERED: INSULIN (NOVOLOG) ASPART 100 UNITS/ML 10ML VIAL ONE (21:05)
[2017-05-07] MEDS: ATORVASTATIN CA 20 MG TABLET (FP) PO SCH (21:07)
[2017-05-07] MEDS: CEFTRIAXONE 1 G/50 ML PREMIX 50 ML IVPB SCH (21:09)
--- NOTE | 2017-05-07 21:39 | PN ---
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 #BRYAN secondary to obstructive uropathy +/- volume depletion cause of obstruction could have been severe stool impaction s/p disimpaction by GI Would repeat BMP this evening continue gentle isotonic fluids dose all meds for CrCl less then 15 avoid nephrotoxins, IV contrast #Anion gap + non-anion gap metabolic acidosis from renal failure +/- GI losses/RTA would start oral sodium bicarb 650mg BID Trend serum bicarb for now check urine electrolytes for urine anion gap #N/V with suspected GI bleed management per GI #Anemia Trend CBC transfuse as per primary team Current Medications Artificial Tears (Artificial Tears) 1 drop OU BID [facility] Last Admin: 05/07/17 21:09 Dose: 1 drop Atorvastatin Calcium (Lipitor -) 20 mg PO [facility] Last Admin: 05/07/17 21:07 Dose: 20 mg Cholecalciferol (Vitamin D3 -) 2,000 unit PO DAILY [facility] Last Admin: 05/07/17 09:59 Dose: 2,000 unit Citalopram Hydrobromide (Celexa -) 20 mg PO DAILY [facility] Last Admin: 05/07/17 09:57 Dose: 20 mg Fenofibric Acid (Trilipix -) 135 mg PO DAILY [facility] Last Admin: 05/07/17 09:59 Dose: 135 mg CEFTRIAXONE 1 G/50 ML PREMIX (Ceftriaxone 1 Gm-D5w Bag) 50 mls @ 100 mls/hr IVPB HS [facility] Last Admin: 05/07/17 21:09 Dose: 100 mls/hr Sodium Chloride (Normal Saline -) 1,000 mls @ 50 mls/hr IV ASDIR [facility] Stop: 05/07/17 22:47 Last Admin: 05/06/17 22:57 Dose: 50 mls/hr Insulin Aspart (Novolog Vial Sliding Scale -) 1 vial SQ TIDAC [facility] PRN Reason: Protocol Last Admin: 05/07/17 16:58 Dose: 3 units Insulin Detemir (Levemir Vial) 14 units SQ AM [facility] Last Admin: 05/07/17 06:38 Dose: Not Given Insulin Detemir (Levemir Vial) 22 units SQ HS [facility] Last Admin: 05/07/17 21:11 Dose: 22 units Lactobacillus Acidophilus (Bacid -) 1 tab PO DAILY [facility] Last Admin: 05/07/17 09:57 Dose: 1 tab Magnesium Oxide (Mag-Ox -) 400 mg PO BID [facility] Last Admin: 05/07/17 21:08 Dose: 400 mg Mineral Oil (Fleet Mineral Oil Rectal Enema -) 133 ml [place] DAILY [facility] Stop: 05/09/17 09:59 Last Admin: 05/07/17 11:32 Dose: 133 ml Olanzapine (Zyprexa -) 5 mg PO DAILY@1700 [facility] Last Admin: 05/07/17 16:58 Dose: 5 mg Oxybutynin Chloride (Ditropan -) 5 mg PO BID [facility] Last Admin: 05/07/17 21:08 Dose: 5 mg Pantoprazole Sodium (Protonix Iv) 40 mg IVPUSH BID [facility] Last Admin: 05/07/17 21:13 Dose: 40 mg Polyethylene Glycol (Miralax (For Daily Use) -) 17 gm PO TID [facility] Last Admin: 05/07/17 21:13 Dose: 17 gm Sodium Bicarbonate (Sodium Bicarbonate -) 650 mg PO BID [facility] Last Admin: 05/07/17 21:07 Dose: 650 mg Trazodone HCl (Desyrel -) 100 mg PO DAILY [facility] Last Admin: 05/07/17 09:58 Dose: 100 mg Last Vital Signs Temp Pulse Resp BP Pulse Ox 97.5 F L 75 20 103/56 100 05/07/17 17:37 05/07/17 17:37 05/07/17 17:37 05/07/17 17:37 05/06/17 21:00 CBC, BMP 05/07/17 07:27 05/07/17 07:27
[2017-05-07] MEDS ORDERED: POLYETHYLENE GLYCOL 3350 119 GM BTL PO PRN (21:41)
[2017-05-07] MEDS ORDERED: SODIUM CHLORIDE 1,000 ML IV SCH (22:00)
[2017-05-08] MEDS: INSULIN SLIDING SCALE (NOVOLOG) 1 VIAL SQ SCH ×3 (06:01→17:43)
[2017-05-08] MEDS: INSULIN DETEMIR 100 UNITS/ML MDV SQ SCH ×2 (06:47→22:03)
[2017-05-08 07:24] LABS: HEMATOCRIT 21.2 % (32.4-45.2); MCH 31.5 pg (25.7-33.7); MCHC 33.1 g/dl (32.0-36.0); MEAN PLT VOLUME 8.3 fl (7.5-11.1); PLATELET COUNT 295 K/MM3 (134-434); RBC 2.24 M/mm3 (3.60-5.2); RDW 16.3 % (11.6-15.6); WHITE BLOOD COUNT 12.2 K/mm3 (4.0-10.0)
[2017-05-08 07:32] LABS: INR 1.8 (0.82-1.09); PROTHROMBIN TIME (PATIENT) 20.3 SEC (9.98-11.88)
[2017-05-08 07:52] LABS: CHLORIDE 115 mmol/L (98-107); SODIUM 145 mmol/L (136-145)
[2017-05-08 08:01] LABS: ALBUMIN 1.9 g/dl (3.4-5.0); ALK PHOS 30 U/L (45-117); ANION GAP 12 (8-16); BILIRUBIN,DIRECT < 0.2 mg/dL (0.0-0.2); BILIRUBIN,TOTAL 0.3 mg/dL (0.2-1.0); BLOOD UREA NITROGEN 45 mg/dL (7-18); CALCIUM 7.7 mg/dL (8.5-10.1); CO2 18 mmol/L (21-32); CREATININE 2.9 mg/dL (0.55-1.02); GLUCOSE,RANDOM 81 mg/dL (74-106); MAGNESIUM 3.2 mg/dL (1.8-2.4); PHOSPHOROUS 3.1 mg/dL (2.5-4.9); SGOT/AST 13 U/L (15-37); SGPT/ALT 9 U/L (12-78)
[2017-05-08] MEDS ORDERED: PT OWN MED DRAWER 7, Y5N ONE (09:49)
[2017-05-08] MEDS: PANTOPRAZOLE SODIUM 40 MG VIAL IVPUSH SCH (09:54)
[2017-05-08] MEDS: ARTIFICIAL TEARS (POLYVINYL ALCOHOL 1.4%) OPTH DROPS OU SCH ×2 (09:54→22:02)
[2017-05-08] MEDS: OXYBUTYNIN CHLORIDE 5 MG TABLET PO SCH ×2 (09:55→22:01)
[2017-05-08] MEDS: LACTOBACILLUS ACIDOPHILUS 1 CAP PO SCH (09:56)
[2017-05-08] MEDS: traZODone HCL 50 MG TABLET (FP) PO SCH (09:56)
[2017-05-08] MEDS: CITALOPRAM HYDROBROMIDE 20 MG TABLET (FP) PO SCH (09:56)
[2017-05-08] MEDS: MAGNESIUM OXIDE 400 MG TABLET (FP) PO SCH ×2 (09:56→22:01)
[2017-05-08] MEDS: CHOLECALCIFEROL (VITAMIN D3) 1,000 UNIT TABLET (FP) PO SCH (09:57)
[2017-05-08] MEDS: SODIUM BICARBONATE 650 MG TABLET PO SCH ×2 (09:57→22:00)
[2017-05-08] MEDS: FENOFIBRIC ACID 135 MG CAP PO SCH (09:57)
[2017-05-08 11:04] LABS: PLATELET ESTIMATE ADEQUATE
--- NOTE | 2017-05-08 11:59 | PN ---
GI Progress Note Subjective: No acute events No abdominal pain + BM's have been reported by nursing with large BM on monday recorded - Objective Vital Signs: Vital Signs Temperature 97.4 F L 05/08/17 06:17 Pulse Rate 75 05/08/17 06:17 Respiratory Rate 18 05/08/17 06:17 Blood Pressure 124/65 05/08/17 06:17 O2 Sat by Pulse Oximetry (%) 100 05/07/17 21:00 Constitutional: Calm Eyes: No: Sclera Icterus Cardiovascular: Yes: Regular Rate and Rhythm Respiratory: Yes: CTA Bilaterally Gastrointestinal Inspection: No: Distention ...Auscultate: Yes: Normoactive Bowel Sounds ...Palpate: No: Hepatomegaly, Splenomegaly, Tenderness ...Percussion: No: Tympanitic Edema: No (No LE edema) Neurological: Yes: Alert Labs: CBC, BMP 05/08/17 06:15 05/08/17 06:15 INR, PTT INR 1.80 (0.82-1.09) H 05/08/17 06:15 Problem List - Problems (1) Fecal impaction in rectum Assessment/Plan: Patient having BM's Continue MiraLAX 17g BID Check TSH Code(s): K56.41 - FECAL IMPACTION (2) Coffee ground emesis Assessment/Plan: No further vomiting. Suspect secondary to fecal impaction / renal insufficiency Refused EGD / colonoscopy No need for BID IV protonix. 20mg PO once daily. Code(s): K92.0 - HEMATEMESIS
--- NOTE | 2017-05-08 14:49 | PN ---
Physical Exam: SUBJECTIVE: Patient seen and examined Sat with patient at bedside. Reintroduced myself. Explained patient might be bleeding from somewhere in her GI tract. Might require transfusion of blood. Needs EGD/colon to identify source of bleeding and repair it. I reminded patient Dr. Maria had spoken with her about this on Monday. She recalled speaking with him but could not tell me in her own words what they talked about. I explained the procedures a second time and she responded, "just do it because you're going to do it anyway." I explained we would not transfuse her or perform an invasive procedure without her permission. She started talking about the soup she was eating for lunch. I attempted to redirect her but she focused on the soup. I was unable to redirect the patient back to her health issues. Spoke with Lisbet Haynes, router operator at [facility]. The patient does not have a health-care proxy. She has been asked on a number of occasions to select someone but patient has refused. Patient has a friend, Melinda Duval, who sometimes attends the patient's quarterly progress meeting. Ms. Duval has never been designated as HCP. Called and spoke with Melinda Duval ([phone]). She was asked several years ago by the patient to serve as a HCP but Ms. Duval declined. She said she did not want the responsibility and feels medical decisions should be made by [facility]. Called and spoke with psychiatrist Dr. Wlison who will come and evaluate the patient. The patient has the following psychiatric diagnoses: mood disorder, major depressive disorder, and trichotillomania. She is followed regularly by a psychiatrist at [facility]. Her physician at [facility] is Dr. Negron. OBJECTIVE: Vital Signs Period Temp Pulse Resp BP Sys/Washburn Pulse Ox Last 24 Hr 97.4 F-98.2 F 75-84 16-20 103-129/53-78 95-100 GENERAL: The patient is awake, alert. In no acute distress HEAD: patch of hair pulled out center forehead, mild erythema, no bleeding, no sign of infection LUNGS: Breath sounds equal, clear to auscultation bilaterally, no wheezes, no crackles, no accessory muscle use. HEART: Regular rate and rhythm, S1, S2 ABDOMEN: Soft, nontender, nondistended, normoactive bowel sounds, no guarding, no rebound EXTREMITIES: 2+ pulses, warm, well-perfused, no edema. NEUROLOGICAL: Cranial nerves II through XII grossly intact. Normal speech, gait not observed. Laboratory Results - last 24 hr 05/07/17 05/07/17 05/07/17 16:55 21:10 21:45 WBC RBC Hgb Hct MCV MCH MCHC RDW Plt Count MPV Neutrophils % Neutrophils % (Manual) Lymphocytes % Lymphocytes % (Manual) Monocytes % (Manual) Eosinophils % (Manual) Basophils % (Manual) Differential Comment Platelet Estimate Retic Count 1.77 H D PT with INR INR Sodium Potassium Chloride Carbon Dioxide Anion Gap BUN Creatinine POC Glucometer 205 192 Random Glucose Calcium Phosphorus Magnesium Ferritin Total Bilirubin Direct Bilirubin AST ALT Alkaline Phosphatase LD Total Total Protein Albumin Blood Type Antibody Screen 05/07/17 05/07/17 05/08/17 21:45 21:45 05:50 WBC RBC Hgb Hct MCV MCH MCHC RDW Plt Count MPV Neutrophils % Neutrophils % (Manual) Lymphocytes % Lymphocytes % (Manual) Monocytes % (Manual) Eosinophils % (Manual) Basophils % (Manual) Differential Comment Platelet Estimate Retic Count PT with INR INR Sodium Potassium Chloride Carbon Dioxide Anion Gap BUN Creatinine POC Glucometer 81 Random Glucose Calcium Phosphorus Magnesium Ferritin 189.212 Total Bilirubin Direct Bilirubin AST ALT Alkaline Phosphatase LD Total 115 Total Protein Albumin Blood Type Antibody Screen 05/08/17 05/08/17 05/08/17 06:15 06:15 06:15 WBC 12.2 H RBC 2.24 L Hgb 7.0 L Hct 21.2 L MCV 95.0 MCH 31.5 MCHC 33.1 RDW 16.3 H Plt Count 295 MPV 8.3 Neutrophils % No Result Required. Neutrophils % (Manual) 30.0 L Lymphocytes % No Result Required. Lymphocytes % (Manual) 57.0 H Monocytes % (Manual) 7 Eosinophils % (Manual) 2.0 Basophils % (Manual) 1.0 Differential Comment Man diff performed Platelet Estimate Adequate Retic Count PT with INR 20.30 H INR 1.80 H Sodium 145 Potassium 4.0 Chloride 115 H Carbon Dioxide 18 L Anion Gap 12 BUN 45 H Creatinine 2.9 H POC Glucometer Random Glucose 81 Calcium 7.7 L Phosphorus 3.1 Magnesium 3.2 H Ferritin Total Bilirubin 0.3 D Direct Bilirubin < 0.2 AST 13 L ALT 9 L Alkaline Phosphatase 30 L LD Total Total Protein 6.0 L Albumin 1.9 L Blood Type Antibody Screen 05/08/17 05/08/17 05/08/17 06:15 12:15 13:00 WBC RBC Hgb Hct MCV MCH MCHC RDW Plt Count MPV Neutrophils % Neutrophils % (Manual) Lymphocytes % Lymphocytes % (Manual) Monocytes % (Manual) Eosinophils % (Manual) Basophils % (Manual) Differential Comment Platelet Estimate Retic Count PT with INR INR Sodium Potassium Chloride Carbon Dioxide Anion Gap BUN Creatinine POC Glucometer 152 Random Glucose Calcium Phosphorus Magnesium Ferritin 194.745 Total Bilirubin Direct Bilirubin AST ALT Alkaline Phosphatase LD Total Total Protein Albumin Blood Type O POSITIVE Antibody Screen Negative Current Medications Generic Name Dose Route Start Trade Name Freq PRN Reason Stop Artificial Tears 1 drop 05/05/17 10:00 Artificial Tears OU BID [facility] Atorvastatin Calcium 20 mg 05/05/17 22:00 Lipitor - PO HS [facility] Cholecalciferol 2,000 unit 05/05/17 10:00 Vitamin D3 - PO DAILY [facility] Citalopram Hydrobromide 20 mg 05/05/17 10:00 Celexa - PO DAILY [facility] Fenofibric Acid 135 mg 05/05/17 10:00 Trilipix - PO DAILY MEG Heparin Sodium (Porcine) 1,000 unit 05/08/17 18:07 Heparin - IVPUSH PRN PRN Heparin Heparin Sodium (Porcine) 5,000 unit 05/08/17 18:07 Heparin - IVPUSH PRN PRN Heparin CEFTRIAXONE 1 G/50 ML PREMIX 50 mls @ 100 mls/hr 05/05/17 22:00 Ceftriaxone 1 Gm-D5w Bag IVPB HS MEG HEPARIN SOD,PORK IN 0.45% NACL 25,000 units in 500 mls @ 21.6 mls/hr 05/08/17 18:45 Heparin-1/2ns 25,000 Units/500 IVPB TITR [facility] Protocol 1,080 UNITS/HR Insulin Aspart 1 vial 05/05/17 07:00 Novolog Vial Sliding Scale - SQ TIDAC [facility] Protocol Insulin Detemir 14 units 05/05/17 07:00 Levemir Vial SQ AM MEG Insulin Detemir 22 units 05/05/17 22:00 Levemir Vial SQ HS [facility] Lactobacillus Acidophilus 1 tab 05/05/17 10:00 Bacid - PO DAILY [facility] Magnesium Oxide 400 mg 05/05/17 10:00 Mag-Ox - PO BID [facility] Olanzapine 5 mg 05/05/17 17:00 Zyprexa - PO DAILY@1700 [facility] Oxybutynin Chloride 5 mg 05/05/17 10:00 Ditropan - PO BID [facility] Pantoprazole Sodium 40 mg 05/09/17 10:00 Protonix - PO DAILY [facility] Polyethylene Glycol 17 gm 05/08/17 22:00 Miralax (For Daily Use) - PO BID [facility] Sodium Bicarbonate 650 mg 05/05/17 22:00 Sodium Bicarbonate - PO BID [facility] Trazodone HCl 100 mg 05/05/17 10:00 Desyrel - PO DAILY [facility] ASSESSMENT/PLAN 66 year-old female with a PMH significant for HTN, HLD, afib on coumadin, chronic anemia, CKD, chronic obstructive pyelonephritis, depression. r/o upper GI bleed Normocytic anemia --Hgb 8.1 on admission-->7.8-->7.3-->7.0 --hemodynamically stable --refusing EGD and colonoscopy; issue of competency (see above); psych consult requested --anemia studies pending --transfuse <7 --continue protonix BID Atrial fibrillation --rate well-controlled --stop coumadin due to bleeding --start heparin drip Fecal retention, resolved --CTAP: moderate fecal retention --seen and evaluated by GI, disimpacted --four BMs over past 2 days --bowel regimen per GI Hydronephrosis --3/2 CTAP: moderate bilateral hydronephrosis with marked dilitation both ureters to bladder Acute kidney injury --volume depletion v. obstructive uropathy v. both --Cr continues to trend down, 2,9 today --continue IV fluids UTI --continue ceftriaxone (day #4) HTN --BP stable --not on anti-hypertensives IDDM --Levemir 14U am, 22U qhs --Novolog sliding scale coverage Depression --continue Celexa, trazadone, Zyprexa FEN Fluids: NS@50mL/hr Electrolytes: replete as indicated Nutrition: clears DVT prophylaxis: heparin drip Physical therapy evaluation Dispo: continues to require inpatient care. Full code. Visit type - Emergency Visit Emergency Visit: Yes ED Registration Date: 05/05/17 Care time: The patient presented to the Emergency Department on the above date and was hospitalized for further evaluation of their emergent condition. - New Patient This patient is new to me today: No - Critical Care Critical Care patient: No
--- NOTE | 2017-05-08 17:23 | PN ---
Progress Note (short form) - Note Progress Note: Renal followup for BRYAN Pt seen and examined at the bedside awake and alert no acute complaints making urine Vital Signs Temperature 97.6 F 05/08/17 15:40 Pulse Rate 67 05/08/17 15:40 Respiratory Rate 18 05/08/17 15:40 Blood Pressure 125/68 05/08/17 15:40 O2 Sat by Pulse Oximetry (%) 95 05/08/17 09:00 Intake & Output 05/05/17 05/06/17 05/07/17 05/08/17 23:59 23:59 23:59 23:59 Intake Total 1050 2140 1100 900 Balance 1050 2140 1100 900 Weight 68.039 kg NAD awake and alert RRR CTA no LE edema no bladder distension CBC, BMP 05/08/17 06:15 05/08/17 06:15 Current Medications Artificial Tears (Artificial Tears) 1 drop OU BID [facility] Last Admin: 05/08/17 09:54 Dose: 1 drop Atorvastatin Calcium (Lipitor -) 20 mg PO [facility] Last Admin: 05/07/17 21:07 Dose: 20 mg Cholecalciferol (Vitamin D3 -) 2,000 unit PO DAILY [facility] Last Admin: 05/08/17 09:57 Dose: 2,000 unit Citalopram Hydrobromide (Celexa -) 20 mg PO DAILY [facility] Last Admin: 05/08/17 09:56 Dose: 20 mg Fenofibric Acid (Trilipix -) 135 mg PO DAILY [facility] Last Admin: 05/08/17 09:57 Dose: 135 mg CEFTRIAXONE 1 G/50 ML PREMIX (Ceftriaxone 1 Gm-D5w Bag) 50 mls @ 100 mls/hr IVPB HS [facility] Last Admin: 05/07/17 21:09 Dose: 100 mls/hr Sodium Chloride (Normal Saline -) 1,000 mls @ 50 mls/hr IV ASDIR [facility] Stop: 05/08/17 17:59 Last Admin: 05/07/17 22:56 Dose: 50 mls/hr Insulin Aspart (Novolog Vial Sliding Scale -) 1 vial SQ TIDAC [facility] PRN Reason: Protocol Last Admin: 05/08/17 12:16 Dose: 2 units Insulin Detemir (Levemir Vial) 14 units SQ AM [facility] Last Admin: 05/08/17 06:47 Dose: 14 units Insulin Detemir (Levemir Vial) 22 units SQ HS [facility] Last Admin: 05/07/17 21:11 Dose: 22 units Lactobacillus Acidophilus (Bacid -) 1 tab PO DAILY [facility] Last Admin: 05/08/17 09:56 Dose: 1 tab Magnesium Oxide (Mag-Ox -) 400 mg PO BID [facility] Last Admin: 05/08/17 09:56 Dose: 400 mg Olanzapine (Zyprexa -) 5 mg PO DAILY@1700 [facility] Last Admin: 05/07/17 16:58 Dose: 5 mg Oxybutynin Chloride (Ditropan -) 5 mg PO BID [facility] Last Admin: 05/08/17 09:55 Dose: 5 mg Pantoprazole Sodium (Protonix -) 40 mg PO DAILY [facility] Polyethylene Glycol (Miralax (For Daily Use) -) 17 gm PO BID [facility] Sodium Bicarbonate (Sodium Bicarbonate -) 650 mg PO BID [facility] Last Admin: 05/08/17 09:57 Dose: 650 mg Trazodone HCl (Desyrel -) 100 mg PO DAILY [facility] Last Admin: 05/08/17 09:56 Dose: 100 mg 66 year old woman with PMhx of Afib on coumadin, Hypertension, CKD who presented with N/v with suspected coffee grounds and found to have BRYAN with BUN/ Cr of 88/4.3 and b/l hydronephrosis. #BRYAN secondary to obstructive uropathy +/- volume depletion Renal function with mild improvement repeat US of the kidney to access for any resolution of obstruction urology consult trend BUN/Cr oral intake as tolerated #Anion gap + non-anion gap metabolic acidosis from renal failure +/- GI losses/RTA would start oral sodium bicarb 650mg BID Thank you Robert Casiano DO
[2017-05-08] MEDS: OLANZapine 5 MG TABLET PO SCH (17:55)
[2017-05-08] MEDS ORDERED: WARFARIN NA 5 MG TABLET (UD) PO SCH (18:00)
[2017-05-08] MEDS ORDERED: HEPARIN NA (PORCINE) 5,000 UNITS/ML 1ML VIAL IVPUSH PRN ×2 (18:07)
--- NOTE | 2017-05-08 18:08 | CON.PSY ---
Psychiatry Consult Chief Complaint: 66 year old female admitted from [facility] for [facility]. p[ atient has a history of vMajor Depressive Disorder and Trichotillomania. On Pay meds. Patient seen for Capacity to make informed medical decisions cat this time. Patientaris sky need Bloodc tRANSFUSION ABD OPTHER medical procedures. she seems reluctant and hesirtantb t5o engage in anyb conversation, appearts defensive and confused. Symptoms: reports: Depressed Mood, Irritability, Disorganized/Disruptive Thoughts, Attention Deficit - Previous Psychiatric Treatment Outpatient: None Inpatient: None - Previous Substance Abuse Treatment Outpatient: None Inpatient: None - Reason for Previous Treatment Reason for Previous Treatment: Major Depression, Psychotic Episode - Current Medications Current Medications: Active Medications Artificial Tears (Artificial Tears) 1 drop OU BID [facility] Last Admin: 05/08/17 09:54 Dose: 1 drop Atorvastatin Calcium (Lipitor -) 20 mg PO [facility] Last Admin: 05/07/17 21:07 Dose: 20 mg Cholecalciferol (Vitamin D3 -) 2,000 unit PO DAILY [facility] Last Admin: 05/08/17 09:57 Dose: 2,000 unit Citalopram Hydrobromide (Celexa -) 20 mg PO DAILY [facility] Last Admin: 05/08/17 09:56 Dose: 20 mg Fenofibric Acid (Trilipix -) 135 mg PO DAILY [facility] Last Admin: 05/08/17 09:57 Dose: 135 mg CEFTRIAXONE 1 G/50 ML PREMIX (Ceftriaxone 1 Gm-D5w Bag) 50 mls @ 100 mls/hr IVPB [facility] Last Admin: 05/07/17 21:09 Dose: 100 mls/hr Insulin Aspart (Novolog Vial Sliding Scale -) 1 vial SQ TIDAC [facility] PRN Reason: Protocol Last Admin: 05/08/17 17:43 Dose: Not Given Insulin Detemir (Levemir Vial) 14 units SQ AM [facility] Last Admin: 05/08/17 06:47 Dose: 14 units Insulin Detemir (Levemir Vial) 22 units SQ HS [facility] Last Admin: 05/07/17 21:11 Dose: 22 units Lactobacillus Acidophilus (Bacid -) 1 tab PO DAILY [facility] Last Admin: 05/08/17 09:56 Dose: 1 tab Magnesium Oxide (Mag-Ox -) 400 mg PO BID [facility] Last Admin: 05/08/17 09:56 Dose: 400 mg Olanzapine (Zyprexa -) 5 mg PO DAILY@1700 [facility] Last Admin: 05/08/17 17:55 Dose: 5 mg Oxybutynin Chloride (Ditropan -) 5 mg PO BID [facility] Last Admin: 05/08/17 09:55 Dose: 5 mg Pantoprazole Sodium (Protonix -) 40 mg PO DAILY [facility] Polyethylene Glycol (Miralax (For Daily Use) -) 17 gm PO BID [facility] Sodium Bicarbonate (Sodium Bicarbonate -) 650 mg PO BID [facility] Last Admin: 05/08/17 09:57 Dose: 650 mg Trazodone HCl (Desyrel -) 100 mg PO DAILY [facility] Last Admin: 05/08/17 09:56 Dose: 100 mg - Allergies Allergies: Allergies Allergy/AdvReac Type Severity Reaction Status Date / Time Sulfa (Sulfonamide Allergy Unknown Verified 05/04/17 21:52 Antibiotics) Penicillins Allergy Verified 05/04/17 21:52 - Current Living Status Usual Living Arrangement: Assisted - Current Mental Status Evaluation Appearance: Disheveled Attitude: Guarded - Affect Affect: Constrictive Appropriateness: Not Appropriate - Mood Mood: Depressed - Speech/Language Expressive: Delayed - Psychomotor Activity Psychomotor Activity: Slowed - Thought Process Thought Process: Circumstantial - Thought Content Hallucinations: Absent Delusions: Absent - Self Perception Self Perception: No Impairment - Cognition Attention: Alert Orientation: Time Memory, Short Term: 1/3 Memory, Remote with Promptin/3 - Concentration Serial Sevens Intact: No Simple Calculations Intact: No - Abstraction Proverb Interpretation: Impaired Judgement: Moderately Impaired - Insight Insight: Impaired - Impulse Control Impulse Control: Moderately Impaired - Suicidal Ideation Suicidal Ideation: No - Homicidal Ideation Homicidal Ideation: No Assessment/Plan 1)_ Continue with [employer] psych meds. 2) Patient lacks functional capacity to make informed decisions due to Chronic Psychiatric Disorders.
[2017-05-08] MEDS ORDERED: HEPARIN NA (PORCINE) 5,000 UNITS/ML 1ML VIAL IVPUSH ONE ×2 (18:20)
[2017-05-08] MEDS ORDERED: HEPARIN SOD,PORK IN 0.45% NACL 25,000 UNITS/500 ML INFUS.BAG IVPB SCH (18:45)
[2017-05-08] MEDS: HEPARIN SOD,PORK IN 0.45% NACL 25,000 UNITS/500 ML INFUS.BAG IVPB SCH (20:21)
[2017-05-08] MEDS: ATORVASTATIN CA 20 MG TABLET (FP) PO SCH (22:01)
[2017-05-08] MEDS: POLYETHYLENE GLYCOL 3350 119 GM BTL PO SCH (22:01)
[2017-05-08] MEDS: CEFTRIAXONE 1 G/50 ML PREMIX 50 ML IVPB SCH (22:02)
[2017-05-09 07:22] LABS: HEMATOCRIT 21.6 % (32.4-45.2); HEMOGLOBIN 7.1 GM/dL (10.7-15.3); MCH 31.2 pg (25.7-33.7); MEAN CELL VOLUME 94.4 fl (80-96); MEAN PLT VOLUME 8.3 fl (7.5-11.1); PLATELET COUNT 285 K/MM3 (134-434); RBC 2.28 M/mm3 (3.60-5.2); RDW 16.1 % (11.6-15.6); WHITE BLOOD COUNT 13.4 K/mm3 (4.0-10.0)
[2017-05-09] MEDS: INSULIN SLIDING SCALE (NOVOLOG) 1 VIAL SQ SCH ×3 (07:25→17:52)
[2017-05-09] MEDS: INSULIN DETEMIR 100 UNITS/ML MDV SQ SCH ×2 (07:28→22:10)
[2017-05-09 07:47] LABS: ANION GAP 9 (8-16); BLOOD UREA NITROGEN 33 mg/dL (7-18); CALCIUM 7.5 mg/dL (8.5-10.1); CHLORIDE 117 mmol/L (98-107); CO2 19 mmol/L (21-32); CREATININE 2.3 mg/dL (0.55-1.02); GLUCOSE,RANDOM 87 mg/dL (74-106); MAGNESIUM 2.5 mg/dL (1.8-2.4); PHOSPHOROUS 2.4 mg/dL (2.5-4.9); POTASSIUM 4.1 mmol/L (3.5-5.1); SODIUM 145 mmol/L (136-145)
[2017-05-09 08:07] LABS: SERUM IRON SATURATION 38 % (15-55); TOTAL IRON BINDING CAPACITY 212 ug/dL (250-450); UIBC 131 ug/dL (118-369)
--- NOTE | 2017-05-09 08:14 | PN ---
Physical Exam: SUBJECTIVE: Patient seen and examined. Patient found by Dr. Wilson to lack capacity to make health-care decisions. Discussed with case management. We will explore whether [facility], where patient is a long-term resident, is her legal guardian. OBJECTIVE: Vital Signs Period Temp Pulse Resp BP Sys/Washburn Pulse Ox Last 24 Hr 97.3 F-98.1 F 64-84 18-20 115-133/56-68 95-95 GENERAL: The patient is awake, alert. In no acute distress HEAD: patch of hair pulled out center forehead, mild erythema, no bleeding, no sign of infection LUNGS: Breath sounds equal, clear to auscultation bilaterally, no wheezes, no crackles, no accessory muscle use. HEART: Regular rate and rhythm, S1, S2 ABDOMEN: Soft, nontender, nondistended, normoactive bowel sounds, no guarding, no rebound EXTREMITIES: 2+ pulses, warm, well-perfused, no edema. NEUROLOGICAL: Cranial nerves II through XII grossly intact. Normal speech, gait not observed. Laboratory Results - last 24 hr 05/07/17 05/08/17 05/08/17 21:45 06:15 06:15 WBC 12.2 H RBC 2.24 L Hgb 7.0 L Hct 21.2 L MCV 95.0 MCH 31.5 MCHC 33.1 RDW 16.3 H Plt Count 295 MPV 8.3 Neutrophils % No Result Required. Neutrophils % (Manual) 30.0 L Lymphocytes % No Result Required. Lymphocytes % (Manual) 57.0 H Monocytes % (Manual) 7 Eosinophils % (Manual) 2.0 Basophils % (Manual) 1.0 Differential Comment Man diff performed Platelet Estimate Adequate Haptoglobin 366 H PTT (Actin FS) Sodium Potassium Chloride Carbon Dioxide Anion Gap BUN Creatinine POC Glucometer Random Glucose Calcium Phosphorus Magnesium Iron 81 TIBC 212 L Iron Saturation 38 Blood Type Antibody Screen 05/08/17 05/08/17 05/08/17 12:15 13:00 16:48 WBC RBC Hgb Hct MCV MCH MCHC RDW Plt Count MPV Neutrophils % Neutrophils % (Manual) Lymphocytes % Lymphocytes % (Manual) Monocytes % (Manual) Eosinophils % (Manual) Basophils % (Manual) Differential Comment Platelet Estimate Haptoglobin PTT (Actin FS) Sodium Potassium Chloride Carbon Dioxide Anion Gap BUN Creatinine POC Glucometer 152 147 Random Glucose Calcium Phosphorus Magnesium Iron TIBC Iron Saturation Blood Type O POSITIVE Antibody Screen Negative 05/08/17 05/09/17 05/09/17 21:59 02:00 06:02 WBC RBC Hgb Hct MCV MCH MCHC RDW Plt Count MPV Neutrophils % Neutrophils % (Manual) Lymphocytes % Lymphocytes % (Manual) Monocytes % (Manual) Eosinophils % (Manual) Basophils % (Manual) Differential Comment Platelet Estimate Haptoglobin PTT (Actin FS) 65.6 H D Sodium Potassium Chloride Carbon Dioxide Anion Gap BUN Creatinine POC Glucometer 153 92 Random Glucose Calcium Phosphorus Magnesium Iron TIBC Iron Saturation Blood Type Antibody Screen 05/09/17 05/09/17 06:24 06:24 WBC 13.4 H RBC 2.28 L Hgb 7.1 L Hct 21.6 L MCV 94.4 MCH 31.2 MCHC 33.0 RDW 16.1 H Plt Count 285 MPV 8.3 Neutrophils % No Result Required. Neutrophils % (Manual) Lymphocytes % No Result Required. Lymphocytes % (Manual) Monocytes % (Manual) Eosinophils % (Manual) Basophils % (Manual) Differential Comment Platelet Estimate Haptoglobin PTT (Actin FS) Sodium 145 Potassium 4.1 Chloride 117 H Carbon Dioxide 19 L Anion Gap 9 BUN 33 H Creatinine 2.3 H POC Glucometer Random Glucose 87 Calcium 7.5 L Phosphorus 2.4 L Magnesium 2.5 H Iron TIBC Iron Saturation Blood Type Antibody Screen Active Medications Generic Name Dose Route Start Last Admin Trade Name Freq PRN Reason Stop Dose Admin Artificial Tears 1 drop 05/05/17 10:00 05/08/17 22:02 Artificial Tears OU 1 drop BID [facility]G Administration Atorvastatin Calcium 20 mg 05/05/17 22:00 05/08/17 22:01 Lipitor - PO 20 mg HS MEG Administration Cholecalciferol 2,000 unit 05/05/17 10:00 05/08/17 09:57 Vitamin D3 - PO 2,000 unit DAILY [facility]G Administration Citalopram Hydrobromide 20 mg 05/05/17 10:00 05/08/17 09:56 Celexa - PO 20 mg DAILY [facility] Administration Fenofibric Acid 135 mg 05/05/17 10:00 05/08/17 09:57 Trilipix - PO 135 mg DAILY [facility] Administration Heparin Sodium (Porcine) 1,000 unit 05/08/17 18:07 Heparin - IVPUSH PRN PRN Heparin Heparin Sodium (Porcine) 5,000 unit 05/08/17 18:07 Heparin - IVPUSH PRN PRN Heparin CEFTRIAXONE 1 G/50 ML PREMIX 50 mls @ 100 mls/hr 05/05/17 22:00 05/08/17 22: 02 Ceftriaxone 1 Gm-D5w Bag IVPB 100 mls/hr HS MEG Administration HEPARIN SOD,PORK IN 0.45% NACL 25,000 units in 500 mls @ 21.6 mls/hr 05/08/17 18:45 05/09/17 02:43 Heparin-1/2ns 25,000 Units/500 IVPB 1,080 units/hr TITR MEG 21.6 mls/hr Protocol Titration 1,080 UNITS/HR Insulin Aspart 1 vial 05/05/17 07:00 05/09/17 07:25 Novolog Vial Sliding Scale - SQ Not Given TIDAC [facility] Protocol Insulin Detemir 14 units 05/05/17 07:00 05/09/17 07:28 Levemir Vial SQ 14 units AM [facility]G Administration Insulin Detemir 22 units 05/05/17 22:00 05/08/17 22:03 Levemir Vial SQ 22 units HS [facility]G Administration Lactobacillus Acidophilus 1 tab 05/05/17 10:00 05/08/17 09:56 Bacid - PO 1 tab DAILY [facility] Administration Magnesium Oxide 400 mg 05/05/17 10:00 05/08/17 22:01 Mag-Ox - PO 400 mg BID [facility]G Administration Olanzapine 5 mg 05/05/17 17:00 05/08/17 17:55 Zyprexa - PO 5 mg DAILY@1700 [facility] Administration Oxybutynin Chloride 5 mg 05/05/17 10:00 05/08/17 22:01 Ditropan - PO 5 mg BID MEG Administration Pantoprazole Sodium 40 mg 05/09/17 10:00 Protonix - PO DAILY [facility] Polyethylene Glycol 17 gm 05/08/17 22:00 05/08/17 22:01 Miralax (For Daily Use) - PO 17 gm BID [facility]G Administration Sodium Bicarbonate 650 mg 05/05/17 22:00 05/08/17 22:00 Sodium Bicarbonate - PO 650 mg BID [facility]G Administration Trazodone HCl 100 mg 05/05/17 10:00 05/08/17 09:56 Desyrel - PO 100 mg DAILY [facility]G Administration ASSESSMENT/PLAN 66 year-old female with a PMH significant for HTN, HLD, afib on coumadin, chronic anemia, CKD, chronic obstructive pyelonephritis, depression. r/o upper GI bleed Normocytic anemia --Hgb 8.1 on admission; 7.1 today --hemodynamically stable --refusing EGD and colonoscopy; issue of competency (see above); psych consult requested --anemia studies pending --transfuse <7 --continue protonix BID Atrial fibrillation --rate well-controlled --stop coumadin due to bleeding --start heparin drip Fecal retention, resolved --CTAP: moderate fecal retention --seen and evaluated by GI, disimpacted --four BMs over past 2 days --bowel regimen per GI Hydronephrosis --3/2 CTAP: moderate bilateral hydronephrosis with marked dilitation both ureters to bladder Acute kidney injury --volume depletion v. obstructive uropathy v. both --Cr continues to trend down, 2,9 today --continue IV fluids UTI --no fever, but WBC trending up --re-culture --continue ceftriaxone (day #5) HTN --BP stable --not on anti-hypertensives IDDM --Levemir 14U am, 22U qhs --Novolog sliding scale coverage Depression --continue Celexa, trazadone, Zyprexa FEN Fluids: NS@50mL/hr Electrolytes: replete as indicated Nutrition: clears DVT prophylaxis: heparin drip Physical therapy evaluation Dispo: continues to require inpatient care. Full code. Visit type - Emergency Visit Emergency Visit: Yes ED Registration Date: 05/05/17 Care time: The patient presented to the Emergency Department on the above date and was hospitalized for further evaluation of their emergent condition. - New Patient This patient is new to me today: No - Critical Care Critical Care patient: No
[2017-05-09] MEDS: MAGNESIUM OXIDE 400 MG TABLET (FP) PO SCH ×2 (09:15→22:09)
[2017-05-09] MEDS: traZODone HCL 50 MG TABLET (FP) PO SCH (09:16)
[2017-05-09] MEDS: SODIUM BICARBONATE 650 MG TABLET PO SCH ×2 (09:16→22:09)
[2017-05-09] MEDS: LACTOBACILLUS ACIDOPHILUS 1 CAP PO SCH (09:16)
[2017-05-09] MEDS: CHOLECALCIFEROL (VITAMIN D3) 1,000 UNIT TABLET (FP) PO SCH (09:16)
[2017-05-09] MEDS: PANTOPRAZOLE 40 MG TABLET (FP) PO SCH (09:16)
[2017-05-09] MEDS: OXYBUTYNIN CHLORIDE 5 MG TABLET PO SCH ×2 (09:16→22:09)
[2017-05-09] MEDS: CITALOPRAM HYDROBROMIDE 20 MG TABLET (FP) PO SCH (09:16)
[2017-05-09] MEDS ORDERED: PT OWN MED DRAWER 7, Y5N ONE ×3 (09:21→20:06)
[2017-05-09] MEDS: ARTIFICIAL TEARS (POLYVINYL ALCOHOL 1.4%) OPTH DROPS OU SCH ×2 (09:40→22:10)
[2017-05-09] MEDS: POLYETHYLENE GLYCOL 3350 119 GM BTL PO SCH ×2 (09:43→22:09)
[2017-05-09] MEDS: FENOFIBRIC ACID 135 MG CAP PO SCH (09:44)
[2017-05-09] MEDS ORDERED: PANTOPRAZOLE 20 MG TABLET (FP) PO SCH (10:00)
[2017-05-09 10:09] LABS: PLATELET ESTIMATE ADEQUATE; SMUDGE CELLS MANY
[2017-05-09] MEDS: OLANZapine 5 MG TABLET PO SCH (17:49)
[2017-05-09] MEDS: HEPARIN SOD,PORK IN 0.45% NACL 25,000 UNITS/500 ML INFUS.BAG IVPB SCH (19:54)
[2017-05-09] MEDS: ATORVASTATIN CA 20 MG TABLET (FP) PO SCH (22:08)
[2017-05-09] MEDS: CEFTRIAXONE 1 G/50 ML PREMIX 50 ML IVPB SCH (22:10)
--- NOTE | 2017-05-09 23:19 | PN ---
Progress Note (short form) - Note Progress Note: Renal followup for BRYAN Pt seen and examined at the bedside no complaints no sob, chest pain, abd pain Vital Signs Temperature 98.2 F 05/09/17 15:43 Pulse Rate 68 05/09/17 15:43 Respiratory Rate 16 05/09/17 15:43 Blood Pressure 120/82 05/09/17 15:43 O2 Sat by Pulse Oximetry (%) 95 05/08/17 21:00 Intake & Output 05/06/17 05/07/17 05/08/17 05/09/17 23:59 23:59 23:59 23:59 Intake Total 2140 1100 900 656 Balance 2140 1100 900 656 NAD awake and alert RRR CTA no LE edema no bladder distension CBC, BMP 05/09/17 06:24 05/09/17 06:24 Current Medications Artificial Tears (Artificial Tears) 1 drop OU BID [facility] Last Admin: 05/09/17 22:10 Dose: 1 drop Atorvastatin Calcium (Lipitor -) 20 mg PO HS [facility] Last Admin: 05/09/17 22:08 Dose: 20 mg Cholecalciferol (Vitamin D3 -) 2,000 unit PO DAILY [facility] Last Admin: 05/09/17 09:16 Dose: 2,000 unit Citalopram Hydrobromide (Celexa -) 20 mg PO DAILY [facility] Last Admin: 05/09/17 09:16 Dose: 20 mg Fenofibric Acid (Trilipix -) 135 mg PO DAILY [facility] Last Admin: 05/09/17 09:44 Dose: 135 mg Heparin Sodium (Porcine) (Heparin -) 1,000 unit IVPUSH PRN PRN PRN Reason: Heparin Heparin Sodium (Porcine) (Heparin -) 5,000 unit IVPUSH PRN PRN PRN Reason: Heparin CEFTRIAXONE 1 G/50 ML PREMIX (Ceftriaxone 1 Gm-D5w Bag) 50 mls @ 100 mls/hr IVPB HS [facility] Last Admin: 05/09/17 22:10 Dose: 100 mls/hr HEPARIN SOD,PORK IN 0.45% NACL (Heparin-1/2ns 25,000 Units/500) 25,000 units in 500 mls @ 21.6 mls/hr IVPB TITR MEG; 1,080 UNITS/HR PRN Reason: Protocol Last Admin: 05/09/17 19:54 Dose: 1,080 units/hr, 21.6 mls/hr Insulin Aspart (Novolog Vial Sliding Scale -) 1 vial SQ TIDAC [facility] PRN Reason: Protocol Last Admin: 05/09/17 17:52 Dose: Not Given Insulin Detemir (Levemir Vial) 14 units SQ AM [facility] Last Admin: 05/09/17 07:28 Dose: 14 units Insulin Detemir (Levemir Vial) 22 units SQ HS [facility] Last Admin: 05/09/17 22:10 Dose: 22 units Lactobacillus Acidophilus (Bacid -) 1 tab PO DAILY [facility] Last Admin: 05/09/17 09:16 Dose: 1 tab Magnesium Oxide (Mag-Ox -) 400 mg PO BID [facility] Last Admin: 05/09/17 22:09 Dose: 400 mg Olanzapine (Zyprexa -) 5 mg PO DAILY@1700 [facility] Last Admin: 05/09/17 17:49 Dose: 5 mg Oxybutynin Chloride (Ditropan -) 5 mg PO BID [facility] Last Admin: 05/09/17 22:09 Dose: 5 mg Pantoprazole Sodium (Protonix -) 40 mg PO DAILY [facility] Last Admin: 05/09/17 09:16 Dose: 40 mg Polyethylene Glycol (Miralax (For Daily Use) -) 17 gm PO BID [facility] Last Admin: 05/09/17 22:09 Dose: 17 gm Sodium Bicarbonate (Sodium Bicarbonate -) 650 mg PO BID [facility] Last Admin: 05/09/17 22:09 Dose: 650 mg Trazodone HCl (Desyrel -) 100 mg PO DAILY [facility] Last Admin: 05/09/17 09:16 Dose: 100 mg 66 year old woman with PMhx of Afib on coumadin, Hypertension, CKD who presented with N/v with suspected coffee grounds and found to have BRYAN with BUN/ Cr of 88/4.3 and b/l hydronephrosis. #BRYAN secondary to obstructive uropathy +/- volume depletion Renal function improving repeat US showed persistent hydronephrosis urology consult for eval of obstruction continue oral intake as tolerated no indication for RECEIVING TELLER #Anion gap + non-anion gap metabolic acidosis from renal failure +/- GI losses/RTA continue sodium bicarb 650mg BID Thank you Robert Casiano DO
[2017-05-10] MEDS: INSULIN DETEMIR 100 UNITS/ML MDV SQ SCH ×2 (06:51→22:29)
[2017-05-10] MEDS: INSULIN SLIDING SCALE (NOVOLOG) 1 VIAL SQ SCH ×3 (07:58→17:26)
[2017-05-10 08:08] LABS: HEMATOCRIT 21.3 % (32.4-45.2); MCH 31.3 pg (25.7-33.7); MCHC 32.9 g/dl (32.0-36.0); MEAN PLT VOLUME 8.2 fl (7.5-11.1); PLATELET COUNT 279 K/MM3 (134-434); RBC 2.25 M/mm3 (3.60-5.2); RDW 16.4 % (11.6-15.6); WHITE BLOOD COUNT 14.3 K/mm3 (4.0-10.0)
[2017-05-10 08:20] LABS: INR 3.14 (0.82-1.09); PROTHROMBIN TIME (PATIENT) 35.5 SEC (9.98-11.88)
[2017-05-10 08:37] LABS: CHLORIDE 114 mmol/L (98-107); POTASSIUM 4.3 mmol/L (3.5-5.1); SODIUM 145 mmol/L (136-145)
[2017-05-10 08:47] LABS: ALK PHOS 30 U/L (45-117); ANION GAP 10 (8-16); BILIRUBIN,TOTAL 0.2 mg/dL (0.2-1.0); BLOOD UREA NITROGEN 23 mg/dL (7-18); CALCIUM 8.1 mg/dL (8.5-10.1); CO2 21 mmol/L (21-32); CREATININE 2.2 mg/dL (0.55-1.02); GLUCOSE,RANDOM 111 mg/dL (74-106); MAGNESIUM 2.4 mg/dL (1.8-2.4); SGOT/AST 15 U/L (15-37); SGPT/ALT 10 U/L (12-78); TOT PROT 5.9 g/dl (6.4-8.2)
--- NOTE | 2017-05-10 09:24 | PN ---
Physical Exam: SUBJECTIVE: Patient seen and examined. OBJECTIVE: Vital Signs Period Temp Pulse Resp BP Sys/Washburn Pulse Ox Last 24 Hr 97.5 F-98.4 F 64-73 16-20 115-120/50-82 GENERAL: The patient is awake, alert. In no acute distress HEAD: patch of hair pulled out center forehead, mild erythema, no bleeding, no sign of infection; picks hair continuously LUNGS: Breath sounds equal, clear to auscultation bilaterally, no wheezes, no crackles, no accessory muscle use. HEART: Regular rate and rhythm, S1, S2 ABDOMEN: Soft, nontender, nondistended, normoactive bowel sounds, no guarding, no rebound; soft BM in diaper EXTREMITIES: 2+ pulses, warm, well-perfused, no edema. NEUROLOGICAL: Cranial nerves II through XII grossly intact. Normal speech, gait not observed. SKIN: Stage II on left buttock; I examined patient's skin on admission, there were no pressure ulcers present on admission; this is new Laboratory Results - last 24 hr 05/09/17 05/09/17 05/09/17 06:24 10:30 17:51 WBC RBC Hgb Hct MCV MCH MCHC RDW Plt Count MPV Total Counted 100 Neutrophils % Neutrophils % (Manual) 42.0 L Lymphocytes % Lymphocytes % (Manual) 51.0 H Monocytes % (Manual) 2 L Eosinophils % (Manual) 3.0 Myelocytes % (Man) 1 Nucleated RBC % 1 H Metamyelocytes 1 Smudge Cells Many Platelet Estimate Adequate PT with INR INR Sodium Potassium Chloride Carbon Dioxide Anion Gap BUN Creatinine Creat Clearance w eGFR POC Glucometer 141 Random Glucose Calcium Magnesium Total Bilirubin AST ALT Alkaline Phosphatase Total Protein Albumin Stool Occult Blood Negative 05/09/17 05/10/17 05/10/17 22:07 05:54 06:55 WBC RBC Hgb Hct MCV MCH MCHC RDW Plt Count MPV Total Counted Neutrophils % Neutrophils % (Manual) Lymphocytes % Lymphocytes % (Manual) Monocytes % (Manual) Eosinophils % (Manual) Myelocytes % (Man) Nucleated RBC % Metamyelocytes Smudge Cells Platelet Estimate PT with INR 35.50 H INR 3.14 H D Sodium Potassium Chloride Carbon Dioxide Anion Gap BUN Creatinine Creat Clearance w eGFR POC Glucometer 216 111 Random Glucose Calcium Magnesium Total Bilirubin AST ALT Alkaline Phosphatase Total Protein Albumin Stool Occult Blood 05/10/17 05/10/17 06:55 06:55 WBC 14.3 H RBC 2.25 L Hgb 7.0 L Hct 21.3 L MCV 95.0 MCH 31.3 MCHC 32.9 RDW 16.4 H Plt Count 279 MPV 8.2 Total Counted Neutrophils % No Result Required. Neutrophils % (Manual) Lymphocytes % No Result Required. Lymphocytes % (Manual) Monocytes % (Manual) Eosinophils % (Manual) Myelocytes % (Man) Nucleated RBC % Metamyelocytes Smudge Cells Platelet Estimate PT with INR INR Sodium 145 Potassium 4.3 Chloride 114 H Carbon Dioxide 21 Anion Gap 10 BUN 23 H Creatinine 2.2 H Creat Clearance w eGFR 22.26 POC Glucometer Random Glucose 111 H Calcium 8.1 L Magnesium 2.4 Total Bilirubin 0.2 D AST 15 ALT 10 L Alkaline Phosphatase 30 L Total Protein 5.9 L Albumin 2.0 L Stool Occult Blood Active Medications Generic Name Dose Route Start Last Admin Trade Name Freq PRN Reason Stop Dose Admin Artificial Tears 1 drop 05/05/17 10:00 05/09/17 22:10 Artificial Tears OU 1 drop BID MEG Administration Atorvastatin Calcium 20 mg 05/05/17 22:00 05/09/17 22:08 Lipitor - PO 20 mg HS MEG Administration Cholecalciferol 2,000 unit 05/05/17 10:00 05/09/17 09:16 Vitamin D3 - PO 2,000 unit DAILY MEG Administration Citalopram Hydrobromide 20 mg 05/05/17 10:00 05/09/17 09:16 Celexa - PO 20 mg DAILY MEG Administration Fenofibric Acid 135 mg 05/05/17 10:00 05/09/17 09:44 Trilipix - PO 135 mg DAILY MEG Administration Heparin Sodium (Porcine) 1,000 unit 05/08/17 18:07 Heparin - IVPUSH PRN PRN Heparin Heparin Sodium (Porcine) 5,000 unit 05/08/17 18:07 Heparin - IVPUSH PRN PRN Heparin HEPARIN SOD,PORK IN 0.45% NACL 25,000 units in 500 mls @ 21.6 mls/hr 05/08/17 18:45 05/09/17 19:54 Heparin-1/2ns 25,000 Units/500 IVPB 1,080 units/hr TITR MEG 21.6 mls/hr Protocol Administration 1,080 UNITS/HR Insulin Aspart 1 vial 05/05/17 07:00 05/10/17 07:58 Novolog Vial Sliding Scale - SQ Not Given TIDAC [facility] Protocol Insulin Detemir 14 units 05/05/17 07:00 05/10/17 06:51 Levemir Vial SQ 14 units AM [facility]G Administration Insulin Detemir 22 units 05/05/17 22:00 05/09/17 22:10 Levemir Vial SQ 22 units HS [facility]G Administration Lactobacillus Acidophilus 1 tab 05/05/17 10:00 05/09/17 09:16 Bacid - PO 1 tab DAILY [facility] Administration Magnesium Oxide 400 mg 05/05/17 10:00 05/09/17 22:09 Mag-Ox - PO 400 mg BID MEG Administration Olanzapine 5 mg 05/05/17 17:00 05/09/17 17:49 Zyprexa - PO 5 mg DAILY@1700 [facility] Administration Oxybutynin Chloride 5 mg 05/05/17 10:00 05/09/17 22:09 Ditropan - PO 5 mg BID MEG Administration Pantoprazole Sodium 40 mg 05/09/17 10:00 05/09/17 09:16 Protonix - PO 40 mg DAILY [facility]G Administration Piperacillin/Tazobactam/Dextrose 3.375 gm 05/10/17 10:00 Zosyn 3.375gm Ivpb (Premix) IVPB Q8H-IV MEG Polyethylene Glycol 17 gm 05/08/17 22:00 05/09/17 22:09 Miralax (For Daily Use) - PO 17 gm BID MEG Administration Sodium Bicarbonate 650 mg 05/05/17 22:00 05/09/17 22:09 Sodium Bicarbonate - PO 650 mg BID MEG Administration Trazodone HCl 100 mg 05/05/17 10:00 05/09/17 09:16 Desyrel - PO 100 mg DAILY [facility]G Administration ASSESSMENT/PLAN: 66 year-old female with a PMH significant for HTN, HLD, afib on coumadin, chronic anemia, CKD, chronic obstructive pyelonephritis, depression. r/o upper GI bleed Acute blood loss anemia --Hgb 8.1 on admission; stable at 7.0 x 3 days --remains hemodynamically stable --needs EGD/colon but lacks capacity to consent to blood transfusion or invasive procedures, and there is no HCP at this time --we will continue to monitor closely; if she becomes unstable, treat emergently --continue protonix daily Atrial fibrillation --rate well-controlled --continue heparin drip Fecal retention, resolved h/o obstructive pyelonephritis Hydronephrosis --05/05 CTAP: moderate bilateral hydronephrosis with marked dilitation both ureters to bladder --05/09 US: moderate right and mild left hydro; no significant change from 05/05 CT study --place hernandez --urology consult requested Acute kidney injury --volume depletion v. obstructive uropathy v. both --Cr continues to improve; 4.5 on admission, 2.2 today UTI --05/05 CTAP: thick-walled urinary bladder with inflammatory changes, c/w cystitis --afebrile but WBC continues to trend up --reculture --discussed with ID Dr. Allen, observe off antibiotics HTN --BP stable --not on anti-hypertensives IDDM --Levemir 14U am, 22U qhs --Novolog sliding scale coverage Depression --continue Celexa, trazadone, Zyprexa Stage II Pressure ulcer --left buttock --was not present on admission --Allevyn dressing FEN Fluids: PO intake Electrolytes: replete as indicated Nutrition: low sodium DVT prophylaxis: heparin drip Physical therapy evaluation Daily PT Dispo: [employer] Nursing, Dir of Case Management made aware of guardianship issue; ethics consult with Dr. Hou requested; no word yet from Fredis. Full code. Visit type - Emergency Visit Emergency Visit: Yes ED Registration Date: 05/05/17 Care time: The patient presented to the Emergency Department on the above date and was hospitalized for further evaluation of their emergent condition. - New Patient This patient is new to me today: No - Critical Care Critical Care patient: No
[2017-05-10] MEDS ORDERED: PIPERACIL/TAZOB 3.375 GM 3.375 GM/50 ML PREMIX IVPB SCH (10:00)
[2017-05-10] MEDS ORDERED: PIPERACILLIN/TAZOB 3.375 GM 3.375 GM in DEXTROSE 5%-WATER - 50 ML IVPB ONE (10:00)
--- NOTE | 2017-05-10 10:39 | CON.ID ---
Consult Consult Specialty:: Infectious Disease Referred by:: Primary Team Reason for Consultation:: UTI, Leukocytosis - History of Present Illness History of Present Illness: 66 year old F with pmh of HTN, HLD, DM, AF on coumadin, chronic obstructive pyelo, depression, and trichotillomania presented on 05/04 with coffee ground emesis from [facility]. Patient is a poor historian. We are evaluating her for increasing leukocytosis. She states sh is in the hospital because she vomited. Patient was admitted with acute renal failure and UTI (tx with ceftriaxone x 5 days). Patient states she has mild dysuria and is incontinent. Denies fevers. - History Source History Provided By: Patient Limitations to Obtaining History: Poor Historian - Past Medical History Cardio/Vascular: Yes: AFIB Renal/: Yes: Hematuria Psych: Yes: Other (Unspecified Psychiatric Disorder) Musculoskeletal: Yes: Osteoarthritis Endocrine: Yes: Diabetes Mellitus - Past Surgical History Past Surgical History: Yes: None - Alcohol/Substance Use Hx Alcohol Use: No History of Substance Use: reports: None - Smoking History Smoking history: Unknown if ever smoked Have you smoked in the past 12 months: No Aproximately how many cigarettes per day: 0 - Social History Usual Living Arrangement: [facility] ADL: Family Assistance 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 History of Recent Travel: No Home Medications - Allergies Allergies/Adverse Reactions: Allergies Allergy/AdvReac Type Severity Reaction Status Date / Time Sulfa (Sulfonamide Allergy Unknown Verified 05/04/17 21:52 Antibiotics) Penicillins Allergy Verified 05/04/17 21:52 - Home Medications Home Medications: Ambulatory Orders Atorvastatin Ca [Lipitor] 20 mg PO HS 04/11/15 Acetaminophen [Tylenol] 650 mg PO PRN 08/07/16 Docusate Sodium [Colace -] 100 mg PO DAILY 08/07/16 Insulin Sliding Scale [Novolog Vial Sliding Scale -] 0 units SQ TIDAC 08/07/16 Oxybutynin Chloride 5 mg PO BID 08/07/16 Trazodone HCl 100 mg PO DAILY 08/07/16 Warfarin Sodium [Coumadin] 3 mg PO HS 08/07/16 Lactobacillus Acidophilus [Bacid -] 1 each PO DAILY 09/14/16 Lofibra 160 mg PO DAILY 09/14/16 Magnesium Oxide 400 mg PO BID 09/14/16 Citalopram Hydrobromide [Citalopram HBr] 20 mg PO DAILY 05/05/17 Ergocalciferol (Vitamin D2) [Vitamin D2] 2,000 unit PO DAILY 05/05/17 Glipizide [Glipizide ER] 2.5 mg PO DAILY 05/05/17 Insulin Glargine,Hum.rec.anlog [Lantus (nf)] units SQ HS 05/05/17 Olanzapine 5 mg PO DAILY@1700 05/05/17 Polyvinyl Alcohol [Artificial Tears] 1 drop OU BID 05/05/17 Saxagliptin HCl [Onglyza] 2.5 mg PO DAILY 05/05/17 Family Disease History - Family Disease History Family Disease History: Diabetes: Grandparent (Grandmother), Other: Father ( , unknown cause), Mother (, unknown cause) Other Family History: No children. No siblings. No family history of colorectal cancer or other GI malignancy Review of Systems Unable to obtain ROS, reason: Poor Historian Physical Exam Vital Signs: Vital Signs Temperature 97.5 F L 05/10/17 06:44 Pulse Rate 73 05/10/17 06:44 Respiratory Rate 20 05/10/17 06:44 Blood Pressure 117/50 05/10/17 06:44 O2 Sat by Pulse Oximetry (%) 95 05/08/17 21:00 Constitutional: Yes: No Distress, Calm Eyes: Yes: Conjunctiva Clear, EOM Intact HENT: Yes: Atraumatic, Normocephalic, Other (Patchy hair loss at various stages of growth) Neck: Yes: Supple, Trachea Midline Cardiovascular: Yes: Regular Rate and Rhythm, S1, S2 Respiratory: Yes: Regular, CTA Bilaterally Gastrointestinal: Yes: Normal Bowel Sounds, Soft, Distention. No: Tenderness Edema: No Labs: CBC, BMP 05/10/17 06:55 05/10/17 06:55 Imaging - Results Chest X-ray: Report Reviewed Cat Scan: Report Reviewed Ultrasound: Report Reviewed Assessment/Plan 1. Cystitis and leukocytosis 2/2 to suspecting bladder obstruction 2. Persistent Lymphocytosis x 2 years Plan: -Suspecting obstruction, will insert hernandez. UA and Ucx -Urology consult -Patient with normal Abd/Pelvis CT scan in 2016 -Will monitor off Abx -Recommend oupatient hematology evaluation for persistent lymphocytosis
[2017-05-10 10:49] LABS: PLATELET ESTIMATE ADEQUATE; SMUDGE CELLS MODERATE
[2017-05-10] MEDS: ARTIFICIAL TEARS (POLYVINYL ALCOHOL 1.4%) OPTH DROPS OU SCH ×2 (10:51→22:29)
[2017-05-10] MEDS: traZODone HCL 50 MG TABLET (FP) PO SCH (10:52)
[2017-05-10] MEDS: CHOLECALCIFEROL (VITAMIN D3) 1,000 UNIT TABLET (FP) PO SCH (10:52)
[2017-05-10] MEDS: CITALOPRAM HYDROBROMIDE 20 MG TABLET (FP) PO SCH (10:52)
[2017-05-10] MEDS: SODIUM BICARBONATE 650 MG TABLET PO SCH ×2 (10:52→22:31)
[2017-05-10] MEDS: LACTOBACILLUS ACIDOPHILUS 1 CAP PO SCH (10:52)
[2017-05-10] MEDS: OXYBUTYNIN CHLORIDE 5 MG TABLET PO SCH ×2 (10:53→22:29)
[2017-05-10] MEDS: PANTOPRAZOLE 40 MG TABLET (FP) PO SCH (10:53)
[2017-05-10] MEDS: MAGNESIUM OXIDE 400 MG TABLET (FP) PO SCH ×2 (10:53→22:30)
[2017-05-10] MEDS: FENOFIBRIC ACID 135 MG CAP PO SCH (10:55)
[2017-05-10] MEDS: POLYETHYLENE GLYCOL 3350 119 GM BTL PO SCH ×2 (10:55→22:30)
--- NOTE | 2017-05-10 10:56 | PN ---
Progress Note, Physician Chief Complaint: The patient seen in her room. She is comfortable, but very anxious. Did not sleep well. Reports maintaining good urine output. No chest pain, no shortness of breath. - Current Medication List Current Medications: Active Medications Artificial Tears (Artificial Tears) 1 drop OU BID [facility] Last Admin: 05/09/17 22:10 Dose: 1 drop Atorvastatin Calcium (Lipitor -) 20 mg PO HS [facility] Last Admin: 05/09/17 22:08 Dose: 20 mg Cholecalciferol (Vitamin D3 -) 2,000 unit PO DAILY [facility] Last Admin: 05/09/17 09:16 Dose: 2,000 unit Citalopram Hydrobromide (Celexa -) 20 mg PO DAILY [facility] Last Admin: 05/09/17 09:16 Dose: 20 mg Fenofibric Acid (Trilipix -) 135 mg PO DAILY [facility] Last Admin: 05/09/17 09:44 Dose: 135 mg Heparin Sodium (Porcine) (Heparin -) 1,000 unit IVPUSH PRN PRN PRN Reason: Heparin Heparin Sodium (Porcine) (Heparin -) 5,000 unit IVPUSH PRN PRN PRN Reason: Heparin HEPARIN SOD,PORK IN 0.45% NACL (Heparin-1/2ns 25,000 Units/500) 25,000 units in 500 mls @ 21.6 mls/hr IVPB TITR MEG; 1,080 UNITS/HR PRN Reason: Protocol Last Admin: 05/09/17 19:54 Dose: 1,080 units/hr, 21.6 mls/hr Insulin Aspart (Novolog Vial Sliding Scale -) 1 vial SQ TIDAC [facility] PRN Reason: Protocol Last Admin: 05/10/17 07:58 Dose: Not Given Insulin Detemir (Levemir Vial) 14 units SQ AM [facility] Last Admin: 05/10/17 06:51 Dose: 14 units Insulin Detemir (Levemir Vial) 22 units SQ HS [facility] Last Admin: 05/09/17 22:10 Dose: 22 units Lactobacillus Acidophilus (Bacid -) 1 tab PO DAILY [facility] Last Admin: 05/09/17 09:16 Dose: 1 tab Magnesium Oxide (Mag-Ox -) 400 mg PO BID [facility] Last Admin: 05/09/17 22:09 Dose: 400 mg Olanzapine (Zyprexa -) 5 mg PO DAILY@1700 [facility] Last Admin: 05/09/17 17:49 Dose: 5 mg Oxybutynin Chloride (Ditropan -) 5 mg PO BID [facility] Last Admin: 05/09/17 22:09 Dose: 5 mg Pantoprazole Sodium (Protonix -) 40 mg PO DAILY [facility] Last Admin: 05/09/17 09:16 Dose: 40 mg Polyethylene Glycol (Miralax (For Daily Use) -) 17 gm PO BID [facility] Last Admin: 05/09/17 22:09 Dose: 17 gm Sodium Bicarbonate (Sodium Bicarbonate -) 650 mg PO BID [facility] Last Admin: 05/09/17 22:09 Dose: 650 mg Trazodone HCl (Desyrel -) 100 mg PO DAILY [facility] Last Admin: 05/09/17 09:16 Dose: 100 mg - Objective Vital Signs: Vital Signs Temperature 97.5 F L 05/10/17 06:44 Pulse Rate 73 05/10/17 06:44 Respiratory Rate 20 05/10/17 06:44 Blood Pressure 117/50 05/10/17 06:44 O2 Sat by Pulse Oximetry (%) 95 05/08/17 21:00 Constitutional: Yes: Anxious Eyes: Yes: Conjunctiva Clear HENT: Yes: Normocephalic Neck: Yes: Trachea Midline Cardiovascular: Yes: Pulse Irregular, S1, S2 Respiratory: Yes: CTA Bilaterally, Diminished Gastrointestinal: Yes: Normal Bowel Sounds Labs: CBC, BMP 05/10/17 06:55 05/10/17 06:55 INR, PTT INR 3.14 (0.82-1.09) H D 05/10/17 06:55 Assessment/Plan 66 year old woman with PMhx of Afib on coumadin, Hypertension, CKD who presented with N/v with suspected coffee grounds and found to have BRYAN with BUN/ Cr of 88/4.3 and b/l hydronephrosis. The patient has Delvin. Hydronephrosis, which is unchanged from before. Awaiting eval. Good urine output reported. Renal functions improving. The Serum Cr has improved to 2.2 today. On Sodium Bicarbonate. Will continue the same considering the ongoing metabolic Acidosis. Will monitor the renal functions. Thank you. Jade Powell MD
--- NOTE | 2017-05-10 11:09 | PN ---
Teaching Attending Note Name of Resident: Fredi Chandler ATTENDING PHYSICIAN STATEMENT I saw and evaluated the patient. I reviewed the resident's note and discussed the case with the resident. I agree with the resident's findings and plan as documented. SUBJECTIVE: asked to see for gradually rising WBC count ct scan and sonogram with bilateral hydronephrosis Urine and blood cultures are negative no fever has been on ceftriaxone since admission OBJECTIVE: Vital Signs Period Temp Pulse Resp BP Sys/Washburn Pulse Ox Last 24 Hr 97.5 F-98.4 F 68-73 16-20 117-120/50-82 cor-rrr lungs clear abd soft,nt no cvat ext no edema CBC, BMP 05/10/17 06:55 05/10/17 06:55 ASSESSMENT AND PLAN: leukocytosis due to urinary obstruction- ct scan 2015 no hydronephrosis suggest d/c antibiotics place hernandez, send ua and urine culture urology consult- ?neurogenic bladder repeat cbc in am chronic lylmphocytosis- would benefit from outpt heme evaluation
--- NOTE | 2017-05-10 11:23 | CON.GU ---
Consult Consult Specialty:: Referred by:: medicine Reason for Consultation:: hydronephrosis - History of Present Illness Chief Complaint: hydronephrosis History of Present Illness: 66 year old female noted to have bilateral hydronephrosis on CT scan down to her bladder. She has a thickened bladder wall consistent with Lower urinary tract dysfunction. - History Source History Provided By: Medical Record Limitations to Obtaining History: Dementia - Past Medical History Cardio/Vascular: Yes: AFIB Renal/: Yes: Hematuria Psych: Yes: Other (Unspecified Psychiatric Disorder) Musculoskeletal: Yes: Osteoarthritis Endocrine: Yes: Diabetes Mellitus - Past Surgical History Past Surgical History: Yes: None - Alcohol/Substance Use Hx Alcohol Use: No History of Substance Use: reports: None - Smoking History Smoking history: Unknown if ever smoked Have you smoked in the past 12 months: No Aproximately how many cigarettes per day: 0 - Social History Usual Living Arrangement: Care Home ADL: Family Assistance 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 History of Recent Travel: No Home Medications - Allergies Allergies/Adverse Reactions: Allergies Allergy/AdvReac Type Severity Reaction Status Date / Time Sulfa (Sulfonamide Allergy Unknown Verified 05/04/17 21:52 Antibiotics) Penicillins Allergy Verified 05/04/17 21:52 - Home Medications Home Medications: Ambulatory Orders Atorvastatin Ca [Lipitor] 20 mg PO HS 04/11/15 Acetaminophen [Tylenol] 650 mg PO PRN 08/07/16 Docusate Sodium [Colace -] 100 mg PO DAILY 08/07/16 Insulin Sliding Scale [Novolog Vial Sliding Scale -] 0 units SQ TIDAC 08/07/16 Oxybutynin Chloride 5 mg PO BID 08/07/16 Trazodone HCl 100 mg PO DAILY 08/07/16 Warfarin Sodium [Coumadin] 3 mg PO HS 08/07/16 Lactobacillus Acidophilus [Bacid -] 1 each PO DAILY 09/14/16 Lofibra 160 mg PO DAILY 09/14/16 Magnesium Oxide 400 mg PO BID 09/14/16 Citalopram Hydrobromide [Citalopram HBr] 20 mg PO DAILY 05/05/17 Ergocalciferol (Vitamin D2) [Vitamin D2] 2,000 unit PO DAILY 05/05/17 Glipizide [Glipizide ER] 2.5 mg PO DAILY 05/05/17 Insulin Glargine,Hum.rec.anlog [Lantus (nf)] units SQ HS 05/05/17 Olanzapine 5 mg PO DAILY@1700 05/05/17 Polyvinyl Alcohol [Artificial Tears] 1 drop OU BID 05/05/17 Saxagliptin HCl [Onglyza] 2.5 mg PO DAILY 05/05/17 Family Disease History - Family Disease History Family Disease History: Diabetes: Grandparent (Grandmother), Other: Father ( , unknown cause), Mother (, unknown cause) Other Family History: No children. No siblings. No family history of colorectal cancer or other GI malignancy Review of Systems - Review of Systems Gastrointestinal: reports: No Symptoms Genitourinary: reports: No Symptoms Physical Exam- Vital Signs: Vital Signs Temperature 97.5 F L 05/10/17 06:44 Pulse Rate 73 05/10/17 06:44 Respiratory Rate 20 05/10/17 06:44 Blood Pressure 117/50 05/10/17 06:44 O2 Sat by Pulse Oximetry (%) 95 05/08/17 21:00 Renal/: No: CVA Tenderness - Left, CVA Tenderness - Right, Mccoy Present Labs: CBC, BMP 05/10/17 06:55 05/10/17 06:55 Imaging - Results Cat Scan: Report Reviewed Problem List - Problems (1) Hydronephrosis Assessment/Plan: as it is bilateral and down the bladder it is likely non obstructive and a result of a neurogenic bladder and reflux. Would recommend fecal disimpaction. Code(s): N13.30 - UNSPECIFIED HYDRONEPHROSIS (2) Fecal impaction in rectum Code(s): K56.41 - FECAL IMPACTION
[2017-05-10 12:48] LABS: URINE APPEARANCE TURBID; URINE BILIRUBIN NEGATIVE (NEGATIVE); URINE BLOOD 2+ (NEGATIVE); URINE COLOR YELLOW; URINE GLUCOSE (UA) NEGATIVE (NEGATIVE); URINE KETONE NEGATIVE (NEGATIVE); URINE NITRITE NEGATIVE (NEGATIVE); URINE UROBILINOGEN NEGATIVE mg/dL (0.2-1.0)
[2017-05-10 12:50] LABS: URINE LEUK ESTERASE 3+ (NEGATIVE); URINE PROTEIN 1+ (NEGATIVE)
[2017-05-10 12:53] LABS: EPI CELLS RARE /HPF (FEW); URINE BACTERIA MODERATE /hpf (NONE SEEN); URINE MUCUS RARE
--- NOTE | 2017-05-10 13:46 | PN ---
Progress Note (short form) - Note Progress Note: Ms. Mckeon denies any focal complaints No melena/rectakl bleeding reported I again discussed anemia with her and possible EGD/Colonoscopy to exclude GI source of blood loss. She has again deferred. Please recall if Ms. Mckeon is amenable to endoscopic evaluation. Problem List - Problems (1) Fecal impaction in rectum Code(s): K56.41 - FECAL IMPACTION (2) Coffee ground emesis Code(s): K92.0 - HEMATEMESIS
[2017-05-10] MEDS: OLANZapine 5 MG TABLET PO SCH (17:26)
[2017-05-10] MEDS: HEPARIN SOD,PORK IN 0.45% NACL 25,000 UNITS/500 ML INFUS.BAG IVPB SCH ×2 (17:35→22:22)
[2017-05-10] MEDS ORDERED: PT OWN MED DRAWER 7, Y5N ONE (17:59)
[2017-05-10] MEDS: ATORVASTATIN CA 20 MG TABLET (FP) PO SCH (22:30)
[2017-05-11] MEDS ORDERED: INSULIN (NOVOLOG) ASPART 100 UNITS/ML 10ML VIAL ONE (04:27)
[2017-05-11] MEDS: INSULIN DETEMIR 100 UNITS/ML MDV SQ SCH ×2 (06:11→21:29)
[2017-05-11] MEDS: INSULIN SLIDING SCALE (NOVOLOG) 1 VIAL SQ SCH ×3 (06:11→17:47)
[2017-05-11] MEDS ORDERED: INSULIN DETEMIR 100 UNITS/ML MDV SQ ONE (06:48)
[2017-05-11 07:33] LABS: HEMATOCRIT 22.3 % (32.4-45.2); HEMOGLOBIN 7.3 GM/dL (10.7-15.3); MCH 31.3 pg (25.7-33.7); MCHC 32.9 g/dl (32.0-36.0); MEAN CELL VOLUME 95.2 fl (80-96); MEAN PLT VOLUME 8.4 fl (7.5-11.1); PLATELET COUNT 302 K/MM3 (134-434); RBC 2.34 M/mm3 (3.60-5.2); RDW 15.7 % (11.6-15.6); WHITE BLOOD COUNT 16.9 K/mm3 (4.0-10.0)
[2017-05-11 07:51] LABS: INR 2.8 (0.82-1.09); PROTHROMBIN TIME (PATIENT) 31.6 SEC (9.98-11.88)
[2017-05-11] MEDS ORDERED: MEROPENEM 500 MG VIAL (RESTRICTED TO ID) IVPB SCH (08:30)
[2017-05-11] MEDS ORDERED: PT OWN MED DRAWER 7, Y5N ONE (08:59)
[2017-05-11] MEDS: PANTOPRAZOLE 40 MG TABLET (FP) PO SCH (09:15)
[2017-05-11] MEDS: SODIUM BICARBONATE 650 MG TABLET PO SCH ×2 (09:15→21:29)
[2017-05-11] MEDS: TAMSULOSIN HCL 0.4 MG CAP.ER.24H (FP) PO SCH (09:16)
[2017-05-11] MEDS: OXYBUTYNIN CHLORIDE 5 MG TABLET PO SCH ×2 (09:16→21:29)
[2017-05-11] MEDS: CITALOPRAM HYDROBROMIDE 20 MG TABLET (FP) PO SCH (09:16)
[2017-05-11] MEDS: CHOLECALCIFEROL (VITAMIN D3) 1,000 UNIT TABLET (FP) PO SCH (09:16)
[2017-05-11] MEDS: MAGNESIUM OXIDE 400 MG TABLET (FP) PO SCH ×2 (09:17→21:29)
[2017-05-11] MEDS: LACTOBACILLUS ACIDOPHILUS 1 CAP PO SCH (09:17)
[2017-05-11] MEDS: traZODone HCL 50 MG TABLET (FP) PO SCH (09:17)
[2017-05-11] MEDS: POLYETHYLENE GLYCOL 3350 119 GM BTL PO SCH ×2 (09:18→21:29)
[2017-05-11] MEDS: FENOFIBRIC ACID 135 MG CAP PO SCH (09:19)
--- NOTE | 2017-05-11 09:45 | PN ---
Progress Note, Physician Chief Complaint: ID Asymtomatic with no antibiotics Mccoy catheter inserted - Current Medication List Current Medications: Active Medications Artificial Tears (Artificial Tears) 1 drop OU BID [facility] Last Admin: 05/10/17 22:29 Dose: 1 drop Atorvastatin Calcium (Lipitor -) 20 mg PO HS [facility] Last Admin: 05/10/17 22:30 Dose: 20 mg Cholecalciferol (Vitamin D3 -) 2,000 unit PO DAILY [facility] Last Admin: 05/11/17 09:16 Dose: 2,000 unit Citalopram Hydrobromide (Celexa -) 20 mg PO DAILY [facility] Last Admin: 05/11/17 09:16 Dose: 20 mg Fenofibric Acid (Trilipix -) 135 mg PO DAILY [facility] Last Admin: 05/11/17 09:19 Dose: 135 mg Heparin Sodium (Porcine) (Heparin -) 1,000 unit IVPUSH PRN PRN PRN Reason: Heparin Heparin Sodium (Porcine) (Heparin -) 5,000 unit IVPUSH PRN PRN PRN Reason: Heparin Meropenem (Merrem (Restricted To Id) -) 500 mg in 10 mls @ 120 mls/hr IVPB BID [facility] Insulin Aspart (Novolog Vial Sliding Scale -) 1 vial SQ TIDAC [facility] PRN Reason: Protocol Last Admin: 05/11/17 06:11 Dose: 2 units Insulin Detemir (Levemir Vial) 14 units SQ AM [facility] Last Admin: 05/11/17 06:11 Dose: 14 units Insulin Detemir (Levemir Vial) 22 units SQ HS [facility] Last Admin: 05/10/17 22:29 Dose: 22 units Lactobacillus Acidophilus (Bacid -) 1 tab PO DAILY [facility] Last Admin: 05/11/17 09:17 Dose: 1 tab Magnesium Oxide (Mag-Ox -) 400 mg PO BID [facility] Last Admin: 05/11/17 09:17 Dose: 400 mg Olanzapine (Zyprexa -) 5 mg PO DAILY@1700 [facility] Last Admin: 05/10/17 17:26 Dose: 5 mg Oxybutynin Chloride (Ditropan -) 5 mg PO BID [facility] Last Admin: 05/11/17 09:16 Dose: 5 mg Pantoprazole Sodium (Protonix -) 40 mg PO DAILY [facility] Last Admin: 05/11/17 09:15 Dose: 40 mg Polyethylene Glycol (Miralax (For Daily Use) -) 17 gm PO BID [facility] Last Admin: 05/11/17 09:18 Dose: 17 gm Sodium Bicarbonate (Sodium Bicarbonate -) 650 mg PO BID [facility] Last Admin: 05/11/17 09:15 Dose: 650 mg Tamsulosin HCl (Flomax -) 0.4 mg PO DAILY@0830 [facility] Last Admin: 05/11/17 09:16 Dose: 0.4 mg Trazodone HCl (Desyrel -) 100 mg PO DAILY [facility] Last Admin: 05/11/17 09:17 Dose: 100 mg - Objective Vital Signs: Vital Signs Temperature 98.2 F 05/11/17 06:00 Pulse Rate 73 05/11/17 06:00 Respiratory Rate 20 05/11/17 06:00 Blood Pressure 128/68 05/11/17 06:00 O2 Sat by Pulse Oximetry (%) 98 05/10/17 21:00 Constitutional: Yes: No Distress Cardiovascular: Yes: Regular Rate and Rhythm, S1, S2 Respiratory: Yes: WNL, Regular, CTA Bilaterally Gastrointestinal: Yes: WNL, Normal Bowel Sounds, Soft. No: Tenderness, Tenderness, Rebound Labs: CBC, BMP 05/11/17 06:00 INR, PTT INR 2.80 (0.82-1.09) H 05/11/17 06:00 Assessment/Plan Laboratory Tests 05/08/17 05/09/17 05/10/17 06:15 06:24 06:55 WBC 12.2 H 13.4 H 14.3 H Hgb Hct Plt Count Ur Leukocyte Esterase Urine WBC (Auto) Urine RBC (Auto) 05/10/17 05/11/17 12:00 06:00 WBC 16.9 H Hgb 7.3 L Hct 22.3 L Plt Count 302 Ur Leukocyte Esterase 3+ H Urine WBC (Auto) 2216 Urine RBC (Auto) 151 Assessment Elevated WBC going up ? urinary source PCN allergy ?? Lymphocyte predominant differential noted raising issue of underlying myeloproliferative disorder Previous urine no growth? antibiotic related Plan Agree needs to start empiric antibiotic Vancomycn and Aztreonam adjusted Cr CL Sixto MOBLEY
--- NOTE | 2017-05-11 09:59 | PN ---
Progress Note (short form) - Note Progress Note: Heme consult was placed to evaluate abnormal CBC and differential Problem List - Problems (1) Fecal impaction in rectum Code(s): K56.41 - FECAL IMPACTION (2) Coffee ground emesis Code(s): K92.0 - HEMATEMESIS
[2017-05-11] MEDS ORDERED: AZTREONAM 1 GM in DEXTROSE 5%-WATER - 50 ML IVPB SCH (10:00)
[2017-05-11] MEDS ORDERED: MEROPENEM 500 MG PUSH 500 MG/10 ML DISP.SYRIN IVPB SCH (10:00)
[2017-05-11] MEDS ORDERED: VANCOMYCIN 1,250 MG in DEXTROSE 5%-WATER - 250 ML IVPB ONE (10:00)
[2017-05-11 11:11] LABS: HEMATOCRIT 21.9 % (32.4-45.2); HEMOGLOBIN 7.2 GM/dL (10.7-15.3); MCH 31.2 pg (25.7-33.7); MEAN CELL VOLUME 94.8 fl (80-96); MEAN PLT VOLUME 7.8 fl (7.5-11.1); PLATELET COUNT 282 K/MM3 (134-434); RBC 2.31 M/mm3 (3.60-5.2); RDW 15.7 % (11.6-15.6); WHITE BLOOD COUNT 16.3 K/mm3 (4.0-10.0)
[2017-05-11 11:27] LABS: ALBUMIN 2.2 g/dl (3.4-5.0); ANION GAP 12 (8-16); BILIRUBIN,TOTAL 0.1 mg/dL (0.2-1.0); BLOOD UREA NITROGEN 21 mg/dL (7-18); CHLORIDE 112 mmol/L (98-107); CO2 20 mmol/L (21-32); CREATININE 2.4 mg/dL (0.55-1.02); GLUCOSE,RANDOM 160 mg/dL (74-106); POTASSIUM 4.3 mmol/L (3.5-5.1); SGOT/AST 20 U/L (15-37); SGPT/ALT 13 U/L (12-78); SODIUM 144 mmol/L (136-145); TOT PROT 6.3 g/dl (6.4-8.2)
[2017-05-11 11:28] LABS: ALK PHOS 35 U/L (45-117)
[2017-05-11] MEDS ORDERED: AZTREONAM 2 GRAM SYRINGE 2 GM/10 ML DISP.SYRIN IVPUSH ONE ×2 (11:30→12:45)
--- NOTE | 2017-05-11 11:31 | CONSULT ---
Consult Consult Specialty:: Hematology - History of Present Illness History of Present Illness: 65 year old female with a PMHx of HTN, HLD, IDDMII, A.fib on Coumadin, Chronic pylenephritis who was sent over from [facility] after an episode of dark bloody vomiting. Patient is a poor historian and reports that she did not see blood but then reports she had 3 pints of bloody vomitous. Patient reports she is feeling weak and fatigued for the last week. Since admission, patient has not had an episode of vomiting or bloody stool. In the ED, patient was found to have acute kidney injury with a BUN/Cr 90/4.5, UTI, and supratherapeutic INR. Patient otherwise denies fever, chills, nausea, abdominal pain, chest pain, palpitations, headaches, acute vision changes, dysuria, frequency. Chart reviewed in detail Hematology consulted for leucocytosis. 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 History of Recent Travel: No Home Medications - Allergies Allergies/Adverse Reactions: Allergies Allergy/AdvReac Type Severity Reaction Status Date / Time Sulfa (Sulfonamide Allergy Unknown Verified 05/04/17 21:52 Antibiotics) Penicillins Allergy Verified 05/04/17 21:52 - Home Medications Home Medications: Ambulatory Orders Atorvastatin Ca [Lipitor] 20 mg PO HS 04/11/15 Acetaminophen [Tylenol] 650 mg PO PRN 08/07/16 Docusate Sodium [Colace -] 100 mg PO DAILY 08/07/16 Insulin Sliding Scale [Novolog Vial Sliding Scale -] 0 units SQ TIDAC 08/07/16 Oxybutynin Chloride 5 mg PO BID 08/07/16 Trazodone HCl 100 mg PO DAILY 08/07/16 Warfarin Sodium [Coumadin] 3 mg PO HS 08/07/16 Lactobacillus Acidophilus [Bacid -] 1 each PO DAILY 09/14/16 Lofibra 160 mg PO DAILY 09/14/16 Magnesium Oxide 400 mg PO BID 09/14/16 Citalopram Hydrobromide [Citalopram HBr] 20 mg PO DAILY 05/05/17 Ergocalciferol (Vitamin D2) [Vitamin D2] 2,000 unit PO DAILY 05/05/17 Glipizide [Glipizide ER] 2.5 mg PO DAILY 05/05/17 Insulin Glargine,Hum.rec.anlog [Lantus (nf)] units SQ HS 05/05/17 Olanzapine 5 mg PO DAILY@1700 05/05/17 Polyvinyl Alcohol [Artificial Tears] 1 drop OU BID 05/05/17 Saxagliptin HCl [Onglyza] 2.5 mg PO DAILY 05/05/17 Family Disease History - Family Disease History Family Disease History: Diabetes: Grandparent (Grandmother), Other: Father ( , unknown cause), Mother (, unknown cause) Other Family History: No children. No siblings. No family history of colorectal cancer or other GI malignancy Review of Systems Findings/Remarks: ROS unobtainable Physical Exam Vital Signs: Vital Signs Temperature 98.2 F 05/11/17 06:00 Pulse Rate 73 05/11/17 06:00 Respiratory Rate 20 05/11/17 06:00 Blood Pressure 128/68 05/11/17 06:00 O2 Sat by Pulse Oximetry (%) 98 05/10/17 21:00 Constitutional: Yes: Poor Hygeine Eyes: Yes: Conjunctiva Clear HENT: Yes: Atraumatic, Normocephalic Neck: Yes: Supple, Trachea Midline. No: Lymphadenopathy Cardiovascular: Yes: Regular Rate and Rhythm Respiratory: Yes: Regular Gastrointestinal: Yes: Normal Bowel Sounds, Abdomen, Obese Edema: No Labs: CBC, BMP 05/11/17 11:00 05/11/17 06:00 Imaging - Results Cat Scan: Report Reviewed Problem List - Problems (1) Leucocytosis Code(s): D72.829 - ELEVATED WHITE BLOOD CELL COUNT, UNSPECIFIED (2) Anemia Code(s): D64.9 - ANEMIA, UNSPECIFIED Qualifiers: Anemia type: other cause Other causes of anemia: other cause, not classified Qualified Code(s): D64.89 - Other specified anemias (3) Afib Code(s): I48.91 - UNSPECIFIED ATRIAL FIBRILLATION Qualifiers: Atrial fibrillation type: chronic Qualified Code(s): I48.2 - Chronic atrial fibrillation (4) CKD stage 5 secondary to hypertension Code(s): I12.0 - HYP CHR KIDNEY DISEASE W STAGE 5 CHR KIDNEY DISEASE OR ESRD; N18.5 - CHRONIC KIDNEY DISEASE, STAGE 5 (5) ESRD (end stage renal disease) Code(s): N18.6 - END STAGE RENAL DISEASE (6) Abdominal pain Code(s): R10.9 - UNSPECIFIED ABDOMINAL PAIN Assessment/Plan Highly Suspicious for CLL: send Peripheral blood flow cytometry further recs, after confirmatory test available ( flow result back) her anemia, would consider it to be a multifactorial, at this time, did not see any evidence of hemolysis. Likely ACD/ACI in the setting of CKD than marrow involvement of a hematological disorder. No LAD, no splenomegaly noted. Ideally, would like to give one unit of PRBCs, consent might be an issue? ? alternative will follow
[2017-05-11 12:29] LABS: PLATELET ESTIMATE NORMAL
[2017-05-11] MEDS: ARTIFICIAL TEARS (POLYVINYL ALCOHOL 1.4%) OPTH DROPS OU SCH ×2 (12:51→21:28)
--- NOTE | 2017-05-11 14:24 | PN ---
Progress Note (short form) - Note Progress Note: Subjective: The patient was seen and examined at the bedside, when asked how she is feeling she responded, "I would like a million dollars and a tax break to split between the two of us". Several attempts at redirecting the patient unsuccessful Current Medications Generic Name Dose Route Start Last Admin Trade Name Freq PRN Reason Stop Dose Admin Artificial Tears 1 drop 05/05/17 10:00 05/11/17 12:51 Artificial Tears OU 1 drop BID [facility] Administration Atorvastatin Calcium 20 mg 05/05/17 22:00 05/10/17 22:30 Lipitor - PO 20 mg HS [facility] Administration Cholecalciferol 2,000 unit 05/05/17 10:00 05/11/17 09:16 Vitamin D3 - PO 2,000 unit DAILY [facility] Administration Citalopram Hydrobromide 20 mg 05/05/17 10:00 05/11/17 09:16 Celexa - PO 20 mg DAILY [facility] Administration Fenofibric Acid 135 mg 05/05/17 10:00 05/11/17 09:19 Trilipix - PO 135 mg DAILY [facility] Administration Heparin Sodium (Porcine) 1,000 unit 05/08/17 18:07 Heparin - IVPUSH PRN PRN Heparin Heparin Sodium (Porcine) 5,000 unit 05/08/17 18:07 Heparin - IVPUSH PRN PRN Heparin Aztreonam 1 gm in 10 mls @ 100 mls/hr 05/11/17 22:00 Azactam (Restricted To Id) - IVPUSH BID [facility] Protocol Insulin Aspart 1 vial 05/05/17 07:00 05/11/17 12:49 Novolog Vial Sliding Scale - SQ 2 units TIDAC [facility] Administration Protocol Insulin Detemir 14 units 05/05/17 07:00 05/11/17 06:11 Levemir Vial SQ 14 units AM [facility] Administration Insulin Detemir 22 units 05/05/17 22:00 05/10/17 22:29 Levemir Vial SQ 22 units HS [facility] Administration Lactobacillus Acidophilus 1 tab 05/05/17 10:00 05/11/17 09:17 Bacid - PO 1 tab DAILY [facility] Administration Magnesium Oxide 400 mg 05/05/17 10:00 05/11/17 09:17 Mag-Ox - PO 400 mg BID [facility] Administration Olanzapine 5 mg 05/05/17 17:00 05/10/17 17:26 Zyprexa - PO 5 mg DAILY@1700 [facility] Administration Oxybutynin Chloride 5 mg 05/05/17 10:00 05/11/17 09:16 Ditropan - PO 5 mg BID [facility] Administration Pantoprazole Sodium 40 mg 05/09/17 10:00 05/11/17 09:15 Protonix - PO 40 mg DAILY [facility] Administration Polyethylene Glycol 17 gm 05/08/17 22:00 05/11/17 09:18 Miralax (For Daily Use) - PO 17 gm BID [facility] Administration Sodium Bicarbonate 650 mg 05/05/17 22:00 05/11/17 09:15 Sodium Bicarbonate - PO 650 mg BID [facility] Administration Tamsulosin HCl 0.4 mg 05/11/17 08:30 05/11/17 09:16 Flomax - PO 0.4 mg DAILY@0830 [facility] Administration Trazodone HCl 100 mg 05/05/17 10:00 05/11/17 09:17 Desyrel - PO 100 mg DAILY [facility] Administration Objective: Vital Signs Period Temp Pulse Resp BP Sys/Washburn Pulse Ox Last 24 Hr 98.2 F-98.6 F 73-92 16-20 128-131/63-70 98 Physical Exam: General: NAD HEENT: Frontal area of scalp with short hair 2/2 patient continuously pulling out hair. Mild erythema Patient refused remainder of exam stating "I want to rest" CBCD WBC 16.3 K/mm3 (4.0-10.0) H 05/11/17 11:00 RBC 2.31 M/mm3 (3.60-5.2) L 05/11/17 11:00 Hgb 7.2 GM/dL (10.7-15.3) L 05/11/17 11:00 Hct 21.9 % (32.4-45.2) L 05/11/17 11:00 MCV 94.8 fl (80-96) 05/11/17 11:00 MCHC 33.0 g/dl (32.0-36.0) 05/11/17 11:00 RDW 15.7 % (11.6-15.6) H 05/11/17 11:00 Plt Count 282 K/MM3 (134-434) 05/11/17 11:00 MPV 7.8 fl (7.5-11.1) 05/11/17 11:00 CMP Sodium 144 mmol/L (136-145) 05/11/17 06:00 Potassium 4.3 mmol/L (3.5-5.1) 05/11/17 06:00 Chloride 112 mmol/L (98-107) H 05/11/17 06:00 Carbon Dioxide 20 mmol/L (21-32) L 05/11/17 06:00 Anion Gap 12 (8-16) 05/11/17 06:00 BUN 21 mg/dL (7-18) H 05/11/17 06:00 Creatinine 2.4 mg/dL (0.55-1.02) H 05/11/17 06:00 Creat Clearance w eGFR 20.14 (>60) 05/11/17 06:00 Random Glucose 160 mg/dL (74-106) H 05/11/17 06:00 Calcium 8.0 mg/dL (8.5-10.1) L 05/11/17 06:00 Total Bilirubin 0.1 mg/dL (0.2-1.0) L D 05/11/17 06:00 AST 20 U/L (15-37) 05/11/17 06:00 ALT 13 U/L (12-78) 05/11/17 06:00 Alkaline Phosphatase 35 U/L (45-117) L 05/11/17 06:00 Total Protein 6.3 g/dl (6.4-8.2) L 05/11/17 06:00 Albumin 2.2 g/dl (3.4-5.0) L 05/11/17 06:00 CARDIAC ENZYMES Creatine Kinase 97 IU/L (26-192) 05/04/17 21:20 Troponin I < 0.02 ng/ml (0.00-0.05) 05/04/17 21:20 Microbiology 05/10/17 09:35 Blood - Peripheral Venous Blood Culture - Preliminary NO GROWTH OBTAINED AFTER 24 HOURS, INCUBATION TO CONTINUE FOR 4 DAYS. 05/10/17 09:45 Blood - Peripheral Venous Blood Culture - Preliminary NO GROWTH OBTAINED AFTER 24 HOURS, INCUBATION TO CONTINUE FOR 4 DAYS. 05/04/17 22:30 Blood - Peripheral Venous Blood Culture - Final NO GROWTH AFTER 5 DAYS INCUBATION 05/04/17 22:30 Blood - Peripheral Venous Blood Culture - Final NO GROWTH AFTER 5 DAYS INCUBATION 05/06/17 17:46 Urine - Urine - Catheterized Urine Culture - Final NO GROWTH OBTAINED 05/04/17 23:30 Urine - Urine Clean Catch Urine Culture - Final Contaminated: Please Repeat Assessment: This is a 66 year old female with PMHx of HTN, hyperlipidemia, a.fib (on Coumadin), chronic anemia, CKD, chronic obstructive pyelonephritis, depression, who presented to the ED from [facility] with coffee ground emesis Plan: 1) Acute blood loss anemia 2/2 possible upper GI bleed - Patient is refusing EGD/colonoscopy, however she lacks the capacity to consent for blood transfusions or any procedures at this time. There is no health care proxy to discuss with - Recommendation by hematology for 1u PRBC. Patient remains stable at this time. Awaiting call back from ethics to discuss transfusion as the patient is unable to consent and is stable at this time - When asked if the patient wants PRBC transfusion she states "no" - Appreciate GI consult - Appreciate hematology consult 2) UTI - Hx of obstructive pyelonephritis - Mccoy catheter placed yesterday for acute urinary retention - Elevated WBC - UA with 3+ leuks, 2216 WBC, moderate bacteria - Started on Vancomycin and Aztreonam per ID (05/11- ) - Continue to monitor 3) A.fib - INR therapeutic, will hold Heparin gtt for now and start once INR becomes subtherapeutic 4) BRYAN - Kidney function has improved from admission but not yet at baseline - Continue to trend 5) IDDM - BGM ACHS - Levemir 14u sq am - Levemir 22u sq hs 6) Depression - Continue Zyprexa - Continue Trazadone - Continue Celexa 7) F/E/N: - Sodium controlled diet - Stage II pressure ulcer to buttock - Monitor electrolytes 8) Prophylaxis: - INR therapeutic - PT 9) Dispo: - Requires continued inpatient care - Awaiting Ethics consult CODE STATUS: FULL CODE Visit type - Emergency Visit Emergency Visit: Yes ED Registration Date: 05/05/17 Care time: The patient presented to the Emergency Department on the above date and was hospitalized for further evaluation of their emergent condition. - New Patient This patient is new to me today: Yes Date on this admission: 05/11/17 - Critical Care Critical Care patient: No
--- NOTE | 2017-05-11 15:32 | PN ---
Progress Note (short form) - Note Progress Note: Renal followup for BRYAN Pt seen and examined at the bedside no complaints making urine no sob, chest pain, abd pain had a BM this am Vital Signs Temperature 98.2 F 05/11/17 15:16 Pulse Rate 70 05/11/17 15:16 Respiratory Rate 16 05/11/17 15:16 Blood Pressure 120/72 05/11/17 15:16 O2 Sat by Pulse Oximetry (%) 98 05/11/17 09:00 Intake & Output 05/08/17 05/09/17 05/10/17 05/11/17 23:59 23:59 23:59 23:59 Intake Total 900 656 626.4 802 Output Total 1500 2000 Balance 900 656 -873.6 -1198 CBC, BMP 05/11/17 11:00 05/11/17 06:00 Current Medications Artificial Tears (Artificial Tears) 1 drop OU BID [facility] Last Admin: 05/11/17 12:51 Dose: 1 drop Atorvastatin Calcium (Lipitor -) 20 mg PO HS [facility] Last Admin: 05/10/17 22:30 Dose: 20 mg Cholecalciferol (Vitamin D3 -) 2,000 unit PO DAILY [facility] Last Admin: 05/11/17 09:16 Dose: 2,000 unit Citalopram Hydrobromide (Celexa -) 20 mg PO DAILY [facility] Last Admin: 05/11/17 09:16 Dose: 20 mg Fenofibric Acid (Trilipix -) 135 mg PO DAILY [facility] Last Admin: 05/11/17 09:19 Dose: 135 mg Heparin Sodium (Porcine) (Heparin -) 1,000 unit IVPUSH PRN PRN PRN Reason: Heparin Heparin Sodium (Porcine) (Heparin -) 5,000 unit IVPUSH PRN PRN PRN Reason: Heparin Aztreonam (Azactam (Restricted To Id) -) 1 gm in 10 mls @ 100 mls/hr IVPUSH BID [facility] PRN Reason: Protocol Insulin Aspart (Novolog Vial Sliding Scale -) 1 vial SQ TIDAC [facility] PRN Reason: Protocol Last Admin: 05/11/17 12:49 Dose: 2 units Insulin Detemir (Levemir Vial) 14 units SQ AM [facility] Last Admin: 05/11/17 06:11 Dose: 14 units Insulin Detemir (Levemir Vial) 22 units SQ HS [facility] Last Admin: 05/10/17 22:29 Dose: 22 units Lactobacillus Acidophilus (Bacid -) 1 tab PO DAILY [facility] Last Admin: 05/11/17 09:17 Dose: 1 tab Magnesium Oxide (Mag-Ox -) 400 mg PO BID [facility] Last Admin: 05/11/17 09:17 Dose: 400 mg Olanzapine (Zyprexa -) 5 mg PO DAILY@1700 [facility] Last Admin: 05/10/17 17:26 Dose: 5 mg Oxybutynin Chloride (Ditropan -) 5 mg PO BID [facility] Last Admin: 05/11/17 09:16 Dose: 5 mg Pantoprazole Sodium (Protonix -) 40 mg PO DAILY [facility] Last Admin: 05/11/17 09:15 Dose: 40 mg Polyethylene Glycol (Miralax (For Daily Use) -) 17 gm PO BID [facility] Last Admin: 05/11/17 09:18 Dose: 17 gm Sodium Bicarbonate (Sodium Bicarbonate -) 650 mg PO BID [facility] Last Admin: 05/11/17 09:15 Dose: 650 mg Tamsulosin HCl (Flomax -) 0.4 mg PO DAILY@0830 [facility] Last Admin: 05/11/17 09:16 Dose: 0.4 mg Trazodone HCl (Desyrel -) 100 mg PO DAILY [facility] Last Admin: 05/11/17 09:17 Dose: 100 mg 66 year old woman with PMhx of Afib on coumadin, Hypertension, CKD who presented with N/v with suspected coffee grounds and found to have BRYAN with BUN/ Cr of 88/4.3 and b/l hydronephrosis. #BRYAN secondary to obstructive uropathy +/- volume depletion Renal function improved but not yet at baseline urology eval noted no acute intervention trend renal function and electrolytes #Anion gap + non-anion gap metabolic acidosis from renal failure +/- GI losses/RTA continue sodium bicarb 650mg BID Thank you Robert Casiano DO
[2017-05-11] MEDS: OLANZapine 5 MG TABLET PO SCH (17:47)
[2017-05-11] MEDS: AZTREONAM 1 GRAM SYRINGE 1 GM/10 ML DISP.SYRIN IVPUSH SCH (21:28)
[2017-05-11] MEDS: ATORVASTATIN CA 20 MG TABLET (FP) PO SCH (21:29)
[2017-05-12] MEDS: INSULIN DETEMIR 100 UNITS/ML MDV SQ SCH ×2 (06:19→22:12)
[2017-05-12] MEDS: INSULIN SLIDING SCALE (NOVOLOG) 1 VIAL SQ SCH ×3 (06:20→16:55)
[2017-05-12] MEDS ORDERED: INSULIN DETEMIR 100 UNITS/ML MDV SQ ONE ×2 (06:50→17:42)
[2017-05-12] MEDS ORDERED: INSULIN (NOVOLOG) ASPART 100 UNITS/ML 10ML VIAL ONE ×2 (06:50→17:42)
[2017-05-12 08:16] LABS: HEMATOCRIT 23.1 % (32.4-45.2); HEMOGLOBIN 7.5 GM/dL (10.7-15.3); MCH 31.3 pg (25.7-33.7); MCHC 32.6 g/dl (32.0-36.0); MEAN PLT VOLUME 8.4 fl (7.5-11.1); PLATELET COUNT 300 K/MM3 (134-434); RBC 2.41 M/mm3 (3.60-5.2); RDW 15.8 % (11.6-15.6); RETICULOCYTES 3.05 % (0.5-1.5); WHITE BLOOD COUNT 17.1 K/mm3 (4.0-10.0)
[2017-05-12 09:19] LABS: LDH 168 U/L (84-246)
[2017-05-12] MEDS ORDERED: PT OWN MED DRAWER 7, Y5N ONE (09:29)
[2017-05-12] MEDS: traZODone HCL 50 MG TABLET (FP) PO SCH (09:41)
[2017-05-12] MEDS: TAMSULOSIN HCL 0.4 MG CAP.ER.24H (FP) PO SCH (09:42)
[2017-05-12] MEDS: CHOLECALCIFEROL (VITAMIN D3) 1,000 UNIT TABLET (FP) PO SCH (09:43)
[2017-05-12] MEDS: OXYBUTYNIN CHLORIDE 5 MG TABLET PO SCH ×2 (09:44→22:12)
[2017-05-12] MEDS: LACTOBACILLUS ACIDOPHILUS 1 CAP PO SCH (09:44)
[2017-05-12] MEDS: SODIUM BICARBONATE 650 MG TABLET PO SCH ×2 (09:44→22:12)
[2017-05-12] MEDS: CITALOPRAM HYDROBROMIDE 20 MG TABLET (FP) PO SCH (09:44)
[2017-05-12] MEDS: PANTOPRAZOLE 40 MG TABLET (FP) PO SCH (09:44)
[2017-05-12] MEDS: AZTREONAM 1 GRAM SYRINGE 1 GM/10 ML DISP.SYRIN IVPUSH SCH (09:45)
[2017-05-12] MEDS: FENOFIBRIC ACID 135 MG CAP PO SCH (09:48)
[2017-05-12] MEDS: MAGNESIUM OXIDE 400 MG TABLET (FP) PO SCH ×2 (09:49→22:12)
[2017-05-12 09:51] LABS: ANISOCYTOSIS 1+; MACROCYTOSIS 0; PLATELET ESTIMATE NORMAL
[2017-05-12] MEDS: ARTIFICIAL TEARS (POLYVINYL ALCOHOL 1.4%) OPTH DROPS OU SCH ×2 (09:52→22:11)
[2017-05-12 10:36] LABS: INR 1.99 (0.82-1.09); PROTHROMBIN TIME (PATIENT) 22.5 SEC (9.98-11.88)
--- NOTE | 2017-05-12 10:51 | PN ---
Progress Note (short form) - Note Progress Note: Subjective: The patient was seen at the bedside, she reports "I have a load" and when asked how she is feeling today, she states "it's the weather" According to dietitian, patient reports living at home alone and receiving meals on wheels daily PRBC ordered yesterday by hematology however patient refused blood Current Medications Generic Name Dose Route Start Last Admin Trade Name Freq PRN Reason Stop Dose Admin Artificial Tears 1 drop 05/05/17 10:00 05/12/17 09:52 Artificial Tears OU 1 drop BID MEG Administration Atorvastatin Calcium 20 mg 05/05/17 22:00 05/11/17 21:29 Lipitor - PO 20 mg HS MEG Administration Cholecalciferol 2,000 unit 05/05/17 10:00 05/12/17 09:43 Vitamin D3 - PO 2,000 unit DAILY MEG Administration Citalopram Hydrobromide 20 mg 05/05/17 10:00 05/12/17 09:44 Celexa - PO 20 mg DAILY MEG Administration Fenofibric Acid 135 mg 05/05/17 10:00 05/12/17 09:48 Trilipix - PO 135 mg DAILY MEG Administration Heparin Sodium (Porcine) 1,000 unit 05/08/17 18:07 Heparin - IVPUSH PRN PRN Heparin Heparin Sodium (Porcine) 5,000 unit 05/08/17 18:07 Heparin - IVPUSH PRN PRN Heparin Aztreonam 1 gm in 10 mls @ 100 mls/hr 05/11/17 22:00 05/12/17 09:45 Azactam (Restricted To Id) - IVPUSH 100 mls/hr BID MEG Administration Protocol Insulin Aspart 1 vial 05/05/17 07:00 05/12/17 06:20 Novolog Vial Sliding Scale - SQ 2 units TIDAC MEG Administration Protocol Insulin Detemir 14 units 05/05/17 07:00 05/12/17 06:19 Levemir Vial SQ 14 units AM MEG Administration Insulin Detemir 22 units 05/05/17 22:00 05/11/17 21:29 Levemir Vial SQ 22 units HS MEG Administration Lactobacillus Acidophilus 1 tab 05/05/17 10:00 05/12/17 09:44 Bacid - PO 1 tab DAILY MEG Administration Magnesium Oxide 400 mg 05/05/17 10:00 05/12/17 09:49 Mag-Ox - PO 400 mg BID MEG Administration Olanzapine 5 mg 05/05/17 17:00 05/11/17 17:47 Zyprexa - PO 5 mg DAILY@1700 MEG Administration Oxybutynin Chloride 5 mg 05/05/17 10:00 05/12/17 09:44 Ditropan - PO 5 mg BID MEG Administration Pantoprazole Sodium 40 mg 05/09/17 10:00 05/12/17 09:44 Protonix - PO 40 mg DAILY MEG Administration Polyethylene Glycol 17 gm 05/08/17 22:00 05/11/17 21:29 Miralax (For Daily Use) - PO 17 gm BID MEG Administration Sodium Bicarbonate 650 mg 05/05/17 22:00 05/12/17 09:44 Sodium Bicarbonate - PO 650 mg BID MEG Administration Tamsulosin HCl 0.4 mg 05/11/17 08:30 05/12/17 09:42 Flomax - PO 0.4 mg DAILY@0830 MEG Administration Trazodone HCl 100 mg 05/05/17 10:00 05/12/17 09:41 Desyrel - PO 100 mg DAILY MEG Administration Objective: Vital Signs Period Temp Pulse Resp BP Sys/Washburn Pulse Ox Last 24 Hr 98.2 F-98.6 F 73-92 16-20 128-131/63-70 98 Physical Exam: General: NAD HEENT: Frontal area of scalp with short hair 2/2 patient continuously pulling out hair. Mild erythema Lungs: CTA bilaterally Heart: Irregular rate and rhythm. S1S2 CBCD WBC 17.1 K/mm3 (4.0-10.0) H 05/12/17 07:00 RBC 2.41 M/mm3 (3.60-5.2) L 05/12/17 07:00 Hgb 7.5 GM/dL (10.7-15.3) L 05/12/17 07:00 Hct 23.1 % (32.4-45.2) L 05/12/17 07:00 MCV 96.0 fl (80-96) 05/12/17 07:00 MCHC 32.6 g/dl (32.0-36.0) 05/12/17 07:00 RDW 15.8 % (11.6-15.6) H 05/12/17 07:00 Plt Count 300 K/MM3 (134-434) 05/12/17 07:00 MPV 8.4 fl (7.5-11.1) 05/12/17 07:00 CMP Sodium 144 mmol/L (136-145) 05/11/17 06:00 Potassium 4.3 mmol/L (3.5-5.1) 05/11/17 06:00 Chloride 112 mmol/L (98-107) H 05/11/17 06:00 Carbon Dioxide 20 mmol/L (21-32) L 05/11/17 06:00 Anion Gap 12 (8-16) 05/11/17 06:00 BUN 21 mg/dL (7-18) H 05/11/17 06:00 Creatinine 2.4 mg/dL (0.55-1.02) H 05/11/17 06:00 Creat Clearance w eGFR 20.14 (>60) 05/11/17 06:00 Random Glucose 160 mg/dL (74-106) H 05/11/17 06:00 Calcium 8.0 mg/dL (8.5-10.1) L 05/11/17 06:00 Total Bilirubin 0.1 mg/dL (0.2-1.0) L D 05/11/17 06:00 AST 20 U/L (15-37) 05/11/17 06:00 ALT 13 U/L (12-78) 05/11/17 06:00 Alkaline Phosphatase 35 U/L (45-117) L 05/11/17 06:00 Total Protein 6.3 g/dl (6.4-8.2) L 05/11/17 06:00 Albumin 2.2 g/dl (3.4-5.0) L 05/11/17 06:00 CARDIAC ENZYMES Creatine Kinase 97 IU/L (26-192) 05/04/17 21:20 Troponin I < 0.02 ng/ml (0.00-0.05) 05/04/17 21:20 Microbiology 05/10/17 09:35 Blood - Peripheral Venous Blood Culture - Preliminary NO GROWTH OBTAINED AFTER 48 HOURS, INCUBATION TO CONTINUE FOR 3 DAYS. 05/10/17 09:45 Blood - Peripheral Venous Blood Culture - Preliminary NO GROWTH OBTAINED AFTER 48 HOURS, INCUBATION TO CONTINUE FOR 3 DAYS. 05/10/17 12:00 Urine - Urine Mccoy Urine Culture - Final NO GROWTH OBTAINED 05/04/17 22:30 Blood - Peripheral Venous Blood Culture - Final NO GROWTH AFTER 5 DAYS INCUBATION 05/04/17 22:30 Blood - Peripheral Venous Blood Culture - Final NO GROWTH AFTER 5 DAYS INCUBATION 05/06/17 17:46 Urine - Urine - Catheterized Urine Culture - Final NO GROWTH OBTAINED 05/04/17 23:30 Urine - Urine Clean Catch Urine Culture - Final Contaminated: Please Repeat Assessment: This is a 66 year old female with PMHx of HTN, hyperlipidemia, a.fib (on Coumadin), chronic anemia, CKD, chronic obstructive pyelonephritis, depression, who presented to the ED from [facility] with coffee ground emesis Plan: 1) Acute blood loss anemia 2/2 possible upper GI bleed - Patient is refusing EGD/colonoscopy, however she lacks the capacity to consent for blood transfusions or any procedures at this time. There is no health care proxy to discuss with - Hematology ordered 1u PRBC yesterday. Patient remains stable. While the patient lacks capacity to make her own decisions, when asked if she wants blood products she states "no". Discussed case with Dr. Hou who states that while the patient lacks capacity, cannot force her to receive blood (even with 2 physician consent) without a court order. Recommends reviewing old records and discussing case with psych social worker. Attempted to call Melinda Duval (person to notify), awaiting call back. 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 Urine culture with no growth - Stopped abx today as all cultures negative - Appreciate ID consult 3) A.fib - INR was therapeutic yesterday, was going to start Heparin gtt today however patient is still refusing EGD/colonoscopy. I will restart Coumadin today - Monitor INR 4) BRYAN - Kidney function has improved from admission but not yet at baseline - Continue to trend 5) IDDM - BGM ACHS - Levemir 14u sq am - Levemir 22u sq hs 6) Depression - Continue Zyprexa - Continue Trazadone - Continue Celexa 7) F/E/N: - Sodium controlled diet - Stage II pressure ulcer to buttock - Monitor electrolytes 8) Prophylaxis: - INR therapeutic - PT 9) Dispo: - Requires continued inpatient care - Left message with Lisbet Haynes, corrugated box machine operator at [facility] [phone]) - Awaiting Ethics consult CODE STATUS: FULL CODE Visit type - Emergency Visit Emergency Visit: Yes ED Registration Date: 05/05/17 Care time: The patient presented to the Emergency Department on the above date and was hospitalized for further evaluation of their emergent condition. - New Patient This patient is new to me today: No - Critical Care Critical Care patient: No
[2017-05-12] MEDS: POLYETHYLENE GLYCOL 3350 119 GM BTL PO SCH ×2 (11:03→22:12)
[2017-05-12 12:36] LABS: ALBUMIN 2.4 g/dl (3.4-5.0); ANION GAP 8 (8-16); BILIRUBIN,TOTAL 0.2 mg/dL (0.2-1.0); BLOOD UREA NITROGEN 24 mg/dL (7-18); CHLORIDE 110 mmol/L (98-107); CO2 22 mmol/L (21-32); CREATININE 2.4 mg/dL (0.55-1.02); GLUCOSE,RANDOM 151 mg/dL (74-106); POTASSIUM 4.9 mmol/L (3.5-5.1); SGOT/AST 14 U/L (15-37); SGPT/ALT 11 U/L (12-78); SODIUM 140 mmol/L (136-145); TOT PROT 6.8 g/dl (6.4-8.2)
[2017-05-12 12:37] LABS: ALK PHOS 35 U/L (45-117)
--- NOTE | 2017-05-12 16:45 | PN ---
Progress Note (short form) - Note Progress Note: Renal followup for BRYAN Pt seen and examined at the bedside no complaints making urine via hernandez Vital Signs Temperature 98.2 F 05/12/17 15:22 Pulse Rate 86 05/12/17 15:22 Respiratory Rate 16 05/12/17 15:22 Blood Pressure 103/86 05/12/17 15:22 O2 Sat by Pulse Oximetry (%) 98 05/12/17 09:00 Intake & Output 05/09/17 05/10/17 05/11/17 05/12/17 23:59 23:59 23:59 23:59 Intake Total 656 626.4 1302 150 Output Total 1500 2900 1300 Balance 656 -873.6 -1598 -1150 NAd awake and alert RRR CTA, no rales, wheeze soft NT/ND CBC, BMP 05/12/17 07:00 05/12/17 07:55 Current Medications Artificial Tears (Artificial Tears) 1 drop OU BID [facility] Last Admin: 05/12/17 09:52 Dose: 1 drop Atorvastatin Calcium (Lipitor -) 20 mg PO HS [facility] Last Admin: 05/11/17 21:29 Dose: 20 mg Cholecalciferol (Vitamin D3 -) 2,000 unit PO DAILY [facility] Last Admin: 05/12/17 09:43 Dose: 2,000 unit Citalopram Hydrobromide (Celexa -) 20 mg PO DAILY [facility] Last Admin: 05/12/17 09:44 Dose: 20 mg Fenofibric Acid (Trilipix -) 135 mg PO DAILY [facility] Last Admin: 05/12/17 09:48 Dose: 135 mg Heparin Sodium (Porcine) (Heparin -) 1,000 unit IVPUSH PRN PRN PRN Reason: Heparin Heparin Sodium (Porcine) (Heparin -) 5,000 unit IVPUSH PRN PRN PRN Reason: Heparin Aztreonam (Azactam (Restricted To Id) -) 1 gm in 10 mls @ 100 mls/hr IVPUSH BID [facility] PRN Reason: Protocol Last Admin: 05/12/17 09:45 Dose: 100 mls/hr Insulin Aspart (Novolog Vial Sliding Scale -) 1 vial SQ TIDAC [facility] PRN Reason: Protocol Last Admin: 05/12/17 11:56 Dose: 2 units Insulin Detemir (Levemir Vial) 14 units SQ AM [facility] Last Admin: 05/12/17 06:19 Dose: 14 units Insulin Detemir (Levemir Vial) 22 units SQ HS [facility] Last Admin: 05/11/17 21:29 Dose: 22 units Lactobacillus Acidophilus (Bacid -) 1 tab PO DAILY [facility] Last Admin: 05/12/17 09:44 Dose: 1 tab Magnesium Oxide (Mag-Ox -) 400 mg PO BID [facility] Last Admin: 05/12/17 09:49 Dose: 400 mg Olanzapine (Zyprexa -) 5 mg PO DAILY@1700 [facility] Last Admin: 05/11/17 17:47 Dose: 5 mg Oxybutynin Chloride (Ditropan -) 5 mg PO BID [facility] Last Admin: 05/12/17 09:44 Dose: 5 mg Pantoprazole Sodium (Protonix -) 40 mg PO DAILY [facility] Last Admin: 05/12/17 09:44 Dose: 40 mg Polyethylene Glycol (Miralax (For Daily Use) -) 17 gm PO BID [facility] Last Admin: 05/12/17 11:03 Dose: Not Given Sodium Bicarbonate (Sodium Bicarbonate -) 650 mg PO BID [facility] Last Admin: 05/12/17 09:44 Dose: 650 mg Tamsulosin HCl (Flomax -) 0.4 mg PO DAILY@0830 [facility] Last Admin: 05/12/17 09:42 Dose: 0.4 mg Trazodone HCl (Desyrel -) 100 mg PO DAILY [facility] Last Admin: 05/12/17 09:41 Dose: 100 mg Warfarin Sodium (Coumadin -) 3 mg PO DAILY@1800 [facility] 66 year old woman with PMhx of Afib on coumadin, Hypertension, CKD who presented with N/v with suspected coffee grounds and found to have BRYAN with BUN/ Cr of 88/4.3 and b/l hydronephrosis. #BRYAN secondary to obstructive uropathy +/- volume depletion Renal function improved and stable can continue to trend renal function as inpatient urolgoy w/o any acute intervention at this time oral diet as tolerated #Anion gap + non-anion gap metabolic acidosis from renal failure +/- GI losses/RTA continue sodium bicarb 650mg BID Thank you Robert Casiano DO
[2017-05-12] MEDS: OLANZapine 5 MG TABLET PO SCH (16:55)
[2017-05-12] MEDS: WARFARIN NA 3 MG TABLET PO SCH (17:07)
--- NOTE | 2017-05-12 17:09 | PN ---
Progress Note (short form) - Note Progress Note: awake and alert hernandez in place no fevers Vital Signs Period Temp Pulse Resp BP Sys/Washburn Pulse Ox Last 24 Hr 97.5 F-98.4 F 67-86 16-20 103-158/65-86 95-98 cor-rrr lungs clear abd soft,nt ext no edema hernandez intact CBC, BMP 05/12/17 07:00 05/12/17 07:55 68% Lymphs Microbiology 05/10/17 09:35 Blood - Peripheral Venous Blood Culture - Preliminary NO GROWTH OBTAINED AFTER 48 HOURS, INCUBATION TO CONTINUE FOR 3 DAYS. 05/10/17 09:45 Blood - Peripheral Venous Blood Culture - Preliminary NO GROWTH OBTAINED AFTER 48 HOURS, INCUBATION TO CONTINUE FOR 3 DAYS. 05/10/17 12:00 Urine - Urine Hernandez Urine Culture - Final NO GROWTH OBTAINED 05/04/17 22:30 Blood - Peripheral Venous Blood Culture - Final NO GROWTH AFTER 5 DAYS INCUBATION 05/04/17 22:30 Blood - Peripheral Venous Blood Culture - Final NO GROWTH AFTER 5 DAYS INCUBATION 05/06/17 17:46 Urine - Urine - Catheterized Urine Culture - Final NO GROWTH OBTAINED 05/04/17 23:30 Urine - Urine Clean Catch Urine Culture - Final Active Medications Artificial Tears (Artificial Tears) 1 drop OU BID [facility] Last Admin: 05/12/17 09:52 Dose: 1 drop Atorvastatin Calcium (Lipitor -) 20 mg PO HS [facility] Last Admin: 05/11/17 21:29 Dose: 20 mg Cholecalciferol (Vitamin D3 -) 2,000 unit PO DAILY [facility] Last Admin: 05/12/17 09:43 Dose: 2,000 unit Citalopram Hydrobromide (Celexa -) 20 mg PO DAILY [facility] Last Admin: 05/12/17 09:44 Dose: 20 mg Fenofibric Acid (Trilipix -) 135 mg PO DAILY [facility] Last Admin: 05/12/17 09:48 Dose: 135 mg Heparin Sodium (Porcine) (Heparin -) 1,000 unit IVPUSH PRN PRN PRN Reason: Heparin Heparin Sodium (Porcine) (Heparin -) 5,000 unit IVPUSH PRN PRN PRN Reason: Heparin Aztreonam (Azactam (Restricted To Id) -) 1 gm in 10 mls @ 100 mls/hr IVPUSH BID MEG PRN Reason: Protocol Last Admin: 05/12/17 09:45 Dose: 100 mls/hr Insulin Aspart (Novolog Vial Sliding Scale -) 1 vial SQ TIDAC [facility] PRN Reason: Protocol Last Admin: 05/12/17 16:55 Dose: 2 units Insulin Detemir (Levemir Vial) 14 units SQ AM [facility] Last Admin: 05/12/17 06:19 Dose: 14 units Insulin Detemir (Levemir Vial) 22 units SQ HS [facility] Last Admin: 05/11/17 21:29 Dose: 22 units Lactobacillus Acidophilus (Bacid -) 1 tab PO DAILY [facility] Last Admin: 05/12/17 09:44 Dose: 1 tab Magnesium Oxide (Mag-Ox -) 400 mg PO BID [facility] Last Admin: 05/12/17 09:49 Dose: 400 mg Olanzapine (Zyprexa -) 5 mg PO DAILY@1700 [facility] Last Admin: 05/12/17 16:55 Dose: 5 mg Oxybutynin Chloride (Ditropan -) 5 mg PO BID [facility] Last Admin: 05/12/17 09:44 Dose: 5 mg Pantoprazole Sodium (Protonix -) 40 mg PO DAILY [facility] Last Admin: 05/12/17 09:44 Dose: 40 mg Polyethylene Glycol (Miralax (For Daily Use) -) 17 gm PO BID [facility] Last Admin: 05/12/17 11:03 Dose: Not Given Sodium Bicarbonate (Sodium Bicarbonate -) 650 mg PO BID [facility] Last Admin: 05/12/17 09:44 Dose: 650 mg Tamsulosin HCl (Flomax -) 0.4 mg PO DAILY@0830 [facility] Last Admin: 05/12/17 09:42 Dose: 0.4 mg Trazodone HCl (Desyrel -) 100 mg PO DAILY [facility] Last Admin: 05/12/17 09:41 Dose: 100 mg Warfarin Sodium (Coumadin -) 3 mg PO DAILY@1800 [facility] Last Admin: 05/12/17 17:07 Dose: 3 mg Contaminated: Please Repeat a/p 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
[2017-05-12] MEDS: ATORVASTATIN CA 20 MG TABLET (FP) PO SCH (22:12)
[2017-05-13] MEDS: INSULIN SLIDING SCALE (NOVOLOG) 1 VIAL SQ SCH ×3 (06:17→17:10)
[2017-05-13] MEDS: INSULIN DETEMIR 100 UNITS/ML MDV SQ SCH ×2 (06:18→21:20)
[2017-05-13 08:02] LABS: INR 1.61 (0.82-1.09); PROTHROMBIN TIME (PATIENT) 18.2 SEC (9.98-11.88)
[2017-05-13 08:06] LABS: HEMATOCRIT 22.4 % (32.4-45.2); HEMOGLOBIN 7.4 GM/dL (10.7-15.3); MCH 31.8 pg (25.7-33.7); MCHC 33.1 g/dl (32.0-36.0); MEAN CELL VOLUME 95.9 fl (80-96); MEAN PLT VOLUME 8.3 fl (7.5-11.1); PLATELET COUNT 255 K/MM3 (134-434); RBC 2.34 M/mm3 (3.60-5.2); RDW 15.9 % (11.6-15.6); WHITE BLOOD COUNT 17.7 K/mm3 (4.0-10.0)
[2017-05-13] MEDS ORDERED: PT OWN MED DRAWER 7, Y5N ONE (08:57)
[2017-05-13] MEDS: TAMSULOSIN HCL 0.4 MG CAP.ER.24H (FP) PO SCH (09:03)
[2017-05-13] MEDS: CITALOPRAM HYDROBROMIDE 20 MG TABLET (FP) PO SCH (09:04)
[2017-05-13] MEDS: CHOLECALCIFEROL (VITAMIN D3) 1,000 UNIT TABLET (FP) PO SCH (09:04)
[2017-05-13] MEDS: traZODone HCL 50 MG TABLET (FP) PO SCH (09:04)
[2017-05-13] MEDS: OXYBUTYNIN CHLORIDE 5 MG TABLET PO SCH ×2 (09:04→21:19)
[2017-05-13] MEDS: SODIUM BICARBONATE 650 MG TABLET PO SCH ×2 (09:04→21:19)
[2017-05-13] MEDS: PANTOPRAZOLE 40 MG TABLET (FP) PO SCH (09:04)
[2017-05-13] MEDS: LACTOBACILLUS ACIDOPHILUS 1 CAP PO SCH (09:04)
[2017-05-13] MEDS: MAGNESIUM OXIDE 400 MG TABLET (FP) PO SCH ×2 (09:05→21:24)
[2017-05-13] MEDS: FENOFIBRIC ACID 135 MG CAP PO SCH (09:05)
[2017-05-13] MEDS: POLYETHYLENE GLYCOL 3350 119 GM BTL PO SCH ×2 (09:06→21:23)
[2017-05-13] MEDS: ARTIFICIAL TEARS (POLYVINYL ALCOHOL 1.4%) OPTH DROPS OU SCH ×2 (09:06→21:22)
[2017-05-13] MEDS: MULTIVITAMINS (DAILY MVI) TABLET (FP) PO SCH (10:35)
[2017-05-13] MEDS: ASCORBIC ACID 250 MG TABLET (FP) PO SCH (10:35)
--- NOTE | 2017-05-13 11:51 | PN ---
Progress Note, Physician Chief Complaint: Patient remained at base line no change in MS overnight History of Present Illness: 66 yrs old F with H/O HTN, PAfib on AC, HTN, Chronic anemia, Depression, chronic obstructive Pyelonephritis transferred from [facility] after staff noticed brown color patient has persistently elevated tWBC H/H stable - Current Medication List Current Medications: Active Medications Amino Acids (Prosource No Carb Liquid Pkt) 30 ml PO BID@0800,1730 [facility] Artificial Tears (Artificial Tears) 1 drop OU BID [facility] Last Admin: 05/13/17 09:06 Dose: 1 drop Ascorbic Acid (Vitamin C -) 250 mg PO DAILY [facility] Last Admin: 05/13/17 10:35 Dose: 250 mg Atorvastatin Calcium (Lipitor -) 20 mg PO HS [facility] Last Admin: 05/12/17 22:12 Dose: 20 mg Cholecalciferol (Vitamin D3 -) 2,000 unit PO DAILY [facility] Last Admin: 05/13/17 09:04 Dose: 2,000 unit Citalopram Hydrobromide (Celexa -) 20 mg PO DAILY [facility] Last Admin: 05/13/17 09:04 Dose: 20 mg Fenofibric Acid (Trilipix -) 135 mg PO DAILY [facility] Last Admin: 05/13/17 09:05 Dose: 135 mg Heparin Sodium (Porcine) (Heparin -) 1,000 unit IVPUSH PRN PRN PRN Reason: Heparin Heparin Sodium (Porcine) (Heparin -) 5,000 unit IVPUSH PRN PRN PRN Reason: Heparin Insulin Aspart (Novolog Vial Sliding Scale -) 1 vial SQ TIDAC [facility] PRN Reason: Protocol Last Admin: 05/13/17 06:17 Dose: 2 units Insulin Detemir (Levemir Vial) 14 units SQ AM [facility] Last Admin: 05/13/17 06:18 Dose: 14 units Insulin Detemir (Levemir Vial) 22 units SQ HS [facility] Last Admin: 05/12/17 22:12 Dose: 22 units Lactobacillus Acidophilus (Bacid -) 1 tab PO DAILY [facility] Last Admin: 05/13/17 09:04 Dose: 1 tab Magnesium Oxide (Mag-Ox -) 400 mg PO BID [facility] Last Admin: 05/13/17 09:05 Dose: 400 mg Multivitamins/Minerals/Vitamin C (Tab-A-Vit -) 1 tab PO DAILY [facility] Last Admin: 05/13/17 10:35 Dose: 1 tab Olanzapine (Zyprexa -) 5 mg PO DAILY@1700 [facility] Last Admin: 05/12/17 16:55 Dose: 5 mg Oxybutynin Chloride (Ditropan -) 5 mg PO BID [facility] Last Admin: 05/13/17 09:04 Dose: 5 mg Pantoprazole Sodium (Protonix -) 40 mg PO DAILY [facility] Last Admin: 05/13/17 09:04 Dose: 40 mg Polyethylene Glycol (Miralax (For Daily Use) -) 17 gm PO BID [facility] Last Admin: 05/13/17 09:06 Dose: Not Given Sodium Bicarbonate (Sodium Bicarbonate -) 650 mg PO BID [facility] Last Admin: 05/13/17 09:04 Dose: 650 mg Tamsulosin HCl (Flomax -) 0.4 mg PO DAILY@0830 [facility] Last Admin: 05/13/17 09:03 Dose: 0.4 mg Trazodone HCl (Desyrel -) 100 mg PO DAILY [facility] Last Admin: 05/13/17 09:04 Dose: 100 mg Warfarin Sodium (Coumadin -) 3 mg PO DAILY@1800 [facility] Last Admin: 05/12/17 17:07 Dose: 3 mg - Objective Vital Signs: Vital Signs Temperature 98.1 F 05/13/17 09:00 Pulse Rate 78 05/13/17 09:00 Respiratory Rate 18 05/13/17 09:00 Blood Pressure 112/59 05/13/17 09:00 O2 Sat by Pulse Oximetry (%) 95 05/12/17 21:00 Elderly F no c/o nausea, vomiting abd distention or melena HEENT: Mm moist, anemia, no JVd No Bruit CHEST: Minimal basal crepts CVS: S1S2 R no m/g/r ABD: obese, non tender Bs + EXT: No edema feet, no calf tenderness RN FACULTY: Alert but oriented to self moving all extremities Labs: CBC, BMP 05/13/17 06:00 INR, PTT INR 1.61 (0.82-1.09) H 05/13/17 06:00 Problem List - Problems (1) Anemia Assessment/Plan: Chronic normocytic anemia most likely due to CKD and chronic sickness H/H stable no active bleeding Code(s): D64.9 - ANEMIA, UNSPECIFIED Qualifiers: Anemia type: other cause Other causes of anemia: other cause, not classified Qualified Code(s): D64.89 - Other specified anemias (2) HTN (hypertension) Code(s): I10 - ESSENTIAL (PRIMARY) HYPERTENSION (3) ESRD (end stage renal disease) Assessment/Plan: Gradually worsening renal functions from 30/1.2 on 08/12/16 to 91/4.5 documented obstructive Pyelonephritis renal ultrasound and Nephrology consult F/U BMP Code(s): N18.6 - END STAGE RENAL DISEASE (4) Depressed Assessment/Plan: Cont all home meds Code(s): F32.9 - MAJOR DEPRESSIVE DISORDER, SINGLE EPISODE, UNSPECIFIED (5) Paroxysmal A-fib Assessment/Plan: rate controlled on AC , INR supratherapeutic will add low dose Vit K as admitted with coffe ground emesis with dropping H/H Code(s): I48.0 - PAROXYSMAL ATRIAL FIBRILLATION (6) Urinary tract infection Assessment/Plan: All cultures -ve evaluated by ID off abx Code(s): N39.0 - URINARY TRACT INFECTION, SITE NOT SPECIFIED Qualifiers: Urinary tract infection type: site unspecified Hematuria presence: with hematuria Qualified Code(s): N39.0 - Urinary tract infection, site not specified; R31.9 - Hematuria, unspecified; R31.9 - Hematuria, unspecified (7) Leucocytosis Assessment/Plan: Evaluated by recommended hematological evolution to R/O Hematological malignancy will F/U Hematology recommendation. Code(s): D72.829 - ELEVATED WHITE BLOOD CELL COUNT, UNSPECIFIED
--- NOTE | 2017-05-13 12:27 | PN ---
Progress Note (short form) - Note Progress Note: Renal followup for BRYAN Pt seen and examined at the bedside no acute complaints no sob, chest pain, abd pain Vital Signs Temperature 98.1 F 05/13/17 09:00 Pulse Rate 78 05/13/17 09:00 Respiratory Rate 18 05/13/17 09:00 Blood Pressure 112/59 05/13/17 09:00 O2 Sat by Pulse Oximetry (%) 95 05/12/17 21:00 Intake & Output 05/10/17 05/11/17 05/12/17 05/13/17 23:59 23:59 23:59 23:59 Intake Total 626.4 1302 250 250 Output Total 1500 2900 2200 700 Balance -873.6 -1598 -1950 -450 NAd awake and alert RRR CTA, no rales, wheeze soft NT/ND CBC, BMP 05/13/17 06:00 Current Medications Amino Acids (Prosource No Carb Liquid Pkt) 30 ml PO BID@0800,1730 [facility] Artificial Tears (Artificial Tears) 1 drop OU BID [facility] Last Admin: 05/13/17 09:06 Dose: 1 drop Ascorbic Acid (Vitamin C -) 250 mg PO DAILY [facility] Last Admin: 05/13/17 10:35 Dose: 250 mg Atorvastatin Calcium (Lipitor -) 20 mg PO HS [facility] Last Admin: 05/12/17 22:12 Dose: 20 mg Cholecalciferol (Vitamin D3 -) 2,000 unit PO DAILY [facility] Last Admin: 05/13/17 09:04 Dose: 2,000 unit Citalopram Hydrobromide (Celexa -) 20 mg PO DAILY [facility] Last Admin: 05/13/17 09:04 Dose: 20 mg Fenofibric Acid (Trilipix -) 135 mg PO DAILY [facility] Last Admin: 05/13/17 09:05 Dose: 135 mg Heparin Sodium (Porcine) (Heparin -) 1,000 unit IVPUSH PRN PRN PRN Reason: Heparin Heparin Sodium (Porcine) (Heparin -) 5,000 unit IVPUSH PRN PRN PRN Reason: Heparin Insulin Aspart (Novolog Vial Sliding Scale -) 1 vial SQ TIDAC [facility] PRN Reason: Protocol Last Admin: 05/13/17 12:15 Dose: 3 units Insulin Detemir (Levemir Vial) 14 units SQ AM [facility] Last Admin: 05/13/17 06:18 Dose: 14 units Insulin Detemir (Levemir Vial) 22 units SQ HS [facility] Last Admin: 05/12/17 22:12 Dose: 22 units Lactobacillus Acidophilus (Bacid -) 1 tab PO DAILY [facility] Last Admin: 05/13/17 09:04 Dose: 1 tab Magnesium Oxide (Mag-Ox -) 400 mg PO BID [facility] Last Admin: 05/13/17 09:05 Dose: 400 mg Multivitamins/Minerals/Vitamin C (Tab-A-Vit -) 1 tab PO DAILY [facility] Last Admin: 05/13/17 10:35 Dose: 1 tab Olanzapine (Zyprexa -) 5 mg PO DAILY@1700 [facility] Last Admin: 05/12/17 16:55 Dose: 5 mg Oxybutynin Chloride (Ditropan -) 5 mg PO BID [facility] Last Admin: 05/13/17 09:04 Dose: 5 mg Pantoprazole Sodium (Protonix -) 40 mg PO DAILY [facility] Last Admin: 05/13/17 09:04 Dose: 40 mg Polyethylene Glycol (Miralax (For Daily Use) -) 17 gm PO BID [facility] Last Admin: 05/13/17 09:06 Dose: Not Given Sodium Bicarbonate (Sodium Bicarbonate -) 650 mg PO BID [facility] Last Admin: 05/13/17 09:04 Dose: 650 mg Tamsulosin HCl (Flomax -) 0.4 mg PO DAILY@0830 [facility] Last Admin: 05/13/17 09:03 Dose: 0.4 mg Trazodone HCl (Desyrel -) 100 mg PO DAILY [facility] Last Admin: 05/13/17 09:04 Dose: 100 mg Warfarin Sodium (Coumadin -) 3 mg PO DAILY@1800 [facility] Last Admin: 05/12/17 17:07 Dose: 3 mg 66 year old woman with PMhx of Afib on coumadin, Hypertension, CKD who presented with N/v with suspected coffee grounds and found to have BRYAN with BUN/ Cr of 88/4.3 and b/l hydronephrosis. #BRYAN secondary to obstructive uropathy +/- volume depletion Renal function improved as of yesterday todays labs pending continue oral intake continue flomax avoid nephrotoxins and IV contrast for now urologic follow up as outpatient #Anion gap + non-anion gap metabolic acidosis from renal failure +/- GI losses/RTA continue sodium bicarb 650mg BID Thank you Robert Casiano DO
--- NOTE | 2017-05-13 14:32 | PN ---
Progress Note (short form) - Note Progress Note: awake and alert hernandez in place no fevers no diarrhea Vital Signs Period Temp Pulse Resp BP Sys/Washburn Pulse Ox Last 24 Hr 97.2 F-98.4 F 68-86 16-20 103-158/55-86 95 cor-rrr llungs clear abd soft,nt ext no edema hernandez CBC, BMP 05/13/17 06:00 Microbiology 05/10/17 09:35 Blood - Peripheral Venous Blood Culture - Preliminary NO GROWTH OBTAINED AFTER 72 HOURS, INCUBATION TO CONTINUE FOR 2 DAYS. 05/10/17 09:45 Blood - Peripheral Venous Blood Culture - Preliminary NO GROWTH OBTAINED AFTER 72 HOURS, INCUBATION TO CONTINUE FOR 2 DAYS. 05/10/17 12:00 Urine - Urine Hernandez Urine Culture - Final NO GROWTH OBTAINED 05/04/17 22:30 Blood - Peripheral Venous Blood Culture - Final NO GROWTH AFTER 5 DAYS INCUBATION 05/04/17 22:30 Blood - Peripheral Venous Blood Culture - Final NO GROWTH AFTER 5 DAYS INCUBATION 05/06/17 17:46 Urine - Urine - Catheterized Urine Culture - Final NO GROWTH OBTAINED 05/04/17 23:30 Urine - Urine Clean Catch Urine Culture - Final Contaminated: Please Repeat a/p suspect this is all hematological malignancy- ?CLL observe off antibiotics
[2017-05-13 16:03] LABS: ANION GAP 11 (8-16); BLOOD UREA NITROGEN 24 mg/dL (7-18); CALCIUM 8.6 mg/dL (8.5-10.1); CHLORIDE 107 mmol/L (98-107); CO2 23 mmol/L (21-32); CREATININE 2.5 mg/dL (0.55-1.02); GLUCOSE,RANDOM 158 mg/dL (74-106); POTASSIUM 4.9 mmol/L (3.5-5.1); SODIUM 141 mmol/L (136-145)
[2017-05-13] MEDS: AMINO ACIDS/PROTEIN HYDROLYS 30 ML LIQUID.PKT PO SCH (17:10)
[2017-05-13] MEDS: WARFARIN NA 3 MG TABLET PO SCH (17:10)
[2017-05-13] MEDS: OLANZapine 5 MG TABLET PO SCH (17:10)
[2017-05-13] MEDS: ATORVASTATIN CA 20 MG TABLET (FP) PO SCH (21:20)
[2017-05-14] MEDS: INSULIN SLIDING SCALE (NOVOLOG) 1 VIAL SQ SCH ×3 (06:54→17:06)
[2017-05-14] MEDS: INSULIN DETEMIR 100 UNITS/ML MDV SQ SCH ×2 (06:55→21:03)
[2017-05-14 08:11] LABS: HEMATOCRIT 21.9 % (32.4-45.2); HEMOGLOBIN 7.2 GM/dL (10.7-15.3); MCH 31.7 pg (25.7-33.7); MCHC 32.9 g/dl (32.0-36.0); MEAN CELL VOLUME 96.4 fl (80-96); MEAN PLT VOLUME 8.5 fl (7.5-11.1); PLATELET COUNT 250 K/MM3 (134-434); RBC 2.27 M/mm3 (3.60-5.2); RDW 15.6 % (11.6-15.6)
[2017-05-14 08:30] LABS: ANION GAP 11 (8-16); BLOOD UREA NITROGEN 30 mg/dL (7-18); CALCIUM 8.8 mg/dL (8.5-10.1); CHLORIDE 106 mmol/L (98-107); CO2 22 mmol/L (21-32); GLUCOSE,RANDOM 143 mg/dL (74-106); POTASSIUM 4.6 mmol/L (3.5-5.1); SODIUM 139 mmol/L (136-145)
[2017-05-14 08:31] LABS: CREATININE 2.5 mg/dL (0.55-1.02)
[2017-05-14] MEDS: AMINO ACIDS/PROTEIN HYDROLYS 30 ML LIQUID.PKT PO SCH ×2 (08:34→17:06)
[2017-05-14] MEDS: TAMSULOSIN HCL 0.4 MG CAP.ER.24H (FP) PO SCH (08:34)
[2017-05-14] MEDS ORDERED: PT OWN MED DRAWER 7, Y5N ONE (09:11)
[2017-05-14] MEDS: traZODone HCL 50 MG TABLET (FP) PO SCH (09:14)
[2017-05-14] MEDS: CITALOPRAM HYDROBROMIDE 20 MG TABLET (FP) PO SCH (09:14)
[2017-05-14] MEDS: SODIUM BICARBONATE 650 MG TABLET PO SCH ×2 (09:14→21:09)
[2017-05-14] MEDS: CHOLECALCIFEROL (VITAMIN D3) 1,000 UNIT TABLET (FP) PO SCH (09:15)
[2017-05-14] MEDS: OXYBUTYNIN CHLORIDE 5 MG TABLET PO SCH ×2 (09:15→21:09)
[2017-05-14] MEDS: MAGNESIUM OXIDE 400 MG TABLET (FP) PO SCH ×2 (09:15→21:11)
[2017-05-14] MEDS: PANTOPRAZOLE 40 MG TABLET (FP) PO SCH (09:15)
[2017-05-14] MEDS: MULTIVITAMINS (DAILY MVI) TABLET (FP) PO SCH (09:15)
[2017-05-14] MEDS: LACTOBACILLUS ACIDOPHILUS 1 CAP PO SCH (09:15)
[2017-05-14] MEDS: FENOFIBRIC ACID 135 MG CAP PO SCH (09:16)
[2017-05-14] MEDS: ASCORBIC ACID 250 MG TABLET (FP) PO SCH (09:16)
[2017-05-14] MEDS: POLYETHYLENE GLYCOL 3350 119 GM BTL PO SCH ×2 (09:16→21:10)
[2017-05-14] MEDS: ARTIFICIAL TEARS (POLYVINYL ALCOHOL 1.4%) OPTH DROPS OU SCH ×2 (09:18→21:11)
[2017-05-14 09:33] LABS: INR 1.56 (0.82-1.09); PROTHROMBIN TIME (PATIENT) 17.6 SEC (9.98-11.88)
[2017-05-14 12:26] LABS: PLATELET ESTIMATE ADEQUATE
--- NOTE | 2017-05-14 13:13 | PN ---
Progress Note, Physician Chief Complaint: Patient remained at base line no change in MS overnight History of Present Illness: 66 yrs old F with H/O HTN, PAfib on AC, HTN, Chronic anemia, Depression, chronic obstructive Pyelonephritis transferred from [facility] after staff noticed brown color patient has persistently elevated tWBC H/H stable - Current Medication List Current Medications: Active Medications Amino Acids (Prosource No Carb Liquid Pkt) 30 ml PO BID@0800,1730 [facility] Last Admin: 05/14/17 08:34 Dose: 30 ml Artificial Tears (Artificial Tears) 1 drop OU BID [facility] Last Admin: 05/14/17 09:18 Dose: 1 drop Ascorbic Acid (Vitamin C -) 250 mg PO DAILY [facility] Last Admin: 05/14/17 09:16 Dose: 250 mg Atorvastatin Calcium (Lipitor -) 20 mg PO HS [facility] Last Admin: 05/13/17 21:20 Dose: 20 mg Cholecalciferol (Vitamin D3 -) 2,000 unit PO DAILY [facility] Last Admin: 05/14/17 09:15 Dose: 2,000 unit Citalopram Hydrobromide (Celexa -) 20 mg PO DAILY [facility] Last Admin: 05/14/17 09:14 Dose: 20 mg Fenofibric Acid (Trilipix -) 135 mg PO DAILY [facility] Last Admin: 05/14/17 09:16 Dose: 135 mg Heparin Sodium (Porcine) (Heparin -) 1,000 unit IVPUSH PRN PRN PRN Reason: Heparin Heparin Sodium (Porcine) (Heparin -) 5,000 unit IVPUSH PRN PRN PRN Reason: Heparin Insulin Aspart (Novolog Vial Sliding Scale -) 1 vial SQ TIDAC [facility] PRN Reason: Protocol Last Admin: 05/14/17 12:13 Dose: 2 units Insulin Detemir (Levemir Vial) 14 units SQ AM [facility] Last Admin: 05/14/17 06:55 Dose: 14 units Insulin Detemir (Levemir Vial) 22 units SQ HS [facility] Last Admin: 05/13/17 21:20 Dose: 22 units Lactobacillus Acidophilus (Bacid -) 1 tab PO DAILY [facility] Last Admin: 05/14/17 09:15 Dose: 1 tab Magnesium Oxide (Mag-Ox -) 400 mg PO BID [facility] Last Admin: 05/14/17 09:15 Dose: 400 mg Multivitamins/Minerals/Vitamin C (Tab-A-Vit -) 1 tab PO DAILY [facility] Last Admin: 05/14/17 09:15 Dose: 1 tab Olanzapine (Zyprexa -) 5 mg PO DAILY@1700 [facility] Last Admin: 05/13/17 17:10 Dose: 5 mg Oxybutynin Chloride (Ditropan -) 5 mg PO BID [facility] Last Admin: 05/14/17 09:15 Dose: 5 mg Pantoprazole Sodium (Protonix -) 40 mg PO DAILY [facility] Last Admin: 05/14/17 09:15 Dose: 40 mg Polyethylene Glycol (Miralax (For Daily Use) -) 17 gm PO BID [facility] Last Admin: 05/14/17 09:16 Dose: 17 gm Sodium Bicarbonate (Sodium Bicarbonate -) 650 mg PO BID [facility] Last Admin: 05/14/17 09:14 Dose: 650 mg Tamsulosin HCl (Flomax -) 0.4 mg PO DAILY@0830 [facility] Last Admin: 05/14/17 08:34 Dose: 0.4 mg Trazodone HCl (Desyrel -) 100 mg PO DAILY [facility] Last Admin: 05/14/17 09:14 Dose: 100 mg Warfarin Sodium (Coumadin -) 3 mg PO DAILY@1800 [facility] Last Admin: 05/13/17 17:10 Dose: 3 mg - Objective Vital Signs: Vital Signs Temperature 98.7 F 05/14/17 09:00 Pulse Rate 75 05/14/17 09:00 Respiratory Rate 18 05/14/17 09:00 Blood Pressure 128/65 05/14/17 09:00 O2 Sat by Pulse Oximetry (%) 98 05/14/17 09:00 Elderly F no c/o nausea, vomiting abd distention or melena HEENT: Mm moist, anemia, no JVd No Bruit CHEST: Minimal basal crepts CVS: S1S2 R no m/g/r ABD: obese, non tender Bs + EXT: No edema feet, no calf tenderness MEDICAL AFFAIRS SPECIALIST: Alert but oriented to self moving all extremities Labs: CBC, BMP 05/14/17 06:48 05/14/17 06:48 INR, PTT INR 1.56 (0.82-1.09) H 05/14/17 09:10 Problem List - Problems (1) Anemia Assessment/Plan: Chronic normocytic anemia most likely due to CKD and chronic sickness H/H stable no active bleeding Code(s): D64.9 - ANEMIA, UNSPECIFIED Qualifiers: Anemia type: other cause Other causes of anemia: other cause, not classified Qualified Code(s): D64.89 - Other specified anemias (2) HTN (hypertension) Assessment/Plan: Cont Home meds Code(s): I10 - ESSENTIAL (PRIMARY) HYPERTENSION (3) ESRD (end stage renal disease) Assessment/Plan: Gradually worsening renal functions from 30/1.2 on 08/12/16 to 91/4.5 documented obstructive Pyelonephritis renal ultrasound and Nephrology consult F/U BMP (4) Depressed Assessment/Plan: Cont all home meds Code(s): F32.9 - MAJOR DEPRESSIVE DISORDER, SINGLE EPISODE, UNSPECIFIED (5) Paroxysmal A-fib Assessment/Plan: rate controlled on AC , INR supratherapeutic will add low dose Vit K as admitted with coffe ground emesis with dropping H/H Code(s): I48.0 - PAROXYSMAL ATRIAL FIBRILLATION (6) Urinary tract infection Assessment/Plan: All cultures -ve evaluated by ID off abx Code(s): N39.0 - URINARY TRACT INFECTION, SITE NOT SPECIFIED Qualifiers: Urinary tract infection type: site unspecified Hematuria presence: with hematuria Qualified Code(s): N39.0 - Urinary tract infection, site not specified; R31.9 - Hematuria, unspecified; R31.9 - Hematuria, unspecified (7) Leucocytosis Assessment/Plan: Evaluated by recommended hematological evolution to R/O Hematological malignancy will F/U Hematology recommendation. Code(s): D72.829 - ELEVATED WHITE BLOOD CELL COUNT, UNSPECIFIED (8) Urinary retention Assessment/Plan: HANH Mccoy, voiding trial Code(s): R33.9 - RETENTION OF URINE, UNSPECIFIED
[2017-05-14] MEDS: OLANZapine 5 MG TABLET PO SCH (17:06)
[2017-05-14] MEDS: WARFARIN NA 3 MG TABLET PO SCH (17:18)
[2017-05-14] MEDS: ATORVASTATIN CA 20 MG TABLET (FP) PO SCH (21:09)
[2017-05-15] MEDS: INSULIN DETEMIR 100 UNITS/ML MDV SQ SCH (06:00)
[2017-05-15] MEDS: INSULIN SLIDING SCALE (NOVOLOG) 1 VIAL SQ SCH ×3 (06:00→16:58)
--- NOTE | 2017-05-15 07:26 | PN ---
Physical Exam: SUBJECTIVE: Patient seen and examined at bedside. Still will not agree to transfusion, "I didn't say yes, I didn't say no. Thank you for coming." OBJECTIVE: Vital Signs Period Temp Pulse Resp BP Sys/Washburn Pulse Ox Last 24 Hr 98.2 F-99.2 F 75-89 18-20 108-128/49-65 98-98 GENERAL: The patient is awake, alert. Aware that it is daylight savings time. Pale. EYES: Pale conjunctiva HEAD: patch of hair pulled out center forehead, mild erythema, no bleeding, no sign of infection LUNGS: Breath sounds equal, clear to auscultation bilaterally, no wheezes, no crackles, no accessory muscle use. HEART: Regular rate and rhythm, S1, S2 ABDOMEN: Soft, nontender, nondistended, normoactive bowel sounds, no guarding, no rebound; soft BM in diaper EXTREMITIES: 2+ pulses, warm, well-perfused, no edema. NEUROLOGICAL: Cranial nerves II through XII grossly intact. Normal speech, gait not observed. Laboratory Results - last 24 hr 05/08/17 05/11/17 05/14/17 13:00 13:20 06:48 WBC RBC Hgb Hct MCV MCH MCHC RDW Plt Count MPV Total Counted Neutrophils % Neutrophils % (Manual) Band Neutrophils % Lymphocytes % Lymphocytes % (Manual) Metamyelocytes Platelet Estimate PT with INR INR PTT (Actin FS) 29.2 Sodium Potassium Chloride Carbon Dioxide Anion Gap BUN Creatinine POC Glucometer Random Glucose Calcium Crossmatch See Detail See Detail 05/14/17 05/14/17 05/14/17 06:48 06:48 09:10 WBC 17.0 H RBC 2.27 L Hgb 7.2 L Hct 21.9 L MCV 96.4 H MCH 31.7 MCHC 32.9 RDW 15.6 Plt Count 250 MPV 8.5 Total Counted 100 Neutrophils % No Result Required. Neutrophils % (Manual) 31.0 L Band Neutrophils % 1.0 Lymphocytes % No Result Required. Lymphocytes % (Manual) 67.0 H Metamyelocytes 1 D Platelet Estimate Adequate PT with INR 17.60 H INR 1.56 H PTT (Actin FS) Sodium 139 Potassium 4.6 Chloride 106 Carbon Dioxide 22 Anion Gap 11 BUN 30 H Creatinine 2.5 H POC Glucometer Random Glucose 143 H Calcium 8.8 Crossmatch 05/14/17 05/14/17 05/14/17 12:07 17:01 20:48 WBC RBC Hgb Hct MCV MCH MCHC RDW Plt Count MPV Total Counted Neutrophils % Neutrophils % (Manual) Band Neutrophils % Lymphocytes % Lymphocytes % (Manual) Metamyelocytes Platelet Estimate PT with INR INR PTT (Actin FS) Sodium Potassium Chloride Carbon Dioxide Anion Gap BUN Creatinine POC Glucometer 191 190 192 Random Glucose Calcium Crossmatch 05/15/17 05:57 WBC RBC Hgb Hct MCV MCH MCHC RDW Plt Count MPV Total Counted Neutrophils % Neutrophils % (Manual) Band Neutrophils % Lymphocytes % Lymphocytes % (Manual) Metamyelocytes Platelet Estimate PT with INR INR PTT (Actin FS) Sodium Potassium Chloride Carbon Dioxide Anion Gap BUN Creatinine POC Glucometer 198 Random Glucose Calcium Crossmatch Active Medications Generic Name Dose Route Start Last Admin Trade Name Freq PRN Reason Stop Dose Admin Amino Acids 30 ml 05/13/17 17:30 05/14/17 17:06 Prosource No Carb Liquid Pkt PO 30 ml BID@0800,1730 MEG Administration Artificial Tears 1 drop 05/05/17 10:00 05/14/17 21:11 Artificial Tears OU 1 drop BID MEG Administration Ascorbic Acid 250 mg 05/13/17 10:00 05/14/17 09:16 Vitamin C - PO 250 mg DAILY MEG Administration Atorvastatin Calcium 20 mg 05/05/17 22:00 05/14/17 21:09 Lipitor - PO 20 mg HS MEG Administration Cholecalciferol 2,000 unit 05/05/17 10:00 05/14/17 09:15 Vitamin D3 - PO 2,000 unit DAILY MEG Administration Citalopram Hydrobromide 20 mg 05/05/17 10:00 05/14/17 09:14 Celexa - PO 20 mg DAILY MEG Administration Fenofibric Acid 135 mg 05/05/17 10:00 05/14/17 09:16 Trilipix - PO 135 mg DAILY MEG Administration Heparin Sodium (Porcine) 1,000 unit 05/08/17 18:07 Heparin - IVPUSH PRN PRN Heparin Heparin Sodium (Porcine) 5,000 unit 05/08/17 18:07 Heparin - IVPUSH PRN PRN Heparin Insulin Aspart 1 vial 05/05/17 07:00 05/15/17 06:00 Novolog Vial Sliding Scale - SQ 2 units TIDAC MEG Administration Protocol Insulin Detemir 14 units 05/05/17 07:00 05/15/17 06:00 Levemir Vial SQ 14 units AM MEG Administration Insulin Detemir 22 units 05/05/17 22:00 05/14/17 21:03 Levemir Vial SQ 22 units HS MEG Administration Lactobacillus Acidophilus 1 tab 05/05/17 10:00 05/14/17 09:15 Bacid - PO 1 tab DAILY MEG Administration Magnesium Oxide 400 mg 05/05/17 10:00 05/14/17 21:11 Mag-Ox - PO 400 mg BID MEG Administration Multivitamins/Minerals/Vitamin C 1 tab 05/13/17 10:00 05/14/17 09:15 Tab-A-Vit - PO 1 tab DAILY MEG Administration Olanzapine 5 mg 05/05/17 17:00 05/14/17 17:06 Zyprexa - PO 5 mg DAILY@1700 MEG Administration Oxybutynin Chloride 5 mg 05/05/17 10:00 05/14/17 21:09 Ditropan - PO 5 mg BID MEG Administration Pantoprazole Sodium 40 mg 05/09/17 10:00 05/14/17 09:15 Protonix - PO 40 mg DAILY MEG Administration Polyethylene Glycol 17 gm 05/08/17 22:00 05/14/17 21:10 Miralax (For Daily Use) - PO 17 gm BID MEG Administration Sodium Bicarbonate 650 mg 05/05/17 22:00 05/14/17 21:09 Sodium Bicarbonate - PO 650 mg BID MEG Administration Tamsulosin HCl 0.4 mg 05/11/17 08:30 05/14/17 08:34 Flomax - PO 0.4 mg DAILY@0830 MEG Administration Trazodone HCl 100 mg 05/05/17 10:00 05/14/17 09:14 Desyrel - PO 100 mg DAILY MEG Administration Warfarin Sodium 3 mg 05/12/17 18:00 05/14/17 17:18 Coumadin - PO 3 mg DAILY@1800 MEG Administration ASSESSMENT/PLAN 66 year-old female with a PMH significant for HTN, HLD, afib on coumadin, chronic anemia, CKD, chronic obstructive pyelonephritis, depression. r/o upper GI bleed r/o CLL Anemia --Hgb 8.1 on admission; has been stable 7.0--7.5 x 1 week --remains hemodynamically stable --needs EGD/colon but lacks capacity to consent to blood transfusion or invasive procedures, and there is no HCP at this time --flow cytometry pending --hematology following --patient continues to refuse transfusion Atrial fibrillation --rate well-controlled --continue heparin drip Fecal retention, resolved h/o obstructive pyelonephritis Hydronephrosis --05/05 CTAP: moderate bilateral hydronephrosis with marked dilitation both ureters to bladder --05/09 US: moderate right and mild left hydro; no significant change from 05/05 CT study --hernandez placed 05/10-->05/14 --voiding freely Acute kidney injury Azotemia --volume depletion v. obstructive uropathy v. both --Cr 4.5 on admission, reached 2.2 on 05/10 and steadily trending up since then today 2.7 --BUN also trending up since 05/10 --start gentle IV fluids UTI --05/05 CTAP: thick-walled urinary bladder with inflammatory changes, c/w cystitis --afebrile, cultures negative --continue to observe off antibiotics HTN --BP stable --not on anti-hypertensives IDDM --Levemir 14U am, 22U qhs --Novolog sliding scale coverage Depression --continue Celexa, trazadone, Zyprexa Stage II Pressure ulcer --left buttock --Allevyn dressing FEN Fluids: PO intake Electrolytes: replete as indicated Nutrition: low sodium DVT prophylaxis: heparin drip Physical therapy evaluation Daily PT Dispo: Ethics consult pending; patient is stable for transfer back to [facility]. Full code. Visit type - Emergency Visit Emergency Visit: Yes ED Registration Date: 05/05/17 Care time: The patient presented to the Emergency Department on the above date and was hospitalized for further evaluation of their emergent condition. - New Patient This patient is new to me today: No - Critical Care Critical Care patient: No
[2017-05-15] MEDS: TAMSULOSIN HCL 0.4 MG CAP.ER.24H (FP) PO SCH (08:21)
[2017-05-15] MEDS: AMINO ACIDS/PROTEIN HYDROLYS 30 ML LIQUID.PKT PO SCH ×2 (08:21→17:38)
--- NOTE | 2017-05-15 08:22 | PN ---
Progress Note, Physician Chief Complaint: ID Afebrile off antibiotics - Current Medication List Current Medications: Active Medications Amino Acids (Prosource No Carb Liquid Pkt) 30 ml PO BID@0800,1730 [facility] Last Admin: 05/14/17 17:06 Dose: 30 ml Artificial Tears (Artificial Tears) 1 drop OU BID [facility] Last Admin: 05/14/17 21:11 Dose: 1 drop Ascorbic Acid (Vitamin C -) 250 mg PO DAILY [facility] Last Admin: 05/14/17 09:16 Dose: 250 mg Atorvastatin Calcium (Lipitor -) 20 mg PO HS [facility] Last Admin: 05/14/17 21:09 Dose: 20 mg Cholecalciferol (Vitamin D3 -) 2,000 unit PO DAILY [facility] Last Admin: 05/14/17 09:15 Dose: 2,000 unit Citalopram Hydrobromide (Celexa -) 20 mg PO DAILY [facility] Last Admin: 05/14/17 09:14 Dose: 20 mg Fenofibric Acid (Trilipix -) 135 mg PO DAILY [facility] Last Admin: 05/14/17 09:16 Dose: 135 mg Heparin Sodium (Porcine) (Heparin -) 1,000 unit IVPUSH PRN PRN PRN Reason: Heparin Heparin Sodium (Porcine) (Heparin -) 5,000 unit IVPUSH PRN PRN PRN Reason: Heparin Insulin Aspart (Novolog Vial Sliding Scale -) 1 vial SQ TIDAC [facility] PRN Reason: Protocol Last Admin: 05/15/17 06:00 Dose: 2 units Insulin Detemir (Levemir Vial) 14 units SQ AM [facility] Last Admin: 05/15/17 06:00 Dose: 14 units Insulin Detemir (Levemir Vial) 22 units SQ HS [facility] Last Admin: 05/14/17 21:03 Dose: 22 units Lactobacillus Acidophilus (Bacid -) 1 tab PO DAILY [facility] Last Admin: 05/14/17 09:15 Dose: 1 tab Magnesium Oxide (Mag-Ox -) 400 mg PO BID [facility] Last Admin: 05/14/17 21:11 Dose: 400 mg Multivitamins/Minerals/Vitamin C (Tab-A-Vit -) 1 tab PO DAILY [facility] Last Admin: 05/14/17 09:15 Dose: 1 tab Olanzapine (Zyprexa -) 5 mg PO DAILY@1700 [facility] Last Admin: 03/11/18 17:06 Dose: 5 mg Oxybutynin Chloride (Ditropan -) 5 mg PO BID [facility] Last Admin: 05/14/17 21:09 Dose: 5 mg Pantoprazole Sodium (Protonix -) 40 mg PO DAILY [facility] Last Admin: 05/14/17 09:15 Dose: 40 mg Polyethylene Glycol (Miralax (For Daily Use) -) 17 gm PO BID [facility] Last Admin: 05/14/17 21:10 Dose: 17 gm Sodium Bicarbonate (Sodium Bicarbonate -) 650 mg PO BID [facility] Last Admin: 05/14/17 21:09 Dose: 650 mg Tamsulosin HCl (Flomax -) 0.4 mg PO DAILY@0830 [facility] Last Admin: 05/14/17 08:34 Dose: 0.4 mg Trazodone HCl (Desyrel -) 100 mg PO DAILY [facility] Last Admin: 05/14/17 09:14 Dose: 100 mg Warfarin Sodium (Coumadin -) 3 mg PO DAILY@1800 [facility] Last Admin: 05/14/17 17:18 Dose: 3 mg - Objective Vital Signs: Vital Signs Temperature 98.2 F 05/15/17 06:00 Pulse Rate 79 05/15/17 06:00 Respiratory Rate 18 05/15/17 06:00 Blood Pressure 123/58 05/15/17 06:00 O2 Sat by Pulse Oximetry (%) 98 05/14/17 21:00 Constitutional: Yes: Well Nourished, No Distress Neck: Yes: WNL, Supple Cardiovascular: Yes: Regular Rate and Rhythm, S1, S2 Respiratory: Yes: WNL, Regular, CTA Bilaterally Gastrointestinal: Yes: WNL, Normal Bowel Sounds, Soft. No: Tenderness Edema: No Labs: INR, PTT INR 1.56 (0.82-1.09) H 05/14/17 09:10 Assessment/Plan Microbiology 05/10/17 12:00 Urine - Urine Mccoy Urine Culture - Final NO GROWTH OBTAINED 05/06/17 17:46 Urine - Urine - Catheterized Urine Culture - Final NO GROWTH OBTAINED 05/04/17 23:30 Urine - Urine Clean Catch Urine Culture - Final Contaminated: Please Repeat 05/04/17 22:30 Blood - Peripheral Venous Blood Culture - Final NO GROWTH AFTER 5 DAYS INCUBATION 05/04/17 22:30 Blood - Peripheral Venous Blood Culture - Final NO GROWTH AFTER 5 DAYS INCUBATION 05/10/17 09:45 Blood - Peripheral Venous Blood Culture - Preliminary NO GROWTH OBTAINED AFTER 96 HOURS, INCUBATION TO CONTINUE FOR 1 DAYS. 05/10/17 09:35 Blood - Peripheral Venous Blood Culture - Preliminary NO GROWTH OBTAINED AFTER 96 HOURS, INCUBATION TO CONTINUE FOR 1 DAYS. 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
[2017-05-15 08:31] LABS: HEMATOCRIT 21.7 % (32.4-45.2); HEMOGLOBIN 7.2 GM/dL (10.7-15.3); MEAN CELL VOLUME 96.8 fl (80-96); MEAN PLT VOLUME 8.6 fl (7.5-11.1); PLATELET COUNT 235 K/MM3 (134-434); RBC 2.24 M/mm3 (3.60-5.2); RDW 15.6 % (11.6-15.6); WHITE BLOOD COUNT 15.8 K/mm3 (4.0-10.0)
[2017-05-15 08:34] LABS: ANION GAP 11 (8-16); BLOOD UREA NITROGEN 41 mg/dL (7-18); CALCIUM 8.9 mg/dL (8.5-10.1); CHLORIDE 106 mmol/L (98-107); CO2 23 mmol/L (21-32); GLUCOSE,RANDOM 177 mg/dL (74-106); POTASSIUM 4.2 mmol/L (3.5-5.1); SODIUM 140 mmol/L (136-145)
[2017-05-15 08:35] LABS: CREATININE 2.7 mg/dL (0.55-1.02)
[2017-05-15] MEDS ORDERED: PT OWN MED DRAWER 7, Y5N ONE ×2 (09:44→16:53)
[2017-05-15] MEDS: CITALOPRAM HYDROBROMIDE 20 MG TABLET (FP) PO SCH (09:48)
[2017-05-15] MEDS: LACTOBACILLUS ACIDOPHILUS 1 CAP PO SCH (09:48)
[2017-05-15] MEDS: MAGNESIUM OXIDE 400 MG TABLET (FP) PO SCH (09:49)
[2017-05-15] MEDS: traZODone HCL 50 MG TABLET (FP) PO SCH (09:49)
[2017-05-15] MEDS: POLYETHYLENE GLYCOL 3350 119 GM BTL PO SCH (09:49)
[2017-05-15] MEDS: OXYBUTYNIN CHLORIDE 5 MG TABLET PO SCH (09:49)
[2017-05-15] MEDS: MULTIVITAMINS (DAILY MVI) TABLET (FP) PO SCH (09:50)
[2017-05-15] MEDS: PANTOPRAZOLE 40 MG TABLET (FP) PO SCH (09:50)
[2017-05-15] MEDS: SODIUM BICARBONATE 650 MG TABLET PO SCH (09:50)
[2017-05-15] MEDS: FENOFIBRIC ACID 135 MG CAP PO SCH (09:50)
[2017-05-15] MEDS: ASCORBIC ACID 250 MG TABLET (FP) PO SCH (09:51)
[2017-05-15] MEDS: CHOLECALCIFEROL (VITAMIN D3) 1,000 UNIT TABLET (FP) PO SCH (09:51)
[2017-05-15] MEDS: ARTIFICIAL TEARS (POLYVINYL ALCOHOL 1.4%) OPTH DROPS OU SCH (09:51)
[2017-05-15 10:38] LABS: ANISOCYTOSIS 1+; MACROCYTOSIS 1+; PLATELET ESTIMATE NORMAL
[2017-05-15] MEDS ORDERED: INSULIN (NOVOLOG) ASPART 100 UNITS/ML 10ML VIAL ONE ×2 (11:50→16:49)
[2017-05-15 11:53] LABS: INR 1.72 (0.82-1.09); PROTHROMBIN TIME (PATIENT) 19.4 SEC (9.98-11.88)
[2017-05-15] MEDS ORDERED: SODIUM CHLORIDE 1,000 ML IV SCH (12:00)
[2017-05-15] MEDS ORDERED: ENOXAPARIN NA (PORCINE) 80 MG/0.8 ML DISP.SYRIN SQ STA (12:26)
[2017-05-15] MEDS ORDERED: ENOXAPARIN NA (PORCINE) 80 MG/0.8 ML DISP.SYRIN SQ SCH (12:30)
--- NOTE | 2017-05-15 14:24 | PATH ---
Surgical Pathology Report Patient Name: ARNOLDO ASCENCIO [facility]. Rec. #: [id number] /Age/Gender: 1950 (Age: 66) / F Account: [id number] Location: [facility] MED/SURG Taken: 05/12/2017 Received: 05/12/2017 Reported: 05/15/2017 Physicians: Judi Peterson M.D. Specimen(s) Received PERIPHERAL BLOOD Clinical History Lymphocytosis, rule out CLL Final Diagnosis PERIPHERAL BLOOD: FL[facility] [place] [place] ([id number]) shows the following: INTERPRETATION: Clonal B-cell population with immunophenotype consistent with chronic lymphocytic leukemia (CLL), 57% of total events, is present. Comment: Lack of CD38 expression in B cell chronic lymphocytic leukemia (CLL) is associated with a more favorable clinical outcome. References: Junior NEWBY, et al. Blood 1999; 94(6):1840-7. Campa, S et al. Blood 2001;98(1):181-186. Viability: 99% Abnormal Cells: 57% clonal B-cells Cell Size: Small-medium Phenotype: Clonal ([place], very dim) B-cell population with moderate CD19 and dim CD20 expression, co-expressing CD5 and CD23, negative for FMC7 and CD38, 57% of total events, is present. Additional tests are pending, and a report will follow. Electronically Signed Rey Olsen M.D. Addendum Reported: 05/15/2017 Addendum Diagnosis Hematologic FISH Report performed and interpreted at [facility] in [place], [place] ([id number]) shows the following. INTERPRETATION: No evidence of trisomy 12. No evidence of deletion 13q14.2 is present. No evidence of deletion of ALINA (11q22) is present. No evidence of a deletion of the p53 (17p13) locus. No CCND1/IGH t(11;14) translocation is detected. Comments: Correlation with pending cytogenetics ([id number]) is recommended. Rey Olsen M.D. Addendum Reported: 05/22/2017 Addendum Diagnosis CYTOGENETIC KARYOTYPE ANALYSIS performed and interpreted at [facility] ([id number]) shows the following: RESULTS: 46,XX [5] INTERPRETATION: Normal Karyotype This unstimulated peripheral blood specimen produced only 5 analyzable metaphase cells. Although chromosome morphology and band resolution are somewhat sub-optimal, no consistent numerical or structural chromosome abnormalities were observed. However, a repeat sample or bone marrow aspirate, when clinically appropriate, may produce additional cytogenetic information and is recommended. This normal result does not rule out a neoplasm. Subtle rearrangements or the presence of an aberrant clone in a low proportion of cells cannot be ruled out. Correlation with other clinical and hematologic data is suggested. Analysis was performed on cells from an unstimulated tissue culture and a tissue culture that was stimulated with lymphoid mitogens. See [facility] report for additional details ([id number]) Radha Stephens M.D. Addendum Reported: 05/23/2017 Addendum Diagnosis IGVH MUTATION ANALYSIS FOR CLL performed and interpreted at [facility] ([id number]) shows the following: RESULTS: IgVH Mutation Status: MUTATED Mutation Rate: 7.5% Reference range: < 2%: unmutated = 2%: mutated INTERPRETATION: The IgVH mutated B-cell population detected in this sample is greater than or equal to 2% compared with the germline sequence. This is consistent with mutated IgVH, which is associated with a better prognosis. See [facility] report for additional details ([id number]). Radha Stephens M.D. Addendum Reported: 05/25/2017 Addendum Diagnosis IgVH Mutation Analysis for CLL received from [facility] [place], [place] ([id number]) shows the following: RESULTS: IgVH Mutation Status: Mutated Mutation Rate: 7.5% Reference Range: < 2%: unmutated = 2%: mutated IgVH Family: IGHV 4-34*01 INTERPRETATION: The IgVH mutated B-cell population detected in this sample is greater than or equal to 2% compared with the germline sequence. This is consistent with mutated IgVH, which is associated with a better prognosis. Comment: Mutation status of IgVH is only prognostic in cases of well-established CLL. The clinical significance of the results outside of CLL is unknown. B-cell CLL patients can be stratified into prognostically indolent and more aggressive disease types by assessment of the presence or absence of somatic mutations in the variable region of the immunoglobulin heavy chain gene locus (IgVH). Patients with unmutated IgVH (< 2% mutated) have a shorter median survival than those with mutated IgVH (> 2% mutated). Assay sensitivity depends on multiple factors, including the percentage of abnormal cells, the family to which the clonal B cell population belongs, and the mutation level of the VH region. In some patients, minor clonal or polyclonal populations and/or clones that are not amplified by the primer set in use will not be detected and/or sequenced. The sensitivity of this assay is 10%; sequencing may not be possible for peripheral blood or bone marrow specimens with < 10% clonal B-CLL cells. See [facility] report for details ([id number]). Radha Stephens M.D. Gross Description Received are 2 green top tubes of peripheral blood which are sent to [facility]. 05/12/2017 saudi05/12/2017
[2017-05-15 15:34] VITALS: BP 101/88; PULSE 80; TEMP 98.2
--- NOTE | 2017-05-15 16:14 | DS ---
Physical Exam: SUBJECTIVE: Patient seen and examined at bedside. Still will not agree to transfusion, "I didn't say yes, I didn't say no. Thank you for coming." OBJECTIVE: Vital Signs Period Temp Pulse Resp BP Sys/Washburn Pulse Ox Last 24 Hr 98 F-98.4 F 73-89 18-20 101-123/49-88 98 PHYSICAL EXAM GENERAL: The patient is awake, alert. Aware that it is daylight savings time. Pale. EYES: Pale conjunctiva HEAD: patch of hair pulled out center forehead, mild erythema, no bleeding, no sign of infection LUNGS: Breath sounds equal, clear to auscultation bilaterally, no wheezes, no crackles, no accessory muscle use. HEART: Regular rate and rhythm, S1, S2 ABDOMEN: Soft, nontender, nondistended, normoactive bowel sounds, no guarding, no rebound; soft BM in diaper EXTREMITIES: 2+ pulses, warm, well-perfused, no edema. NEUROLOGICAL: Cranial nerves II through XII grossly intact. Normal speech, gait not observed. LABS Laboratory Results - last 24 hr 05/11/17 05/14/17 05/14/17 13:20 17:01 20:48 WBC RBC Hgb Hct MCV MCH MCHC RDW Plt Count MPV Neutrophils % Neutrophils % (Manual) Band Neutrophils % Lymphocytes % Lymphocytes % (Manual) Monocytes % (Manual) Eosinophils % (Manual) Basophils % (Manual) Myelocytes % (Man) Promyelocytes % (Man) Blast Cells % (Manual) Nucleated RBC % Metamyelocytes Hypochromia Platelet Estimate Polychromasia Poikilocytosis Anisocytosis Microcytosis Macrocytosis Stomatocytes PT with INR INR Sodium Potassium Chloride Carbon Dioxide Anion Gap BUN Creatinine POC Glucometer 190 192 Random Glucose Calcium Crossmatch See Detail 05/15/17 05/15/17 05/15/17 05:57 07:35 07:35 WBC 15.8 H RBC 2.24 L Hgb 7.2 L Hct 21.7 L MCV 96.8 H MCH 32.0 MCHC 33.0 RDW 15.6 Plt Count 235 MPV 8.6 Neutrophils % No Result Required. Neutrophils % (Manual) 18.9 L D Band Neutrophils % 0.0 Lymphocytes % No Result Required. Lymphocytes % (Manual) 79.0 H* Monocytes % (Manual) 2 L Eosinophils % (Manual) 0.0 D Basophils % (Manual) 0.0 Myelocytes % (Man) 0 Promyelocytes % (Man) 0 Blast Cells % (Manual) 0 Nucleated RBC % 0 Metamyelocytes 0 D Hypochromia 0 Platelet Estimate Normal Polychromasia 1+ Poikilocytosis 0 Anisocytosis 1+ Microcytosis 0 Macrocytosis 1+ Stomatocytes 2+ PT with INR INR Sodium 140 Potassium 4.2 Chloride 106 Carbon Dioxide 23 Anion Gap 11 BUN 41 H Creatinine 2.7 H POC Glucometer 198 Random Glucose 177 H Calcium 8.9 Crossmatch 05/15/17 05/15/17 11:35 11:44 WBC RBC Hgb Hct MCV MCH MCHC RDW Plt Count MPV Neutrophils % Neutrophils % (Manual) Band Neutrophils % Lymphocytes % Lymphocytes % (Manual) Monocytes % (Manual) Eosinophils % (Manual) Basophils % (Manual) Myelocytes % (Man) Promyelocytes % (Man) Blast Cells % (Manual) Nucleated RBC % Metamyelocytes Hypochromia Platelet Estimate Polychromasia Poikilocytosis Anisocytosis Microcytosis Macrocytosis Stomatocytes PT with INR 19.40 H INR 1.72 H Sodium Potassium Chloride Carbon Dioxide Anion Gap BUN Creatinine POC Glucometer 240 Random Glucose Calcium Crossmatch HOSPITAL COURSE Date of Admission:05/05/17 Date of Discharge: 05/15/17 66 year-old female with a PMH significant for HTN, HLD, afib on coumadin, chronic anemia, CKD, chronic obstructive pyelonephritis, depression. r/o upper GI bleed r/o CLL Anemia --high suspicion for CLL --Hgb 8.1 on admission; has been stable 7.0--7.5 x 1 week --remains hemodynamically stable --needs EGD/colon but lacks capacity to consent to blood transfusion or invasive procedures, and there is no HCP at this time --flow cytometry pending, needs to follow up with hematology, Dr. Peterson Atrial fibrillation --rate well-controlled --INR is subtherapeutic on date of discharge @1.72 --continue lovenox subq 70mg daily --continue warfarin 3mg daily --when INR reaches therapeutic range between 2-3, stop lovenox --daily INR checks until patient reaches therapeutic range Fecal retention, resolved h/o obstructive pyelonephritis Hydronephrosis --3/2 CTAP: moderate bilateral hydronephrosis with marked dilitation both ureters to bladder --05/09 US: moderate right and mild left hydro; no significant change from 05/05 CT study --hernandez placed 05/10-->05/14 --voiding freely --needs urology followup with Dr. Mccartney Acute kidney injury Azotemia --volume depletion v. obstructive uropathy v. both --encourage PO intake UTI --05/05 CTAP: thick-walled urinary bladder with inflammatory changes, c/w cystitis --afebrile, cultures negative --continue to observe off antibiotics HTN --BP stable --not on anti-hypertensives IDDM --Levemir 14U am, 22U qhs --Novolog sliding scale coverage Depression --continued Celexa, trazadone, Zyprexa Stage II Pressure ulcer --left buttock --Allevyn dressing Minutes to complete discharge: 35 Discharge Summary Reason For Visit: URINARY TRACT INFECTION,VOMITING Current Active Problems Acute renal failure (Acute) Anemia (Acute) CKD stage 5 secondary to hypertension (Acute) Coffee ground emesis (Acute) Depressed (Acute) ESRD (end stage renal disease) (Acute) Fecal impaction in rectum (Acute) HTN (hypertension) (Acute) Hydronephrosis (Acute) Leucocytosis (Acute) Paroxysmal A-fib (Acute) Sepsis (Acute) Upper GI bleed (Acute) Urinary retention (Acute) Urinary tract infection (Acute) Vomiting (Acute) Condition: Stable - Instructions Referrals: Clyde Negron MD [Staff Physician] - Judi Peterson MD [Staff Physician] - Riki Mccartney MD [Staff Physician] - Disposition: CUSTODIAL FACILITY - Home Medications Comprehensive Discharge Medication List: Ambulatory Orders Atorvastatin Ca [Lipitor] 20 mg PO HS 04/11/15 Acetaminophen [Tylenol] 650 mg PO PRN 08/07/16 Docusate Sodium [Colace -] 100 mg PO DAILY 08/07/16 Insulin Sliding Scale [Novolog Vial Sliding Scale -] 0 units SQ TIDAC 08/07/16 Oxybutynin Chloride 5 mg PO BID 08/07/16 Trazodone HCl 100 mg PO DAILY 08/07/16 Warfarin Sodium [Coumadin] 3 mg PO HS 08/07/16 Lactobacillus Acidophilus [Bacid -] 1 each PO DAILY 09/14/16 Lofibra 160 mg PO DAILY 09/14/16 Magnesium Oxide 400 mg PO BID 09/14/16 Citalopram Hydrobromide [Citalopram HBr] 20 mg PO DAILY 05/05/17 Ergocalciferol (Vitamin D2) [Vitamin D2] 2,000 unit PO DAILY 05/05/17 Glipizide [Glipizide ER] 2.5 mg PO DAILY 05/05/17 Insulin Glargine,Hum.rec.anlog [Lantus (10mL VIAL) -] units SQ HS 05/05/17 Olanzapine 5 mg PO DAILY@1700 05/05/17 Polyvinyl Alcohol [Artificial Tears] 1 drop OU BID 05/05/17 Saxagliptin HCl [Onglyza] 2.5 mg PO DAILY 05/05/17 Amino Acids/Protein Hydrolys [Prosource No Carb Liquid Pkt] 30 ml PO BID@0800, 1730 packet 05/15/17 Enoxaparin [Lovenox -] 70 mg SQ DAILY #30 disp.syrin 05/15/17 Multivitamins [Multivit ([facility] Formulary)] 1 tab PO DAILY tab 05/15/17 Polyethylene Glycol 3350 [Miralax 119 gm Btl -] 17 gm PO BID bottle 05/15/17 Sodium Bicarbonate - 650 mg PO DAILY #30 tablet 05/15/17 Warfarin Na [Coumadin -] 3 mg PO DAILY@1800 tablet 05/15/17 This patient is new to me today: No Emergency Visit: Yes ED Registration Date: 05/05/17 Care time: The patient presented to the Emergency Department on the above date and was hospitalized for further evaluation of their emergent condition. Critical Care patient: No - Discharge Referral Referred to [facility] Med P.C.: No
[2017-05-15] MEDS: OLANZapine 5 MG TABLET PO SCH (16:59)
[2017-05-15] MEDS: WARFARIN NA 3 MG TABLET PO SCH (17:38)
== END 2017-05-15 20:53 | DRG 841 ==
LOC: JER 20:40 → JERBED 05-05 01:18 → J8W 05-05 02:29
PROVIDERS: ADMIT Internal Medicine; ATTEND Nurse Practitioner Acute Care
DX: C91.10 Chronic lymphocytic leukemia of B-cell type not having achieved remission (principal); N17.9 Acute kidney failure, unspecified; N39.0 Urinary tract infection, site not specified; K92.2 Gastrointestinal hemorrhage, unspecified; E87.2 Acidosis; I12.0 Hypertensive chronic kidney disease with stage 5 chronic kidney disease or end stage renal disease; D62 Acute posthemorrhagic anemia; N18.5 Chronic kidney disease, stage 5; N13.30 Unspecified hydronephrosis; L89.322 Pressure ulcer of left buttock, stage 2; I10 Essential (primary) hypertension; F32.9 Major depressive disorder, single episode, unspecified; E78.5 Hyperlipidemia, unspecified; D64.9 Anemia, unspecified; R79.1 Abnormal coagulation profile; I48.0 Paroxysmal atrial fibrillation; R31.9 Hematuria, unspecified; M19.90 Unspecified osteoarthritis, unspecified site; I44.7 Left bundle-branch block, unspecified; I44.0 Atrioventricular block, first degree; N13.9 Obstructive and reflux uropathy, unspecified; E11.22 Type 2 diabetes mellitus with diabetic chronic kidney disease; K59.09 Other constipation; F63.3 Trichotillomania; D72.828 Other elevated white blood cell count; D72.820 Lymphocytosis (symptomatic); N31.1 Reflex neuropathic bladder, not elsewhere classified; R10.9 Unspecified abdominal pain; Z79.4 Long term (current) use of insulin; Z79.01 Long term (current) use of anticoagulants
CPT/HCPCS: 36415; 71045-TC-FY; 74019-TC-FY; 74176-TC; 76775-TC; 80048; 80053; 80076; 81003; 81015; 82272; 82436; 82550; 82570; 82728; 82784; 82803; 82962; 83010; 83036; 83540; 83550; 83605; 83615; 83690; 83735; 84100; 84133; 84155; 84156; 84165; 84300; 84484; 85025; 85027; 85044; 85610; 85730; 86334; 86850; 86880; 86900; 86901; 86922; 87040; 87086; 88300-TC; 90688; 93005; 93010; 97116-GP; 97161-GP; 99283-25; G0008; J1644; J7030

== ENCOUNTER 2017-10-13 15:58 | Inpatient (IN) | payer OTHER ==
[2017-10-13] MEDS ORDERED: ACETAMINOPHEN INJECTION 100 ML IVPB ONE (18:08)
--- NOTE | 2017-10-13 18:10 | PDOC ---
History of Present Illness - General Chief Complaint: Blood Sugar Problem Stated Complaint: BLOOD SUGAR - History of Present Illness Initial Comments: 10/13/17 18:35 The patient is a 66 year old female with a PMH of IDDM HTN, HLD, AFib (on Warfarin) BIBEMS from [facility] for elevated BS. Patient notes some buttock pain but denies any other active medical complaints including chest pain, shortness of breath, abdominal pain, diarrhea/constipation, nausea/vomiting, dysuria/ hematuria. Allergy: Sulfa, Penicillin Surgical: unknown Social: denies toxic habits PMD: Dr. Clyde Negron Past History - Past Medical History Allergies/Adverse Reactions: Allergies Allergy/AdvReac Type Severity Reaction Status Date / Time Sulfa (Sulfonamide Allergy Unknown Verified 10/13/17 16:24 Antibiotics) Penicillins Allergy Verified 10/13/17 16:24 Home Medications: Ambulatory Orders Atorvastatin Ca [Lipitor] 20 mg PO HS 04/11/15 Acetaminophen [Tylenol] 650 mg PO PRN 08/07/16 Docusate Sodium [Colace -] 100 mg PO DAILY 08/07/16 Insulin Sliding Scale [Novolog Vial Sliding Scale -] 0 units SQ TIDAC 08/07/16 Oxybutynin Chloride 5 mg PO BID 08/07/16 Warfarin Sodium [Coumadin] 3 mg PO HS 08/07/16 traZODone HCL [Trazodone HCl] 100 mg PO DAILY 08/07/16 Lactobacillus Acidophilus [Bacid -] 1 each PO DAILY 09/14/16 Lofibra 160 mg PO DAILY 09/14/16 Magnesium Oxide 400 mg PO BID 09/14/16 Citalopram Hydrobromide [Citalopram HBr] 20 mg PO DAILY 05/05/17 Ergocalciferol (Vitamin D2) [Vitamin D2] 2,000 unit PO DAILY 05/05/17 Glipizide [Glipizide ER] 2.5 mg PO DAILY 05/05/17 Insulin Glargine,Hum.rec.anlog [Lantus (10mL VIAL) -] units SQ HS 05/05/17 Olanzapine 5 mg PO DAILY@1700 05/05/17 Polyvinyl Alcohol [Artificial Tears] 1 drop OU BID 05/05/17 Saxagliptin HCl [Onglyza] 2.5 mg PO DAILY 05/05/17 Amino Acids/Protein Hydrolys [Prosource No Carb Liquid Pkt] 30 ml PO BID@0800, 1730 packet 05/15/17 Enoxaparin [Lovenox -] 70 mg SQ DAILY #30 disp.syrin 05/15/17 Multivitamins [Multivit ([facility] Formulary)] 1 tab PO DAILY tab 05/15/17 Polyethylene Glycol 3350 [Miralax 119 gm Btl -] 17 gm PO BID bottle 05/15/17 Sodium Bicarbonate - 650 mg PO DAILY #30 tablet 05/15/17 Warfarin Na [Coumadin -] 3 mg PO DAILY@1800 tablet 05/15/17 Cardiac Disorders: Yes (A FIB) COPD: No Diabetes: Yes Disorders: Yes (chronic obstructive pylonephritis) HTN: Yes Hypercholesterolemia: Yes Psychiatric Problems: Yes (depression) - Surgical History Abdominal Surgery: No Appendectomy: No Cardiac Surgery: No Cholecystectomy: No Lung Surgery: No Neurologic Surgery: No Orthopedic Surgery: Yes - Immunization History Immunization Up to Date: (PT NOT CLEAR ON STATUS) - Suicide/Smoking/Psychosocial Hx Smoking Status: No Smoking History: Never smoked Years of Tobacco Use: 0 Have you smoked in the past 12 months: No Number of Cigarettes Smoked Daily: 0 Cigars Per Day: 0 Information on smoking cessation initiated: No Hx Alcohol Use: No Drug/Substance Use Hx: No Substance Use Type: None Hx Substance Use Treatment: No Review of Systems - Review of Systems Constitutional: No: Chills, Fever HEENTM: No: Blurred Vision, Double Vision Respiratory: No: Cough, Shortness of Breath Cardiac (ROS): No: Chest Pain, Lightheadedness, Palpitations, Syncope ABD/GI: No: Constipated, Diarrhea, Nausea, Vomiting : No: Burning, Dysuria *Physical Exam - Vital Signs Last Vital Signs Temp Pulse Resp BP Pulse Ox 100 F H 105 H 22 156/63 95 10/13/17 16:24 10/13/17 16:24 10/13/17 16:24 10/13/17 16:24 10/13/17 16:24 - Physical Exam General Appearance: Yes: Nourished, Obese HEENT: positive: EOMI, RONAK Neck: positive: Trachea midline, Supple Respiratory/Chest: positive: Lungs Clear, Normal Breath Sounds. negative: Labored Respiration, Crackles, Rhonchi, Stridor, Wheezing, Dullness Cardiovascular: positive: S1, S2 Gastrointestinal/Abdominal: positive: Normal Bowel Sounds, Soft. negative: Guarding, Rebound Musculoskeletal: negative: CVA Tenderness (R), CVA Tenderness (L) Neurologic: positive: Fully Oriented, Alert ED Treatment Course - LABORATORY CBC & Chemistry Diagram: 10/13/17 17:18 10/13/17 17:18 Medical Decision Making - Medical Decision Making 10/13/17 19:00 66 year old female presents with elevated BS. At presentation patient febrile and tachycardic (low 100's). ED adult sepsis protocol initiated. 10/13/17 19:24 Lactic Acid 3.2 patient recieving 1 L bolus BS 515, K+ wnL, however Cr elevated will give low dose of insulin given patient' s compromised renal function and continue to hydrate. UA shows 73 WBC, 2+ blood, 3+ leukocyte esterase. Vanc/Levo (patient penicillin allergic)- likely source of sepsis. 10/13/17 23:30 Repeat Lactic Acid 1.9 however patient remains febrile (101). Tylenol. Will repeat Temp, continue to gently hydrate. Repeat FS 407 - patient receiving 1/2 NS Patient admitted to Dr[address] Presley Patient counseled on plan of care. I discussed the physical exam findings, ancillary test results and final diagnoses with the patient. I answered all of the patient's questions. The patient was satisfied with the care received and felt comfortable with the discharge plan and treatment plan. The patient will return to the Emergency Department with any new, persistent or worsening symptoms. *DC/Admit/Observation/Transfer Diagnosis at time of Disposition: Sepsis - Discharge Dispostion Condition at time of disposition: Fair Decision to Admit order: Yes - Referrals Referrals: Clyde Negron MD [Primary Care Provider] - - Patient Instructions - Post Discharge Activity
[2017-10-13] MEDS ORDERED: ACETAMINOPHEN 1000 MG/100 ML VIAL (NON FORMULARY) IVPB ONE (18:11)
[2017-10-13 18:34] LABS: BASO % 0.2 % (0-2.0); EOS % 0.1 % (0-4.5); HEMATOCRIT 31.2 % (32.4-45.2); HEMOGLOBIN 10.4 GM/dL (10.7-15.3); LYMPH % 25.7 % (8-40); MCH 32.7 pg (25.7-33.7); MCHC 33.4 g/dl (32.0-36.0); MEAN PLT VOLUME 8.6 fl (7.5-11.1); MONO % 3.1 % (3.8-10.2); NEUT % 70.9 % (42.8-82.8); PLATELET COUNT 319 K/MM3 (134-434); RBC 3.19 M/mm3 (3.60-5.2); RDW 14.3 % (11.6-15.6); WHITE BLOOD COUNT 8.4 K/mm3 (4.0-10.0)
[2017-10-13 18:40] LABS: VENOUS PC02 33.4 mmHg (38-52); VENOUS PH 7.44 (7.32-7.42); VENOUS PO2 47.7 mmHg (28-48)
[2017-10-13 18:46] LABS: PROTHROMBIN TIME (PATIENT) 74.5 SEC (9.7-13.0)
[2017-10-13 18:49] LABS: ACTIVATED PTT 44.2 SECONDS (25.2-36.5)
[2017-10-13 18:51] LABS: INR 6.59 (0.83-1.09)
[2017-10-13 18:55] LABS: ANION GAP 14 (8-16); BLOOD UREA NITROGEN 76 mg/dL (7-18); CALCIUM 9.5 mg/dL (8.5-10.1); CHLORIDE 99 mmol/L (98-107); CO2 21 mmol/L (21-32); POTASSIUM 4.4 mmol/L (3.5-5.1); SGOT/AST 36 U/L (15-37); SGPT/ALT 21 U/L (12-78); SODIUM 134 mmol/L (136-145)
[2017-10-13 18:56] LABS: ALK PHOS 40 U/L (45-117); BILIRUBIN,TOTAL 0.3 mg/dL (0.2-1.0); TOT PROT 7.3 g/dl (6.4-8.2)
[2017-10-13] MEDS ORDERED: SODIUM CHLORIDE 0.9% 1000 ML INFUS.BAG IV ONE (18:58)
[2017-10-13 18:59] LABS: GLUCOSE,RANDOM 515 mg/dL (74-106)
[2017-10-13] MEDS ORDERED: INSULIN REGULAR HUMAN 100 UNITS/ML *VIAL IVPUSH ONE (19:02)
[2017-10-13] MEDS ORDERED: SODIUM CHLORIDE 0.9% 500 ML INFUS.BAG IV ONE (19:02)
[2017-10-13] MEDS ORDERED: INSULIN REGULAR HUMAN 100 UNITS/ML *VIAL ONE (19:29)
[2017-10-13] MEDS ORDERED: VANCOMYCIN 1,000 MG in DEXTROSE 5%-WATER - 250 ML IVPB ONE (20:22)
[2017-10-13] MEDS ORDERED: VANCOMYCIN 1 GRAM (PRE-DOCKED) 1,000 MG/250 ML BAG IVPB ONE (21:01)
[2017-10-13 21:19] LABS: URINE APPEARANCE TURBID; URINE BILIRUBIN NEGATIVE (<2.0 mg/dL); URINE COLOR DKYELLOW; URINE GLUCOSE (UA) 3+ (NEGATIVE); URINE KETONE NEGATIVE (NEGATIVE); URINE NITRITE NEGATIVE (NEGATIVE); URINE UROBILINOGEN NEGATIVE mg/dL (0.2-1.0)
[2017-10-13 21:28] LABS: URINE LEUK ESTERASE 3+ (NEGATIVE); URINE PROTEIN 2+ (NEGATIVE)
[2017-10-13 21:37] LABS: URINE BACTERIA MANY /hpf (NONE SEEN); URINE MUCUS MANY
--- NOTE | 2017-10-13 22:25 | PDOC ---
Attending Attestation - Resident Resident Name: Jackelin Santiago - ED Attending Attestation I have performed the following: I have examined & evaluated the patient, The case was reviewed & discussed with the resident, I agree w/resident's findings & plan, Exceptions are as noted - HPI HPI: 10/13/17 22:23 "66F with h/o PMH of DM HTN, HLD, AFib (on Warfarin), sent from [facility] with elevated fingerstick. Pt unable to contribute much history due to dementia but denies any complaints. Denies CP/SOB. Denies N/V. Denies F/C. Allergy: Sulfa, Penicillin " - Physicial Exam PE: 10/13/17 22:24 "GENERAL: Awake, alert, in no acute distress. HEAD: No signs of trauma EYES: PERRLA, EOMI, sclera anicteric, conjunctiva clear ENT: Auricles normal inspection, hearing grossly normal, nares patent, oropharynx clear without exudates. Moist mucosa NECK: Nontender, no stepoffs, Normal ROM, supple, no lymphadenopathy, JVD, or masses LUNGS: Breath sounds equal, clear to auscultation bilaterally. No wheezes, and no crackles HEART: Regular rate and rhythm, normal S1 and S2, no murmurs, rubs or gallops ABDOMEN: Soft, nontender, normoactive bowel sounds. No guarding, no rebound. No masses EXTREMITIES: Normal range of motion, no edema. No clubbing or cyanosis. No cords, erythema, or tenderness NEUROLOGICAL: Cranial nerves II through XII intact. SKIN: Warm, Dry, normal turgor, no rashes or lesions noted." - Medical Decision Making 10/13/17 22:25 66 F sent from [place] for elevated FSG. Found to have fever and tachycardia in ED. Elevated sugar likely 2/2 sepsis. - Labs, cultures - CXR, UA - IVF, tylenol, abx
[2017-10-13] MEDS ORDERED: ACETAMINOPHEN 325 MG TABLET (FP) ONE (22:55)
[2017-10-13] MEDS: ACETAMINOPHEN 325 MG TABLET (FP) PO PRN (22:59)
[2017-10-13] MEDS ORDERED: SODIUM CHLORIDE 0.45% 1,000 ML IV SCH (23:00)
[2017-10-14] MEDS: sitaGLIPtin PHOSPHATE 25 MG TABLET (FP) PO SCH (06:31)
[2017-10-14] MEDS: glipiZIDE-XL 2.5 MG TAB.ER.24 PO SCH (06:31)
[2017-10-14] MEDS: ACETAMINOPHEN 325 MG TABLET (FP) PO PRN (06:33)
[2017-10-14] MEDS: INSULIN SLIDING SCALE (NOVOLOG) 1 VIAL SQ SCH ×4 (06:44→21:33)
[2017-10-14 07:15] LABS: BASO % 0.3 % (0-2.0); EOS % 0.3 % (0-4.5); HEMATOCRIT 27.2 % (32.4-45.2); HEMOGLOBIN 9.4 GM/dL (10.7-15.3); LYMPH % 23.1 % (8-40); MCH 33.3 pg (25.7-33.7); MCHC 34.4 g/dl (32.0-36.0); MEAN CELL VOLUME 96.6 fl (80-96); MEAN PLT VOLUME 8.2 fl (7.5-11.1); MONO % 3.6 % (3.8-10.2); NEUT % 72.7 % (42.8-82.8); PLATELET COUNT 263 K/MM3 (134-434); RBC 2.82 M/mm3 (3.60-5.2); RDW 14.2 % (11.6-15.6); WHITE BLOOD COUNT 7.5 K/mm3 (4.0-10.0)
[2017-10-14 07:22] LABS: PROTHROMBIN TIME (PATIENT) 86.1 SEC (9.7-13.0)
[2017-10-14 07:33] LABS: ALBUMIN 2.5 g/dl (3.4-5.0); ANION GAP 10 (8-16); BLOOD UREA NITROGEN 72 mg/dL (7-18); CALCIUM 8.9 mg/dL (8.5-10.1); CHLORIDE 105 mmol/L (98-107); CO2 22 mmol/L (21-32); POTASSIUM 4.2 mmol/L (3.5-5.1); SGOT/AST 37 U/L (15-37); SGPT/ALT 21 U/L (12-78); SODIUM 137 mmol/L (136-145)
[2017-10-14 07:35] LABS: ALK PHOS 35 U/L (45-117); BILIRUBIN,TOTAL 0.3 mg/dL (0.2-1.0); TOT PROT 6.2 g/dl (6.4-8.2)
[2017-10-14 08:07] LABS: INR 7.62 (0.83-1.09)
[2017-10-14] MEDS ORDERED: PHYTONADIONE 5 MG TABLET PO ONE ×2 (08:14→16:30)
[2017-10-14 08:48] LABS: GLUCOSE,RANDOM 334 mg/dL (74-106)
[2017-10-14] MEDS: AMINO ACIDS/PROTEIN HYDROLYS 30 ML LIQUID.PKT PO SCH ×2 (09:03→17:00)
--- NOTE | 2017-10-14 09:04 | EKG ---
Test Reason : Blood Pressure : / mmHG Vent. Rate : 093 BPM Atrial Rate : 093 BPM P-R Int : 244 ms QRS Dur : 148 ms QT Int : 414 ms P-R-T Axes : 047 -09 131 degrees QTc Int : 514 ms SINUS RHYTHM WITH 1ST DEGREE A-V BLOCK LEFT BUNDLE BRANCH BLOCK ABNORMAL ECG WHEN COMPARED WITH ECG OF 04-MAY-2017 21:13, T WAVE INVERSION MORE EVIDENT IN LATERAL LEADS Confirmed by CALEB MOBLEY, IRENE ([id number]) on 10/14/2017 9:04:08 AM Referred By: Confirmed By:IRENE ELLIS MD
[2017-10-14] MEDS ORDERED: PT OWN MED DRAWER 7, Y5N ONE ×2 (09:56→21:05)
[2017-10-14] MEDS: OXYBUTYNIN CHLORIDE 5 MG TABLET PO SCH ×2 (10:03→21:19)
[2017-10-14] MEDS: CHOLECALCIFEROL (VITAMIN D3) 1,000 UNIT TABLET (FP) PO SCH (10:03)
[2017-10-14] MEDS: traZODone HCL 50 MG TABLET (FP) PO SCH (10:03)
[2017-10-14] MEDS: SODIUM BICARBONATE 650 MG TABLET PO SCH (10:03)
[2017-10-14] MEDS: DOCUSATE SODIUM 100 MG CAPSULE (FP) PO SCH (10:03)
[2017-10-14] MEDS: CITALOPRAM HYDROBROMIDE 20 MG TABLET (FP) PO SCH (10:03)
[2017-10-14] MEDS: MAGNESIUM OXIDE 400 MG TABLET (FP) PO SCH ×2 (10:03→21:19)
[2017-10-14] MEDS: LACTOBACILLUS ACIDOPHILUS 1 TABLET PO SCH (10:03)
[2017-10-14] MEDS: MULTIVITAMINS (DAILY MVI) TABLET (FP) PO SCH (10:03)
[2017-10-14] MEDS: POLYETHYLENE GLYCOL 3350 119 GM BTL PO SCH ×2 (10:05→21:19)
--- NOTE | 2017-10-14 10:18 | HP ---
Admitting History and Physical - Admission Chief Complaint: elevated blood sugar History of Present Illness: 66 yo female, resident of [facility], presented with uncontrolled blood sugars. Found to have UTI/ sepsis in ED, so admitted for further care. No complaints currently, except that she did not get diner last night (eating breakfast now). No dysuria currently. 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 History of Recent Travel: No Home Medications - Allergies Allergies/Adverse Reactions: Allergies Allergy/AdvReac Type Severity Reaction Status Date / Time Sulfa (Sulfonamide Allergy Unknown Verified 10/13/17 16:24 Antibiotics) Penicillins Allergy Verified 10/13/17 16:24 - Home Medications Home Medications: Ambulatory Orders Atorvastatin Ca [Lipitor] 20 mg PO HS 04/11/15 Acetaminophen [Tylenol] 650 mg PO PRN 08/07/16 Docusate Sodium [Colace -] 100 mg PO DAILY 08/07/16 Insulin Sliding Scale [Novolog Vial Sliding Scale -] 0 units SQ TIDAC 08/07/16 Oxybutynin Chloride 5 mg PO BID 08/07/16 Warfarin Sodium [Coumadin] 3 mg PO HS 08/07/16 traZODone HCL [Trazodone HCl] 100 mg PO DAILY 08/07/16 Lactobacillus Acidophilus [Bacid -] 1 each PO DAILY 09/14/16 Lofibra 160 mg PO DAILY 09/14/16 Magnesium Oxide 400 mg PO BID 09/14/16 Citalopram Hydrobromide [Citalopram HBr] 20 mg PO DAILY 05/05/17 Ergocalciferol (Vitamin D2) [Vitamin D2] 2,000 unit PO DAILY 05/05/17 Glipizide [Glipizide ER] 2.5 mg PO DAILY 05/05/17 Insulin Glargine,Hum.rec.anlog [Lantus (10mL VIAL) -] units SQ HS 05/05/17 Olanzapine 5 mg PO DAILY@1700 05/05/17 Polyvinyl Alcohol [Artificial Tears] 1 drop OU BID 05/05/17 Saxagliptin HCl [Onglyza] 2.5 mg PO DAILY 05/05/17 Amino Acids/Protein Hydrolys [Prosource No Carb Liquid Pkt] 30 ml PO BID@0800, 1730 packet 05/15/17 Enoxaparin [Lovenox -] 70 mg SQ DAILY #30 disp.syrin 05/15/17 Multivitamins [Multivit ([facility] Formulary)] 1 tab PO DAILY tab 05/15/17 Polyethylene Glycol 3350 [Miralax 119 gm Btl -] 17 gm PO BID bottle 05/15/17 Sodium Bicarbonate - 650 mg PO DAILY #30 tablet 05/15/17 Warfarin Na [Coumadin -] 3 mg PO DAILY@1800 tablet 05/15/17 Family Disease History - Family Disease History Family Disease History: Diabetes: Grandparent (Grandmother), Other: Father ( , unknown cause), Mother (, unknown cause) Review of Systems - Review of Systems Constitutional: denies: Fever, Loss of Appetite Eyes: reports: No Symptoms HENT: denies: Difficult Swallowing, Epistaxis, Throat Pain Neck: denies: Decreased ROM, Tenderness Cardiovascular: denies: Chest Pain, Palpitations Respiratory: denies: Cough, SOB, Wheezing Gastrointestinal: denies: Abdominal Pain, Diarrhea, Melena, Nausea, Vomiting Neurological: denies: Change in LOC, Syncope Physical Examination Vital Signs: Vital Signs Temperature 99.1 F 10/14/17 06:00 Pulse Rate 97 H 10/14/17 06:00 Respiratory Rate 20 10/14/17 06:00 Blood Pressure 110/54 10/14/17 06:00 O2 Sat by Pulse Oximetry (%) 95 10/14/17 01:41 Constitutional: Yes: Well Nourished, No Distress, Calm Eyes: Yes: Conjunctiva Clear, EOM Intact, PERRL HENT: Yes: Atraumatic, Normocephalic Neck: Yes: Supple, Trachea Midline Cardiovascular: Yes: Regular Rate and Rhythm, S1, S2. No: Murmur Respiratory: Yes: Regular, CTA Bilaterally. No: Rales, Rhonchi, Wheezes Gastrointestinal: Yes: Normal Bowel Sounds, Soft, Abdomen, Obese. No: Distention, Tenderness Edema: No Neurological: Yes: Alert, Oriented Labs: CBC, BMP 10/14/17 06:00 10/14/17 06:00 Problem List - Problems (1) Sepsis Assessment/Plan: -ID consult, levaquin for now (PCN allergy), await urine culture Code(s): A41.9 - SEPSIS, UNSPECIFIED ORGANISM (2) Urinary tract infection Assessment/Plan: -see above) Code(s): N39.0 - URINARY TRACT INFECTION, SITE NOT SPECIFIED Qualifiers: Urinary tract infection type: site unspecified Hematuria presence: with hematuria Qualified Code(s): N39.0 - Urinary tract infection, site not specified; R31.9 - Hematuria, unspecified; R31.9 - Hematuria, unspecified (3) Elevated INR Assessment/Plan: -hold coumadin -given INR higher today will give PO vit K (no signs of active bleeding currently) -recheck INR later today Code(s): R79.1 - ABNORMAL COAGULATION PROFILE (4) Diabetes Assessment/Plan: -likely worsened blood sugar readings due to sepsis -started on insulin sliding scale, cont Januvia and Glipizide Code(s): E11.9 - TYPE 2 DIABETES MELLITUS WITHOUT COMPLICATIONS Qualifiers: Diabetes mellitus type: type 2 Diabetes mellitus truck terminal manager insulin use: without truck terminal manager use Diabetes mellitus complication status: with unspecified complications Qualified Code(s): E11.8 - Type 2 diabetes mellitus with unspecified complications (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 Assessment/Plan: -will follow renal function, to receive low-dose IVF -on sodium bicarb Code(s): I12.0 - HYP CHR KIDNEY DISEASE W STAGE 5 CHR KIDNEY DISEASE OR ESRD; N18.5 - CHRONIC KIDNEY DISEASE, STAGE 5 (6) HLD (hyperlipidemia) Assessment/Plan: -cont lipitor Code(s): E78.5 - HYPERLIPIDEMIA, UNSPECIFIED (7) HTN (hypertension) Assessment/Plan: BP currently controlled of BP meds Code(s): I10 - ESSENTIAL (PRIMARY) HYPERTENSION (8) Afib Assessment/Plan: -on coumadin, currently on hold due to elevated INR Code(s): I48.91 - UNSPECIFIED ATRIAL FIBRILLATION Qualifiers: Atrial fibrillation type: chronic Qualified Code(s): I48.2 - Chronic atrial fibrillation (9) Depression Assessment/Plan: -cont trazodone, olanzapine Code(s): F32.9 - MAJOR DEPRESSIVE DISORDER, SINGLE EPISODE, UNSPECIFIED
[2017-10-14] MEDS ORDERED: INSULIN (NOVOLOG) ASPART 100 UNITS/ML 10ML VIAL ONE (11:39)
--- NOTE | 2017-10-14 12:05 | CONSULT ---
Consult Consult Specialty:: Nephrology ( [place]/ [place]) Referred by:: Dr. Presley Reason for Consultation:: Abnormal kidney functions - History of Present Illness Chief Complaint: The patient was [place] [facility] with elevated Blood glucose History of Present Illness: 66 yo female, resident of [facility], presented with uncontrolled blood sugars. Found to have UTI/ sepsis in ED, so admitted for further care. The patient has a past h/o PMH of IDDM HTN, HLD, AFib - History Source History Provided By: Patient, Medical Record - Past Medical History Cardio/Vascular: Yes: AFIB Gastrointestinal: No: Constipation, GI Bleed Renal/: Yes: Hematuria Psych: Yes: Depression, Other (Unspecified Psychiatric Disorder) Musculoskeletal: Yes: Osteoarthritis Endocrine: Yes: Diabetes Mellitus - Past Surgical History Past Surgical History: Yes: None - Alcohol/Substance Use Hx Alcohol Use: No History of Substance Use: reports: None - Smoking History Smoking history: Never smoked Have you smoked in the past 12 months: No Aproximately how many cigarettes per day: 0 - Social History Usual Living Arrangement: Detention ADL: Family Assistance 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 History of Recent Travel: No Home Medications - Allergies Allergies/Adverse Reactions: Allergies Allergy/AdvReac Type Severity Reaction Status Date / Time Sulfa (Sulfonamide Allergy Unknown Verified 10/13/17 16:24 Antibiotics) Penicillins Allergy Verified 10/13/17 16:24 - Home Medications Home Medications: Ambulatory Orders Atorvastatin Ca [Lipitor] 20 mg PO HS 04/11/15 Acetaminophen [Tylenol] 650 mg PO PRN 08/07/16 Docusate Sodium [Colace -] 100 mg PO DAILY 08/07/16 Insulin Sliding Scale [Novolog Vial Sliding Scale -] 0 units SQ TIDAC 08/07/16 Oxybutynin Chloride 5 mg PO BID 08/07/16 Warfarin Sodium [Coumadin] 3 mg PO HS 08/07/16 traZODone HCL [Trazodone HCl] 100 mg PO DAILY 08/07/16 Lactobacillus Acidophilus [Bacid -] 1 each PO DAILY 09/14/16 Lofibra 160 mg PO DAILY 09/14/16 Magnesium Oxide 400 mg PO BID 09/14/16 Citalopram Hydrobromide [Citalopram HBr] 20 mg PO DAILY 05/05/17 Ergocalciferol (Vitamin D2) [Vitamin D2] 2,000 unit PO DAILY 05/05/17 Glipizide [Glipizide ER] 2.5 mg PO DAILY 05/05/17 Insulin Glargine,Hum.rec.anlog [Lantus (10mL VIAL) -] units SQ HS 05/05/17 Olanzapine 5 mg PO DAILY@1700 05/05/17 Polyvinyl Alcohol [Artificial Tears] 1 drop OU BID 05/05/17 Saxagliptin HCl [Onglyza] 2.5 mg PO DAILY 05/05/17 Amino Acids/Protein Hydrolys [Prosource No Carb Liquid Pkt] 30 ml PO BID@0800, 1730 packet 05/15/17 Enoxaparin [Lovenox -] 70 mg SQ DAILY #30 disp.syrin 05/15/17 Multivitamins [Multivit ([facility] Formulary)] 1 tab PO DAILY tab 05/15/17 Polyethylene Glycol 3350 [Miralax 119 gm Btl -] 17 gm PO BID bottle 05/15/17 Sodium Bicarbonate - 650 mg PO DAILY #30 tablet 05/15/17 Warfarin Na [Coumadin -] 3 mg PO DAILY@1800 tablet 05/15/17 Family Disease History - Family Disease History Family Disease History: Diabetes: Grandparent (Grandmother), Other: Father ( , unknown cause), Mother (, unknown cause) Review of Systems - Review of Systems Constitutional: reports: Lethargy. denies: Fever HENT: denies: Difficult Swallowing Cardiovascular: denies: Chest Pain, Palpitations, Shortness of Breath Genitourinary: denies: Incontinence Musculoskeletal: denies: Joint Swelling, Muscle Pain Neurological: reports: Confusion Physical Exam Vital Signs: Vital Signs Temperature 98.8 F 10/14/17 10:00 Pulse Rate 89 10/14/17 10:00 Respiratory Rate 20 10/14/17 10:00 Blood Pressure 100/42 10/14/17 10:00 O2 Sat by Pulse Oximetry (%) 95 10/14/17 01:41 Constitutional: Yes: Calm, Anxious Eyes: Yes: Conjunctiva Clear Neck: Yes: Trachea Midline Cardiovascular: Yes: Pulse Irregular, S1, S2 Respiratory: Yes: CTA Bilaterally, Diminished Gastrointestinal: Yes: Normal Bowel Sounds, Abdomen, Obese Renal/: No: Bladder Distention, CVA Tenderness - Left, CVA Tenderness - Right Musculoskeletal: No: Back Pain, Joint Stiffness Neurological: Yes: Alert Labs: CBC, BMP 10/14/17 06:00 10/14/17 06:00 Problem List - Problems (1) Chronic renal failure, stage 3 (moderate) Code(s): N18.3 - CHRONIC KIDNEY DISEASE, STAGE 3 (MODERATE) (2) Acute renal failure Code(s): N17.9 - ACUTE KIDNEY FAILURE, UNSPECIFIED Qualifiers: Acute renal failure type: unspecified Qualified Code(s): N17.9 - Acute kidney failure, unspecified (3) Anemia Code(s): D64.9 - ANEMIA, UNSPECIFIED Qualifiers: Anemia type: other cause Other causes of anemia: other cause, not classified Qualified Code(s): D64.89 - Other specified anemias (4) Diabetes Code(s): E11.9 - TYPE 2 DIABETES MELLITUS WITHOUT COMPLICATIONS Qualifiers: Diabetes mellitus type: type 2 Diabetes mellitus skilled nursing insulin use: without terminal make up operator use Diabetes mellitus complication status: with unspecified complications Qualified Code(s): E11.8 - Type 2 diabetes mellitus with unspecified complications (5) HLD (hyperlipidemia) Code(s): E78.5 - HYPERLIPIDEMIA, UNSPECIFIED (6) Afib Code(s): I48.91 - UNSPECIFIED ATRIAL FIBRILLATION Qualifiers: Atrial fibrillation type: chronic Qualified Code(s): I48.2 - Chronic atrial fibrillation Assessment/Plan 66 y/o WF admitted [facility] with h/o uncontrolled Blood Glucose. The patient has h/o Dm2 for a long time. 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 Anemia, possibly due to the Chronic Renal disease. Suggest: Optimize the glycemic control. Cautious hydration. Will monitor the renal functions with you. Thank you. Will follow with you. Jade Powell MD
--- NOTE | 2017-10-14 13:15 | CON.ID ---
Consult Consult Specialty:: infectious diseases Referred by:: Reason for Consultation:: sepsis,bacteremia - History of Present Illness Chief Complaint: fever History of Present Illness: 66 yo female, resident of [facility], presented with uncontrolled blood sugars. Found to have UTI/ sepsis in ED, so admitted for further care. The patient has a past h/o PMH of IDDM HTN, HLD, AFib further work up showing that patients blood cx has come positive - History Source History Provided By: Patient, Medical Record Limitations to Obtaining History: Poor Historian - Past Medical History Cardio/Vascular: Yes: AFIB Gastrointestinal: No: Constipation, GI Bleed Renal/: Yes: Hematuria Psych: Yes: Depression, Other (Unspecified Psychiatric Disorder) Musculoskeletal: Yes: Osteoarthritis Endocrine: Yes: Diabetes Mellitus - Past Surgical History Past Surgical History: Yes: None - Alcohol/Substance Use Hx Alcohol Use: No History of Substance Use: reports: None - Smoking History Smoking history: Never smoked Have you smoked in the past 12 months: No Aproximately how many cigarettes per day: 0 - Social History Usual Living Arrangement: [facility] ADL: Family Assistance 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 History of Recent Travel: No Home Medications - Allergies Allergies/Adverse Reactions: Allergies Allergy/AdvReac Type Severity Reaction Status Date / Time Sulfa (Sulfonamide Allergy Unknown Verified 10/13/17 16:24 Antibiotics) Penicillins Allergy Verified 10/13/17 16:24 - Home Medications Home Medications: Ambulatory Orders Atorvastatin Ca [Lipitor] 20 mg PO HS 04/11/15 Acetaminophen [Tylenol] 650 mg PO PRN 08/07/16 Docusate Sodium [Colace -] 100 mg PO DAILY 08/07/16 Insulin Sliding Scale [Novolog Vial Sliding Scale -] 0 units SQ TIDAC 08/07/16 Oxybutynin Chloride 5 mg PO BID 08/07/16 Warfarin Sodium [Coumadin] 3 mg PO HS 08/07/16 traZODone HCL [Trazodone HCl] 100 mg PO DAILY 08/07/16 Lactobacillus Acidophilus [Bacid -] 1 each PO DAILY 09/14/16 Lofibra 160 mg PO DAILY 09/14/16 Magnesium Oxide 400 mg PO BID 09/14/16 Citalopram Hydrobromide [Citalopram HBr] 20 mg PO DAILY 05/05/17 Ergocalciferol (Vitamin D2) [Vitamin D2] 2,000 unit PO DAILY 05/05/17 Glipizide [Glipizide ER] 2.5 mg PO DAILY 05/05/17 Insulin Glargine,Hum.rec.anlog [Lantus (10mL VIAL) -] units SQ HS 05/05/17 Olanzapine 5 mg PO DAILY@1700 05/05/17 Polyvinyl Alcohol [Artificial Tears] 1 drop OU BID 05/05/17 Saxagliptin HCl [Onglyza] 2.5 mg PO DAILY 05/05/17 Amino Acids/Protein Hydrolys [Prosource No Carb Liquid Pkt] 30 ml PO BID@0800, 1730 packet 05/15/17 Enoxaparin [Lovenox -] 70 mg SQ DAILY #30 disp.syrin 05/15/17 Multivitamins [Multivit ([facility] Formulary)] 1 tab PO DAILY tab 05/15/17 Polyethylene Glycol 3350 [Miralax 119 gm Btl -] 17 gm PO BID bottle 05/15/17 Sodium Bicarbonate - 650 mg PO DAILY #30 tablet 05/15/17 Warfarin Na [Coumadin -] 3 mg PO DAILY@1800 tablet 05/15/17 Family Disease History - Family Disease History Family Disease History: Diabetes: Grandparent (Grandmother), Other: Father ( , unknown cause), Mother (, unknown cause) Review of Systems - Review of Systems Constitutional: reports: Fever Eyes: reports: No Symptoms HENT: reports: No Symptoms Neck: reports: No Symptoms Cardiovascular: reports: No Symptoms Respiratory: reports: No Symptoms Gastrointestinal: reports: No Symptoms Genitourinary: reports: No Symptoms Musculoskeletal: reports: No Symptoms Integumentary: reports: No Symptoms Neurological: reports: No Symptoms Endocrine: reports: No Symptoms Hematology/Lymphatic: reports: No Symptoms Psychiatric: reports: No Symptoms Physical Exam Vital Signs: Vital Signs Temperature 98.8 F 10/14/17 10:00 Pulse Rate 89 10/14/17 10:00 Respiratory Rate 20 10/14/17 10:00 Blood Pressure 100/42 10/14/17 10:00 O2 Sat by Pulse Oximetry (%) 95 10/14/17 01:41 Constitutional: Yes: Well Nourished, No Distress, Calm Cardiovascular: Yes: Regular Rate and Rhythm Respiratory: Yes: Regular, CTA Bilaterally Gastrointestinal: Yes: Normal Bowel Sounds, Soft Musculoskeletal: Yes: WNL Extremities: Yes: WNL Neurological: Yes: Alert, Other Labs: CBC, BMP 10/14/17 06:00 10/14/17 06:00 Imaging - Results Chest X-ray: Report Reviewed, Image Reviewed Assessment/Plan Problem List - Problems (1) Sepsis Code(s): A41.9 - SEPSIS, UNSPECIFIED ORGANISM (2) Urinary tract infection Code(s): N39.0 - URINARY TRACT INFECTION, SITE NOT SPECIFIED Qualifiers: Urinary tract infection type: site unspecified Hematuria presence: with hematuria Qualified Code(s): N39.0 - Urinary tract infection, site not specified; R31.9 - Hematuria, unspecified; R31.9 - Hematuria, unspecified (3) Elevated INR Code(s): R79.1 - ABNORMAL COAGULATION PROFILE (4) Diabetes Code(s): E11.9 - TYPE 2 DIABETES MELLITUS WITHOUT COMPLICATIONS Qualifiers: Diabetes mellitus type: type 2 Diabetes mellitus halfway insulin use: without roasterman use Diabetes mellitus complication status: with unspecified complications Qualified Code(s): E11.8 - Type 2 diabetes mellitus with unspecified complications (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 Code(s): I12.0 - HYP CHR KIDNEY DISEASE W STAGE 5 CHR KIDNEY DISEASE OR ESRD; N18.5 - CHRONIC KIDNEY DISEASE, STAGE 5 (6) HLD (hyperlipidemia) Code(s): E78.5 - HYPERLIPIDEMIA, UNSPECIFIED (7) HTN (hypertension) Code(s): I10 - ESSENTIAL (PRIMARY) HYPERTENSION (8) Afib Code(s): I48.91 - UNSPECIFIED ATRIAL FIBRILLATION Qualifiers: Atrial fibrillation type: chronic Qualified Code(s): I48.2 - Chronic atrial fibrillation (9) Depression Code(s): F32.9 - MAJOR DEPRESSIVE DISORDER, SINGLE EPISODE, UNSPECIFIED plan patient with pcn allergy--probably hives according to her carcamo start patient on meropenam will recheck blood cx on monday await for identification of the organisms rest as per the team
[2017-10-14] MEDS: ARTIFICIAL TEARS (POLYVINYL ALCOHOL 1.4%) OPTH DROPS OU SCH ×3 (14:17→21:36)
[2017-10-14 15:56] LABS: PROTHROMBIN TIME (PATIENT) 76.1 SEC (9.7-13.0)
[2017-10-14 15:58] LABS: INR 6.73 (0.83-1.09)
[2017-10-14] MEDS: MEROPENEM 1 GM in DEXTROSE 5%-WATER 100 ML IVPB SCH ×2 (16:49→21:19)
[2017-10-14] MEDS: OLANZapine 5 MG TABLET PO SCH (16:49)
[2017-10-14] MEDS: ATORVASTATIN CA 20 MG TABLET (FP) PO SCH (21:19)
[2017-10-15] MEDS: INSULIN SLIDING SCALE (NOVOLOG) 1 VIAL SQ SCH ×4 (06:03→21:09)
[2017-10-15] MEDS: sitaGLIPtin PHOSPHATE 25 MG TABLET (FP) PO SCH (06:03)
[2017-10-15] MEDS: glipiZIDE-XL 2.5 MG TAB.ER.24 PO SCH (06:03)
[2017-10-15 07:48] LABS: BASO % 0.3 % (0-2.0); EOS % 1.2 % (0-4.5); HEMATOCRIT 24.9 % (32.4-45.2); HEMOGLOBIN 8.5 GM/dL (10.7-15.3); LYMPH % 27.2 % (8-40); MCH 33.2 pg (25.7-33.7); MCHC 34.1 g/dl (32.0-36.0); MEAN CELL VOLUME 97.4 fl (80-96); MEAN PLT VOLUME 8.3 fl (7.5-11.1); NEUT % 67.3 % (42.8-82.8); PLATELET COUNT 239 K/MM3 (134-434); RBC 2.56 M/mm3 (3.60-5.2); RDW 14.3 % (11.6-15.6); WHITE BLOOD COUNT 8.3 K/mm3 (4.0-10.0)
--- NOTE | 2017-10-15 08:01 | PN ---
Progress Note, Physician History of Present Illness: patient says she is feeling better no complaints had a good night - Current Medication List Current Medications: Active Medications Acetaminophen (Tylenol -) 650 mg PO Q4H PRN PRN Reason: FEVER Last Admin: 10/14/17 06:33 Dose: 650 mg Amino Acids (Prosource No Carb Liquid Pkt) 30 ml PO BID@0800,1730 [facility] Last Admin: 10/14/17 17:00 Dose: 30 ml Artificial Tears (Artificial Tears) 1 drop OU BID [facility] Last Admin: 10/14/17 21:36 Dose: 1 drop Atorvastatin Calcium (Lipitor -) 20 mg PO HS [facility] Last Admin: 10/14/17 21:19 Dose: 20 mg Cholecalciferol (Vitamin D3 -) 2,000 unit PO DAILY [facility] Last Admin: 10/14/17 10:03 Dose: 2,000 unit Citalopram Hydrobromide (Celexa -) 20 mg PO DAILY [facility] Last Admin: 10/14/17 10:03 Dose: 20 mg Docusate Sodium (Colace -) 100 mg PO DAILY [facility] Last Admin: 10/14/17 10:03 Dose: 100 mg Glipizide (Glucotrol Xl -) 2.5 mg PO DAILY@0700 [facility] Last Admin: 10/15/17 06:03 Dose: 2.5 mg Meropenem 1 gm/ Dextrose 100 mls @ 100 mls/hr IVPB BID [facility] Last Admin: 10/14/17 21:19 Dose: 100 mls/hr Insulin Aspart (Novolog Vial Sliding Scale -) 1 vial SQ ACHS [facility]; Protocol Last Admin: 10/15/17 06:03 Dose: Not Given Lactobacillus Acidophilus (Bacid -) 1 tab PO DAILY [facility] Last Admin: 10/14/17 10:03 Dose: 1 tab Magnesium Oxide (Mag-Ox -) 400 mg PO BID [facility] Last Admin: 10/14/17 21:19 Dose: 400 mg Multivitamins/Minerals/Vitamin C (Tab-A-Vit -) 1 tab PO DAILY [facility] Last Admin: 10/14/17 10:03 Dose: 1 tab Olanzapine (Zyprexa -) 5 mg PO DAILY@1700 [facility] Last Admin: 10/14/17 16:49 Dose: 5 mg Oxybutynin Chloride (Ditropan -) 5 mg PO BID [facility] Last Admin: 10/14/17 21:19 Dose: 5 mg Polyethylene Glycol (Miralax (For Daily Use) -) 17 gm PO BID [facility] Last Admin: 10/14/17 21:19 Dose: 17 gm Sitagliptin Phosphate (Januvia -) 25 mg PO DAILY@0700 [facility] Last Admin: 10/15/17 06:03 Dose: 25 mg Sodium Bicarbonate (Sodium Bicarbonate -) 650 mg PO DAILY [facility] Last Admin: 10/14/17 10:03 Dose: 650 mg Trazodone HCl (Desyrel -) 100 mg PO DAILY [facility] Last Admin: 10/14/17 10:03 Dose: 100 mg - Objective Vital Signs: Vital Signs Temperature 99.3 F 10/15/17 06:00 Pulse Rate 98 H 10/15/17 06:00 Respiratory Rate 20 10/15/17 06:00 Blood Pressure 135/66 10/15/17 06:00 O2 Sat by Pulse Oximetry (%) 96 10/14/17 22:00 Constitutional: Yes: No Distress, Calm, Obese Cardiovascular: Yes: Regular Rate and Rhythm Respiratory: Yes: Regular, CTA Bilaterally Musculoskeletal: Yes: WNL Extremities: Yes: WNL Neurological: Yes: Alert, Oriented Psychiatric: Yes: Alert, Oriented Labs: INR, PTT INR 6.73 (0.83-1.09) H* 10/14/17 14:20 Assessment/Plan Problem List - Problems (1) Sepsis Code(s): A41.9 - SEPSIS, UNSPECIFIED ORGANISM (2) Urinary tract infection Code(s): N39.0 - URINARY TRACT INFECTION, SITE NOT SPECIFIED Qualifiers: Urinary tract infection type: site unspecified Hematuria presence: with hematuria Qualified Code(s): N39.0 - Urinary tract infection, site not specified; R31.9 - Hematuria, unspecified; R31.9 - Hematuria, unspecified (3) Elevated INR Code(s): R79.1 - ABNORMAL COAGULATION PROFILE (4) Diabetes Code(s): E11.9 - TYPE 2 DIABETES MELLITUS WITHOUT COMPLICATIONS Qualifiers: Diabetes mellitus type: type 2 Diabetes mellitus shelter insulin use: without shelter use Diabetes mellitus complication status: with unspecified complications Qualified Code(s): E11.8 - Type 2 diabetes mellitus with unspecified complications (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 Code(s): I12.0 - HYP CHR KIDNEY DISEASE W STAGE 5 CHR KIDNEY DISEASE OR ESRD; N18.5 - CHRONIC KIDNEY DISEASE, STAGE 5 (6) HLD (hyperlipidemia) Code(s): E78.5 - HYPERLIPIDEMIA, UNSPECIFIED (7) HTN (hypertension) Code(s): I10 - ESSENTIAL (PRIMARY) HYPERTENSION (8) Afib Code(s): I48.91 - UNSPECIFIED ATRIAL FIBRILLATION Qualifiers: Atrial fibrillation type: chronic Qualified Code(s): I48.2 - Chronic atrial fibrillation (9) Depression Code(s): F32.9 - MAJOR DEPRESSIVE DISORDER, SINGLE EPISODE, UNSPECIFIED plan continue current abx blood cx ordered for tomorrow rest continue current mgmt patient stable
[2017-10-15 08:06] LABS: INR 2.63 (0.83-1.09); PROTHROMBIN TIME (PATIENT) 29.7 SEC (9.7-13.0)
[2017-10-15 09:00] LABS: ALBUMIN 2.1 g/dl (3.4-5.0); ANION GAP 9 (8-16); BILIRUBIN,TOTAL 0.3 mg/dL (0.2-1.0); BLOOD UREA NITROGEN 71 mg/dL (7-18); CALCIUM 8.9 mg/dL (8.5-10.1); CHLORIDE 109 mmol/L (98-107); CO2 23 mmol/L (21-32); CREATININE 2.9 mg/dL (0.55-1.02); GLUCOSE,RANDOM 150 mg/dL (74-106); POTASSIUM 4.1 mmol/L (3.5-5.1); SGOT/AST 25 U/L (15-37); SGPT/ALT 21 U/L (12-78); SODIUM 141 mmol/L (136-145)
[2017-10-15 09:02] LABS: ALK PHOS 35 U/L (45-117); TOT PROT 5.9 g/dl (6.4-8.2)
[2017-10-15] MEDS ORDERED: INSULIN (NOVOLOG) ASPART 100 UNITS/ML 10ML VIAL ONE ×2 (10:13→20:55)
[2017-10-15] MEDS ORDERED: PT OWN MED DRAWER 7, Y5N ONE ×3 (10:14→20:56)
[2017-10-15] MEDS: CITALOPRAM HYDROBROMIDE 20 MG TABLET (FP) PO SCH (10:18)
[2017-10-15] MEDS: CHOLECALCIFEROL (VITAMIN D3) 1,000 UNIT TABLET (FP) PO SCH (10:18)
[2017-10-15] MEDS: MAGNESIUM OXIDE 400 MG TABLET (FP) PO SCH ×2 (10:18→21:07)
[2017-10-15] MEDS: LACTOBACILLUS ACIDOPHILUS 1 TABLET PO SCH (10:18)
[2017-10-15] MEDS: traZODone HCL 50 MG TABLET (FP) PO SCH (10:18)
[2017-10-15] MEDS: MULTIVITAMINS (DAILY MVI) TABLET (FP) PO SCH (10:18)
[2017-10-15] MEDS: MEROPENEM 1 GM in DEXTROSE 5%-WATER 100 ML IVPB SCH ×2 (10:18→21:07)
[2017-10-15] MEDS: DOCUSATE SODIUM 100 MG CAPSULE (FP) PO SCH (10:18)
[2017-10-15] MEDS: SODIUM BICARBONATE 650 MG TABLET PO SCH (10:19)
[2017-10-15] MEDS: OXYBUTYNIN CHLORIDE 5 MG TABLET PO SCH ×2 (10:19→21:07)
[2017-10-15] MEDS: AMINO ACIDS/PROTEIN HYDROLYS 30 ML LIQUID.PKT PO SCH ×2 (10:19→17:42)
[2017-10-15] MEDS: ARTIFICIAL TEARS (POLYVINYL ALCOHOL 1.4%) OPTH DROPS OU SCH ×2 (10:19→21:08)
[2017-10-15] MEDS: POLYETHYLENE GLYCOL 3350 119 GM BTL PO SCH ×2 (10:20→21:08)
--- NOTE | 2017-10-15 10:37 | PN ---
Progress Note, Physician History of Present Illness: Feeling better from yesterday. Nurse's aide notes patient has bene having a lot of urination. Blood cultures are positive (awaiting identification). INR better this morning. - Current Medication List Current Medications: Active Medications Acetaminophen (Tylenol -) 650 mg PO Q4H PRN PRN Reason: FEVER Last Admin: 10/14/17 06:33 Dose: 650 mg Amino Acids (Prosource No Carb Liquid Pkt) 30 ml PO BID@0800,1730 [facility] Last Admin: 10/15/17 10:19 Dose: 30 ml Artificial Tears (Artificial Tears) 1 drop OU BID [facility] Last Admin: 10/15/17 10:19 Dose: 1 drop Atorvastatin Calcium (Lipitor -) 20 mg PO HS [facility] Last Admin: 10/14/17 21:19 Dose: 20 mg Cholecalciferol (Vitamin D3 -) 2,000 unit PO DAILY [facility] Last Admin: 10/15/17 10:18 Dose: 2,000 unit Citalopram Hydrobromide (Celexa -) 20 mg PO DAILY [facility] Last Admin: 10/15/17 10:18 Dose: 20 mg Docusate Sodium (Colace -) 100 mg PO DAILY [facility] Last Admin: 10/15/17 10:18 Dose: 100 mg Glipizide (Glucotrol Xl -) 2.5 mg PO DAILY@0700 [facility] Last Admin: 10/15/17 06:03 Dose: 2.5 mg Meropenem 1 gm/ Dextrose 100 mls @ 100 mls/hr IVPB BID [facility] Last Admin: 10/15/17 10:18 Dose: 100 mls/hr Insulin Aspart (Novolog Vial Sliding Scale -) 1 vial SQ ACHS [facility]; Protocol Last Admin: 10/15/17 06:03 Dose: Not Given Lactobacillus Acidophilus (Bacid -) 1 tab PO DAILY [facility] Last Admin: 10/15/17 10:18 Dose: 1 tab Magnesium Oxide (Mag-Ox -) 400 mg PO BID [facility] Last Admin: 10/15/17 10:18 Dose: 400 mg Multivitamins/Minerals/Vitamin C (Tab-A-Vit -) 1 tab PO DAILY [facility] Last Admin: 10/15/17 10:18 Dose: 1 tab Olanzapine (Zyprexa -) 5 mg PO DAILY@1700 [facility] Last Admin: 10/14/17 16:49 Dose: 5 mg Oxybutynin Chloride (Ditropan -) 5 mg PO BID [facility] Last Admin: 10/15/17 10:19 Dose: 5 mg Polyethylene Glycol (Miralax (For Daily Use) -) 17 gm PO BID [facility] Last Admin: 10/15/17 10:20 Dose: 17 gm Sitagliptin Phosphate (Januvia -) 25 mg PO DAILY@0700 [facility] Last Admin: 10/15/17 06:03 Dose: 25 mg Sodium Bicarbonate (Sodium Bicarbonate -) 650 mg PO DAILY [facility] Last Admin: 10/15/17 10:19 Dose: 650 mg Trazodone HCl (Desyrel -) 100 mg PO DAILY [facility] Last Admin: 10/15/17 10:18 Dose: 100 mg - Objective Vital Signs: Vital Signs Temperature 99 F 10/15/17 10:00 Pulse Rate 88 10/15/17 10:00 Respiratory Rate 18 10/15/17 10:00 Blood Pressure 109/55 10/15/17 10:00 O2 Sat by Pulse Oximetry (%) 96 10/14/17 22:00 Constitutional: Yes: No Distress, Calm Neck: Yes: Supple, Trachea Midline Cardiovascular: Yes: Regular Rate and Rhythm, S1, S2. No: Murmur Respiratory: Yes: Regular, CTA Bilaterally. No: Rales, Rhonchi, Wheezes Gastrointestinal: Yes: Normal Bowel Sounds, Soft, Abdomen, Obese. No: Distention, Tenderness Edema: No Labs: CBC, BMP 10/15/17 07:15 10/15/17 07:15 INR, PTT INR 2.63 (0.83-1.09) H 10/15/17 07:15 Problem List - Problems (1) Sepsis Code(s): A41.9 - SEPSIS, UNSPECIFIED ORGANISM (2) Urinary tract infection Code(s): N39.0 - URINARY TRACT INFECTION, SITE NOT SPECIFIED Qualifiers: Urinary tract infection type: site unspecified Hematuria presence: with hematuria Qualified Code(s): N39.0 - Urinary tract infection, site not specified; R31.9 - Hematuria, unspecified; R31.9 - Hematuria, unspecified (3) Elevated INR Code(s): R79.1 - ABNORMAL COAGULATION PROFILE (4) Diabetes Code(s): E11.9 - TYPE 2 DIABETES MELLITUS WITHOUT COMPLICATIONS Qualifiers: Diabetes mellitus type: 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: without shelter use Diabetes mellitus complication status: with unspecified complications Qualified Code(s): E11.8 - Type 2 diabetes mellitus with unspecified complications (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 Code(s): I12.0 - HYP CHR KIDNEY DISEASE W STAGE 5 CHR KIDNEY DISEASE OR ESRD; N18.5 - CHRONIC KIDNEY DISEASE, STAGE 5 (6) HLD (hyperlipidemia) Code(s): E78.5 - HYPERLIPIDEMIA, UNSPECIFIED (7) HTN (hypertension) Code(s): I10 - ESSENTIAL (PRIMARY) HYPERTENSION (8) Afib Code(s): I48.91 - UNSPECIFIED ATRIAL FIBRILLATION Qualifiers: Atrial fibrillation type: chronic Qualified Code(s): I48.2 - Chronic atrial fibrillation (9) Depression Code(s): F32.9 - MAJOR DEPRESSIVE DISORDER, SINGLE EPISODE, UNSPECIFIED Assessment/Plan Current Active Problems Sepsis (Acute) UTI Afib Chronic renal failure, stage 3 (moderate) (Acute) Depression (Acute)/ Atypical DM -started on Meropenem (ID following) -restart coumadin as INR improved
--- NOTE | 2017-10-15 10:59 | PN ---
Progress Note, Physician Chief Complaint: The patient seen in her room. Awake, alert. Reports feeling better. History of Present Illness: 66 yo female, resident of [facility], presented with uncontrolled blood sugars. Found to have UTI/ sepsis in ED, so admitted for further care. The patient has a past h/o PMH of IDDM HTN, HLD, AFib - Current Medication List Current Medications: Active Medications Acetaminophen (Tylenol -) 650 mg PO Q4H PRN PRN Reason: FEVER Last Admin: 10/14/17 06:33 Dose: 650 mg Amino Acids (Prosource No Carb Liquid Pkt) 30 ml PO BID@0800,1730 [facility] Last Admin: 10/15/17 10:19 Dose: 30 ml Artificial Tears (Artificial Tears) 1 drop OU BID [facility] Last Admin: 10/15/17 10:19 Dose: 1 drop Atorvastatin Calcium (Lipitor -) 20 mg PO HS [facility] Last Admin: 10/14/17 21:19 Dose: 20 mg Cholecalciferol (Vitamin D3 -) 2,000 unit PO DAILY [facility] Last Admin: 10/15/17 10:18 Dose: 2,000 unit Citalopram Hydrobromide (Celexa -) 20 mg PO DAILY [facility] Last Admin: 10/15/17 10:18 Dose: 20 mg Docusate Sodium (Colace -) 100 mg PO DAILY [facility] Last Admin: 10/15/17 10:18 Dose: 100 mg Fenofibric Acid (Trilipix -) 135 mg PO DAILY [facility] Glipizide (Glucotrol Xl -) 2.5 mg PO DAILY@0700 [facility] Last Admin: 10/15/17 06:03 Dose: 2.5 mg Meropenem 1 gm/ Dextrose 100 mls @ 100 mls/hr IVPB BID [facility] Last Admin: 10/15/17 10:18 Dose: 100 mls/hr Insulin Aspart (Novolog Vial Sliding Scale -) 1 vial SQ ACHS [facility]; Protocol Last Admin: 10/15/17 06:03 Dose: Not Given Lactobacillus Acidophilus (Bacid -) 1 tab PO DAILY [facility] Last Admin: 10/15/17 10:18 Dose: 1 tab Magnesium Oxide (Mag-Ox -) 400 mg PO BID [facility] Last Admin: 10/15/17 10:18 Dose: 400 mg Multivitamins/Minerals/Vitamin C (Tab-A-Vit -) 1 tab PO DAILY [facility] Last Admin: 10/15/17 10:18 Dose: 1 tab Olanzapine (Zyprexa -) 5 mg PO DAILY@1700 [facility] Last Admin: 10/14/17 16:49 Dose: 5 mg Oxybutynin Chloride (Ditropan -) 5 mg PO BID [facility] Last Admin: 10/15/17 10:19 Dose: 5 mg Polyethylene Glycol (Miralax (For Daily Use) -) 17 gm PO BID [facility] Last Admin: 10/15/17 10:20 Dose: 17 gm Sitagliptin Phosphate (Januvia -) 25 mg PO DAILY@0700 [facility] Last Admin: 10/15/17 06:03 Dose: 25 mg Sodium Bicarbonate (Sodium Bicarbonate -) 650 mg PO DAILY [facility] Last Admin: 10/15/17 10:19 Dose: 650 mg Trazodone HCl (Desyrel -) 100 mg PO DAILY [facility] Last Admin: 10/15/17 10:18 Dose: 100 mg Warfarin Sodium (Coumadin -) 3 mg PO DAILY@1800 [facility] - Objective Vital Signs: Vital Signs Temperature 99 F 10/15/17 10:00 Pulse Rate 88 10/15/17 10:00 Respiratory Rate 18 10/15/17 10:00 Blood Pressure 109/55 10/15/17 10:00 O2 Sat by Pulse Oximetry (%) 96 10/14/17 22:00 Constitutional: Yes: Well Nourished, Calm Eyes: Yes: Conjunctiva Clear HENT: Yes: Normocephalic Cardiovascular: Yes: S1, S2 Respiratory: Yes: CTA Bilaterally Gastrointestinal: Yes: Normal Bowel Sounds, Tenderness Genitourinary: No: Bladder Distention, CVA Tenderness - Left, CVA Tenderness - Right Neurological: Yes: Alert, Oriented Psychiatric: Yes: Alert Labs: CBC, BMP 10/15/17 07:15 10/15/17 07:15 INR, PTT INR 2.63 (0.83-1.09) H 10/15/17 07:15 Problem List - Problems (1) Chronic renal failure, stage 3 (moderate) Code(s): N18.3 - CHRONIC KIDNEY DISEASE, STAGE 3 (MODERATE) (2) Acute renal failure Code(s): N17.9 - ACUTE KIDNEY FAILURE, UNSPECIFIED Qualifiers: Acute renal failure type: unspecified Qualified Code(s): N17.9 - Acute kidney failure, unspecified (3) Anemia Code(s): D64.9 - ANEMIA, UNSPECIFIED Qualifiers: Anemia type: other cause Other causes of anemia: other cause, not classified Qualified Code(s): D64.89 - Other specified anemias (4) Diabetes Code(s): E11.9 - TYPE 2 DIABETES MELLITUS WITHOUT COMPLICATIONS Qualifiers: Diabetes mellitus type: type 2 Diabetes mellitus prison insulin use: without prison use Diabetes mellitus complication status: with unspecified complications Qualified Code(s): E11.8 - Type 2 diabetes mellitus with unspecified complications (5) HLD (hyperlipidemia) Code(s): E78.5 - HYPERLIPIDEMIA, UNSPECIFIED (6) Afib Code(s): I48.91 - UNSPECIFIED ATRIAL FIBRILLATION Qualifiers: Atrial fibrillation type: chronic Qualified Code(s): I48.2 - Chronic atrial fibrillation Assessment/Plan 66 y/o WF admitted from [place] with h/o uncontrolled Blood Glucose. The patient has h/o DM2 for a long time. 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 Anemia, possibly due to the Chronic Renal disease. The Renal functions are stable at this point. Suggest: Optimize the glycemic control. Cautious hydration. IV Abx as ordered. Will monitor the renal functions with you. Thank you. Will follow with you. Jade Powell MD
[2017-10-15] MEDS: WARFARIN NA 3 MG TABLET PO SCH (17:42)
[2017-10-15] MEDS: OLANZapine 5 MG TABLET PO SCH (17:42)
[2017-10-15] MEDS: ATORVASTATIN CA 20 MG TABLET (FP) PO SCH (21:07)
[2017-10-16] MEDS: sitaGLIPtin PHOSPHATE 25 MG TABLET (FP) PO SCH (06:00)
[2017-10-16] MEDS: glipiZIDE-XL 2.5 MG TAB.ER.24 PO SCH (06:00)
[2017-10-16] MEDS: INSULIN SLIDING SCALE (NOVOLOG) 1 VIAL SQ SCH ×4 (06:00→21:35)
[2017-10-16 08:52] LABS: BASO % 0.4 % (0-2.0); EOS % 1.9 % (0-4.5); HEMATOCRIT 25.6 % (32.4-45.2); HEMOGLOBIN 8.7 GM/dL (10.7-15.3); LYMPH % 36.4 % (8-40); MCH 33.2 pg (25.7-33.7); MCHC 34.1 g/dl (32.0-36.0); MEAN CELL VOLUME 97.3 fl (80-96); MEAN PLT VOLUME 8.2 fl (7.5-11.1); MONO % 4.2 % (3.8-10.2); NEUT % 57.1 % (42.8-82.8); PLATELET COUNT 258 K/MM3 (134-434); RBC 2.63 M/mm3 (3.60-5.2); RDW 14.4 % (11.6-15.6)
[2017-10-16 08:59] LABS: ALBUMIN 2.1 g/dl (3.4-5.0); ANION GAP 8 (8-16); BLOOD UREA NITROGEN 72 mg/dL (7-18); CALCIUM 8.9 mg/dL (8.5-10.1); CHLORIDE 108 mmol/L (98-107); CO2 24 mmol/L (21-32); CREATININE 3.2 mg/dL (0.55-1.02); GLUCOSE,RANDOM 171 mg/dL (74-106); POTASSIUM 4.4 mmol/L (3.5-5.1); SGOT/AST 18 U/L (15-37); SGPT/ALT 21 U/L (12-78); SODIUM 140 mmol/L (136-145)
[2017-10-16 09:11] LABS: ALK PHOS 41 U/L (45-117); BILIRUBIN,TOTAL 0.2 mg/dL (0.2-1.0); TOT PROT 6.3 g/dl (6.4-8.2)
[2017-10-16 09:17] LABS: INR 1.52 (0.83-1.09); PROTHROMBIN TIME (PATIENT) 17.2 SEC (9.7-13.0)
[2017-10-16] MEDS: AMINO ACIDS/PROTEIN HYDROLYS 30 ML LIQUID.PKT PO SCH ×2 (10:24→16:59)
[2017-10-16] MEDS: CHOLECALCIFEROL (VITAMIN D3) 1,000 UNIT TABLET (FP) PO SCH (10:25)
[2017-10-16] MEDS: traZODone HCL 50 MG TABLET (FP) PO SCH (10:25)
[2017-10-16] MEDS: LACTOBACILLUS ACIDOPHILUS 1 TABLET PO SCH (10:25)
[2017-10-16] MEDS: OXYBUTYNIN CHLORIDE 5 MG TABLET PO SCH ×2 (10:25→21:35)
[2017-10-16] MEDS: MAGNESIUM OXIDE 400 MG TABLET (FP) PO SCH ×2 (10:25→21:35)
[2017-10-16] MEDS: MULTIVITAMINS (DAILY MVI) TABLET (FP) PO SCH (10:25)
[2017-10-16] MEDS: CITALOPRAM HYDROBROMIDE 20 MG TABLET (FP) PO SCH (10:25)
[2017-10-16] MEDS: SODIUM BICARBONATE 650 MG TABLET PO SCH (10:25)
[2017-10-16] MEDS: DOCUSATE SODIUM 100 MG CAPSULE (FP) PO SCH (10:25)
[2017-10-16] MEDS: MEROPENEM 1 GM in DEXTROSE 5%-WATER 100 ML IVPB SCH ×2 (10:26→21:34)
[2017-10-16] MEDS: POLYETHYLENE GLYCOL 3350 119 GM BTL PO SCH ×2 (10:27→22:35)
[2017-10-16] MEDS ORDERED: PT OWN MED DRAWER 7, Y5N ONE ×2 (10:29→21:18)
[2017-10-16] MEDS: FENOFIBRIC ACID 135 MG CAP PO SCH (10:47)
[2017-10-16] MEDS ORDERED: INSULIN (NOVOLOG) ASPART 100 UNITS/ML 10ML VIAL ONE ×2 (11:27→21:22)
--- NOTE | 2017-10-16 13:51 | PN ---
Progress Note, Physician History of Present Illness: stable says feels much better - Current Medication List Current Medications: Active Medications Acetaminophen (Tylenol -) 650 mg PO Q4H PRN PRN Reason: FEVER Last Admin: 10/14/17 06:33 Dose: 650 mg Amino Acids (Prosource No Carb Liquid Pkt) 30 ml PO BID@0800,1730 [facility] Last Admin: 10/16/17 10:24 Dose: 30 ml Artificial Tears (Artificial Tears) 1 drop OU BID [facility] Last Admin: 10/15/17 21:08 Dose: 1 drop Atorvastatin Calcium (Lipitor -) 20 mg PO HS [facility] Last Admin: 10/15/17 21:07 Dose: 20 mg Cholecalciferol (Vitamin D3 -) 2,000 unit PO DAILY [facility] Last Admin: 10/16/17 10:25 Dose: 2,000 unit Citalopram Hydrobromide (Celexa -) 20 mg PO DAILY [facility] Last Admin: 10/16/17 10:25 Dose: 20 mg Docusate Sodium (Colace -) 100 mg PO DAILY [facility] Last Admin: 10/16/17 10:25 Dose: 100 mg Fenofibric Acid (Trilipix -) 135 mg PO DAILY [facility] Last Admin: 10/16/17 10:47 Dose: 135 mg Glipizide (Glucotrol Xl -) 2.5 mg PO DAILY@0700 [facility] Last Admin: 10/16/17 06:00 Dose: 2.5 mg Meropenem 1 gm/ Dextrose 100 mls @ 100 mls/hr IVPB BID [facility] Last Admin: 10/16/17 10:26 Dose: 100 mls/hr Insulin Aspart (Novolog Vial Sliding Scale -) 1 vial SQ ACHS [facility]; Protocol Last Admin: 10/16/17 11:32 Dose: 2 units Lactobacillus Acidophilus (Bacid -) 1 tab PO DAILY [facility] Last Admin: 10/16/17 10:25 Dose: 1 tab Magnesium Oxide (Mag-Ox -) 400 mg PO BID [facility] Last Admin: 10/16/17 10:25 Dose: 400 mg Multivitamins/Minerals/Vitamin C (Tab-A-Vit -) 1 tab PO DAILY [facility] Last Admin: 10/16/17 10:25 Dose: 1 tab Olanzapine (Zyprexa -) 5 mg PO DAILY@1700 [facility] Last Admin: 08/12/18 17:42 Dose: 5 mg Oxybutynin Chloride (Ditropan -) 5 mg PO BID [facility] Last Admin: 10/16/17 10:25 Dose: 5 mg Polyethylene Glycol (Miralax (For Daily Use) -) 17 gm PO BID [facility] Last Admin: 10/16/17 10:27 Dose: 17 gm Sitagliptin Phosphate (Januvia -) 25 mg PO DAILY@0700 [facility] Last Admin: 10/16/17 06:00 Dose: 25 mg Sodium Bicarbonate (Sodium Bicarbonate -) 650 mg PO DAILY [facility] Last Admin: 10/16/17 10:25 Dose: 650 mg Trazodone HCl (Desyrel -) 100 mg PO DAILY [facility] Last Admin: 10/16/17 10:25 Dose: 100 mg Warfarin Sodium (Coumadin -) 3 mg PO DAILY@1800 [facility] Last Admin: 10/15/17 17:42 Dose: 3 mg - Objective Vital Signs: Vital Signs Temperature 99.0 F 10/16/17 10:23 Pulse Rate 84 10/16/17 10:23 Respiratory Rate 18 10/16/17 10:23 Blood Pressure 117/55 10/16/17 10:23 O2 Sat by Pulse Oximetry (%) 96 10/15/17 22:00 Constitutional: Yes: No Distress, Calm Cardiovascular: Yes: Regular Rate and Rhythm Respiratory: Yes: Regular, CTA Bilaterally Gastrointestinal: Yes: Normal Bowel Sounds, Soft Musculoskeletal: Yes: WNL Extremities: Yes: WNL Neurological: Yes: Alert, Oriented Psychiatric: Yes: Alert, Oriented Labs: CBC, BMP 10/16/17 07:30 10/16/17 07:30 INR, PTT INR 1.52 (0.83-1.09) H 10/16/17 07:30 Assessment/Plan Problem List - Problems (1) Sepsis Code(s): A41.9 - SEPSIS, UNSPECIFIED ORGANISM (2) Urinary tract infection Code(s): N39.0 - URINARY TRACT INFECTION, SITE NOT SPECIFIED Qualifiers: Urinary tract infection type: site unspecified Hematuria presence: with hematuria Qualified Code(s): N39.0 - Urinary tract infection, site not specified; R31.9 - Hematuria, unspecified; R31.9 - Hematuria, unspecified (3) Elevated INR Code(s): R79.1 - ABNORMAL COAGULATION PROFILE (4) Diabetes Code(s): E11.9 - TYPE 2 DIABETES MELLITUS WITHOUT COMPLICATIONS Qualifiers: Diabetes mellitus type: type 2 Diabetes mellitus care home insulin use: without care home use Diabetes mellitus complication status: with unspecified complications Qualified Code(s): E11.8 - Type 2 diabetes mellitus with unspecified complications (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 Code(s): I12.0 - HYP CHR KIDNEY DISEASE W STAGE 5 CHR KIDNEY DISEASE OR ESRD; N18.5 - CHRONIC KIDNEY DISEASE, STAGE 5 (6) HLD (hyperlipidemia) Code(s): E78.5 - HYPERLIPIDEMIA, UNSPECIFIED (7) HTN (hypertension) Code(s): I10 - ESSENTIAL (PRIMARY) HYPERTENSION (8) Afib Code(s): I48.91 - UNSPECIFIED ATRIAL FIBRILLATION Qualifiers: Atrial fibrillation type: chronic Qualified Code(s): I48.2 - Chronic atrial fibrillation (9) Depression Code(s): F32.9 - MAJOR DEPRESSIVE DISORDER, SINGLE EPISODE, UNSPECIFIED plan continue current abx await for repeat blood cx still with some low grade fever will await imaging studies
--- NOTE | 2017-10-16 15:01 | PN ---
Progress Note, Physician Chief Complaint: Ms Mckeon says she feels fine. Denies cp, sob, n/v. - Current Medication List Current Medications: Active Medications Acetaminophen (Tylenol -) 650 mg PO Q4H PRN PRN Reason: FEVER Last Admin: 10/14/17 06:33 Dose: 650 mg Amino Acids (Prosource No Carb Liquid Pkt) 30 ml PO BID@0800,1730 [facility] Last Admin: 10/16/17 10:24 Dose: 30 ml Artificial Tears (Artificial Tears) 1 drop OU BID [facility] Last Admin: 10/15/17 21:08 Dose: 1 drop Atorvastatin Calcium (Lipitor -) 20 mg PO HS [facility] Last Admin: 10/15/17 21:07 Dose: 20 mg Cholecalciferol (Vitamin D3 -) 2,000 unit PO DAILY [facility] Last Admin: 10/16/17 10:25 Dose: 2,000 unit Citalopram Hydrobromide (Celexa -) 20 mg PO DAILY [facility] Last Admin: 10/16/17 10:25 Dose: 20 mg Docusate Sodium (Colace -) 100 mg PO DAILY [facility] Last Admin: 10/16/17 10:25 Dose: 100 mg Fenofibric Acid (Trilipix -) 135 mg PO DAILY [facility] Last Admin: 10/16/17 10:47 Dose: 135 mg Glipizide (Glucotrol Xl -) 2.5 mg PO DAILY@0700 [facility] Last Admin: 10/16/17 06:00 Dose: 2.5 mg Meropenem 1 gm/ Dextrose 100 mls @ 100 mls/hr IVPB BID [facility] Last Admin: 10/16/17 10:26 Dose: 100 mls/hr Insulin Aspart (Novolog Vial Sliding Scale -) 1 vial SQ ACHS [facility]; Protocol Last Admin: 10/16/17 11:32 Dose: 2 units Lactobacillus Acidophilus (Bacid -) 1 tab PO DAILY [facility] Last Admin: 10/16/17 10:25 Dose: 1 tab Magnesium Oxide (Mag-Ox -) 400 mg PO BID [facility] Last Admin: 10/16/17 10:25 Dose: 400 mg Multivitamins/Minerals/Vitamin C (Tab-A-Vit -) 1 tab PO DAILY [facility] Last Admin: 10/16/17 10:25 Dose: 1 tab Olanzapine (Zyprexa -) 5 mg PO DAILY@1700 [facility] Last Admin: 10/15/17 17:42 Dose: 5 mg Oxybutynin Chloride (Ditropan -) 5 mg PO BID [facility] Last Admin: 10/16/17 10:25 Dose: 5 mg Polyethylene Glycol (Miralax (For Daily Use) -) 17 gm PO BID [facility] Last Admin: 10/16/17 10:27 Dose: 17 gm Sitagliptin Phosphate (Januvia -) 25 mg PO DAILY@0700 [facility] Last Admin: 10/16/17 06:00 Dose: 25 mg Sodium Bicarbonate (Sodium Bicarbonate -) 650 mg PO DAILY [facility] Last Admin: 10/16/17 10:25 Dose: 650 mg Trazodone HCl (Desyrel -) 100 mg PO DAILY [facility] Last Admin: 10/16/17 10:25 Dose: 100 mg Warfarin Sodium (Coumadin -) 3 mg PO DAILY@1800 [facility] Last Admin: 10/15/17 17:42 Dose: 3 mg - Objective Vital Signs: Vital Signs Temperature 37.1 C 10/16/17 14:36 Pulse Rate 84 10/16/17 14:36 Respiratory Rate 18 10/16/17 10:23 Blood Pressure 120/60 10/16/17 14:36 O2 Sat by Pulse Oximetry (%) 96 10/15/17 22:00 Constitutional: Yes: No Distress, Calm, Obese Cardiovascular: Yes: Regular Rate and Rhythm. No: Gallop, Murmur, Rub Respiratory: Yes: Regular, CTA Bilaterally. No: Rales, Rhonchi, Wheezes Gastrointestinal: Yes: Normal Bowel Sounds, Soft. No: Distention, Tenderness Extremities: Yes: WNL Edema: No Labs: CBC, BMP 10/16/17 07:30 10/16/17 07:30 INR, PTT INR 1.52 (0.83-1.09) H 10/16/17 07:30 Problem List - Problems (1) Sepsis Assessment/Plan: -case d/w ID -original blood cultures growing e coli with resistance -continue meropenem -repeat blood cultures pending Code(s): A41.9 - SEPSIS, UNSPECIFIED ORGANISM (2) Urinary tract infection Assessment/Plan: -e coli -continue merrem Code(s): N39.0 - URINARY TRACT INFECTION, SITE NOT SPECIFIED Qualifiers: Urinary tract infection type: site unspecified Hematuria presence: without hematuria Qualified Code(s): N39.0 - Urinary tract infection, site not specified (3) Acute renal failure Assessment/Plan: -case d/w Dr Casiano -stable -agree with abdominal CT since history of chronic hydronephrosis Code(s): N17.9 - ACUTE KIDNEY FAILURE, UNSPECIFIED Qualifiers: Acute renal failure type: unspecified Qualified Code(s): N17.9 - Acute kidney failure, unspecified (4) CKD stage 5 secondary to hypertension Assessment/Plan: -stable -case d/w nephrology Code(s): I12.0 - HYP CHR KIDNEY DISEASE W STAGE 5 CHR KIDNEY DISEASE OR ESRD; N18.5 - CHRONIC KIDNEY DISEASE, STAGE 5 (5) Diabetes Assessment/Plan: -continue januvia and glipizide -continue SSI and diabetic diet Code(s): E11.9 - TYPE 2 DIABETES MELLITUS WITHOUT COMPLICATIONS Qualifiers: Diabetes mellitus type: type 2 Diabetes mellitus fpc insulin use: without fpc use Diabetes mellitus complication status: with unspecified complications Qualified Code(s): E11.8 - Type 2 diabetes mellitus with unspecified complications (6) HLD (hyperlipidemia) Assessment/Plan: -continue trilipix and statin Code(s): E78.5 - HYPERLIPIDEMIA, UNSPECIFIED (7) Hydronephrosis Assessment/Plan: -agree with CT scan for evaluation Code(s): N13.30 - UNSPECIFIED HYDRONEPHROSIS (8) Afib Assessment/Plan: -stable -continue coumadin Code(s): I48.91 - UNSPECIFIED ATRIAL FIBRILLATION Qualifiers: Atrial fibrillation type: chronic Qualified Code(s): I48.2 - Chronic atrial fibrillation
[2017-10-16] MEDS: ARTIFICIAL TEARS (POLYVINYL ALCOHOL 1.4%) OPTH DROPS OU SCH ×2 (16:57→21:35)
[2017-10-16] MEDS: OLANZapine 5 MG TABLET PO SCH (16:57)
[2017-10-16] MEDS: WARFARIN NA 3 MG TABLET PO SCH (17:00)
--- NOTE | 2017-10-16 17:34 | PN ---
Progress Note (short form) - Note Progress Note: Renal follow up for BRYAN on CKD Pt seen and examined at the bedside awake and alert no acute complaints no sob, cp, abd pain, N/V/D making urine no fever or chills Vital Signs Temperature 98.7 F 10/16/17 14:36 Pulse Rate 84 10/16/17 14:36 Respiratory Rate 18 10/16/17 10:23 Blood Pressure 120/60 10/16/17 14:36 O2 Sat by Pulse Oximetry (%) 96 10/16/17 10:23 Intake & Output 10/13/17 10/14/17 10/15/17 10/16/17 23:59 23:59 23:59 23:59 Intake Total 2300 900 575 Balance 2300 900 575 Weight 82.1 kg 88.904 kg 88.479 kg 87.713 kg NAD awake and alert RRR, NO M/R CTA no rales or wheeze soft NT/ND no LE edema CBC, BMP 10/16/17 07:30 10/16/17 07:30 Current Medications Acetaminophen (Tylenol -) 650 mg PO Q4H PRN PRN Reason: FEVER Last Admin: 10/14/17 06:33 Dose: 650 mg Amino Acids (Prosource No Carb Liquid Pkt) 30 ml PO BID@0800,1730 [facility] Last Admin: 10/16/17 16:59 Dose: 30 ml Artificial Tears (Artificial Tears) 1 drop OU BID [facility] Last Admin: 10/16/17 16:57 Dose: 1 drop Atorvastatin Calcium (Lipitor -) 20 mg PO HS [facility] Last Admin: 10/15/17 21:07 Dose: 20 mg Cholecalciferol (Vitamin D3 -) 2,000 unit PO DAILY [facility] Last Admin: 10/16/17 10:25 Dose: 2,000 unit Citalopram Hydrobromide (Celexa -) 20 mg PO DAILY [facility] Last Admin: 10/16/17 10:25 Dose: 20 mg Docusate Sodium (Colace -) 100 mg PO DAILY [facility] Last Admin: 10/16/17 10:25 Dose: 100 mg Fenofibric Acid (Trilipix -) 135 mg PO DAILY [facility] Last Admin: 10/16/17 10:47 Dose: 135 mg Glipizide (Glucotrol Xl -) 2.5 mg PO DAILY@0700 [facility] Last Admin: 10/16/17 06:00 Dose: 2.5 mg Meropenem 1 gm/ Dextrose 100 mls @ 100 mls/hr IVPB BID [facility] Last Admin: 10/16/17 10:26 Dose: 100 mls/hr Insulin Aspart (Novolog Vial Sliding Scale -) 1 vial SQ ACHS [facility]; Protocol Last Admin: 10/16/17 16:57 Dose: Not Given Lactobacillus Acidophilus (Bacid -) 1 tab PO DAILY [facility] Last Admin: 10/16/17 10:25 Dose: 1 tab Magnesium Oxide (Mag-Ox -) 400 mg PO BID [facility] Last Admin: 10/16/17 10:25 Dose: 400 mg Multivitamins/Minerals/Vitamin C (Tab-A-Vit -) 1 tab PO DAILY [facility] Last Admin: 10/16/17 10:25 Dose: 1 tab Olanzapine (Zyprexa -) 5 mg PO DAILY@1700 [facility] Last Admin: 10/16/17 16:57 Dose: 5 mg Oxybutynin Chloride (Ditropan -) 5 mg PO BID [facility] Last Admin: 10/16/17 10:25 Dose: 5 mg Polyethylene Glycol (Miralax (For Daily Use) -) 17 gm PO BID [facility] Last Admin: 10/16/17 10:27 Dose: 17 gm Sitagliptin Phosphate (Januvia -) 25 mg PO DAILY@0700 [facility] Last Admin: 10/16/17 06:00 Dose: 25 mg Sodium Bicarbonate (Sodium Bicarbonate -) 650 mg PO DAILY [facility] Last Admin: 10/16/17 10:25 Dose: 650 mg Trazodone HCl (Desyrel -) 100 mg PO DAILY [facility] Last Admin: 10/16/17 10:25 Dose: 100 mg Warfarin Sodium (Coumadin -) 3 mg PO DAILY@1800 [facility] Last Admin: 10/16/17 17:00 Dose: 3 mg 66 year old woman with CKD, DM on insulin, Hypertension and hyperlipidemia admitted with Cysitis and Urosepsis with BRYAN. #BRYAN #CKD #Hx of b/l hydronephrosis #Sepsis/Cystitis #Anemia Renal function stable at this time pt is evolemic and has no overt electrolytes or acid base disturbances Check CT of the Abd and Pelvis to r/o obstruction or pylonephritis given hx of b /l hydronephrosis Continue Abx as per ID Continue gentle IVF hydration Trend renal function and electrolytes Robert Casiano DO
[2017-10-16] MEDS: ATORVASTATIN CA 20 MG TABLET (FP) PO SCH (21:35)
[2017-10-17] MEDS ORDERED: PT OWN MED DRAWER 7, Y5N ONE ×4 (05:49→21:28)
[2017-10-17] MEDS: glipiZIDE-XL 2.5 MG TAB.ER.24 PO SCH (05:59)
[2017-10-17] MEDS: sitaGLIPtin PHOSPHATE 25 MG TABLET (FP) PO SCH (05:59)
[2017-10-17] MEDS: INSULIN SLIDING SCALE (NOVOLOG) 1 VIAL SQ SCH ×4 (05:59→21:23)
[2017-10-17 07:00] LABS: BASO % 0.2 % (0-2.0); EOS % 1.4 % (0-4.5); HEMATOCRIT 24.5 % (32.4-45.2); HEMOGLOBIN 8.4 GM/dL (10.7-15.3); LYMPH % 45.2 % (8-40); MCHC 34.4 g/dl (32.0-36.0); MEAN CELL VOLUME 95.9 fl (80-96); MEAN PLT VOLUME 8.1 fl (7.5-11.1); MONO % 3.3 % (3.8-10.2); NEUT % 49.9 % (42.8-82.8); PLATELET COUNT 278 K/MM3 (134-434); RBC 2.56 M/mm3 (3.60-5.2); RDW 14.1 % (11.6-15.6); WHITE BLOOD COUNT 8.2 K/mm3 (4.0-10.0)
[2017-10-17 07:25] LABS: INR 1.55 (0.83-1.09); PROTHROMBIN TIME (PATIENT) 17.5 SEC (9.7-13.0)
[2017-10-17 07:31] LABS: ANION GAP 9 (8-16); BLOOD UREA NITROGEN 77 mg/dL (7-18); CALCIUM 8.7 mg/dL (8.5-10.1); CHLORIDE 108 mmol/L (98-107); CO2 23 mmol/L (21-32); CREATININE 3.2 mg/dL (0.55-1.02); GLUCOSE,RANDOM 201 mg/dL (74-106); MAGNESIUM 2.8 mg/dL (1.8-2.4); PHOSPHOROUS 4.1 mg/dL (2.5-4.9); POTASSIUM 3.9 mmol/L (3.5-5.1); SODIUM 140 mmol/L (136-145)
[2017-10-17] MEDS: AMINO ACIDS/PROTEIN HYDROLYS 30 ML LIQUID.PKT PO SCH ×2 (08:56→17:17)
[2017-10-17] MEDS: LACTOBACILLUS ACIDOPHILUS 1 TABLET PO SCH (09:40)
[2017-10-17] MEDS: MEROPENEM 1 GM in DEXTROSE 5%-WATER 100 ML IVPB SCH ×2 (09:40→21:30)
[2017-10-17] MEDS: OXYBUTYNIN CHLORIDE 5 MG TABLET PO SCH ×2 (09:40→21:25)
[2017-10-17] MEDS: DOCUSATE SODIUM 100 MG CAPSULE (FP) PO SCH ×2 (09:40→21:25)
[2017-10-17] MEDS: CITALOPRAM HYDROBROMIDE 20 MG TABLET (FP) PO SCH (09:40)
[2017-10-17] MEDS: CHOLECALCIFEROL (VITAMIN D3) 1,000 UNIT TABLET (FP) PO SCH (09:40)
[2017-10-17] MEDS: traZODone HCL 50 MG TABLET (FP) PO SCH (09:40)
[2017-10-17] MEDS: MULTIVITAMINS (DAILY MVI) TABLET (FP) PO SCH (09:40)
[2017-10-17] MEDS: MAGNESIUM OXIDE 400 MG TABLET (FP) PO SCH ×2 (09:40→21:25)
[2017-10-17] MEDS: SODIUM BICARBONATE 650 MG TABLET PO SCH (09:41)
[2017-10-17] MEDS: FENOFIBRIC ACID 135 MG CAP PO SCH (09:41)
[2017-10-17] MEDS ORDERED: INSULIN (NOVOLOG) ASPART 100 UNITS/ML 10ML VIAL ONE ×2 (11:20→17:38)
[2017-10-17] MEDS: POLYETHYLENE GLYCOL 3350 119 GM BTL PO SCH ×2 (11:32→21:27)
[2017-10-17] MEDS: ARTIFICIAL TEARS (POLYVINYL ALCOHOL 1.4%) OPTH DROPS OU SCH ×2 (11:33→21:27)
--- NOTE | 2017-10-17 12:27 | PN ---
Progress Note, Physician Chief Complaint: Ms Mckeon says she feels fine. Denies cp, sob, n/v. - Current Medication List Current Medications: Active Medications Acetaminophen (Tylenol -) 650 mg PO Q4H PRN PRN Reason: FEVER Last Admin: 10/14/17 06:33 Dose: 650 mg Amino Acids (Prosource No Carb Liquid Pkt) 30 ml PO BID@0800,1730 [facility] Last Admin: 10/17/17 08:56 Dose: 30 ml Artificial Tears (Artificial Tears) 1 drop OU BID [facility] Last Admin: 10/17/17 11:33 Dose: Not Given Atorvastatin Calcium (Lipitor -) 20 mg PO HS [facility] Last Admin: 10/16/17 21:35 Dose: 20 mg Cholecalciferol (Vitamin D3 -) 2,000 unit PO DAILY [facility] Last Admin: 10/17/17 09:40 Dose: 2,000 unit Citalopram Hydrobromide (Celexa -) 20 mg PO DAILY [facility] Last Admin: 10/17/17 09:40 Dose: 20 mg Docusate Sodium (Colace -) 100 mg PO BID [facility] Fenofibric Acid (Trilipix -) 135 mg PO DAILY [facility] Last Admin: 10/17/17 09:41 Dose: 135 mg Glipizide (Glucotrol Xl -) 2.5 mg PO DAILY@0700 [facility] Last Admin: 10/17/17 05:59 Dose: 2.5 mg Meropenem 1 gm/ Dextrose 100 mls @ 100 mls/hr IVPB BID [facility] Last Admin: 10/17/17 09:40 Dose: 100 mls/hr Sodium Chloride (Normal Saline -) 1,000 mls @ 75 mls/hr IV ASDIR [facility] Stop: 10/18/17 11:59 Insulin Aspart (Novolog Vial Sliding Scale -) 1 vial SQ ACHS [facility]; Protocol Last Admin: 10/17/17 11:31 Dose: 2 units Lactobacillus Acidophilus (Bacid -) 1 tab PO DAILY [facility] Last Admin: 10/17/17 09:40 Dose: 1 tab Magnesium Oxide (Mag-Ox -) 400 mg PO BID [facility] Last Admin: 10/17/17 09:40 Dose: 400 mg Multivitamins/Minerals/Vitamin C (Tab-A-Vit -) 1 tab PO DAILY [facility] Last Admin: 10/17/17 09:40 Dose: 1 tab Olanzapine (Zyprexa -) 5 mg PO DAILY@1700 [facility] Last Admin: 10/16/17 16:57 Dose: 5 mg Oxybutynin Chloride (Ditropan -) 5 mg PO BID [facility] Last Admin: 10/17/17 09:40 Dose: 5 mg Polyethylene Glycol (Miralax (For Daily Use) -) 17 gm PO BID [facility] Last Admin: 10/17/17 11:32 Dose: 17 grams Senna (Senna -) 1 tab PO BID [facility] Sitagliptin Phosphate (Januvia -) 25 mg PO DAILY@0700 [facility] Last Admin: 10/17/17 05:59 Dose: 25 mg Sodium Bicarbonate (Sodium Bicarbonate -) 650 mg PO DAILY [facility] Last Admin: 10/17/17 09:41 Dose: 650 mg Trazodone HCl (Desyrel -) 100 mg PO DAILY [facility] Last Admin: 10/17/17 09:40 Dose: 100 mg Warfarin Sodium (Coumadin -) 5 mg PO DAILY@1800 [facility] - Objective Vital Signs: Vital Signs Temperature 37.3 C 10/17/17 06:00 Pulse Rate 88 10/17/17 06:00 Respiratory Rate 18 10/17/17 06:00 Blood Pressure 137/65 10/17/17 06:00 O2 Sat by Pulse Oximetry (%) 96 10/16/17 21:00 Constitutional: Yes: No Distress, Calm, Obese Cardiovascular: Yes: Pulse Irregular. No: Tachycardia, Gallop, Murmur, Rub Respiratory: Yes: Regular, CTA Bilaterally. No: Rales, Rhonchi, Wheezes Gastrointestinal: Yes: Normal Bowel Sounds, Soft. No: Distention, Tenderness Extremities: Yes: WNL Edema: No Labs: CBC, BMP 10/17/17 06:30 10/17/17 06:30 INR, PTT INR 1.55 (0.83-1.09) H 10/17/17 06:30 Problem List - Problems (1) Sepsis Code(s): A41.9 - SEPSIS, UNSPECIFIED ORGANISM (2) Urinary tract infection Code(s): N39.0 - URINARY TRACT INFECTION, SITE NOT SPECIFIED Qualifiers: Urinary tract infection type: site unspecified Hematuria presence: without hematuria Qualified Code(s): N39.0 - Urinary tract infection, site not specified (3) Acute renal failure Code(s): N17.9 - ACUTE KIDNEY FAILURE, UNSPECIFIED Qualifiers: Acute renal failure type: unspecified Qualified Code(s): N17.9 - Acute kidney failure, unspecified (4) CKD stage 5 secondary to hypertension Code(s): I12.0 - HYP CHR KIDNEY DISEASE W STAGE 5 CHR KIDNEY DISEASE OR ESRD; N18.5 - CHRONIC KIDNEY DISEASE, STAGE 5 (5) Diabetes Code(s): E11.9 - TYPE 2 DIABETES MELLITUS WITHOUT COMPLICATIONS Qualifiers: Diabetes mellitus type: type 2 Diabetes mellitus chcf insulin use: without website admin use Diabetes mellitus complication status: with unspecified complications Qualified Code(s): E11.8 - Type 2 diabetes mellitus with unspecified complications (6) HLD (hyperlipidemia) Code(s): E78.5 - HYPERLIPIDEMIA, UNSPECIFIED (7) Hydronephrosis Code(s): N13.30 - UNSPECIFIED HYDRONEPHROSIS (8) Afib Code(s): I48.91 - UNSPECIFIED ATRIAL FIBRILLATION Qualifiers: Atrial fibrillation type: chronic Qualified Code(s): I48.2 - Chronic atrial fibrillation Assessment/Plan (1) Sepsis Assessment/Plan: -continue merrem currently -most recent BC are NGTD Code(s): A41.9 - SEPSIS, UNSPECIFIED ORGANISM (2) Urinary tract infection Assessment/Plan: -e coli -continue merrem Code(s): N39.0 - URINARY TRACT INFECTION, SITE NOT SPECIFIED Qualifiers: Urinary tract infection type: site unspecified Hematuria presence: without hematuria Qualified Code(s): N39.0 - Urinary tract infection, site not specified (3) Acute renal failure Assessment/Plan: -case d/w Dr Casiano -CT scan showing hydronephrosis -hernandez to be placed and urology consult Code(s): N17.9 - ACUTE KIDNEY FAILURE, UNSPECIFIED Qualifiers: Acute renal failure type: unspecified Qualified Code(s): N17.9 - Acute kidney failure, unspecified (4) CKD stage 5 secondary to hypertension Assessment/Plan: -case d/w nephrology Code(s): I12.0 - HYP CHR KIDNEY DISEASE W STAGE 5 CHR KIDNEY DISEASE OR ESRD; N18.5 - CHRONIC KIDNEY DISEASE, STAGE 5 (5) Diabetes Assessment/Plan: -continue januvia and glipizide -continue SSI and diabetic diet -suspect elevation as antibiotics are in D5W Code(s): E11.9 - TYPE 2 DIABETES MELLITUS WITHOUT COMPLICATIONS Qualifiers: Diabetes mellitus type: type 2 Diabetes mellitus website admin insulin use: without website admin use Diabetes mellitus complication status: with unspecified complications Qualified Code(s): E11.8 - Type 2 diabetes mellitus with unspecified complications (6) HLD (hyperlipidemia) Assessment/Plan: -continue trilipix and statin Code(s): E78.5 - HYPERLIPIDEMIA, UNSPECIFIED (7) Hydronephrosis Assessment/Plan: -increased hydronephrosis -urology consult Code(s): N13.30 - UNSPECIFIED HYDRONEPHROSIS (8) Afib Assessment/Plan: -stable -increase coumadin as subtherapeutic Code(s): I48.91 - UNSPECIFIED ATRIAL FIBRILLATION Qualifiers: Atrial fibrillation type: chronic Qualified Code(s): I48.2 - Chronic atrial fibrillation
--- NOTE | 2017-10-17 13:13 | PN ---
Progress Note, Physician History of Present Illness: patient stable foleys inserted dirty urine present - Current Medication List Current Medications: Active Medications Acetaminophen (Tylenol -) 650 mg PO Q4H PRN PRN Reason: FEVER Last Admin: 10/14/17 06:33 Dose: 650 mg Amino Acids (Prosource No Carb Liquid Pkt) 30 ml PO BID@0800,1730 [facility] Last Admin: 10/17/17 08:56 Dose: 30 ml Artificial Tears (Artificial Tears) 1 drop OU BID [facility] Last Admin: 10/17/17 11:33 Dose: Not Given Atorvastatin Calcium (Lipitor -) 20 mg PO HS [facility] Last Admin: 10/16/17 21:35 Dose: 20 mg Cholecalciferol (Vitamin D3 -) 2,000 unit PO DAILY [facility] Last Admin: 10/17/17 09:40 Dose: 2,000 unit Citalopram Hydrobromide (Celexa -) 20 mg PO DAILY [facility] Last Admin: 10/17/17 09:40 Dose: 20 mg Docusate Sodium (Colace -) 100 mg PO BID [facility] Fenofibric Acid (Trilipix -) 135 mg PO DAILY [facility] Last Admin: 10/17/17 09:41 Dose: 135 mg Glipizide (Glucotrol Xl -) 2.5 mg PO DAILY@0700 [facility] Last Admin: 10/17/17 05:59 Dose: 2.5 mg Meropenem 1 gm/ Dextrose 100 mls @ 100 mls/hr IVPB BID [facility] Last Admin: 10/17/17 09:40 Dose: 100 mls/hr Sodium Chloride (Normal Saline -) 1,000 mls @ 75 mls/hr IV ASDIR [facility] Stop: 10/18/17 11:59 Insulin Aspart (Novolog Vial Sliding Scale -) 1 vial SQ ACHS [facility]; Protocol Last Admin: 10/17/17 11:31 Dose: 2 units Lactobacillus Acidophilus (Bacid -) 1 tab PO DAILY [facility] Last Admin: 10/17/17 09:40 Dose: 1 tab Magnesium Oxide (Mag-Ox -) 400 mg PO BID [facility] Last Admin: 10/17/17 09:40 Dose: 400 mg Multivitamins/Minerals/Vitamin C (Tab-A-Vit -) 1 tab PO DAILY [facility] Last Admin: 10/17/17 09:40 Dose: 1 tab Olanzapine (Zyprexa -) 5 mg PO DAILY@1700 [facility] Last Admin: 10/16/17 16:57 Dose: 5 mg Oxybutynin Chloride (Ditropan -) 5 mg PO BID [facility] Last Admin: 10/17/17 09:40 Dose: 5 mg Polyethylene Glycol (Miralax (For Daily Use) -) 17 gm PO BID [facility] Last Admin: 10/17/17 11:32 Dose: 17 grams Senna (Senna -) 1 tab PO BID [facility] Sitagliptin Phosphate (Januvia -) 25 mg PO DAILY@0700 [facility] Last Admin: 10/17/17 05:59 Dose: 25 mg Sodium Bicarbonate (Sodium Bicarbonate -) 650 mg PO DAILY [facility] Last Admin: 10/17/17 09:41 Dose: 650 mg Trazodone HCl (Desyrel -) 100 mg PO DAILY [facility] Last Admin: 10/17/17 09:40 Dose: 100 mg Warfarin Sodium (Coumadin -) 5 mg PO DAILY@1800 [facility] - Objective Vital Signs: Vital Signs Temperature 99.1 F 10/17/17 06:00 Pulse Rate 88 10/17/17 06:00 Respiratory Rate 18 10/17/17 06:00 Blood Pressure 137/65 10/17/17 06:00 O2 Sat by Pulse Oximetry (%) 96 10/16/17 21:00 Constitutional: Yes: No Distress, Calm Cardiovascular: Yes: Regular Rate and Rhythm Respiratory: Yes: Regular, CTA Bilaterally Gastrointestinal: Yes: Normal Bowel Sounds, Soft Genitourinary: Yes: Mccoy Present Musculoskeletal: Yes: WNL Extremities: Yes: WNL Neurological: Yes: Alert, Oriented Labs: CBC, BMP 10/17/17 06:30 10/17/17 06:30 INR, PTT INR 1.55 (0.83-1.09) H 10/17/17 06:30 - ....Imaging Cat Scan: Report Reviewed, Image Reviewed Assessment/Plan Problem List - Problems (1) Sepsis Code(s): A41.9 - SEPSIS, UNSPECIFIED ORGANISM (2) Urinary tract infection Code(s): N39.0 - URINARY TRACT INFECTION, SITE NOT SPECIFIED Qualifiers: Urinary tract infection type: site unspecified Hematuria presence: with hematuria Qualified Code(s): N39.0 - Urinary tract infection, site not specified; R31.9 - Hematuria, unspecified; R31.9 - Hematuria, unspecified (3) Elevated INR Code(s): R79.1 - ABNORMAL COAGULATION PROFILE (4) Diabetes Code(s): E11.9 - TYPE 2 DIABETES MELLITUS WITHOUT COMPLICATIONS Qualifiers: Diabetes mellitus type: type 2 Diabetes mellitus gas torch solderer insulin use: without gas torch solderer use Diabetes mellitus complication status: with unspecified complications Qualified Code(s): E11.8 - Type 2 diabetes mellitus with unspecified complications (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 Code(s): I12.0 - HYP CHR KIDNEY DISEASE W STAGE 5 CHR KIDNEY DISEASE OR ESRD; N18.5 - CHRONIC KIDNEY DISEASE, STAGE 5 (6) HLD (hyperlipidemia) Code(s): E78.5 - HYPERLIPIDEMIA, UNSPECIFIED (7) HTN (hypertension) Code(s): I10 - ESSENTIAL (PRIMARY) HYPERTENSION (8) Afib Code(s): I48.91 - UNSPECIFIED ATRIAL FIBRILLATION Qualifiers: Atrial fibrillation type: chronic Qualified Code(s): I48.2 - Chronic atrial fibrillation (9) Depression Code(s): F32.9 - MAJOR DEPRESSIVE DISORDER, SINGLE EPISODE, UNSPECIFIED repeat blood cx negative plan continue abx we will continue iv abx for now as per urology in couple of days will deescalate abx rest as per the team
--- NOTE | 2017-10-17 15:05 | PN ---
Progress Note (short form) - Note Progress Note: Renal follow up for BRYAN on CKD Pt seen and examined at the bedside no acute complaints denies any sob, CP, abd pain, N/V/D Vital Signs Temperature 98.9 F 10/17/17 14:20 Pulse Rate 80 10/17/17 14:20 Respiratory Rate 18 10/17/17 06:00 Blood Pressure 137/65 10/17/17 06:00 O2 Sat by Pulse Oximetry (%) 96 10/16/17 21:00 Intake & Output 10/14/17 10/15/17 10/16/17 10/17/17 23:59 23:59 23:59 23:59 Intake Total 2300 900 775 300 Balance 2300 900 775 300 Weight 88.904 kg 88.479 kg 87.713 kg 86.835 kg NAD awake and alert RRR, NO M/R CTA no rales or wheeze soft NT/ND no LE edema 66 year old woman with CKD, DM on insulin, Hypertension and hyperlipidemia admitted with Cysitis and Urosepsis with BRYAN. #BRYAN #CKD #Hx of b/l hydronephrosis #Sepsis/Cystitis #Anemia Renal function unchanged pt appears evolemic and is w/o hyperkalemia or overt acidosis CT shows b/l hydronephrosis will place a hernandez catheter Urology consult for possible intervention start trial of IVF x 24 hours continue Abx as per LALITHA Casiano DO
[2017-10-17] MEDS: SODIUM CHLORIDE 1,000 ML IV SCH (15:12)
[2017-10-17] MEDS: SENNOSIDES 8.6MG TABLET (FP) PO SCH ×2 (15:13→21:25)
[2017-10-17] MEDS: OLANZapine 5 MG TABLET PO SCH (17:17)
[2017-10-17] MEDS ORDERED: WARFARIN NA 5 MG TABLET (UD) PO SCH (18:00)
[2017-10-17] MEDS: ATORVASTATIN CA 20 MG TABLET (FP) PO SCH (21:24)
[2017-10-18] MEDS ORDERED: PT OWN MED DRAWER 7, Y5N ONE ×4 (06:01→22:05)
[2017-10-18] MEDS: SODIUM CHLORIDE 1,000 ML IV SCH (06:04)
[2017-10-18] MEDS: sitaGLIPtin PHOSPHATE 25 MG TABLET (FP) PO SCH (06:05)
[2017-10-18] MEDS: glipiZIDE-XL 2.5 MG TAB.ER.24 PO SCH (06:09)
[2017-10-18] MEDS: INSULIN SLIDING SCALE (NOVOLOG) 1 VIAL SQ SCH ×4 (06:10→22:10)
[2017-10-18 07:40] LABS: BASO % 0.4 % (0-2.0); EOS % 1.2 % (0-4.5); HEMOGLOBIN 8.2 GM/dL (10.7-15.3); MCH 32.9 pg (25.7-33.7); MCHC 34.2 g/dl (32.0-36.0); MEAN CELL VOLUME 96.4 fl (80-96); MONO % 3.4 % (3.8-10.2); PLATELET COUNT 274 K/MM3 (134-434); RBC 2.49 M/mm3 (3.60-5.2); RDW 14.1 % (11.6-15.6); WHITE BLOOD COUNT 9.7 K/mm3 (4.0-10.0)
[2017-10-18 08:00] LABS: INR 1.68 (0.83-1.09)
[2017-10-18 08:31] LABS: ANION GAP 9 (8-16); BLOOD UREA NITROGEN 77 mg/dL (7-18); CALCIUM 8.7 mg/dL (8.5-10.1); CHLORIDE 110 mmol/L (98-107); CO2 23 mmol/L (21-32); CREATININE 2.9 mg/dL (0.55-1.02); GLUCOSE,RANDOM 160 mg/dL (74-106); MAGNESIUM 2.8 mg/dL (1.8-2.4); PHOSPHOROUS 4.6 mg/dL (2.5-4.9); POTASSIUM 4.2 mmol/L (3.5-5.1); SODIUM 142 mmol/L (136-145)
[2017-10-18] MEDS: LACTOBACILLUS ACIDOPHILUS 1 TABLET PO SCH (09:15)
[2017-10-18] MEDS: CHOLECALCIFEROL (VITAMIN D3) 1,000 UNIT TABLET (FP) PO SCH (09:15)
[2017-10-18] MEDS: DOCUSATE SODIUM 100 MG CAPSULE (FP) PO SCH ×2 (09:15→22:09)
[2017-10-18] MEDS: SODIUM BICARBONATE 650 MG TABLET PO SCH (09:15)
[2017-10-18] MEDS: AMINO ACIDS/PROTEIN HYDROLYS 30 ML LIQUID.PKT PO SCH ×2 (09:15→18:19)
[2017-10-18] MEDS: MEROPENEM 1 GM in DEXTROSE 5%-WATER 100 ML IVPB SCH ×2 (09:15→22:08)
[2017-10-18] MEDS: traZODone HCL 50 MG TABLET (FP) PO SCH (09:15)
[2017-10-18] MEDS: OXYBUTYNIN CHLORIDE 5 MG TABLET PO SCH ×2 (09:15→22:08)
[2017-10-18] MEDS: SENNOSIDES 8.6MG TABLET (FP) PO SCH ×2 (09:15→22:08)
[2017-10-18] MEDS: MULTIVITAMINS (DAILY MVI) TABLET (FP) PO SCH (09:15)
[2017-10-18] MEDS: ARTIFICIAL TEARS (POLYVINYL ALCOHOL 1.4%) OPTH DROPS OU SCH ×2 (09:16→22:08)
[2017-10-18] MEDS: CITALOPRAM HYDROBROMIDE 20 MG TABLET (FP) PO SCH (09:16)
[2017-10-18] MEDS: POLYETHYLENE GLYCOL 3350 119 GM BTL PO SCH ×2 (09:16→22:09)
[2017-10-18] MEDS: MAGNESIUM OXIDE 400 MG TABLET (FP) PO SCH ×2 (09:16→22:08)
[2017-10-18] MEDS: FENOFIBRIC ACID 135 MG CAP PO SCH (09:17)
--- NOTE | 2017-10-18 11:12 | PN ---
Progress Note, Physician Chief Complaint: Ms Mckeon is without complaint. Denies cp, sob, n/v. - Current Medication List Current Medications: Active Medications Acetaminophen (Tylenol -) 650 mg PO Q4H PRN PRN Reason: FEVER Last Admin: 10/14/17 06:33 Dose: 650 mg Amino Acids (Prosource No Carb Liquid Pkt) 30 ml PO BID@0800,1730 [facility] Last Admin: 10/18/17 09:15 Dose: 30 ml Artificial Tears (Artificial Tears) 1 drop OU BID [facility] Last Admin: 10/18/17 09:16 Dose: Not Given Atorvastatin Calcium (Lipitor -) 20 mg PO HS [facility] Last Admin: 10/17/17 21:24 Dose: 20 mg Cholecalciferol (Vitamin D3 -) 2,000 unit PO DAILY [facility] Last Admin: 10/18/17 09:15 Dose: 2,000 unit Citalopram Hydrobromide (Celexa -) 20 mg PO DAILY [facility] Last Admin: 10/18/17 09:16 Dose: 20 mg Docusate Sodium (Colace -) 100 mg PO BID [facility] Last Admin: 10/18/17 09:15 Dose: 100 mg Fenofibric Acid (Trilipix -) 135 mg PO DAILY [facility] Last Admin: 10/18/17 09:17 Dose: 135 mg Glipizide (Glucotrol Xl -) 2.5 mg PO DAILY@0700 [facility] Last Admin: 10/18/17 06:09 Dose: 2.5 mg Meropenem 1 gm/ Dextrose 100 mls @ 100 mls/hr IVPB BID [facility] Last Admin: 10/18/17 09:15 Dose: 100 mls/hr Sodium Chloride (Normal Saline -) 1,000 mls @ 75 mls/hr IV ASDIR [facility] Stop: 10/18/17 11:59 Last Admin: 10/18/17 06:04 Dose: 75 mls/hr Insulin Aspart (Novolog Vial Sliding Scale -) 1 vial SQ ACHS [facility]; Protocol Last Admin: 10/18/17 06:10 Dose: Not Given Lactobacillus Acidophilus (Bacid -) 1 tab PO DAILY [facility] Last Admin: 10/18/17 09:15 Dose: 1 tab Magnesium Oxide (Mag-Ox -) 400 mg PO BID [facility] Last Admin: 10/18/17 09:16 Dose: 400 mg Multivitamins/Minerals/Vitamin C (Tab-A-Vit -) 1 tab PO DAILY [facility] Last Admin: 10/18/17 09:15 Dose: 1 tab Olanzapine (Zyprexa -) 5 mg PO DAILY@1700 [facility] Last Admin: 10/17/17 17:17 Dose: 5 mg Oxybutynin Chloride (Ditropan -) 5 mg PO BID [facility] Last Admin: 10/18/17 09:15 Dose: 5 mg Polyethylene Glycol (Miralax (For Daily Use) -) 17 gm PO BID [facility] Last Admin: 10/18/17 09:16 Dose: 17 grams Senna (Senna -) 1 tab PO BID [facility] Last Admin: 10/18/17 09:15 Dose: 1 tab Sitagliptin Phosphate (Januvia -) 25 mg PO DAILY@0700 [facility] Last Admin: 10/18/17 06:05 Dose: 25 mg Sodium Bicarbonate (Sodium Bicarbonate -) 650 mg PO DAILY [facility] Last Admin: 10/18/17 09:15 Dose: 650 mg Trazodone HCl (Desyrel -) 100 mg PO DAILY [facility] Last Admin: 10/18/17 09:15 Dose: 100 mg - Objective Vital Signs: Vital Signs Temperature 36.8 C 10/18/17 06:01 Pulse Rate 84 10/18/17 06:01 Respiratory Rate 20 10/18/17 06:01 Blood Pressure 125/63 10/18/17 06:01 O2 Sat by Pulse Oximetry (%) 96 10/17/17 21:00 Constitutional: Yes: No Distress, Calm, Obese Cardiovascular: Yes: Regular Rate and Rhythm. No: Gallop, Murmur, Rub Respiratory: Yes: Regular, CTA Bilaterally. No: Rales, Rhonchi, Wheezes Gastrointestinal: Yes: Normal Bowel Sounds, Soft. No: Distention, Tenderness Extremities: Yes: WNL Edema: No Labs: CBC, BMP 10/18/17 06:57 10/18/17 06:57 INR, PTT INR 1.68 (0.83-1.09) H 10/18/17 06:57 Problem List - Problems (1) Sepsis Code(s): A41.9 - SEPSIS, UNSPECIFIED ORGANISM (2) Urinary tract infection Code(s): N39.0 - URINARY TRACT INFECTION, SITE NOT SPECIFIED Qualifiers: Urinary tract infection type: site unspecified Hematuria presence: without hematuria Qualified Code(s): N39.0 - Urinary tract infection, site not specified (3) Acute renal failure Code(s): N17.9 - ACUTE KIDNEY FAILURE, UNSPECIFIED Qualifiers: Acute renal failure type: unspecified Qualified Code(s): N17.9 - Acute kidney failure, unspecified (4) CKD stage 5 secondary to hypertension Code(s): I12.0 - HYP CHR KIDNEY DISEASE W STAGE 5 CHR KIDNEY DISEASE OR ESRD; N18.5 - CHRONIC KIDNEY DISEASE, STAGE 5 (5) Diabetes Code(s): E11.9 - TYPE 2 DIABETES MELLITUS WITHOUT COMPLICATIONS Qualifiers: Diabetes mellitus type: type 2 Diabetes mellitus intermediate school teacher insulin use: without intermediate school teacher use Diabetes mellitus complication status: with unspecified complications Qualified Code(s): E11.8 - Type 2 diabetes mellitus with unspecified complications (6) HLD (hyperlipidemia) Code(s): E78.5 - HYPERLIPIDEMIA, UNSPECIFIED (7) Hydronephrosis Code(s): N13.30 - UNSPECIFIED HYDRONEPHROSIS (8) Afib Code(s): I48.91 - UNSPECIFIED ATRIAL FIBRILLATION Qualifiers: Atrial fibrillation type: chronic Qualified Code(s): I48.2 - Chronic atrial fibrillation Assessment/Plan (1) Sepsis Assessment/Plan: -continue merrem currently -most recent BC are NGTD -ID following Code(s): A41.9 - SEPSIS, UNSPECIFIED ORGANISM (2) Urinary tract infection Assessment/Plan: -growing e coli -continue merrem per ID Code(s): N39.0 - URINARY TRACT INFECTION, SITE NOT SPECIFIED Qualifiers: Urinary tract infection type: site unspecified Hematuria presence: without hematuria Qualified Code(s): N39.0 - Urinary tract infection, site not specified (3) Acute renal failure Assessment/Plan: -case d/w Dr Casiano -hernandez placed and draining urine -agree with renal ultrasound tomorrow Code(s): N17.9 - ACUTE KIDNEY FAILURE, UNSPECIFIED Qualifiers: Acute renal failure type: unspecified Qualified Code(s): N17.9 - Acute kidney failure, unspecified (4) CKD stage 5 secondary to hypertension Assessment/Plan: -case d/w nephrology -stable Code(s): I12.0 - HYP CHR KIDNEY DISEASE W STAGE 5 CHR KIDNEY DISEASE OR ESRD; N18.5 - CHRONIC KIDNEY DISEASE, STAGE 5 (5) Diabetes Assessment/Plan: -continue januvia and glipizide -continue SSI and diabetic diet -suspect elevation as antibiotics are in D5W Code(s): E11.9 - TYPE 2 DIABETES MELLITUS WITHOUT COMPLICATIONS Qualifiers: Diabetes mellitus type: type 2 Diabetes mellitus retirement insulin use: without retirement use Diabetes mellitus complication status: with unspecified complications Qualified Code(s): E11.8 - Type 2 diabetes mellitus with unspecified complications (6) HLD (hyperlipidemia) Assessment/Plan: -continue trilipix and statin Code(s): E78.5 - HYPERLIPIDEMIA, UNSPECIFIED (7) Hydronephrosis Assessment/Plan: -increased hydronephrosis -urology consulted Code(s): N13.30 - UNSPECIFIED HYDRONEPHROSIS (8) Afib Assessment/Plan: -stable -increase coumadin to 7.5mg today to reach therapeutic levels -once therapeutic place back on outpatient dose Code(s): I48.91 - UNSPECIFIED ATRIAL FIBRILLATION Qualifiers: Atrial fibrillation type: chronic Qualified Code(s): I48.2 - Chronic atrial fibrillation
[2017-10-18 11:18] LABS: ANISOCYTOSIS 0; MACROCYTOSIS 1+
[2017-10-18 12:24] LABS: PLATELET ESTIMATE ADEQUATE
--- NOTE | 2017-10-18 13:22 | PN ---
Progress Note, Physician - Current Medication List Current Medications: Active Medications Acetaminophen (Tylenol -) 650 mg PO Q4H PRN PRN Reason: FEVER Last Admin: 10/14/17 06:33 Dose: 650 mg Amino Acids (Prosource No Carb Liquid Pkt) 30 ml PO BID@0800,1730 [facility] Last Admin: 10/18/17 09:15 Dose: 30 ml Artificial Tears (Artificial Tears) 1 drop OU BID [facility] Last Admin: 10/18/17 09:16 Dose: Not Given Atorvastatin Calcium (Lipitor -) 20 mg PO HS [facility] Last Admin: 10/17/17 21:24 Dose: 20 mg Cholecalciferol (Vitamin D3 -) 2,000 unit PO DAILY [facility] Last Admin: 10/18/17 09:15 Dose: 2,000 unit Citalopram Hydrobromide (Celexa -) 20 mg PO DAILY [facility] Last Admin: 10/18/17 09:16 Dose: 20 mg Docusate Sodium (Colace -) 100 mg PO BID [facility] Last Admin: 10/18/17 09:15 Dose: 100 mg Fenofibric Acid (Trilipix -) 135 mg PO DAILY [facility] Last Admin: 10/18/17 09:17 Dose: 135 mg Glipizide (Glucotrol Xl -) 2.5 mg PO DAILY@0700 [facility] Last Admin: 10/18/17 06:09 Dose: 2.5 mg Meropenem 1 gm/ Dextrose 100 mls @ 100 mls/hr IVPB BID [facility] Last Admin: 10/18/17 09:15 Dose: 100 mls/hr Insulin Aspart (Novolog Vial Sliding Scale -) 1 vial SQ ACHS [facility]; Protocol Last Admin: 10/18/17 12:02 Dose: 2 units Lactobacillus Acidophilus (Bacid -) 1 tab PO DAILY [facility] Last Admin: 10/18/17 09:15 Dose: 1 tab Magnesium Oxide (Mag-Ox -) 400 mg PO BID [facility] Last Admin: 10/18/17 09:16 Dose: 400 mg Multivitamins/Minerals/Vitamin C (Tab-A-Vit -) 1 tab PO DAILY [facility] Last Admin: 10/18/17 09:15 Dose: 1 tab Olanzapine (Zyprexa -) 5 mg PO DAILY@1700 [facility] Last Admin: 10/17/17 17:17 Dose: 5 mg Oxybutynin Chloride (Ditropan -) 5 mg PO BID [facility] Last Admin: 10/18/17 09:15 Dose: 5 mg Polyethylene Glycol (Miralax (For Daily Use) -) 17 gm PO BID [facility] Last Admin: 10/18/17 09:16 Dose: 17 grams Senna (Senna -) 1 tab PO BID [facility] Last Admin: 10/18/17 09:15 Dose: 1 tab Sitagliptin Phosphate (Januvia -) 25 mg PO DAILY@0700 [facility] Last Admin: 10/18/17 06:05 Dose: 25 mg Sodium Bicarbonate (Sodium Bicarbonate -) 650 mg PO DAILY [facility] Last Admin: 10/18/17 09:15 Dose: 650 mg Trazodone HCl (Desyrel -) 100 mg PO DAILY [facility] Last Admin: 10/18/17 09:15 Dose: 100 mg Warfarin Sodium (Coumadin -) 7.5 mg PO DAILY@1800 [facility] - Objective Vital Signs: Vital Signs Temperature 98.2 F 10/18/17 06:01 Pulse Rate 84 10/18/17 06:01 Respiratory Rate 20 10/18/17 06:01 Blood Pressure 125/63 10/18/17 06:01 O2 Sat by Pulse Oximetry (%) 96 10/17/17 21:00 Labs: CBC, BMP 10/18/17 06:57 10/18/17 06:57 INR, PTT INR 1.68 (0.83-1.09) H 10/18/17 06:57
--- NOTE | 2017-10-18 13:49 | PN ---
Progress Note (short form) - Note Progress Note: Renal follow up for BRYAN on CKD Pt seen and examined at the bedside no acute complaints making urine via hernandez no CP, Abd pain, N/V Vital Signs Temperature 98.9 F 10/17/17 14:20 Pulse Rate 80 10/17/17 14:20 Respiratory Rate 18 10/17/17 06:00 Blood Pressure 137/65 10/17/17 06:00 O2 Sat by Pulse Oximetry (%) 96 10/16/17 21:00 Intake & Output 10/14/17 10/15/17 10/16/17 10/17/17 23:59 23:59 23:59 23:59 Intake Total 2300 900 775 300 Balance 2300 900 775 300 Weight 88.904 kg 88.479 kg 87.713 kg 86.835 kg NAD awake and alert RRR, NO M/R CTA no rales or wheeze soft NT/ND no LE edema CBC, BMP 10/18/17 06:57 10/18/17 06:57 Current Medications Acetaminophen (Tylenol -) 650 mg PO Q4H PRN PRN Reason: FEVER Last Admin: 10/14/17 06:33 Dose: 650 mg Amino Acids (Prosource No Carb Liquid Pkt) 30 ml PO BID@0800,1730 [facility] Last Admin: 10/18/17 09:15 Dose: 30 ml Artificial Tears (Artificial Tears) 1 drop OU BID [facility] Last Admin: 10/18/17 09:16 Dose: Not Given Atorvastatin Calcium (Lipitor -) 20 mg PO HS [facility] Last Admin: 10/17/17 21:24 Dose: 20 mg Cholecalciferol (Vitamin D3 -) 2,000 unit PO DAILY [facility] Last Admin: 10/18/17 09:15 Dose: 2,000 unit Citalopram Hydrobromide (Celexa -) 20 mg PO DAILY [facility] Last Admin: 10/18/17 09:16 Dose: 20 mg Docusate Sodium (Colace -) 100 mg PO BID [facility] Last Admin: 10/18/17 09:15 Dose: 100 mg Fenofibric Acid (Trilipix -) 135 mg PO DAILY [facility] Last Admin: 10/18/17 09:17 Dose: 135 mg Glipizide (Glucotrol Xl -) 2.5 mg PO DAILY@0700 [facility] Last Admin: 10/18/17 06:09 Dose: 2.5 mg Meropenem 1 gm/ Dextrose 100 mls @ 100 mls/hr IVPB BID [facility] Last Admin: 10/18/17 09:15 Dose: 100 mls/hr Insulin Aspart (Novolog Vial Sliding Scale -) 1 vial SQ ACHS [facility]; Protocol Last Admin: 10/18/17 12:02 Dose: 2 units Lactobacillus Acidophilus (Bacid -) 1 tab PO DAILY [facility] Last Admin: 10/18/17 09:15 Dose: 1 tab Magnesium Oxide (Mag-Ox -) 400 mg PO BID [facility] Last Admin: 10/18/17 09:16 Dose: 400 mg Multivitamins/Minerals/Vitamin C (Tab-A-Vit -) 1 tab PO DAILY [facility] Last Admin: 10/18/17 09:15 Dose: 1 tab Olanzapine (Zyprexa -) 5 mg PO DAILY@1700 [facility] Last Admin: 10/17/17 17:17 Dose: 5 mg Oxybutynin Chloride (Ditropan -) 5 mg PO BID [facility] Last Admin: 10/18/17 09:15 Dose: 5 mg Polyethylene Glycol (Miralax (For Daily Use) -) 17 gm PO BID [facility] Last Admin: 10/18/17 09:16 Dose: 17 grams Senna (Senna -) 1 tab PO BID [facility] Last Admin: 10/18/17 09:15 Dose: 1 tab Sitagliptin Phosphate (Januvia -) 25 mg PO DAILY@0700 [facility] Last Admin: 10/18/17 06:05 Dose: 25 mg Sodium Bicarbonate (Sodium Bicarbonate -) 650 mg PO DAILY [facility] Last Admin: 10/18/17 09:15 Dose: 650 mg Trazodone HCl (Desyrel -) 100 mg PO DAILY [facility] Last Admin: 10/18/17 09:15 Dose: 100 mg Warfarin Sodium (Coumadin -) 7.5 mg PO DAILY@1800 [facility] 66 year old woman with CKD, DM on insulin, Hypertension and hyperlipidemia admitted with Cysitis and Urosepsis with BRYAN. #BRYAN #CKD #Hx of b/l hydronephrosis #Sepsis/Cystitis #Anemia Renal function unchanged pt appears evolemic and is w/o hyperkalemia or overt acidosis hernandez in place with good urine output will check US of the kidney tomorrow to access for any change in hydronephrosis continue Abx as per ID trend renal function and electrolytes Robert Casiano DO
--- NOTE | 2017-10-18 17:15 | CON.GU ---
Consult Consult Specialty:: Referred by:: medicine Reason for Consultation:: hydronephrosis and urge incontinence - History of Present Illness Chief Complaint: hydronephrosis and urge incontinence History of Present Illness: 66 year old NHR female with UUI and hydro. She has a neurogenic bladder with reflux and UTIs. She had a CT scan with unilateral hydronephrosis without a stone. hernandez was placed. - History Source History Provided By: Medical Record Limitations to Obtaining History: Dementia - Past Medical History Cardio/Vascular: Yes: AFIB Gastrointestinal: No: Constipation, GI Bleed Renal/: Yes: Hematuria Psych: Yes: Depression, Other (Unspecified Psychiatric Disorder) Musculoskeletal: Yes: Osteoarthritis Endocrine: Yes: Diabetes Mellitus - Past Surgical History Past Surgical History: Yes: None - Alcohol/Substance Use Hx Alcohol Use: No History of Substance Use: reports: None - Smoking History Smoking history: Never smoked Have you smoked in the past 12 months: No Aproximately how many cigarettes per day: 0 - Social History Usual Living Arrangement: Jail ADL: Family Assistance 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 Home Medications - Allergies Allergies/Adverse Reactions: Allergies Allergy/AdvReac Type Severity Reaction Status Date / Time Sulfa (Sulfonamide Allergy Unknown Verified 10/13/17 16:24 Antibiotics) Penicillins Allergy Verified 10/13/17 16:24 - Home Medications Home Medications: Ambulatory Orders Atorvastatin Ca [Lipitor] 20 mg PO HS 04/11/15 Acetaminophen [Tylenol] 650 mg PO PRN 08/07/16 Docusate Sodium [Colace -] 100 mg PO DAILY 08/07/16 Insulin Sliding Scale [Novolog Vial Sliding Scale -] 0 units SQ TIDAC 08/07/16 Oxybutynin Chloride 5 mg PO BID 08/07/16 Warfarin Sodium [Coumadin] 3 mg PO HS 08/07/16 traZODone HCL [Trazodone HCl] 100 mg PO DAILY 08/07/16 Lactobacillus Acidophilus [Bacid -] 1 each PO DAILY 09/14/16 Lofibra 160 mg PO DAILY 09/14/16 Magnesium Oxide 400 mg PO BID 09/14/16 Citalopram Hydrobromide [Citalopram HBr] 20 mg PO DAILY 05/05/17 Ergocalciferol (Vitamin D2) [Vitamin D2] 2,000 unit PO DAILY 05/05/17 Glipizide [Glipizide ER] 2.5 mg PO DAILY 05/05/17 Insulin Glargine,Hum.rec.anlog [Lantus (10mL VIAL) -] units SQ HS 05/05/17 Olanzapine 5 mg PO DAILY@1700 05/05/17 Polyvinyl Alcohol [Artificial Tears] 1 drop OU BID 05/05/17 Saxagliptin HCl [Onglyza] 2.5 mg PO DAILY 05/05/17 Amino Acids/Protein Hydrolys [Prosource No Carb Liquid Pkt] 30 ml PO BID@0800, 1730 packet 05/15/17 Enoxaparin [Lovenox -] 70 mg SQ DAILY #30 disp.syrin 05/15/17 Multivitamins [Multivit ([facility] Formul[facility])] 1 tab PO DAILY tab 05/15/17 Polyethylene Glycol 3350 [Miralax 119 gm Btl -] 17 gm PO BID bottle 05/15/17 Sodium Bicarbonate - 650 mg PO DAILY #30 tablet 05/15/17 Warfarin Na [Coumadin -] 3 mg PO DAILY@1800 tablet 05/15/17 Family Disease History - Family Disease History Family Disease History: Diabetes: Grandparent (Grandmother), Other: Father ( , unknown cause), Mother (, unknown cause) Review of Systems - Review of Systems Genitourinary: reports: Frequency, Incontinence Physical Exam- Vital Signs: Vital Signs Temperature 98.0 F 10/18/17 15:26 Pulse Rate 86 10/18/17 15:26 Respiratory Rate 20 10/18/17 09:00 Blood Pressure 116/57 10/18/17 09:00 O2 Sat by Pulse Oximetry (%) 96 10/18/17 09:00 Renal/: Yes: Hernandez Present. No: CVA Tenderness - Left, CVA Tenderness - Right , Hematuria, Incontinence Labs: CBC, BMP 10/18/17 06:57 10/18/17 06:57 Imaging - Results Cat Scan: Report Reviewed Problem List - Problems (1) Neurogenic bladder Assessment/Plan: neurogenic bladder with resultant reflux with hydro and UTI. continue the hernandez until infection is cleared. Code(s): N31.9 - NEUROMUSCULAR DYSFUNCTION OF BLADDER, UNSPECIFIED
[2017-10-18] MEDS: OLANZapine 5 MG TABLET PO SCH (18:19)
[2017-10-18] MEDS: WARFARIN NA 7.5 MG TABLET (FP) PO SCH (18:20)
[2017-10-18] MEDS ORDERED: INSULIN (NOVOLOG) ASPART 100 UNITS/ML 10ML VIAL ONE ×2 (18:37→18:56)
[2017-10-18] MEDS: ATORVASTATIN CA 20 MG TABLET (FP) PO SCH (22:08)
[2017-10-19] MEDS: glipiZIDE-XL 2.5 MG TAB.ER.24 PO SCH (06:17)
[2017-10-19] MEDS: sitaGLIPtin PHOSPHATE 25 MG TABLET (FP) PO SCH (06:17)
[2017-10-19] MEDS: INSULIN SLIDING SCALE (NOVOLOG) 1 VIAL SQ SCH ×4 (06:18→22:07)
[2017-10-19 08:11] LABS: BASO % 0.4 % (0-2.0); EOS % 1.4 % (0-4.5); HEMOGLOBIN 8.5 GM/dL (10.7-15.3); LYMPH % 48.8 % (8-40); MCH 33.1 pg (25.7-33.7); MCHC 34.2 g/dl (32.0-36.0); MEAN CELL VOLUME 96.7 fl (80-96); MEAN PLT VOLUME 8.3 fl (7.5-11.1); MONO % 3.2 % (3.8-10.2); NEUT % 46.2 % (42.8-82.8); PLATELET COUNT 299 K/MM3 (134-434); RBC 2.58 M/mm3 (3.60-5.2); WHITE BLOOD COUNT 10.2 K/mm3 (4.0-10.0)
[2017-10-19 08:33] LABS: ANION GAP 9 (8-16); BLOOD UREA NITROGEN 69 mg/dL (7-18); CALCIUM 8.6 mg/dL (8.5-10.1); CHLORIDE 110 mmol/L (98-107); CO2 24 mmol/L (21-32); CREATININE 2.6 mg/dL (0.55-1.02); GLUCOSE,RANDOM 165 mg/dL (74-106); MAGNESIUM 2.9 mg/dL (1.8-2.4); POTASSIUM 4.4 mmol/L (3.5-5.1); SODIUM 143 mmol/L (136-145)
[2017-10-19 08:35] LABS: INR 2.12 (0.83-1.09)
[2017-10-19] MEDS: AMINO ACIDS/PROTEIN HYDROLYS 30 ML LIQUID.PKT PO SCH ×2 (08:58→17:22)
--- NOTE | 2017-10-19 09:11 | PN ---
Progress Note, Physician History of Present Illness: patient stable no new issues urology note noted - Current Medication List Current Medications: Active Medications Acetaminophen (Tylenol -) 650 mg PO Q4H PRN PRN Reason: FEVER Last Admin: 10/14/17 06:33 Dose: 650 mg Amino Acids (Prosource No Carb Liquid Pkt) 30 ml PO BID@0800,1730 [facility] Last Admin: 10/18/17 18:19 Dose: 30 ml Artificial Tears (Artificial Tears) 1 drop OU BID [facility] Last Admin: 10/18/17 22:08 Dose: 1 drop Atorvastatin Calcium (Lipitor -) 20 mg PO HS [facility] Last Admin: 10/18/17 22:08 Dose: 20 mg Cholecalciferol (Vitamin D3 -) 2,000 unit PO DAILY [facility] Last Admin: 10/18/17 09:15 Dose: 2,000 unit Citalopram Hydrobromide (Celexa -) 20 mg PO DAILY [facility] Last Admin: 10/18/17 09:16 Dose: 20 mg Docusate Sodium (Colace -) 100 mg PO BID [facility] Last Admin: 10/18/17 22:09 Dose: 100 mg Fenofibric Acid (Trilipix -) 135 mg PO DAILY [facility] Last Admin: 10/18/17 09:17 Dose: 135 mg Glipizide (Glucotrol Xl -) 2.5 mg PO DAILY@0700 [facility] Last Admin: 10/19/17 06:17 Dose: 2.5 mg Meropenem 1 gm/ Dextrose 100 mls @ 100 mls/hr IVPB BID [facility] Last Admin: 10/18/17 22:08 Dose: 100 mls/hr Insulin Aspart (Novolog Vial Sliding Scale -) 1 vial SQ ACHS [facility]; Protocol Last Admin: 10/19/17 06:18 Dose: Not Given Lactobacillus Acidophilus (Bacid -) 1 tab PO DAILY [facility] Last Admin: 10/18/17 09:15 Dose: 1 tab Magnesium Oxide (Mag-Ox -) 400 mg PO BID [facility] Last Admin: 10/18/17 22:08 Dose: 400 mg Multivitamins/Minerals/Vitamin C (Tab-A-Vit -) 1 tab PO DAILY [facility] Last Admin: 10/18/17 09:15 Dose: 1 tab Olanzapine (Zyprexa -) 5 mg PO DAILY@1700 [facility] Last Admin: 10/18/17 18:19 Dose: 5 mg Oxybutynin Chloride (Ditropan -) 5 mg PO BID [facility] Last Admin: 10/18/17 22:08 Dose: 5 mg Polyethylene Glycol (Miralax (For Daily Use) -) 17 gm PO BID [facility] Last Admin: 10/18/17 22:09 Dose: 17 grams Senna (Senna -) 1 tab PO BID [facility] Last Admin: 10/18/17 22:08 Dose: 1 tab Sitagliptin Phosphate (Januvia -) 25 mg PO DAILY@0700 [facility] Last Admin: 10/19/17 06:17 Dose: 25 mg Sodium Bicarbonate (Sodium Bicarbonate -) 650 mg PO DAILY [facility] Last Admin: 10/18/17 09:15 Dose: 650 mg Trazodone HCl (Desyrel -) 100 mg PO DAILY [facility] Last Admin: 10/18/17 09:15 Dose: 100 mg Warfarin Sodium (Coumadin -) 7.5 mg PO DAILY@1800 [facility] Last Admin: 10/18/17 18:20 Dose: 7.5 mg - Objective Vital Signs: Vital Signs Temperature 97.4 F L 10/19/17 06:30 Pulse Rate 71 10/19/17 06:30 Respiratory Rate 18 10/19/17 06:30 Blood Pressure 133/66 10/19/17 06:30 O2 Sat by Pulse Oximetry (%) 96 10/18/17 22:00 Constitutional: Yes: No Distress, Calm Cardiovascular: Yes: Regular Rate and Rhythm Respiratory: Yes: Regular, CTA Bilaterally Gastrointestinal: Yes: Normal Bowel Sounds, Soft Genitourinary: Yes: Mccoy Present Musculoskeletal: Yes: WNL Extremities: Yes: WNL Neurological: Yes: Alert, Oriented Psychiatric: Yes: Alert, Oriented Labs: CBC, BMP 10/19/17 07:14 10/19/17 07:14 INR, PTT INR 2.12 (0.83-1.09) H 10/19/17 07:14 Assessment/Plan Problem List - Problems (1) Sepsis Code(s): A41.9 - SEPSIS, UNSPECIFIED ORGANISM (2) Urinary tract infection Code(s): N39.0 - URINARY TRACT INFECTION, SITE NOT SPECIFIED Qualifiers: Urinary tract infection type: site unspecified Hematuria presence: with hematuria Qualified Code(s): N39.0 - Urinary tract infection, site not specified; R31.9 - Hematuria, unspecified; R31.9 - Hematuria, unspecified (3) Elevated INR Code(s): R79.1 - ABNORMAL COAGULATION PROFILE (4) Diabetes Code(s): E11.9 - TYPE 2 DIABETES MELLITUS WITHOUT COMPLICATIONS Qualifiers: Diabetes mellitus type: type 2 Diabetes mellitus nursing home insulin use: without moth exterminator use Diabetes mellitus complication status: with unspecified complications Qualified Code(s): E11.8 - Type 2 diabetes mellitus with unspecified complications (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 Code(s): I12.0 - HYP CHR KIDNEY DISEASE W STAGE 5 CHR KIDNEY DISEASE OR ESRD; N18.5 - CHRONIC KIDNEY DISEASE, STAGE 5 (6) HLD (hyperlipidemia) Code(s): E78.5 - HYPERLIPIDEMIA, UNSPECIFIED (7) HTN (hypertension) Code(s): I10 - ESSENTIAL (PRIMARY) HYPERTENSION (8) Afib Code(s): I48.91 - UNSPECIFIED ATRIAL FIBRILLATION Qualifiers: Atrial fibrillation type: chronic Qualified Code(s): I48.2 - Chronic atrial fibrillation (9) Depression Code(s): F32.9 - MAJOR DEPRESSIVE DISORDER, SINGLE EPISODE, UNSPECIFIED repeat blood cx negative plan continue abx can stop abx after todays dose rest continue current mgmt patient stable
[2017-10-19] MEDS ORDERED: PT OWN MED DRAWER 7, Y5N ONE ×2 (09:53→17:19)
[2017-10-19] MEDS: LACTOBACILLUS ACIDOPHILUS 1 TABLET PO SCH (09:58)
[2017-10-19] MEDS: CHOLECALCIFEROL (VITAMIN D3) 1,000 UNIT TABLET (FP) PO SCH (09:58)
[2017-10-19] MEDS: SODIUM BICARBONATE 650 MG TABLET PO SCH (09:58)
[2017-10-19] MEDS: SENNOSIDES 8.6MG TABLET (FP) PO SCH ×2 (09:58→22:06)
[2017-10-19] MEDS: DOCUSATE SODIUM 100 MG CAPSULE (FP) PO SCH ×2 (09:58→22:06)
[2017-10-19] MEDS: OXYBUTYNIN CHLORIDE 5 MG TABLET PO SCH ×2 (09:58→22:06)
[2017-10-19] MEDS: CITALOPRAM HYDROBROMIDE 20 MG TABLET (FP) PO SCH (09:58)
[2017-10-19] MEDS: MAGNESIUM OXIDE 400 MG TABLET (FP) PO SCH ×2 (09:58→22:06)
[2017-10-19] MEDS: traZODone HCL 50 MG TABLET (FP) PO SCH (09:58)
[2017-10-19] MEDS: MULTIVITAMINS (DAILY MVI) TABLET (FP) PO SCH (09:58)
[2017-10-19] MEDS: FENOFIBRIC ACID 135 MG CAP PO SCH (09:59)
[2017-10-19] MEDS: MEROPENEM 1 GM in DEXTROSE 5%-WATER 100 ML IVPB SCH ×2 (09:59→22:09)
[2017-10-19] MEDS: POLYETHYLENE GLYCOL 3350 119 GM BTL PO SCH ×2 (10:01→22:09)
[2017-10-19] MEDS: ARTIFICIAL TEARS (POLYVINYL ALCOHOL 1.4%) OPTH DROPS OU SCH ×2 (10:03→22:00)
[2017-10-19 12:01] LABS: ANISOCYTOSIS 2+; MACROCYTOSIS 0; PLATELET ESTIMATE NORMAL
[2017-10-19 12:52] VITALS: BMI 30.9
--- NOTE | 2017-10-19 14:22 | PN ---
Progress Note (short form) - Note Progress Note: Renal follow up for BRYAN on CKD Pt seen and examined at the bedside no acute complaints Vital Signs Temperature 98.7 F 10/19/17 13:46 Pulse Rate 76 10/19/17 13:46 Respiratory Rate 20 10/19/17 13:46 Blood Pressure 123/73 10/19/17 13:46 O2 Sat by Pulse Oximetry (%) 96 10/19/17 09:00 Intake & Output 10/16/17 10/17/17 10/18/17 10/19/17 23:59 23:59 23:59 23:59 Intake Total 775 1600 2575 550 Output Total 2400 2200 1500 Balance 775 -800 375 -950 Weight 87.713 kg 86.835 kg 86.863 kg 87.09 kg NAD awake and alert RRR, NO M/R CTA no rales or wheeze soft NT/ND no LE edema CBC, BMP 10/19/17 07:14 10/19/17 07:14 Current Medications Acetaminophen (Tylenol -) 650 mg PO Q4H PRN PRN Reason: FEVER Last Admin: 10/14/17 06:33 Dose: 650 mg Amino Acids (Prosource No Carb Liquid Pkt) 30 ml PO BID@0800,1730 [facility] Last Admin: 10/19/17 08:58 Dose: 30 ml Artificial Tears (Artificial Tears) 1 drop OU BID [facility] Last Admin: 10/19/17 10:03 Dose: 1 drop Atorvastatin Calcium (Lipitor -) 20 mg PO HS [facility] Last Admin: 10/18/17 22:08 Dose: 20 mg Cholecalciferol (Vitamin D3 -) 2,000 unit PO DAILY [facility] Last Admin: 10/19/17 09:58 Dose: 2,000 unit Citalopram Hydrobromide (Celexa -) 20 mg PO DAILY [facility] Last Admin: 10/19/17 09:58 Dose: 20 mg Docusate Sodium (Colace -) 100 mg PO BID [facility] Last Admin: 10/19/17 09:58 Dose: 100 mg Fenofibric Acid (Trilipix -) 135 mg PO DAILY [facility] Last Admin: 10/19/17 09:59 Dose: 135 mg Glipizide (Glucotrol Xl -) 2.5 mg PO DAILY@0700 [facility] Last Admin: 10/19/17 06:17 Dose: 2.5 mg Meropenem 1 gm/ Dextrose 100 mls @ 100 mls/hr IVPB BID [facility] Stop: 10/19/17 23:59 Last Admin: 10/19/17 09:59 Dose: 100 mls/hr Insulin Aspart (Novolog Vial Sliding Scale -) 1 vial SQ ACHS [facility]; Protocol Last Admin: 10/19/17 12:06 Dose: Not Given Lactobacillus Acidophilus (Bacid -) 1 tab PO DAILY [facility] Last Admin: 10/19/17 09:58 Dose: 1 tab Magnesium Oxide (Mag-Ox -) 400 mg PO BID [facility] Last Admin: 10/19/17 09:58 Dose: 400 mg Multivitamins/Minerals/Vitamin C (Tab-A-Vit -) 1 tab PO DAILY [facility] Last Admin: 10/19/17 09:58 Dose: 1 tab Olanzapine (Zyprexa -) 5 mg PO DAILY@1700 [facility] Last Admin: 10/18/17 18:19 Dose: 5 mg Oxybutynin Chloride (Ditropan -) 5 mg PO BID [facility] Last Admin: 10/19/17 09:58 Dose: 5 mg Polyethylene Glycol (Miralax (For Daily Use) -) 17 gm PO BID [facility] Last Admin: 10/19/17 10:01 Dose: 17 grams Senna (Senna -) 1 tab PO BID [facility] Last Admin: 10/19/17 09:58 Dose: 1 tab Sitagliptin Phosphate (Januvia -) 25 mg PO DAILY@0700 [facility] Last Admin: 10/19/17 06:17 Dose: 25 mg Sodium Bicarbonate (Sodium Bicarbonate -) 650 mg PO DAILY [facility] Last Admin: 10/19/17 09:58 Dose: 650 mg Trazodone HCl (Desyrel -) 100 mg PO DAILY [facility] Last Admin: 10/19/17 09:58 Dose: 100 mg Warfarin Sodium (Coumadin -) 7.5 mg PO DAILY@1800 [facility] Last Admin: 10/18/17 18:20 Dose: 7.5 mg 66 year old woman with CKD, DM on insulin, Hypertension and hyperlipidemia admitted with Cysitis and Urosepsis with BRYAN. #BRYAN #CKD #Hx of b/l hydronephrosis #Sepsis/Cystitis #Anemia Renal function stable pt appears evolemic and is w/o hyperkalemia or overt acidosis hernandez in place with good urine output Urology consult appreciated US of kidneys pending off IVF, oral intake as tolerated trend renal function and electrolytes Robert Casiano DO
--- NOTE | 2017-10-19 14:24 | PN ---
Progress Note, Physician Chief Complaint: Ms Mckeon is without complaint. Denies cp, sob, n/v. Says she feels fine. - Current Medication List Current Medications: Active Medications Acetaminophen (Tylenol -) 650 mg PO Q4H PRN PRN Reason: FEVER Last Admin: 10/14/17 06:33 Dose: 650 mg Amino Acids (Prosource No Carb Liquid Pkt) 30 ml PO BID@0800,1730 [facility] Last Admin: 10/19/17 08:58 Dose: 30 ml Artificial Tears (Artificial Tears) 1 drop OU BID [facility] Last Admin: 10/19/17 10:03 Dose: 1 drop Atorvastatin Calcium (Lipitor -) 20 mg PO HS [facility] Last Admin: 10/18/17 22:08 Dose: 20 mg Cholecalciferol (Vitamin D3 -) 2,000 unit PO DAILY [facility] Last Admin: 10/19/17 09:58 Dose: 2,000 unit Citalopram Hydrobromide (Celexa -) 20 mg PO DAILY [facility] Last Admin: 10/19/17 09:58 Dose: 20 mg Docusate Sodium (Colace -) 100 mg PO BID [facility] Last Admin: 10/19/17 09:58 Dose: 100 mg Fenofibric Acid (Trilipix -) 135 mg PO DAILY [facility] Last Admin: 10/19/17 09:59 Dose: 135 mg Glipizide (Glucotrol Xl -) 2.5 mg PO DAILY@0700 [facility] Last Admin: 10/19/17 06:17 Dose: 2.5 mg Meropenem 1 gm/ Dextrose 100 mls @ 100 mls/hr IVPB BID [facility] Last Admin: 10/19/17 09:59 Dose: 100 mls/hr Insulin Aspart (Novolog Vial Sliding Scale -) 1 vial SQ ACHS [facility]; Protocol Last Admin: 10/19/17 12:06 Dose: Not Given Lactobacillus Acidophilus (Bacid -) 1 tab PO DAILY [facility] Last Admin: 10/19/17 09:58 Dose: 1 tab Magnesium Oxide (Mag-Ox -) 400 mg PO BID [facility] Last Admin: 10/19/17 09:58 Dose: 400 mg Multivitamins/Minerals/Vitamin C (Tab-A-Vit -) 1 tab PO DAILY [facility] Last Admin: 10/19/17 09:58 Dose: 1 tab Olanzapine (Zyprexa -) 5 mg PO DAILY@1700 [facility] Last Admin: 10/18/17 18:19 Dose: 5 mg Oxybutynin Chloride (Ditropan -) 5 mg PO BID [facility] Last Admin: 10/19/17 09:58 Dose: 5 mg Polyethylene Glycol (Miralax (For Daily Use) -) 17 gm PO BID [facility] Last Admin: 10/19/17 10:01 Dose: 17 grams Senna (Senna -) 1 tab PO BID [facility] Last Admin: 10/19/17 09:58 Dose: 1 tab Sitagliptin Phosphate (Januvia -) 25 mg PO DAILY@0700 [facility] Last Admin: 10/19/17 06:17 Dose: 25 mg Sodium Bicarbonate (Sodium Bicarbonate -) 650 mg PO DAILY [facility] Last Admin: 10/19/17 09:58 Dose: 650 mg Trazodone HCl (Desyrel -) 100 mg PO DAILY [facility] Last Admin: 10/19/17 09:58 Dose: 100 mg Warfarin Sodium (Coumadin -) 7.5 mg PO DAILY@1800 [facility] Last Admin: 10/18/17 18:20 Dose: 7.5 mg - Objective Vital Signs: Vital Signs Temperature 36.8 C 10/19/17 09:37 Pulse Rate 70 10/19/17 09:37 Respiratory Rate 20 10/19/17 09:37 Blood Pressure 123/64 10/19/17 09:37 O2 Sat by Pulse Oximetry (%) 96 10/19/17 09:00 Constitutional: Yes: No Distress, Calm, Obese Cardiovascular: Yes: Regular Rate and Rhythm. No: Gallop, Murmur, Rub Respiratory: Yes: Regular, CTA Bilaterally. No: Rales, Rhonchi, Wheezes Gastrointestinal: Yes: Normal Bowel Sounds, Soft. No: Distention, Tenderness Extremities: Yes: WNL Edema: No Labs: CBC, BMP 10/19/17 07:14 10/19/17 07:14 INR, PTT INR 2.12 (0.83-1.09) H 10/19/17 07:14 Problem List - Problems (1) Sepsis Code(s): A41.9 - SEPSIS, UNSPECIFIED ORGANISM (2) Urinary tract infection Code(s): N39.0 - URINARY TRACT INFECTION, SITE NOT SPECIFIED Qualifiers: Urinary tract infection type: site unspecified Hematuria presence: without hematuria Qualified Code(s): N39.0 - Urinary tract infection, site not specified (3) Acute renal failure Code(s): N17.9 - ACUTE KIDNEY FAILURE, UNSPECIFIED Qualifiers: Acute renal failure type: unspecified Qualified Code(s): N17.9 - Acute kidney failure, unspecified (4) CKD stage 5 secondary to hypertension Code(s): I12.0 - HYP CHR KIDNEY DISEASE W STAGE 5 CHR KIDNEY DISEASE OR ESRD; N18.5 - CHRONIC KIDNEY DISEASE, STAGE 5 (5) Diabetes Code(s): E11.9 - TYPE 2 DIABETES MELLITUS WITHOUT COMPLICATIONS Qualifiers: Diabetes mellitus type: type 2 Diabetes mellitus roasterman insulin use: without roasterman use Diabetes mellitus complication status: with unspecified complications Qualified Code(s): E11.8 - Type 2 diabetes mellitus with unspecified complications (6) HLD (hyperlipidemia) Code(s): E78.5 - HYPERLIPIDEMIA, UNSPECIFIED (7) Hydronephrosis Code(s): N13.30 - UNSPECIFIED HYDRONEPHROSIS (8) Afib Code(s): I48.91 - UNSPECIFIED ATRIAL FIBRILLATION Qualifiers: Atrial fibrillation type: chronic Qualified Code(s): I48.2 - Chronic atrial fibrillation Assessment/Plan (1) Sepsis Assessment/Plan: -continue merrem currently -last dose tonight -most recent BC are NGTD -ID following and note reviewed Code(s): A41.9 - SEPSIS, UNSPECIFIED ORGANISM (2) Urinary tract infection Assessment/Plan: -growing e coli -continue merrem per ID -last dose tonight Code(s): N39.0 - URINARY TRACT INFECTION, SITE NOT SPECIFIED Qualifiers: Urinary tract infection type: site unspecified Hematuria presence: without hematuria Qualified Code(s): N39.0 - Urinary tract infection, site not specified (3) Acute renal failure Assessment/Plan: -case d/w Dr Casiano -hernandez placed and draining urine Code(s): N17.9 - ACUTE KIDNEY FAILURE, UNSPECIFIED Qualifiers: Acute renal failure type: unspecified Qualified Code(s): N17.9 - Acute kidney failure, unspecified (4) CKD stage 5 secondary to hypertension Assessment/Plan: -case d/w nephrology -stable Code(s): I12.0 - HYP CHR KIDNEY DISEASE W STAGE 5 CHR KIDNEY DISEASE OR ESRD; N18.5 - CHRONIC KIDNEY DISEASE, STAGE 5 (5) Diabetes Assessment/Plan: -continue januvia and glipizide -continue SSI and diabetic diet Code(s): E11.9 - TYPE 2 DIABETES MELLITUS WITHOUT COMPLICATIONS Qualifiers: Diabetes mellitus type: type 2 Diabetes mellitus roasterman insulin use: without longterm use Diabetes mellitus complication status: with unspecified complications Qualified Code(s): E11.8 - Type 2 diabetes mellitus with unspecified complications (6) HLD (hyperlipidemia) Assessment/Plan: -continue trilipix and statin Code(s): E78.5 - HYPERLIPIDEMIA, UNSPECIFIED (7) Hydronephrosis Assessment/Plan: -appreciate urology assistance -maintain hernandez currently Code(s): N13.30 - UNSPECIFIED HYDRONEPHROSIS (8) Afib Assessment/Plan: -stable -continue coumadin 7.5mg today -recheck tomorrow and decrease to outpatient rate Code(s): I48.91 - UNSPECIFIED ATRIAL FIBRILLATION Qualifiers: Atrial fibrillation type: chronic Qualified Code(s): I48.2 - Chronic atrial fibrillation
[2017-10-19] MEDS: WARFARIN NA 7.5 MG TABLET (FP) PO SCH (17:22)
[2017-10-19] MEDS: OLANZapine 5 MG TABLET PO SCH (17:22)
[2017-10-19] MEDS: ATORVASTATIN CA 20 MG TABLET (FP) PO SCH (22:06)
[2017-10-20] MEDS: INSULIN SLIDING SCALE (NOVOLOG) 1 VIAL SQ SCH ×2 (06:32→12:27)
[2017-10-20] MEDS: glipiZIDE-XL 2.5 MG TAB.ER.24 PO SCH (06:33)
[2017-10-20] MEDS: sitaGLIPtin PHOSPHATE 25 MG TABLET (FP) PO SCH (06:34)
[2017-10-20 08:19] LABS: BASO % 0.7 % (0-2.0); EOS % 1.5 % (0-4.5); HEMATOCRIT 26.4 % (32.4-45.2); HEMOGLOBIN 8.9 GM/dL (10.7-15.3); LYMPH % 51.1 % (8-40); MCHC 33.9 g/dl (32.0-36.0); MEAN CELL VOLUME 97.6 fl (80-96); MEAN PLT VOLUME 8.1 fl (7.5-11.1); MONO % 3.1 % (3.8-10.2); NEUT % 43.6 % (42.8-82.8); PLATELET COUNT 312 K/MM3 (134-434); RBC 2.71 M/mm3 (3.60-5.2); RDW 14.5 % (11.6-15.6); WHITE BLOOD COUNT 9.3 K/mm3 (4.0-10.0)
[2017-10-20 08:24] LABS: PROTHROMBIN TIME (PATIENT) 34.7 SEC (9.7-13.0)
[2017-10-20 08:40] LABS: INR 3.07 (0.83-1.09)
[2017-10-20] MEDS: AMINO ACIDS/PROTEIN HYDROLYS 30 ML LIQUID.PKT PO SCH (08:45)
[2017-10-20 08:46] LABS: CALCIUM 9.3 mg/dL (8.5-10.1); CHLORIDE 110 mmol/L (98-107); POTASSIUM 4.5 mmol/L (3.5-5.1); SODIUM 144 mmol/L (136-145)
[2017-10-20 08:49] LABS: ANION GAP 10 (8-16); BLOOD UREA NITROGEN 73 mg/dL (7-18); CO2 24 mmol/L (21-32); CREATININE 2.7 mg/dL (0.55-1.02); GLUCOSE,RANDOM 203 mg/dL (74-106); MAGNESIUM 3.1 mg/dL (1.8-2.4); PHOSPHOROUS 5.5 mg/dL (2.5-4.9)
[2017-10-20] MEDS ORDERED: PT OWN MED DRAWER 7, Y5N ONE ×2 (10:22→10:31)
[2017-10-20] MEDS: SODIUM BICARBONATE 650 MG TABLET PO SCH (10:24)
[2017-10-20] MEDS: OXYBUTYNIN CHLORIDE 5 MG TABLET PO SCH (10:24)
[2017-10-20] MEDS: SENNOSIDES 8.6MG TABLET (FP) PO SCH (10:24)
[2017-10-20] MEDS: traZODone HCL 50 MG TABLET (FP) PO SCH (10:24)
[2017-10-20] MEDS: MAGNESIUM OXIDE 400 MG TABLET (FP) PO SCH (10:24)
[2017-10-20] MEDS: CITALOPRAM HYDROBROMIDE 20 MG TABLET (FP) PO SCH (10:24)
[2017-10-20] MEDS: MULTIVITAMINS (DAILY MVI) TABLET (FP) PO SCH (10:24)
[2017-10-20] MEDS: LACTOBACILLUS ACIDOPHILUS 1 TABLET PO SCH (10:24)
[2017-10-20] MEDS: CHOLECALCIFEROL (VITAMIN D3) 1,000 UNIT TABLET (FP) PO SCH (10:25)
[2017-10-20] MEDS: DOCUSATE SODIUM 100 MG CAPSULE (FP) PO SCH (10:25)
[2017-10-20] MEDS: POLYETHYLENE GLYCOL 3350 119 GM BTL PO SCH (10:26)
[2017-10-20] MEDS: ARTIFICIAL TEARS (POLYVINYL ALCOHOL 1.4%) OPTH DROPS OU SCH (10:26)
[2017-10-20] MEDS: FENOFIBRIC ACID 135 MG CAP PO SCH (10:32)
[2017-10-20 10:49] LABS: ANISOCYTOSIS 1+; MACROCYTOSIS 0; PLATELET ESTIMATE NORMAL
--- NOTE | 2017-10-20 12:41 | DS ---
Physical Examination Vital Signs: Vital Signs Temperature 36.8 C 10/20/17 08:21 Pulse Rate 56 L 10/20/17 08:21 Respiratory Rate 18 10/20/17 08:21 Blood Pressure 123/60 10/20/17 08:21 O2 Sat by Pulse Oximetry (%) 96 10/19/17 20:16 Constitutional: Yes: Well Nourished, No Distress, Calm Cardiovascular: Yes: Pulse Irregular. No: Tachycardia, Gallop, Murmur, Rub Respiratory: Yes: Regular, CTA Bilaterally. No: Rales, Rhonchi, Wheezes Gastrointestinal: Yes: Normal Bowel Sounds, Soft. No: Distention, Tenderness Extremities: Yes: WNL Edema: No Labs: CBC, BMP 10/20/17 07:32 10/20/17 07:32 Discharge Summary Reason For Visit: SEPSIS Current Active Problems Chronic renal failure, stage 3 (moderate) (Acute) Depression (Acute) Neurogenic bladder (Acute) Sepsis (Acute) Hospital Course: (1) Sepsis Code(s): A41.9 - SEPSIS, UNSPECIFIED ORGANISM (2) Urinary tract infection Code(s): N39.0 - URINARY TRACT INFECTION, SITE NOT SPECIFIED Qualifiers: Urinary tract infection type: site unspecified Hematuria presence: without hematuria Qualified Code(s): N39.0 - Urinary tract infection, site not specified (3) Acute renal failure Code(s): N17.9 - ACUTE KIDNEY FAILURE, UNSPECIFIED Qualifiers: Acute renal failure type: unspecified Qualified Code(s): N17.9 - Acute kidney failure, unspecified (4) CKD stage 5 secondary to hypertension Code(s): I12.0 - HYP CHR KIDNEY DISEASE W STAGE 5 CHR KIDNEY DISEASE OR ESRD; N18.5 - CHRONIC KIDNEY DISEASE, STAGE 5 (5) Diabetes Code(s): E11.9 - TYPE 2 DIABETES MELLITUS WITHOUT COMPLICATIONS Qualifiers: Diabetes mellitus type: type 2 Diabetes mellitus [facility] insulin use: without [facility] use Diabetes mellitus complication status: with unspecified complications Qualified Code(s): E11.8 - Type 2 diabetes mellitus with unspecified complications (6) HLD (hyperlipidemia) Code(s): E78.5 - HYPERLIPIDEMIA, UNSPECIFIED (7) Hydronephrosis Code(s): N13.30 - UNSPECIFIED HYDRONEPHROSIS (8) Afib Code(s): I48.91 - UNSPECIFIED ATRIAL FIBRILLATION Qualifiers: Atrial fibrillation type: chronic Qualified Code(s): I48.2 - Chronic atrial fibrillation Ms Mckeon is a 66 year old female who came in with sepsis secondary to UTI and BRYAN on stage 5 CKD. She was admitted to the hospital and seen by ID and nephrology. She finished a full course of merrem. Her repeat blood cultures are negative. She was noted to have a history of hydronephrosis, abdominal CT scan performed and showed increased hydronephrosis. Hernandez was placed and urology consulted. She drained urine and her hydronephrosis improved. Her renal function is currently stable. She will be evaluated by urology and see if she can be discharged with the hernandez and outpatient follow up versus removal prior to discharge. She is safe for discharge after urology evaluation. 36 minutes spent in preparation of this discharge Condition: Stable - Instructions Diet, Activity, Other Instructions: resume previous diet and activity. Urology to comment on hernandez Referrals: Clyde Negron MD [Primary Care Provider] - Riki Mccartney MD [Staff Physician] - Robert Casiano MD [Staff Physician] - Disposition: NURSING HOME FACILITY - Home Medications Comprehensive Discharge Medication List: Ambulatory Orders Atorvastatin Ca [Lipitor] 20 mg PO HS 04/11/15 Acetaminophen [Tylenol] 650 mg PO PRN 08/07/16 Docusate Sodium [Colace -] 100 mg PO DAILY 08/07/16 Insulin Sliding Scale [Novolog Vial Sliding Scale -] 0 units SQ TIDAC 08/07/16 Oxybutynin Chloride 5 mg PO BID 08/07/16 traZODone HCL [Trazodone HCl] 100 mg PO DAILY 08/07/16 Lactobacillus Acidophilus [Bacid -] 1 each PO DAILY 09/14/16 Lofibra 160 mg PO DAILY 09/14/16 Magnesium Oxide 400 mg PO BID 09/14/16 Citalopram Hydrobromide [Citalopram HBr] 20 mg PO DAILY 05/05/17 Ergocalciferol (Vitamin D2) [Vitamin D2] 2,000 unit PO DAILY 05/05/17 Glipizide [Glipizide ER] 2.5 mg PO DAILY 05/05/17 Insulin Glargine,Hum.rec.anlog [Lantus (10mL VIAL) -] units SQ HS 05/05/17 Olanzapine 5 mg PO DAILY@1700 05/05/17 Polyvinyl Alcohol [Artificial Tears] 1 drop OU BID 05/05/17 Saxagliptin HCl [Onglyza] 2.5 mg PO DAILY 05/05/17 Amino Acids/Protein Hydrolys [Prosource No Carb Liquid Pkt] 30 ml PO BID@0800, 1730 packet 05/15/17 Multivitamins [Multivit ([facility] Formul[facility])] 1 tab PO DAILY tab 05/15/17 Polyethylene Glycol 3350 [Miralax 119 gm Btl -] 17 gm PO BID bottle 05/15/17 Sodium Bicarbonate - 650 mg PO DAILY #30 tablet 05/15/17 Warfarin Na [Coumadin -] 3 mg PO DAILY@1800 tablet 05/15/17 Fenofibric Acid [Trilipix -] 135 mg PO DAILY cap 10/20/17
--- NOTE | 2017-10-20 12:51 | PN ---
Progress Note, Physician History of Present Illness: patient stable no new issues - Current Medication List Current Medications: Active Medications Acetaminophen (Tylenol -) 650 mg PO Q4H PRN PRN Reason: FEVER Last Admin: 10/14/17 06:33 Dose: 650 mg Amino Acids (Prosource No Carb Liquid Pkt) 30 ml PO BID@0800,1730 [facility] Last Admin: 10/20/17 08:45 Dose: 30 ml Artificial Tears (Artificial Tears) 1 drop OU BID [facility] Last Admin: 10/20/17 10:26 Dose: 1 drop Atorvastatin Calcium (Lipitor -) 20 mg PO HS [facility] Last Admin: 10/19/17 22:06 Dose: 20 mg Cholecalciferol (Vitamin D3 -) 2,000 unit PO DAILY [facility] Last Admin: 10/20/17 10:25 Dose: 2,000 unit Citalopram Hydrobromide (Celexa -) 20 mg PO DAILY [facility] Last Admin: 10/20/17 10:24 Dose: 20 mg Docusate Sodium (Colace -) 100 mg PO BID [facility] Last Admin: 10/20/17 10:25 Dose: 100 mg Fenofibric Acid (Trilipix -) 135 mg PO DAILY [facility] Last Admin: 10/20/17 10:32 Dose: 135 mg Glipizide (Glucotrol Xl -) 2.5 mg PO DAILY@0700 [facility] Last Admin: 10/20/17 06:33 Dose: 2.5 mg Insulin Aspart (Novolog Vial Sliding Scale -) 1 vial SQ ACHS [facility]; Protocol Last Admin: 10/20/17 12:27 Dose: 2 units Lactobacillus Acidophilus (Bacid -) 1 tab PO DAILY [facility] Last Admin: 10/20/17 10:24 Dose: 1 tab Magnesium Oxide (Mag-Ox -) 400 mg PO BID [facility] Last Admin: 10/20/17 10:24 Dose: 400 mg Multivitamins/Minerals/Vitamin C (Tab-A-Vit -) 1 tab PO DAILY [facility] Last Admin: 10/20/17 10:24 Dose: 1 tab Olanzapine (Zyprexa -) 5 mg PO DAILY@1700 [facility] Last Admin: 10/19/17 17:22 Dose: 5 mg Oxybutynin Chloride (Ditropan -) 5 mg PO BID [facility] Last Admin: 10/20/17 10:24 Dose: 5 mg Polyethylene Glycol (Miralax (For Daily Use) -) 17 gm PO BID [facility] Last Admin: 10/20/17 10:26 Dose: 17 grams Senna (Senna -) 1 tab PO BID [facility] Last Admin: 10/20/17 10:24 Dose: 1 tab Sitagliptin Phosphate (Januvia -) 25 mg PO DAILY@0700 [facility] Last Admin: 10/20/17 06:34 Dose: 25 mg Sodium Bicarbonate (Sodium Bicarbonate -) 650 mg PO DAILY [facility] Last Admin: 10/20/17 10:24 Dose: 650 mg Trazodone HCl (Desyrel -) 100 mg PO DAILY [facility] Last Admin: 10/20/17 10:24 Dose: 100 mg Warfarin Sodium (Coumadin -) 3 mg PO DAILY@1800 [facility] - Objective Vital Signs: Vital Signs Temperature 98.2 F 10/20/17 08:21 Pulse Rate 56 L 10/20/17 08:21 Respiratory Rate 18 10/20/17 08:21 Blood Pressure 123/60 10/20/17 08:21 O2 Sat by Pulse Oximetry (%) 96 10/19/17 20:16 Constitutional: Yes: No Distress, Calm Cardiovascular: Yes: Regular Rate and Rhythm Respiratory: Yes: Regular, CTA Bilaterally Gastrointestinal: Yes: Normal Bowel Sounds, Soft Musculoskeletal: Yes: WNL Extremities: Yes: WNL Psychiatric: Yes: Alert Labs: CBC, BMP 10/20/17 07:32 10/20/17 07:32 INR, PTT INR 3.07 (0.83-1.09) H* 10/20/17 07:32 Assessment/Plan Problem List - Problems (1) Sepsis Code(s): A41.9 - SEPSIS, UNSPECIFIED ORGANISM (2) Urinary tract infection Code(s): N39.0 - URINARY TRACT INFECTION, SITE NOT SPECIFIED Qualifiers: Urinary tract infection type: site unspecified Hematuria presence: with hematuria Qualified Code(s): N39.0 - Urinary tract infection, site not specified; R31.9 - Hematuria, unspecified; R31.9 - Hematuria, unspecified (3) Elevated INR Code(s): R79.1 - ABNORMAL COAGULATION PROFILE (4) Diabetes Code(s): E11.9 - TYPE 2 DIABETES MELLITUS WITHOUT COMPLICATIONS Qualifiers: Diabetes mellitus type: type 2 Diabetes mellitus terminal supervisor insulin use: without longterm use Diabetes mellitus complication status: with unspecified complications Qualified Code(s): E11.8 - Type 2 diabetes mellitus with unspecified complications (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 Code(s): I12.0 - HYP CHR KIDNEY DISEASE W STAGE 5 CHR KIDNEY DISEASE OR ESRD; N18.5 - CHRONIC KIDNEY DISEASE, STAGE 5 (6) HLD (hyperlipidemia) Code(s): E78.5 - HYPERLIPIDEMIA, UNSPECIFIED (7) HTN (hypertension) Code(s): I10 - ESSENTIAL (PRIMARY) HYPERTENSION (8) Afib Code(s): I48.91 - UNSPECIFIED ATRIAL FIBRILLATION Qualifiers: Atrial fibrillation type: chronic Qualified Code(s): I48.2 - Chronic atrial fibrillation (9) Depression Code(s): F32.9 - MAJOR DEPRESSIVE DISORDER, SINGLE EPISODE, UNSPECIFIED repeat blood cx negative plan continue current mgmt rest as per the team
--- NOTE | 2017-10-20 14:02 | PN ---
Progress Note (short form) - Note Progress Note: Renal follow up for BRYAN on CKD Pt seen and examined at the bedside complains of itching on her head no sob, cp, abd pain, N/V/D Vital Signs Temperature 98.2 F 10/20/17 08:21 Pulse Rate 56 L 10/20/17 08:21 Respiratory Rate 18 10/20/17 08:21 Blood Pressure 123/60 10/20/17 08:21 O2 Sat by Pulse Oximetry (%) 96 10/20/17 09:00 Intake & Output 10/17/17 10/18/17 10/19/17 10/20/17 23:59 23:59 23:59 23:59 Intake Total 1600 2575 850 Output Total 2400 2200 2100 800 Balance -800 375 -1250 -800 Weight 86.835 kg 86.863 kg 87.09 kg 82.327 kg NAD awake and alert RRR, NO M/R CTA no rales or wheeze soft NT/ND no LE edema CBC, BMP 10/20/17 07:32 10/20/17 07:32 Current Medications Acetaminophen (Tylenol -) 650 mg PO Q4H PRN PRN Reason: FEVER Last Admin: 10/14/17 06:33 Dose: 650 mg Amino Acids (Prosource No Carb Liquid Pkt) 30 ml PO BID@0800,1730 [facility] Last Admin: 10/20/17 08:45 Dose: 30 ml Artificial Tears (Artificial Tears) 1 drop OU BID [facility] Last Admin: 10/20/17 10:26 Dose: 1 drop Atorvastatin Calcium (Lipitor -) 20 mg PO HS [facility] Last Admin: 10/19/17 22:06 Dose: 20 mg Cholecalciferol (Vitamin D3 -) 2,000 unit PO DAILY [facility] Last Admin: 10/20/17 10:25 Dose: 2,000 unit Citalopram Hydrobromide (Celexa -) 20 mg PO DAILY [facility] Last Admin: 10/20/17 10:24 Dose: 20 mg Docusate Sodium (Colace -) 100 mg PO BID [facility] Last Admin: 10/20/17 10:25 Dose: 100 mg Fenofibric Acid (Trilipix -) 135 mg PO DAILY [facility] Last Admin: 10/20/17 10:32 Dose: 135 mg Glipizide (Glucotrol Xl -) 2.5 mg PO DAILY@0700 [facility] Last Admin: 10/20/17 06:33 Dose: 2.5 mg Insulin Aspart (Novolog Vial Sliding Scale -) 1 vial SQ ACHS [facility]; Protocol Last Admin: 10/20/17 12:27 Dose: 2 units Lactobacillus Acidophilus (Bacid -) 1 tab PO DAILY [facility] Last Admin: 10/20/17 10:24 Dose: 1 tab Magnesium Oxide (Mag-Ox -) 400 mg PO BID [facility] Last Admin: 10/20/17 10:24 Dose: 400 mg Multivitamins/Minerals/Vitamin C (Tab-A-Vit -) 1 tab PO DAILY [facility] Last Admin: 10/20/17 10:24 Dose: 1 tab Olanzapine (Zyprexa -) 5 mg PO DAILY@1700 [facility] Last Admin: 10/19/17 17:22 Dose: 5 mg Oxybutynin Chloride (Ditropan -) 5 mg PO BID [facility] Last Admin: 10/20/17 10:24 Dose: 5 mg Polyethylene Glycol (Miralax (For Daily Use) -) 17 gm PO BID [facility] Last Admin: 10/20/17 10:26 Dose: 17 grams Senna (Senna -) 1 tab PO BID [facility] Last Admin: 10/20/17 10:24 Dose: 1 tab Sitagliptin Phosphate (Januvia -) 25 mg PO DAILY@0700 [facility] Last Admin: 10/20/17 06:34 Dose: 25 mg Sodium Bicarbonate (Sodium Bicarbonate -) 650 mg PO DAILY [facility] Last Admin: 10/20/17 10:24 Dose: 650 mg Trazodone HCl (Desyrel -) 100 mg PO DAILY [facility] Last Admin: 10/20/17 10:24 Dose: 100 mg Warfarin Sodium (Coumadin -) 3 mg PO DAILY@1800 [facility] Zinc Acetate/Diphenhydramine (Benadryl 2% Cream) 1 applic TP ONCE ONE Stop: 10/20/17 14:01 66 year old woman with CKD, DM on insulin, Hypertension and hyperlipidemia admitted with Cysitis and Urosepsis with BRYAN. #BRYAN #CKD #Hx of b/l hydronephrosis #Sepsis/Cystitis #Anemia Renal function stable pt appears evolemic and is w/o hyperkalemia or overt acidosis US of the kidney showed unilateral hydro, likely chronic Mccoy remains in place, urology requested that it remain in place for duration of UTI tx can have trial of void as outpatient stable for discharge with outpatient monitoring of renal function Robert Casiano DO
[2017-10-20 15:23] VITALS: BP 140/58; PULSE 81; TEMP 97.9
[2017-10-20] MEDS ORDERED: WARFARIN NA 3 MG TABLET PO SCH (18:00)
== END 2017-10-20 16:47 | DRG 872 ==
LOC: JER 15:58 → JERBED 22:23 → UNDOADMIN 23:44 → JERBED 23:44 → J6S 10-14 01:18
PROVIDERS: ADMIT Specialist; ATTEND Specialist
DX: A41.9 Sepsis, unspecified organism (principal); I12.0 Hypertensive chronic kidney disease with stage 5 chronic kidney disease or end stage renal disease; N17.9 Acute kidney failure, unspecified; N13.30 Unspecified hydronephrosis; N18.5 Chronic kidney disease, stage 5; E87.2 Acidosis; N30.90 Cystitis, unspecified without hematuria; E11.65 Type 2 diabetes mellitus with hyperglycemia; Z79.4 Long term (current) use of insulin; I48.2 Chronic atrial fibrillation; R79.1 Abnormal coagulation profile; D63.1 Anemia in chronic kidney disease; I48.91 Unspecified atrial fibrillation; E78.5 Hyperlipidemia, unspecified; N31.9 Neuromuscular dysfunction of bladder, unspecified; F32.9 Major depressive disorder, single episode, unspecified; E11.22 Type 2 diabetes mellitus with diabetic chronic kidney disease; E87.5 Hyperkalemia; Z88.0 Allergy status to penicillin; E66.9 Obesity, unspecified; Z68.29 Body mass index [BMI] 29.0-29.9, adult; R35.0 Frequency of micturition; R32 Unspecified urinary incontinence
CPT/HCPCS: 36415; 71045-TC-FY; 74176-TC; 76775-TC; 80048; 80053; 81003; 81015; 82803; 82962; 83605; 83735; 84100; 84484; 85025; 85610; 85730; 87040; 87086; 87186; 93005; 93010; 97116-GP; 97161-GP; 99282-25; J0131; J7030

== ENCOUNTER 2019-12-24 13:49 | Inpatient (IN) | payer OTHER ==
[2019-12-24] MEDS ORDERED: AZTREONAM 1 GM in DEXTROSE 5%-WATER - 50 ML IVPB ONE (15:13)
[2019-12-24 15:34] LABS: BASO % 0.3 % (0-2.0); EOS % 1.9 % (0-4.5); HEMATOCRIT 28.4 % (32.4-45.2); HEMOGLOBIN 9.2 GM/dL (10.7-15.3); LYMPH % 39.9 % (8-40); MCHC 32.3 g/dl (32.0-36.0); MEAN CELL VOLUME 105.4 fl (80-96); MEAN PLT VOLUME 8.8 fl (7.5-11.1); MONO % 4.3 % (3.8-10.2); NEUT % 53.6 % (42.8-82.8); PLATELET COUNT 354 K/MM3 (134-434); RDW 14.5 % (11.6-15.6); WHITE BLOOD COUNT 8.9 K/mm3 (4.0-10.0)
[2019-12-24 15:41] LABS: EPI CELLS 35 /uL (0-25.1); HYALINE CASTS 27 /uL (0-3.1); PH,URINE 6.5 (5.0-8.0); URINE APPEARANCE TURBID; URINE BACTERIA 8868 /uL (0-1359); URINE BILIRUBIN NEGATIVE (NEGATIVE); URINE COLOR YELLOW; URINE GLUCOSE (UA) NEGATIVE (NEGATIVE); URINE KETONE NEGATIVE (NEGATIVE); URINE LEUK ESTERASE 3+ (NEGATIVE); URINE NITRITE NEGATIVE (NEGATIVE); URINE PROTEIN 2+ (NEGATIVE); URINE UROBILINOGEN 0.2 mg/dL (0.2-1.0); URINE WBC 16602 /uL (0-25.8)
[2019-12-24 15:59] LABS: ALBUMIN 2.4 g/dl (3.4-5.0); CALCIUM 9.1 mg/dL (8.5-10.1)
[2019-12-24 16:00] LABS: BLOOD UREA NITROGEN 65.8 mg/dL (7-18)
[2019-12-24 16:03] LABS: CREATININE 1.8 mg/dL (0.55-1.3)
[2019-12-24 16:05] LABS: BILIRUBIN,TOTAL 0.2 mg/dL (0.2-1); TOT PROT 6.6 g/dl (6.4-8.2)
[2019-12-24 17:08] LABS: URINE RBC 281.9 /uL (0-23.9); YEAST NONE SEEN (NEGATIVE)
[2019-12-24] MEDS ORDERED: ACETAMINOPHEN 325 MG TABLET (FP) PO PRN (17:14)
[2019-12-24] MEDS ORDERED: AZTREONAM 1 GM VIAL (RESTRICTED TO ID) ONE (17:27)
[2019-12-24 18:03] LABS: MACROCYTOSIS 2+
[2019-12-24] MEDS: DEXTROSE 5%-0.45% SALINE 1,000 ML IV SCH (18:33)
[2019-12-24] MEDS: HEPARIN NA (PORCINE) 5,000 UNITS/ML 1ML VIAL SQ SCH (22:42)
[2019-12-24] MEDS: ATORVASTATIN CA 20 MG TABLET (FP) PO SCH (22:42)
[2019-12-24] MEDS: MAGNESIUM OXIDE 400 MG TABLET (FP) PO SCH (22:42)
[2019-12-24] MEDS: INSULIN (LEVEMIR) 100 UNITS/ML UNITS SQ SCH (22:43)
[2019-12-24] MEDS: INSULIN SLIDING SCALE (NOVOLOG) 1 VIAL SQ SCH (22:44)
[2019-12-25] MEDS: DEXTROSE 5%-0.45% SALINE 1,000 ML IV SCH ×2 (00:28→13:14)
[2019-12-25] MEDS: INSULIN (LEVEMIR) 100 UNITS/ML UNITS SQ SCH ×3 (06:21→21:59)
[2019-12-25] MEDS: INSULIN SLIDING SCALE (NOVOLOG) 1 VIAL SQ SCH ×4 (06:22→21:59)
[2019-12-25] MEDS ORDERED: INSULIN (NOVOLOG) ASPART 100 UNITS/ML 10ML VIAL ONE ×2 (06:24→11:10)
[2019-12-25] MEDS ORDERED: INSULIN (LEVEMIR) 100 UNITS/ML UNITS SQ ONE ×2 (06:24→10:56)
[2019-12-25 06:34] LABS: BASO % 0.2 % (0-2.0); EOS % 2.1 % (0-4.5); HEMATOCRIT 28.6 % (32.4-45.2); HEMOGLOBIN 9.2 GM/dL (10.7-15.3); LYMPH % 47.4 % (8-40); MCH 33.3 pg (25.7-33.7); MCHC 32.2 g/dl (32.0-36.0); MEAN CELL VOLUME 103.3 fl (80-96); MEAN PLT VOLUME 8.8 fl (7.5-11.1); MONO % 3.8 % (3.8-10.2); NEUT % 46.5 % (42.8-82.8); PLATELET COUNT 361 K/MM3 (134-434); RBC 2.77 M/mm3 (3.60-5.2); RDW 14.6 % (11.6-15.6); WHITE BLOOD COUNT 9.6 K/mm3 (4.0-10.0)
[2019-12-25 06:48] LABS: POTASSIUM 3.4 mmol/L (3.5-5.1)
[2019-12-25 06:54] LABS: ALBUMIN 2.4 g/dl (3.4-5.0); BLOOD UREA NITROGEN 67.6 mg/dL (7-18); CALCIUM 9.8 mg/dL (8.5-10.1)
[2019-12-25 06:57] LABS: CREATININE 1.7 mg/dL (0.55-1.3)
[2019-12-25 06:58] LABS: BILIRUBIN,TOTAL 0.3 mg/dL (0.2-1); TOT PROT 6.7 g/dl (6.4-8.2)
[2019-12-25] MEDS: HEPARIN NA (PORCINE) 5,000 UNITS/ML 1ML VIAL SQ SCH ×2 (09:40→21:58)
[2019-12-25] MEDS: MAGNESIUM OXIDE 400 MG TABLET (FP) PO SCH ×2 (09:41→21:59)
[2019-12-25] MEDS: CITALOPRAM HYDROBROMIDE 20 MG TABLET PO SCH (09:41)
[2019-12-25] MEDS ORDERED: PT OWN MED DRAWER 7, Y5N ONE ×3 (09:46→22:25)
[2019-12-25] MEDS ORDERED: PNEUMOC 13-VAL CONJ-DIP CRM/PF 0.5 ML DISP.SYRIN IM ONE (10:00)
[2019-12-25] MEDS: POLYETHYLENE GLYCOL 3350 119 GM BTL PO SCH (10:03)
[2019-12-25] MEDS: ACETAMINOPHEN 325 MG TABLET (FP) PO PRN (13:13)
[2019-12-25] MEDS: FERROUS SO4 300 MG/5 ML ORAL SOLN UNIT DOSE CUPS PO SCH (13:13)
[2019-12-25] MEDS: ASCORBIC ACID 500 MG TABLET (FP) PO SCH ×2 (13:13→21:58)
[2019-12-25] MEDS: FENOFIBRIC ACID 135 MG CAP PO SCH (13:14)
[2019-12-25] MEDS: MULTIVITAMINS THER W-MINERALS COMBO TABLET (FP) PO SCH (13:14)
[2019-12-25] MEDS: AMINO ACIDS/PROTEIN HYDROLYS 30 ML LIQUID.PKT PO SCH ×2 (13:14→18:17)
[2019-12-25] MEDS ORDERED: SODIUM CHLORIDE 1,000 ML IV SCH (13:45)
[2019-12-25] MEDS ORDERED: POTASSIUM CHLORIDE TABS 10 MEQ TABLET.ER (FP) PO ONE (13:46)
[2019-12-25] MEDS: ARTIFICIAL TEARS (POLYVINYL ALCOHOL) OPTH DROPS OU SCH ×2 (18:12→22:43)
[2019-12-25] MEDS: OLANZapine 5 MG TABLET PO SCH (18:17)
[2019-12-25] MEDS: ATORVASTATIN CA 20 MG TABLET (FP) PO SCH (21:58)
[2019-12-25] MEDS: DOCUSATE SODIUM 100 MG CAPSULE (FP) PO SCH (21:58)
[2019-12-25] MEDS ORDERED: diphenhydrAMINE HCL 25 MG CAPSULE (FP) PO ONE (22:21)
[2019-12-25] MEDS: BACITRACIN 15 GM TUBE TOPICAL OINTMENT TP SCH (22:43)
[2019-12-26] MEDS: INSULIN SLIDING SCALE (NOVOLOG) 1 VIAL SQ SCH ×4 (06:10→21:05)
[2019-12-26] MEDS: INSULIN (LEVEMIR) 100 UNITS/ML UNITS SQ SCH ×2 (06:54→21:04)
[2019-12-26 07:01] LABS: BASO % 0.2 % (0-2.0); EOS % 1.9 % (0-4.5); HEMATOCRIT 24.8 % (32.4-45.2); LYMPH % 48.1 % (8-40); MCH 33.5 pg (25.7-33.7); MCHC 32.3 g/dl (32.0-36.0); MEAN CELL VOLUME 103.6 fl (80-96); MEAN PLT VOLUME 8.8 fl (7.5-11.1); MONO % 2.8 % (3.8-10.2); PLATELET COUNT 332 K/MM3 (134-434); RBC 2.39 M/mm3 (3.60-5.2); WHITE BLOOD COUNT 10.8 K/mm3 (4.0-10.0)
[2019-12-26 07:17] LABS: POTASSIUM 4.1 mmol/L (3.5-5.1)
[2019-12-26 07:21] LABS: ALBUMIN 2.2 g/dl (3.4-5.0)
[2019-12-26 07:22] LABS: MAGNESIUM 2.7 mg/dL (1.8-2.4)
[2019-12-26 07:25] LABS: CREATININE 1.8 mg/dL (0.55-1.3); PHOSPHOROUS 2.7 mg/dL (2.5-4.9)
[2019-12-26 07:26] LABS: BILIRUBIN,TOTAL 0.2 mg/dL (0.2-1); TOT PROT 6.1 g/dl (6.4-8.2)
[2019-12-26] MEDS: CITALOPRAM HYDROBROMIDE 20 MG TABLET PO SCH (09:02)
[2019-12-26] MEDS: HEPARIN NA (PORCINE) 5,000 UNITS/ML 1ML VIAL SQ SCH ×2 (09:02→21:23)
[2019-12-26] MEDS: AMINO ACIDS/PROTEIN HYDROLYS 30 ML LIQUID.PKT PO SCH ×2 (09:03→16:43)
[2019-12-26] MEDS: MAGNESIUM OXIDE 400 MG TABLET (FP) PO SCH ×2 (09:03→21:22)
[2019-12-26] MEDS: BACITRACIN 15 GM TUBE TOPICAL OINTMENT TP SCH (09:03)
[2019-12-26] MEDS ORDERED: PT OWN MED DRAWER 7, Y5N ONE ×2 (09:27→16:40)
[2019-12-26] MEDS: MULTIVITAMINS THER W-MINERALS COMBO TABLET (FP) PO SCH (09:30)
[2019-12-26] MEDS: POLYETHYLENE GLYCOL 3350 119 GM BTL PO SCH (09:31)
[2019-12-26] MEDS: FENOFIBRIC ACID 135 MG CAP PO SCH (09:31)
[2019-12-26] MEDS: ARTIFICIAL TEARS (POLYVINYL ALCOHOL) OPTH DROPS OU SCH ×2 (09:33→21:23)
[2019-12-26] MEDS: ASCORBIC ACID 500 MG TABLET (FP) PO SCH ×2 (09:36→21:22)
[2019-12-26] MEDS: FERROUS SO4 300 MG/5 ML ORAL SOLN UNIT DOSE CUPS PO SCH (09:36)
[2019-12-26 14:05] VITALS: BMI 21.1
[2019-12-26] MEDS: OLANZapine 5 MG TABLET PO SCH (16:43)
[2019-12-26] MEDS ORDERED: INSULIN (NOVOLOG) ASPART 100 UNITS/ML 10ML VIAL ONE (20:51)
[2019-12-26] MEDS: DOCUSATE SODIUM 100 MG CAPSULE (FP) PO SCH (21:22)
[2019-12-26] MEDS: ATORVASTATIN CA 20 MG TABLET (FP) PO SCH (21:22)
[2019-12-27] MEDS: INSULIN (LEVEMIR) 100 UNITS/ML UNITS SQ SCH ×2 (06:00→21:57)
[2019-12-27] MEDS: INSULIN SLIDING SCALE (NOVOLOG) 1 VIAL SQ SCH ×4 (06:00→21:57)
[2019-12-27 07:07] LABS: BASO % 0.3 % (0-2.0); EOS % 1.2 % (0-4.5); HEMOGLOBIN 8.1 GM/dL (10.7-15.3); LYMPH % 42.1 % (8-40); MCH 33.3 pg (25.7-33.7); MCHC 32.3 g/dl (32.0-36.0); MEAN CELL VOLUME 103.2 fl (80-96); MEAN PLT VOLUME 8.7 fl (7.5-11.1); MONO % 2.5 % (3.8-10.2); NEUT % 53.9 % (42.8-82.8); PLATELET COUNT 328 K/MM3 (134-434); RBC 2.42 M/mm3 (3.60-5.2); RDW 13.6 % (11.6-15.6); WHITE BLOOD COUNT 12.5 K/mm3 (4.0-10.0)
[2019-12-27] MEDS ORDERED: INSULIN (NOVOLOG) ASPART 100 UNITS/ML 10ML VIAL ONE (07:09)
[2019-12-27] MEDS ORDERED: INSULIN (LEVEMIR) 100 UNITS/ML UNITS SQ ONE (07:09)
[2019-12-27 07:32] LABS: CALCIUM 8.9 mg/dL (8.5-10.1)
[2019-12-27 07:36] LABS: ALBUMIN 2.2 g/dl (3.4-5.0)
[2019-12-27 07:38] LABS: BILIRUBIN,TOTAL 0.3 mg/dL (0.2-1); TOT PROT 6.2 g/dl (6.4-8.2)
[2019-12-27 07:39] LABS: CREATININE 1.7 mg/dL (0.55-1.3)
[2019-12-27] MEDS: AMINO ACIDS/PROTEIN HYDROLYS 30 ML LIQUID.PKT PO SCH ×2 (09:26→16:29)
[2019-12-27] MEDS: FERROUS SO4 300 MG/5 ML ORAL SOLN UNIT DOSE CUPS PO SCH (09:26)
[2019-12-27] MEDS: HEPARIN NA (PORCINE) 5,000 UNITS/ML 1ML VIAL SQ SCH ×2 (09:27→21:56)
[2019-12-27] MEDS: ASCORBIC ACID 500 MG TABLET (FP) PO SCH ×2 (09:27→21:56)
[2019-12-27] MEDS: CITALOPRAM HYDROBROMIDE 20 MG TABLET PO SCH (09:27)
[2019-12-27] MEDS: MULTIVITAMINS THER W-MINERALS COMBO TABLET (FP) PO SCH (09:27)
[2019-12-27] MEDS: MAGNESIUM OXIDE 400 MG TABLET (FP) PO SCH ×2 (09:28→21:56)
[2019-12-27] MEDS: FENOFIBRIC ACID 135 MG CAP PO SCH (09:29)
[2019-12-27] MEDS: BACITRACIN 15 GM TUBE TOPICAL OINTMENT TP SCH (09:39)
[2019-12-27] MEDS: ARTIFICIAL TEARS (POLYVINYL ALCOHOL) OPTH DROPS OU SCH ×2 (09:40→21:56)
[2019-12-27] MEDS: POLYETHYLENE GLYCOL 3350 119 GM BTL PO SCH (09:54)
[2019-12-27] MEDS: ACETAMINOPHEN 325 MG TABLET (FP) PO PRN (12:31)
[2019-12-27] MEDS: COLLAGENASE CLOSTRIDIUM HIST. 30 GRAMS TUBE TP SCH (12:40)
[2019-12-27] MEDS: SODIUM CHLORIDE 1,000 ML IV SCH (12:42)
[2019-12-27] MEDS ORDERED: ERTAPENEM SODIUM 1 GM VIAL ONE ×2 (13:09→13:11)
[2019-12-27] MEDS ORDERED: SODIUM CHLORIDE 50 ML IVPB ONE ×2 (13:09→13:11)
[2019-12-27] MEDS: ERTAPENEM SODIUM 1 GM in SODIUM CHLORIDE 50 ML IVPB SCH (13:14)
[2019-12-27] MEDS: DAPTOMYCIN 360 MG in SODIUM CHLORIDE 50 ML IVPB SCH (15:47)
[2019-12-27] MEDS: OLANZapine 5 MG TABLET PO SCH (16:17)
[2019-12-27] MEDS ORDERED: diphenhydrAMINE HCL 25 MG CAPSULE (FP) PO ONE (20:45)
[2019-12-27] MEDS: DOCUSATE SODIUM 100 MG CAPSULE (FP) PO SCH (21:56)
[2019-12-28] MEDS: INSULIN SLIDING SCALE (NOVOLOG) 1 VIAL SQ SCH ×4 (06:23→21:44)
[2019-12-28] MEDS: INSULIN (LEVEMIR) 100 UNITS/ML UNITS SQ SCH ×2 (06:27→21:42)
[2019-12-28 08:21] LABS: BASO % 0.3 % (0-2.0); EOS % 1.7 % (0-4.5); HEMOGLOBIN 8.1 GM/dL (10.7-15.3); LYMPH % 54.6 % (8-40); MCH 33.4 pg (25.7-33.7); MCHC 32.2 g/dl (32.0-36.0); MEAN CELL VOLUME 103.6 fl (80-96); MEAN PLT VOLUME 8.5 fl (7.5-11.1); MONO % 2.8 % (3.8-10.2); NEUT % 40.6 % (42.8-82.8); PLATELET COUNT 350 K/MM3 (134-434); RBC 2.41 M/mm3 (3.60-5.2); RDW 13.6 % (11.6-15.6); WHITE BLOOD COUNT 12.7 K/mm3 (4.0-10.0)
[2019-12-28] MEDS ORDERED: ERTAPENEM SODIUM 1 GM VIAL ONE (08:28)
[2019-12-28] MEDS ORDERED: SODIUM CHLORIDE 50 ML IVPB ONE (08:28)
[2019-12-28 08:58] LABS: ALBUMIN 2.1 g/dl (3.4-5.0); BLOOD UREA NITROGEN 72.8 mg/dL (7-18); CALCIUM 9.2 mg/dL (8.5-10.1)
[2019-12-28 09:01] LABS: CREATININE 1.7 mg/dL (0.55-1.3)
[2019-12-28 09:03] LABS: BILIRUBIN,TOTAL 0.2 mg/dL (0.2-1)
[2019-12-28] MEDS: FERROUS SO4 300 MG/5 ML ORAL SOLN UNIT DOSE CUPS PO SCH (09:31)
[2019-12-28] MEDS: ERTAPENEM SODIUM 1 GM in SODIUM CHLORIDE 50 ML IVPB SCH (09:31)
[2019-12-28] MEDS: HEPARIN NA (PORCINE) 5,000 UNITS/ML 1ML VIAL SQ SCH ×2 (09:31→21:38)
[2019-12-28] MEDS: MAGNESIUM OXIDE 400 MG TABLET (FP) PO SCH ×2 (09:31→21:38)
[2019-12-28] MEDS: ASCORBIC ACID 500 MG TABLET (FP) PO SCH ×2 (09:31→21:38)
[2019-12-28] MEDS: MULTIVITAMINS THER W-MINERALS COMBO TABLET (FP) PO SCH (09:31)
[2019-12-28] MEDS: CITALOPRAM HYDROBROMIDE 20 MG TABLET PO SCH (09:31)
[2019-12-28] MEDS: AMINO ACIDS/PROTEIN HYDROLYS 30 ML LIQUID.PKT PO SCH ×2 (09:31→16:38)
[2019-12-28] MEDS: COLLAGENASE CLOSTRIDIUM HIST. 30 GRAMS TUBE TP SCH (09:32)
[2019-12-28] MEDS: POLYETHYLENE GLYCOL 3350 119 GM BTL PO SCH (09:32)
[2019-12-28] MEDS ORDERED: PT OWN MED DRAWER 7, Y5N ONE (09:46)
[2019-12-28] MEDS ORDERED: INSULIN (NOVOLOG) ASPART 100 UNITS/ML 10ML VIAL ONE (09:58)
[2019-12-28 10:37] LABS: ANISOCYTOSIS 1+; MACROCYTOSIS 1+; PLATELET ESTIMATE NORMAL
[2019-12-28] MEDS: DAPTOMYCIN 360 MG in SODIUM CHLORIDE 50 ML IVPB SCH (11:16)
[2019-12-28] MEDS: ARTIFICIAL TEARS (POLYVINYL ALCOHOL) OPTH DROPS OU SCH ×2 (11:17→21:39)
[2019-12-28] MEDS: BACITRACIN 15 GM TUBE TOPICAL OINTMENT TP SCH (11:17)
[2019-12-28] MEDS: FENOFIBRIC ACID 135 MG CAP PO SCH (11:17)
[2019-12-28] MEDS: SODIUM CHLORIDE 1,000 ML IV SCH (13:15)
[2019-12-28] MEDS: OLANZapine 5 MG TABLET PO SCH (16:38)
[2019-12-28] MEDS: DOCUSATE SODIUM 100 MG CAPSULE (FP) PO SCH (21:38)
[2019-12-29] MEDS: INSULIN (LEVEMIR) 100 UNITS/ML UNITS SQ SCH ×2 (06:42→22:13)
[2019-12-29] MEDS: INSULIN SLIDING SCALE (NOVOLOG) 1 VIAL SQ SCH ×4 (06:43→22:14)
[2019-12-29] MEDS: SODIUM CHLORIDE 1,000 ML IV SCH ×3 (07:04→23:00)
[2019-12-29 07:33] LABS: POTASSIUM 4.5 mmol/L (3.5-5.1)
[2019-12-29 07:40] LABS: BLOOD UREA NITROGEN 65.2 mg/dL (7-18); CALCIUM 9.2 mg/dL (8.5-10.1)
[2019-12-29 07:46] LABS: CREATININE 1.5 mg/dL (0.55-1.3)
[2019-12-29] MEDS ORDERED: ERTAPENEM SODIUM 1 GM VIAL ONE (08:54)
[2019-12-29] MEDS ORDERED: SODIUM CHLORIDE 50 ML IVPB ONE (08:54)
[2019-12-29] MEDS ORDERED: PT OWN MED DRAWER 7, Y5N ONE ×2 (08:57→16:27)
[2019-12-29] MEDS: AMINO ACIDS/PROTEIN HYDROLYS 30 ML LIQUID.PKT PO SCH ×2 (08:58→17:35)
[2019-12-29] MEDS: CITALOPRAM HYDROBROMIDE 20 MG TABLET PO SCH (09:06)
[2019-12-29] MEDS: MAGNESIUM OXIDE 400 MG TABLET (FP) PO SCH ×2 (09:07→22:16)
[2019-12-29] MEDS: FERROUS SO4 300 MG/5 ML ORAL SOLN UNIT DOSE CUPS PO SCH (09:07)
[2019-12-29] MEDS: HEPARIN NA (PORCINE) 5,000 UNITS/ML 1ML VIAL SQ SCH ×2 (09:08→22:15)
[2019-12-29] MEDS: ARTIFICIAL TEARS (POLYVINYL ALCOHOL) OPTH DROPS OU SCH ×2 (09:08→22:17)
[2019-12-29] MEDS: BACITRACIN 15 GM TUBE TOPICAL OINTMENT TP SCH (09:08)
[2019-12-29] MEDS: ERTAPENEM SODIUM 1 GM in SODIUM CHLORIDE 50 ML IVPB SCH (09:09)
[2019-12-29] MEDS: POLYETHYLENE GLYCOL 3350 119 GM BTL PO SCH (09:09)
[2019-12-29] MEDS: COLLAGENASE CLOSTRIDIUM HIST. 30 GRAMS TUBE TP SCH (09:10)
[2019-12-29] MEDS: ASCORBIC ACID 500 MG TABLET (FP) PO SCH ×2 (09:10→22:16)
[2019-12-29] MEDS: MULTIVITAMINS THER W-MINERALS COMBO TABLET (FP) PO SCH (09:10)
[2019-12-29] MEDS: FENOFIBRIC ACID 135 MG CAP PO SCH (09:11)
[2019-12-29] MEDS: ACETAMINOPHEN 325 MG TABLET (FP) PO PRN (09:12)
[2019-12-29] MEDS: DAPTOMYCIN 360 MG in SODIUM CHLORIDE 50 ML IVPB SCH (09:45)
[2019-12-29] MEDS: OLANZapine 5 MG TABLET PO SCH (17:35)
[2019-12-29] MEDS: DOCUSATE SODIUM 100 MG CAPSULE (FP) PO SCH (22:16)
[2019-12-30] MEDS: INSULIN (LEVEMIR) 100 UNITS/ML UNITS SQ SCH ×2 (06:39→21:12)
[2019-12-30] MEDS: INSULIN SLIDING SCALE (NOVOLOG) 1 VIAL SQ SCH ×4 (06:40→21:14)
[2019-12-30 06:51] LABS: HEMATOCRIT 23.3 % (32.4-45.2); HEMOGLOBIN 7.5 GM/dL (10.7-15.3); MCH 33.8 pg (25.7-33.7); MCHC 32.2 g/dl (32.0-36.0); MEAN CELL VOLUME 105.1 fl (80-96); MEAN PLT VOLUME 8.8 fl (7.5-11.1); PLATELET COUNT 327 K/MM3 (134-434); RBC 2.22 M/mm3 (3.60-5.2); RDW 14.6 % (11.6-15.6); WHITE BLOOD COUNT 12.6 K/mm3 (4.0-10.0)
[2019-12-30 06:59] LABS: POTASSIUM 4.7 mmol/L (3.5-5.1)
[2019-12-30 07:02] LABS: BLOOD UREA NITROGEN 65.3 mg/dL (7-18)
[2019-12-30 07:05] LABS: CREATININE 1.5 mg/dL (0.55-1.3)
[2019-12-30] MEDS ORDERED: ERTAPENEM SODIUM 1 GM VIAL ONE (09:20)
[2019-12-30] MEDS ORDERED: PT OWN MED DRAWER 7, Y5N ONE ×2 (09:21→17:32)
[2019-12-30] MEDS ORDERED: SODIUM CHLORIDE 50 ML IVPB ONE (09:21)
[2019-12-30] MEDS: ERTAPENEM SODIUM 1 GM in SODIUM CHLORIDE 50 ML IVPB SCH (09:28)
[2019-12-30] MEDS: AMINO ACIDS/PROTEIN HYDROLYS 30 ML LIQUID.PKT PO SCH ×2 (09:28→17:33)
[2019-12-30] MEDS: FERROUS SO4 300 MG/5 ML ORAL SOLN UNIT DOSE CUPS PO SCH (09:28)
[2019-12-30] MEDS: MAGNESIUM OXIDE 400 MG TABLET (FP) PO SCH ×2 (09:29→21:08)
[2019-12-30] MEDS: CITALOPRAM HYDROBROMIDE 20 MG TABLET PO SCH (09:29)
[2019-12-30] MEDS: MULTIVITAMINS THER W-MINERALS COMBO TABLET (FP) PO SCH (09:29)
[2019-12-30] MEDS: ASCORBIC ACID 500 MG TABLET (FP) PO SCH ×2 (09:29→21:08)
[2019-12-30] MEDS: FENOFIBRIC ACID 135 MG CAP PO SCH (09:30)
[2019-12-30] MEDS: HEPARIN NA (PORCINE) 5,000 UNITS/ML 1ML VIAL SQ SCH ×2 (09:30→21:10)
[2019-12-30] MEDS: POLYETHYLENE GLYCOL 3350 119 GM BTL PO SCH (09:30)
[2019-12-30] MEDS ORDERED: FUROSEMIDE 40 MG/4 ML INJECTABLE VIAL IVPUSH ONE (10:00)
[2019-12-30] MEDS: DAPTOMYCIN 360 MG in SODIUM CHLORIDE 50 ML IVPB SCH (10:02)
[2019-12-30] MEDS: ARTIFICIAL TEARS (POLYVINYL ALCOHOL) OPTH DROPS OU SCH ×2 (10:43→21:13)
[2019-12-30] MEDS: BACITRACIN 15 GM TUBE TOPICAL OINTMENT TP SCH (10:44)
[2019-12-30] MEDS: COLLAGENASE CLOSTRIDIUM HIST. 30 GRAMS TUBE TP SCH (13:23)
[2019-12-30] MEDS: SODIUM CHLORIDE 1,000 ML IV SCH (13:28)
[2019-12-30] MEDS: OLANZapine 5 MG TABLET PO SCH (17:33)
[2019-12-30] MEDS: ACETAMINOPHEN 325 MG TABLET (FP) PO PRN (17:36)
[2019-12-30] MEDS: DOCUSATE SODIUM 100 MG CAPSULE (FP) PO SCH (21:09)
[2019-12-31] MEDS ORDERED: PT OWN MED DRAWER 7, Y5N ONE (04:50)
[2019-12-31] MEDS: ACETAMINOPHEN 325 MG TABLET (FP) PO PRN ×2 (05:55→14:45)
[2019-12-31] MEDS: INSULIN (LEVEMIR) 100 UNITS/ML UNITS SQ SCH ×2 (06:00→23:00)
[2019-12-31] MEDS: INSULIN SLIDING SCALE (NOVOLOG) 1 VIAL SQ SCH ×4 (06:01→22:59)
[2019-12-31 08:15] LABS: POTASSIUM 4.6 mmol/L (3.5-5.1)
[2019-12-31 08:16] LABS: CALCIUM 9.4 mg/dL (8.5-10.1)
[2019-12-31 08:17] LABS: BLOOD UREA NITROGEN 72.9 mg/dL (7-18)
[2019-12-31 08:20] LABS: CREATININE 1.4 mg/dL (0.55-1.3)
[2019-12-31] MEDS ORDERED: ERTAPENEM SODIUM 1 GM VIAL ONE (08:30)
[2019-12-31] MEDS ORDERED: SODIUM CHLORIDE 50 ML IVPB ONE (08:31)
[2019-12-31] MEDS: CITALOPRAM HYDROBROMIDE 20 MG TABLET PO SCH (09:39)
[2019-12-31] MEDS: FERROUS SO4 300 MG/5 ML ORAL SOLN UNIT DOSE CUPS PO SCH ×2 (09:39→22:18)
[2019-12-31] MEDS: MAGNESIUM OXIDE 400 MG TABLET (FP) PO SCH ×2 (09:39→22:17)
[2019-12-31] MEDS: ASCORBIC ACID 500 MG TABLET (FP) PO SCH ×2 (09:39→22:17)
[2019-12-31] MEDS: MULTIVITAMINS THER W-MINERALS COMBO TABLET (FP) PO SCH (09:39)
[2019-12-31] MEDS: AMINO ACIDS/PROTEIN HYDROLYS 30 ML LIQUID.PKT PO SCH ×2 (09:40→16:29)
[2019-12-31] MEDS: ERTAPENEM SODIUM 1 GM in SODIUM CHLORIDE 50 ML IVPB SCH (09:41)
[2019-12-31] MEDS: HEPARIN NA (PORCINE) 5,000 UNITS/ML 1ML VIAL SQ SCH ×2 (09:42→22:18)
[2019-12-31] MEDS: POLYETHYLENE GLYCOL 3350 119 GM BTL PO SCH (09:45)
[2019-12-31] MEDS: FENOFIBRIC ACID 135 MG CAP PO SCH (09:46)
[2019-12-31] MEDS: BACITRACIN 15 GM TUBE TOPICAL OINTMENT TP SCH (09:50)
[2019-12-31] MEDS: COLLAGENASE CLOSTRIDIUM HIST. 30 GRAMS TUBE TP SCH (09:50)
[2019-12-31] MEDS: ARTIFICIAL TEARS (POLYVINYL ALCOHOL) OPTH DROPS OU SCH ×2 (09:50→22:31)
[2019-12-31] MEDS: DAPTOMYCIN 360 MG in SODIUM CHLORIDE 50 ML IVPB SCH (11:14)
[2019-12-31 11:58] LABS: BASO % 0.4 % (0-2.0); EOS % 1.5 % (0-4.5); HEMATOCRIT 28.6 % (32.4-45.2); HEMOGLOBIN 9.3 GM/dL (10.7-15.3); LYMPH % 53.4 % (8-40); MCH 33.7 pg (25.7-33.7); MCHC 32.7 g/dl (32.0-36.0); MEAN CELL VOLUME 103.1 fl (80-96); MEAN PLT VOLUME 8.6 fl (7.5-11.1); MONO % 2.7 % (3.8-10.2); PLATELET COUNT 364 K/MM3 (134-434); RBC 2.77 M/mm3 (3.60-5.2)
[2019-12-31 12:23] LABS: POTASSIUM 4.6 mmol/L (3.5-5.1)
[2019-12-31 12:25] LABS: ALBUMIN 2.2 g/dl (3.4-5.0); BLOOD UREA NITROGEN 71.6 mg/dL (7-18); CALCIUM 9.3 mg/dL (8.5-10.1)
[2019-12-31 12:29] LABS: CREATININE 1.5 mg/dL (0.55-1.3)
[2019-12-31 12:30] LABS: BILIRUBIN,TOTAL 0.2 mg/dL (0.2-1)
[2019-12-31 12:32] LABS: ANISOCYTOSIS 2+; MACROCYTOSIS 2+; PLATELET ESTIMATE NORMAL
[2019-12-31] MEDS: OLANZapine 5 MG TABLET PO SCH (16:29)
[2019-12-31] MEDS ORDERED: FERROUS SO4 300 MG/5 ML ORAL SOLN UNIT DOSE CUPS PO SCH (22:00)
[2019-12-31] MEDS: DOCUSATE SODIUM 100 MG CAPSULE (FP) PO SCH ×2 (22:17→22:30)
[2020-01-01] MEDS: ACETAMINOPHEN 325 MG TABLET (FP) PO PRN (06:11)
[2020-01-01] MEDS: INSULIN (LEVEMIR) 100 UNITS/ML UNITS SQ SCH ×2 (06:12→21:37)
[2020-01-01] MEDS: INSULIN SLIDING SCALE (NOVOLOG) 1 VIAL SQ SCH ×4 (06:13→21:36)
[2020-01-01 06:34] LABS: BASO % 0.3 % (0-2.0); EOS % 1.5 % (0-4.5); HEMATOCRIT 29.7 % (32.4-45.2); HEMOGLOBIN 9.7 GM/dL (10.7-15.3); LYMPH % 60.2 % (8-40); MCH 33.3 pg (25.7-33.7); MCHC 32.6 g/dl (32.0-36.0); MEAN CELL VOLUME 102.2 fl (80-96); MEAN PLT VOLUME 8.6 fl (7.5-11.1); MONO % 2.2 % (3.8-10.2); NEUT % 35.8 % (42.8-82.8); PLATELET COUNT 363 K/MM3 (134-434); RBC 2.91 M/mm3 (3.60-5.2); RDW 15.3 % (11.6-15.6); WHITE BLOOD COUNT 14.2 K/mm3 (4.0-10.0)
[2020-01-01 06:52] LABS: POTASSIUM 4.7 mmol/L (3.5-5.1)
[2020-01-01 06:54] LABS: ALBUMIN 2.3 g/dl (3.4-5.0); CALCIUM 9.4 mg/dL (8.5-10.1)
[2020-01-01 06:58] LABS: CREATININE 1.7 mg/dL (0.55-1.3)
[2020-01-01 06:59] LABS: BILIRUBIN,TOTAL 0.2 mg/dL (0.2-1); TOT PROT 6.1 g/dl (6.4-8.2)
[2020-01-01] MEDS ORDERED: ERTAPENEM SODIUM 1 GM VIAL ONE (09:24)
[2020-01-01] MEDS ORDERED: SODIUM CHLORIDE 50 ML IVPB ONE (09:25)
[2020-01-01] MEDS: FERROUS SO4 300 MG/5 ML ORAL SOLN UNIT DOSE CUPS PO SCH ×2 (09:32→21:35)
[2020-01-01] MEDS: MAGNESIUM OXIDE 400 MG TABLET (FP) PO SCH ×2 (09:33→21:35)
[2020-01-01] MEDS: ASCORBIC ACID 500 MG TABLET (FP) PO SCH ×2 (09:33→21:35)
[2020-01-01] MEDS: CITALOPRAM HYDROBROMIDE 20 MG TABLET PO SCH (09:33)
[2020-01-01] MEDS: MULTIVITAMINS THER W-MINERALS COMBO TABLET (FP) PO SCH (09:33)
[2020-01-01] MEDS: FENOFIBRIC ACID 135 MG CAP PO SCH (09:34)
[2020-01-01] MEDS: AMINO ACIDS/PROTEIN HYDROLYS 30 ML LIQUID.PKT PO SCH ×2 (09:34→17:19)
[2020-01-01] MEDS: HEPARIN NA (PORCINE) 5,000 UNITS/ML 1ML VIAL SQ SCH ×2 (09:34→21:34)
[2020-01-01] MEDS: BACITRACIN 15 GM TUBE TOPICAL OINTMENT TP SCH (09:35)
[2020-01-01] MEDS: ARTIFICIAL TEARS (POLYVINYL ALCOHOL) OPTH DROPS OU SCH ×2 (09:35→21:39)
[2020-01-01] MEDS: COLLAGENASE CLOSTRIDIUM HIST. 30 GRAMS TUBE TP SCH (09:35)
[2020-01-01] MEDS: POLYETHYLENE GLYCOL 3350 119 GM BTL PO SCH (09:35)
[2020-01-01] MEDS: ERTAPENEM SODIUM 1 GM in SODIUM CHLORIDE 50 ML IVPB SCH (09:36)
[2020-01-01] MEDS: DAPTOMYCIN 360 MG in SODIUM CHLORIDE 50 ML IVPB SCH (10:19)
[2020-01-01 10:30] LABS: ANISOCYTOSIS 1+; MACROCYTOSIS 1+; PLATELET ESTIMATE NORMAL
[2020-01-01] MEDS: OLANZapine 5 MG TABLET PO SCH (17:19)
[2020-01-01] MEDS: DOCUSATE SODIUM 100 MG CAPSULE (FP) PO SCH (21:35)
[2020-01-02] MEDS: INSULIN (LEVEMIR) 100 UNITS/ML UNITS SQ SCH ×2 (06:19→22:16)
[2020-01-02] MEDS: INSULIN SLIDING SCALE (NOVOLOG) 1 VIAL SQ SCH ×4 (06:19→22:18)
[2020-01-02] MEDS ORDERED: INSULIN (NOVOLOG) ASPART 100 UNITS/ML 10ML VIAL ONE (06:30)
[2020-01-02 08:14] LABS: BASO % 0.5 % (0-2.0); EOS % 1.8 % (0-4.5); HEMATOCRIT 28.1 % (32.4-45.2); LYMPH % 46.1 % (8-40); MCHC 32.1 g/dl (32.0-36.0); MEAN CELL VOLUME 102.9 fl (80-96); MEAN PLT VOLUME 8.7 fl (7.5-11.1); MONO % 2.6 % (3.8-10.2); PLATELET COUNT 360 K/MM3 (134-434); RBC 2.74 M/mm3 (3.60-5.2); RDW 14.7 % (11.6-15.6); WHITE BLOOD COUNT 15.3 K/mm3 (4.0-10.0)
[2020-01-02 08:22] LABS: POTASSIUM 4.6 mmol/L (3.5-5.1)
[2020-01-02 08:25] LABS: ALBUMIN 2.2 g/dl (3.4-5.0); BLOOD UREA NITROGEN 80.6 mg/dL (7-18); CALCIUM 9.4 mg/dL (8.5-10.1)
[2020-01-02 08:27] LABS: CREATININE 1.7 mg/dL (0.55-1.3)
[2020-01-02 08:29] LABS: BILIRUBIN,TOTAL 0.2 mg/dL (0.2-1); TOT PROT 5.9 g/dl (6.4-8.2)
[2020-01-02] MEDS ORDERED: SODIUM CHLORIDE 50 ML IVPB ONE (09:21)
[2020-01-02] MEDS ORDERED: ERTAPENEM SODIUM 1 GM VIAL ONE (09:21)
[2020-01-02 09:39] LABS: ANISOCYTOSIS 0; MACROCYTOSIS 0; PLATELET ESTIMATE NORMAL
[2020-01-02] MEDS: FERROUS SO4 300 MG/5 ML ORAL SOLN UNIT DOSE CUPS PO SCH ×2 (10:07→22:14)
[2020-01-02] MEDS: MULTIVITAMINS THER W-MINERALS COMBO TABLET (FP) PO SCH (10:07)
[2020-01-02] MEDS: CITALOPRAM HYDROBROMIDE 20 MG TABLET PO SCH (10:07)
[2020-01-02] MEDS: MAGNESIUM OXIDE 400 MG TABLET (FP) PO SCH ×2 (10:08→22:13)
[2020-01-02] MEDS: ASCORBIC ACID 500 MG TABLET (FP) PO SCH ×2 (10:08→22:13)
[2020-01-02] MEDS: FENOFIBRIC ACID 135 MG CAP PO SCH (10:08)
[2020-01-02] MEDS: COLLAGENASE CLOSTRIDIUM HIST. 30 GRAMS TUBE TP SCH (10:08)
[2020-01-02] MEDS: HEPARIN NA (PORCINE) 5,000 UNITS/ML 1ML VIAL SQ SCH ×2 (10:08→22:14)
[2020-01-02] MEDS: ERTAPENEM SODIUM 1 GM in SODIUM CHLORIDE 50 ML IVPB SCH (10:08)
[2020-01-02] MEDS: BACITRACIN 15 GM TUBE TOPICAL OINTMENT TP SCH (10:10)
[2020-01-02] MEDS: ARTIFICIAL TEARS (POLYVINYL ALCOHOL) OPTH DROPS OU SCH ×2 (10:10→22:17)
[2020-01-02] MEDS: POLYETHYLENE GLYCOL 3350 119 GM BTL PO SCH (10:11)
[2020-01-02] MEDS: AMINO ACIDS/PROTEIN HYDROLYS 30 ML LIQUID.PKT PO SCH ×2 (10:11→17:02)
[2020-01-02] MEDS: DAPTOMYCIN 360 MG in SODIUM CHLORIDE 50 ML IVPB SCH (11:12)
[2020-01-02] MEDS: OLANZapine 5 MG TABLET PO SCH (17:03)
[2020-01-02] MEDS: DOCUSATE SODIUM 100 MG CAPSULE (FP) PO SCH (22:13)
[2020-01-03] MEDS: INSULIN (LEVEMIR) 100 UNITS/ML UNITS SQ SCH ×2 (06:09→21:54)
[2020-01-03] MEDS: INSULIN SLIDING SCALE (NOVOLOG) 1 VIAL SQ SCH ×4 (06:10→21:55)
[2020-01-03] MEDS ORDERED: PT OWN MED DRAWER 7, Y5N ONE (06:14)
[2020-01-03] MEDS ORDERED: INSULIN (NOVOLOG) ASPART 100 UNITS/ML 10ML VIAL ONE (06:14)
[2020-01-03] MEDS ORDERED: INSULIN (LEVEMIR) 100 UNITS/ML UNITS SQ ONE (06:14)
[2020-01-03 08:06] LABS: BASO % 0.5 % (0-2.0); EOS % 1.7 % (0-4.5); HEMATOCRIT 29.8 % (32.4-45.2); HEMOGLOBIN 9.6 GM/dL (10.7-15.3); LYMPH % 52.9 % (8-40); MCH 33.2 pg (25.7-33.7); MCHC 32.2 g/dl (32.0-36.0); MEAN CELL VOLUME 102.9 fl (80-96); MEAN PLT VOLUME 8.9 fl (7.5-11.1); MONO % 2.8 % (3.8-10.2); NEUT % 42.1 % (42.8-82.8); PLATELET COUNT 355 K/MM3 (134-434); RBC 2.89 M/mm3 (3.60-5.2); RDW 14.7 % (11.6-15.6); WHITE BLOOD COUNT 15.3 K/mm3 (4.0-10.0)
[2020-01-03] MEDS ORDERED: ERTAPENEM SODIUM 1 GM VIAL ONE (08:14)
[2020-01-03] MEDS ORDERED: SODIUM CHLORIDE 50 ML IVPB ONE (08:14)
[2020-01-03 08:21] LABS: POTASSIUM 4.9 mmol/L (3.5-5.1)
[2020-01-03 08:23] LABS: ALBUMIN 2.4 g/dl (3.4-5.0); BLOOD UREA NITROGEN 88.4 mg/dL (7-18); CALCIUM 9.5 mg/dL (8.5-10.1)
[2020-01-03 08:26] LABS: CREATININE 1.8 mg/dL (0.55-1.3)
[2020-01-03 08:28] LABS: BILIRUBIN,TOTAL 0.2 mg/dL (0.2-1); TOT PROT 6.4 g/dl (6.4-8.2)
[2020-01-03] MEDS: ERTAPENEM SODIUM 1 GM in SODIUM CHLORIDE 50 ML IVPB SCH (09:09)
[2020-01-03] MEDS: AMINO ACIDS/PROTEIN HYDROLYS 30 ML LIQUID.PKT PO SCH ×2 (09:09→16:44)
[2020-01-03] MEDS: FERROUS SO4 300 MG/5 ML ORAL SOLN UNIT DOSE CUPS PO SCH ×2 (09:10→21:53)
[2020-01-03] MEDS: ASCORBIC ACID 500 MG TABLET (FP) PO SCH ×2 (09:10→21:53)
[2020-01-03] MEDS: CITALOPRAM HYDROBROMIDE 20 MG TABLET PO SCH (09:10)
[2020-01-03] MEDS: HEPARIN NA (PORCINE) 5,000 UNITS/ML 1ML VIAL SQ SCH ×2 (09:10→21:53)
[2020-01-03] MEDS: MAGNESIUM OXIDE 400 MG TABLET (FP) PO SCH ×2 (09:10→21:53)
[2020-01-03] MEDS: MULTIVITAMINS THER W-MINERALS COMBO TABLET (FP) PO SCH (09:10)
[2020-01-03] MEDS: ARTIFICIAL TEARS (POLYVINYL ALCOHOL) OPTH DROPS OU SCH ×2 (09:13→21:52)
[2020-01-03] MEDS: BACITRACIN 15 GM TUBE TOPICAL OINTMENT TP SCH (09:14)
[2020-01-03] MEDS: COLLAGENASE CLOSTRIDIUM HIST. 30 GRAMS TUBE TP SCH (09:14)
[2020-01-03] MEDS: POLYETHYLENE GLYCOL 3350 119 GM BTL PO SCH (09:15)
[2020-01-03 09:30] LABS: ANISOCYTOSIS 1+; MACROCYTOSIS 1+; PLATELET ESTIMATE NORMAL
[2020-01-03] MEDS: DAPTOMYCIN 360 MG in SODIUM CHLORIDE 50 ML IVPB SCH (11:33)
[2020-01-03] MEDS: FENOFIBRIC ACID 135 MG CAP PO SCH (11:34)
[2020-01-03] MEDS: OLANZapine 5 MG TABLET PO SCH (16:44)
[2020-01-03] MEDS: ACETAMINOPHEN 325 MG TABLET (FP) PO PRN (21:52)
[2020-01-03] MEDS: DOCUSATE SODIUM 100 MG CAPSULE (FP) PO SCH (21:53)
[2020-01-04] MEDS: INSULIN (LEVEMIR) 100 UNITS/ML UNITS SQ SCH ×2 (06:22→22:07)
[2020-01-04] MEDS: INSULIN SLIDING SCALE (NOVOLOG) 1 VIAL SQ SCH ×4 (06:23→22:04)
[2020-01-04 08:15] LABS: BASO % 0.5 % (0-2.0); EOS % 1.5 % (0-4.5); HEMATOCRIT 27.7 % (32.4-45.2); HEMOGLOBIN 8.7 GM/dL (10.7-15.3); LYMPH % 41.7 % (8-40); MCH 32.6 pg (25.7-33.7); MCHC 31.4 g/dl (32.0-36.0); MEAN CELL VOLUME 103.9 fl (80-96); MEAN PLT VOLUME 8.9 fl (7.5-11.1); MONO % 2.2 % (3.8-10.2); NEUT % 54.1 % (42.8-82.8); PLATELET COUNT 335 K/MM3 (134-434); RBC 2.67 M/mm3 (3.60-5.2); RDW 14.8 % (11.6-15.6); WHITE BLOOD COUNT 16.6 K/mm3 (4.0-10.0)
[2020-01-04 08:26] LABS: POTASSIUM 4.6 mmol/L (3.5-5.1)
[2020-01-04 08:28] LABS: ALBUMIN 2.3 g/dl (3.4-5.0); BLOOD UREA NITROGEN 86.2 mg/dL (7-18); CALCIUM 9.2 mg/dL (8.5-10.1)
[2020-01-04 08:31] LABS: CREATININE 1.6 mg/dL (0.55-1.3)
[2020-01-04 08:33] LABS: BILIRUBIN,TOTAL 0.2 mg/dL (0.2-1); TOT PROT 5.7 g/dl (6.4-8.2)
[2020-01-04] MEDS: ARTIFICIAL TEARS (POLYVINYL ALCOHOL) OPTH DROPS OU SCH ×2 (10:10→22:10)
[2020-01-04] MEDS: AMINO ACIDS/PROTEIN HYDROLYS 30 ML LIQUID.PKT PO SCH ×3 (10:10→17:18)
[2020-01-04] MEDS ORDERED: ERTAPENEM SODIUM 1 GM VIAL ONE (10:30)
[2020-01-04] MEDS ORDERED: SODIUM CHLORIDE 50 ML IVPB ONE (10:30)
[2020-01-04] MEDS ORDERED: PT OWN MED DRAWER 7, Y5N ONE (10:31)
[2020-01-04] MEDS: HEPARIN NA (PORCINE) 5,000 UNITS/ML 1ML VIAL SQ SCH ×2 (10:42→22:05)
[2020-01-04] MEDS: ERTAPENEM SODIUM 1 GM in SODIUM CHLORIDE 50 ML IVPB SCH (10:42)
[2020-01-04] MEDS: FERROUS SO4 300 MG/5 ML ORAL SOLN UNIT DOSE CUPS PO SCH ×2 (10:42→22:04)
[2020-01-04] MEDS: MULTIVITAMINS THER W-MINERALS COMBO TABLET (FP) PO SCH (10:43)
[2020-01-04] MEDS: DAPTOMYCIN 360 MG in SODIUM CHLORIDE 50 ML IVPB SCH (10:43)
[2020-01-04] MEDS: CITALOPRAM HYDROBROMIDE 20 MG TABLET PO SCH (10:43)
[2020-01-04] MEDS: ASCORBIC ACID 500 MG TABLET (FP) PO SCH ×2 (10:44→22:04)
[2020-01-04] MEDS: FENOFIBRIC ACID 135 MG CAP PO SCH (10:44)
[2020-01-04] MEDS: POLYETHYLENE GLYCOL 3350 119 GM BTL PO SCH (10:45)
[2020-01-04] MEDS: MAGNESIUM OXIDE 400 MG TABLET (FP) PO SCH ×2 (10:45→22:04)
[2020-01-04] MEDS: COLLAGENASE CLOSTRIDIUM HIST. 30 GRAMS TUBE TP SCH (10:45)
[2020-01-04] MEDS: BACITRACIN 15 GM TUBE TOPICAL OINTMENT TP SCH (10:46)
[2020-01-04] MEDS: OLANZapine 5 MG TABLET PO SCH (17:18)
[2020-01-04] MEDS: DOCUSATE SODIUM 100 MG CAPSULE (FP) PO SCH ×2 (22:05→22:17)
[2020-01-05] MEDS ORDERED: INSULIN (NOVOLOG) ASPART 100 UNITS/ML 10ML VIAL ONE (06:34)
[2020-01-05] MEDS: INSULIN SLIDING SCALE (NOVOLOG) 1 VIAL SQ SCH ×4 (07:24→21:55)
[2020-01-05] MEDS: INSULIN (LEVEMIR) 100 UNITS/ML UNITS SQ SCH ×2 (07:24→21:53)
[2020-01-05 08:01] LABS: BASO % 0.4 % (0-2.0); EOS % 1.9 % (0-4.5); HEMATOCRIT 29.6 % (32.4-45.2); HEMOGLOBIN 9.3 GM/dL (10.7-15.3); MCH 32.8 pg (25.7-33.7); MCHC 31.3 g/dl (32.0-36.0); MEAN CELL VOLUME 104.6 fl (80-96); MEAN PLT VOLUME 8.5 fl (7.5-11.1); NEUT % 43.7 % (42.8-82.8); PLATELET COUNT 344 K/MM3 (134-434); RBC 2.83 M/mm3 (3.60-5.2); RDW 14.8 % (11.6-15.6); WHITE BLOOD COUNT 13.1 K/mm3 (4.0-10.0)
[2020-01-05 08:18] LABS: POTASSIUM 4.6 mmol/L (3.5-5.1)
[2020-01-05 08:20] LABS: ALBUMIN 2.3 g/dl (3.4-5.0); BLOOD UREA NITROGEN 81.3 mg/dL (7-18)
[2020-01-05 08:24] LABS: CREATININE 1.7 mg/dL (0.55-1.3)
[2020-01-05 08:25] LABS: BILIRUBIN,TOTAL 0.2 mg/dL (0.2-1)
[2020-01-05] MEDS ORDERED: ERTAPENEM SODIUM 1 GM VIAL ONE (09:50)
[2020-01-05] MEDS ORDERED: SODIUM CHLORIDE 50 ML IVPB ONE (09:51)
[2020-01-05] MEDS: ERTAPENEM SODIUM 1 GM in SODIUM CHLORIDE 50 ML IVPB SCH (09:55)
[2020-01-05] MEDS: FERROUS SO4 300 MG/5 ML ORAL SOLN UNIT DOSE CUPS PO SCH ×2 (09:55→21:52)
[2020-01-05] MEDS: MULTIVITAMINS THER W-MINERALS COMBO TABLET (FP) PO SCH (09:55)
[2020-01-05] MEDS: HEPARIN NA (PORCINE) 5,000 UNITS/ML 1ML VIAL SQ SCH ×2 (09:56→21:53)
[2020-01-05] MEDS: MAGNESIUM OXIDE 400 MG TABLET (FP) PO SCH ×2 (09:56→21:53)
[2020-01-05] MEDS: CITALOPRAM HYDROBROMIDE 20 MG TABLET PO SCH (09:56)
[2020-01-05] MEDS: AMINO ACIDS/PROTEIN HYDROLYS 30 ML LIQUID.PKT PO SCH ×2 (09:56→17:05)
[2020-01-05] MEDS: ASCORBIC ACID 500 MG TABLET (FP) PO SCH ×2 (09:56→21:52)
[2020-01-05] MEDS: FENOFIBRIC ACID 135 MG CAP PO SCH (09:57)
[2020-01-05] MEDS: POLYETHYLENE GLYCOL 3350 119 GM BTL PO SCH (09:58)
[2020-01-05] MEDS: DAPTOMYCIN 360 MG in SODIUM CHLORIDE 50 ML IVPB SCH (10:03)
[2020-01-05] MEDS: BACITRACIN 15 GM TUBE TOPICAL OINTMENT TP SCH (11:05)
[2020-01-05] MEDS: ARTIFICIAL TEARS (POLYVINYL ALCOHOL) OPTH DROPS OU SCH ×2 (11:05→21:57)
[2020-01-05] MEDS ORDERED: PT OWN MED DRAWER 7, Y5N ONE (17:03)
[2020-01-05] MEDS: OLANZapine 5 MG TABLET PO SCH (17:05)
[2020-01-05] MEDS: COLLAGENASE CLOSTRIDIUM HIST. 30 GRAMS TUBE TP SCH (17:28)
[2020-01-05] MEDS: DOCUSATE SODIUM 100 MG CAPSULE (FP) PO SCH (21:52)
[2020-01-06] MEDS: INSULIN (LEVEMIR) 100 UNITS/ML UNITS SQ SCH ×2 (07:13→21:50)
[2020-01-06] MEDS: INSULIN SLIDING SCALE (NOVOLOG) 1 VIAL SQ SCH ×4 (07:14→22:42)
[2020-01-06 08:43] LABS: BASO % 0.3 % (0-2.0); EOS % 2.4 % (0-4.5); HEMATOCRIT 29.2 % (32.4-45.2); HEMOGLOBIN 9.2 GM/dL (10.7-15.3); LYMPH % 58.8 % (8-40); MCHC 31.5 g/dl (32.0-36.0); MEAN CELL VOLUME 104.7 fl (80-96); MEAN PLT VOLUME 8.8 fl (7.5-11.1); MONO % 2.9 % (3.8-10.2); NEUT % 35.6 % (42.8-82.8); PLATELET COUNT 336 K/MM3 (134-434); RBC 2.78 M/mm3 (3.60-5.2); WHITE BLOOD COUNT 11.6 K/mm3 (4.0-10.0)
[2020-01-06 08:52] LABS: POTASSIUM 4.7 mmol/L (3.5-5.1)
[2020-01-06 08:55] LABS: ALBUMIN 2.4 g/dl (3.4-5.0); CALCIUM 9.4 mg/dL (8.5-10.1)
[2020-01-06 08:58] LABS: CREATININE 1.8 mg/dL (0.55-1.3)
[2020-01-06 09:00] LABS: BILIRUBIN,TOTAL 0.5 mg/dL (0.2-1); TOT PROT 6.3 g/dl (6.4-8.2)
[2020-01-06] MEDS ORDERED: SODIUM CHLORIDE 50 ML IVPB ONE (09:43)
[2020-01-06] MEDS ORDERED: ERTAPENEM SODIUM 1 GM VIAL ONE (09:43)
[2020-01-06] MEDS: CITALOPRAM HYDROBROMIDE 20 MG TABLET PO SCH (09:55)
[2020-01-06] MEDS: BACITRACIN 15 GM TUBE TOPICAL OINTMENT TP SCH (09:55)
[2020-01-06] MEDS: AMINO ACIDS/PROTEIN HYDROLYS 30 ML LIQUID.PKT PO SCH ×2 (09:55→16:37)
[2020-01-06] MEDS: ERTAPENEM SODIUM 1 GM in SODIUM CHLORIDE 50 ML IVPB SCH (09:55)
[2020-01-06] MEDS: FERROUS SO4 300 MG/5 ML ORAL SOLN UNIT DOSE CUPS PO SCH ×2 (09:55→21:50)
[2020-01-06] MEDS: MULTIVITAMINS THER W-MINERALS COMBO TABLET (FP) PO SCH (09:55)
[2020-01-06] MEDS: MAGNESIUM OXIDE 400 MG TABLET (FP) PO SCH ×2 (09:55→21:50)
[2020-01-06] MEDS: ASCORBIC ACID 500 MG TABLET (FP) PO SCH ×2 (09:55→21:51)
[2020-01-06] MEDS: FENOFIBRIC ACID 135 MG CAP PO SCH (09:56)
[2020-01-06] MEDS: POLYETHYLENE GLYCOL 3350 119 GM BTL PO SCH (09:56)
[2020-01-06] MEDS: COLLAGENASE CLOSTRIDIUM HIST. 30 GRAMS TUBE TP SCH (09:56)
[2020-01-06] MEDS: ARTIFICIAL TEARS (POLYVINYL ALCOHOL) OPTH DROPS OU SCH ×2 (09:56→22:20)
[2020-01-06] MEDS: HEPARIN NA (PORCINE) 5,000 UNITS/ML 1ML VIAL SQ SCH ×2 (09:56→21:50)
[2020-01-06] MEDS: DAPTOMYCIN 360 MG in SODIUM CHLORIDE 50 ML IVPB SCH (10:40)
[2020-01-06 11:09] LABS: ANISOCYTOSIS 1+; MACROCYTOSIS 0; PLATELET ESTIMATE NORMAL; TEAR DROP CELLS 1+; TOXIC GRANULATION 2+
[2020-01-06] MEDS: OLANZapine 5 MG TABLET PO SCH (16:38)
[2020-01-06] MEDS: DOCUSATE SODIUM 100 MG CAPSULE (FP) PO SCH (22:20)
[2020-01-07] MEDS: INSULIN SLIDING SCALE (NOVOLOG) 1 VIAL SQ SCH ×4 (06:14→21:58)
[2020-01-07] MEDS: INSULIN (LEVEMIR) 100 UNITS/ML UNITS SQ SCH ×2 (06:14→21:56)
[2020-01-07 06:56] LABS: BASO % 0.5 % (0-2.0); EOS % 2.2 % (0-4.5); HEMATOCRIT 29.1 % (32.4-45.2); HEMOGLOBIN 9.2 GM/dL (10.7-15.3); MCH 33.3 pg (25.7-33.7); MCHC 31.7 g/dl (32.0-36.0); MEAN CELL VOLUME 104.9 fl (80-96); MEAN PLT VOLUME 8.4 fl (7.5-11.1); MONO % 2.9 % (3.8-10.2); NEUT % 42.4 % (42.8-82.8); PLATELET COUNT 327 K/MM3 (134-434); RBC 2.77 M/mm3 (3.60-5.2); RDW 14.9 % (11.6-15.6); WHITE BLOOD COUNT 12.4 K/mm3 (4.0-10.0)
[2020-01-07 07:15] LABS: POTASSIUM 4.4 mmol/L (3.5-5.1)
[2020-01-07 07:17] LABS: CALCIUM 9.9 mg/dL (8.5-10.1)
[2020-01-07 07:18] LABS: MAGNESIUM 3.2 mg/dL (1.8-2.4)
[2020-01-07 07:21] LABS: CREATININE 1.9 mg/dL (0.55-1.3); PHOSPHOROUS 5.2 mg/dL (2.5-4.9)
[2020-01-07] MEDS ORDERED: SODIUM CHLORIDE 50 ML IVPB ONE (09:09)
[2020-01-07] MEDS ORDERED: ERTAPENEM SODIUM 1 GM VIAL ONE (09:09)
[2020-01-07] MEDS: ASCORBIC ACID 500 MG TABLET (FP) PO SCH ×2 (09:29→21:56)
[2020-01-07] MEDS: MULTIVITAMINS THER W-MINERALS COMBO TABLET (FP) PO SCH (09:29)
[2020-01-07] MEDS: HEPARIN NA (PORCINE) 5,000 UNITS/ML 1ML VIAL SQ SCH (09:29)
[2020-01-07] MEDS: FERROUS SO4 300 MG/5 ML ORAL SOLN UNIT DOSE CUPS PO SCH ×2 (09:29→21:56)
[2020-01-07] MEDS: BACITRACIN 15 GM TUBE TOPICAL OINTMENT TP SCH (09:29)
[2020-01-07] MEDS: MAGNESIUM OXIDE 400 MG TABLET (FP) PO SCH ×2 (09:29→21:56)
[2020-01-07] MEDS: AMINO ACIDS/PROTEIN HYDROLYS 30 ML LIQUID.PKT PO SCH ×2 (09:29→17:29)
[2020-01-07] MEDS: CITALOPRAM HYDROBROMIDE 20 MG TABLET PO SCH (09:29)
[2020-01-07] MEDS: ERTAPENEM SODIUM 1 GM in SODIUM CHLORIDE 50 ML IVPB SCH (09:29)
[2020-01-07] MEDS: ARTIFICIAL TEARS (POLYVINYL ALCOHOL) OPTH DROPS OU SCH ×2 (09:30→22:00)
[2020-01-07] MEDS: COLLAGENASE CLOSTRIDIUM HIST. 30 GRAMS TUBE TP SCH (09:31)
[2020-01-07] MEDS: FENOFIBRIC ACID 135 MG CAP PO SCH (09:31)
[2020-01-07] MEDS: POLYETHYLENE GLYCOL 3350 119 GM BTL PO SCH (09:31)
[2020-01-07] MEDS: DAPTOMYCIN 360 MG in SODIUM CHLORIDE 50 ML IVPB SCH (10:39)
[2020-01-07 11:49] LABS: ANISOCYTOSIS 1+; MACROCYTOSIS 1+; PLATELET ESTIMATE NORMAL
[2020-01-07] MEDS: OLANZapine 5 MG TABLET PO SCH (17:30)
[2020-01-07] MEDS: ACETAMINOPHEN 325 MG TABLET (FP) PO PRN (20:19)
[2020-01-07] MEDS: DOCUSATE SODIUM 100 MG CAPSULE (FP) PO SCH (21:56)
[2020-01-08] MEDS: INSULIN SLIDING SCALE (NOVOLOG) 1 VIAL SQ SCH ×4 (06:28→21:39)
[2020-01-08] MEDS: INSULIN (LEVEMIR) 100 UNITS/ML UNITS SQ SCH ×2 (06:29→21:33)
[2020-01-08] MEDS ORDERED: ERTAPENEM SODIUM 1 GM VIAL ONE (08:55)
[2020-01-08] MEDS ORDERED: SODIUM CHLORIDE 50 ML IVPB ONE (08:56)
[2020-01-08] MEDS ORDERED: PT OWN MED DRAWER 7, Y5N ONE (08:58)
[2020-01-08] MEDS: AMINO ACIDS/PROTEIN HYDROLYS 30 ML LIQUID.PKT PO SCH ×2 (09:00→16:41)
[2020-01-08] MEDS: CITALOPRAM HYDROBROMIDE 20 MG TABLET PO SCH (09:01)
[2020-01-08] MEDS: BACITRACIN 15 GM TUBE TOPICAL OINTMENT TP SCH (09:01)
[2020-01-08] MEDS: ARTIFICIAL TEARS (POLYVINYL ALCOHOL) OPTH DROPS OU SCH ×2 (09:01→21:39)
[2020-01-08] MEDS: MULTIVITAMINS THER W-MINERALS COMBO TABLET (FP) PO SCH (09:02)
[2020-01-08] MEDS: ASCORBIC ACID 500 MG TABLET (FP) PO SCH ×2 (09:02→21:38)
[2020-01-08] MEDS: ERTAPENEM SODIUM 1 GM in SODIUM CHLORIDE 50 ML IVPB SCH (09:02)
[2020-01-08] MEDS: FERROUS SO4 300 MG/5 ML ORAL SOLN UNIT DOSE CUPS PO SCH ×2 (09:02→21:38)
[2020-01-08] MEDS: MAGNESIUM OXIDE 400 MG TABLET (FP) PO SCH ×2 (09:02→21:38)
[2020-01-08] MEDS: POLYETHYLENE GLYCOL 3350 119 GM BTL PO SCH (09:03)
[2020-01-08] MEDS: COLLAGENASE CLOSTRIDIUM HIST. 30 GRAMS TUBE TP SCH (09:03)
[2020-01-08] MEDS: FENOFIBRIC ACID 135 MG CAP PO SCH (09:04)
[2020-01-08] MEDS: DAPTOMYCIN 360 MG in SODIUM CHLORIDE 50 ML IVPB SCH (10:20)
[2020-01-08] MEDS: OLANZapine 5 MG TABLET PO SCH (16:42)
[2020-01-08] MEDS: DOCUSATE SODIUM 100 MG CAPSULE (FP) PO SCH (21:38)
[2020-01-09] MEDS: INSULIN SLIDING SCALE (NOVOLOG) 1 VIAL SQ SCH ×4 (06:02→22:16)
[2020-01-09] MEDS: INSULIN (LEVEMIR) 100 UNITS/ML UNITS SQ SCH ×2 (06:02→22:12)
[2020-01-09 06:44] LABS: POTASSIUM 4.7 mmol/L (3.5-5.1)
[2020-01-09 06:45] LABS: CALCIUM 9.5 mg/dL (8.5-10.1)
[2020-01-09 06:46] LABS: BLOOD UREA NITROGEN 68.4 mg/dL (7-18)
[2020-01-09 06:49] LABS: CREATININE 1.7 mg/dL (0.55-1.3)
[2020-01-09] MEDS ORDERED: ERTAPENEM SODIUM 1 GM VIAL ONE (08:53)
[2020-01-09] MEDS ORDERED: SODIUM CHLORIDE 50 ML IVPB ONE (08:53)
[2020-01-09] MEDS: AMINO ACIDS/PROTEIN HYDROLYS 30 ML LIQUID.PKT PO SCH ×2 (08:56→16:55)
[2020-01-09] MEDS: ERTAPENEM SODIUM 1 GM in SODIUM CHLORIDE 50 ML IVPB SCH (09:01)
[2020-01-09] MEDS: FERROUS SO4 300 MG/5 ML ORAL SOLN UNIT DOSE CUPS PO SCH ×2 (09:02→22:13)
[2020-01-09] MEDS: CITALOPRAM HYDROBROMIDE 20 MG TABLET PO SCH (09:02)
[2020-01-09] MEDS: MULTIVITAMINS THER W-MINERALS COMBO TABLET (FP) PO SCH (09:03)
[2020-01-09] MEDS: MAGNESIUM OXIDE 400 MG TABLET (FP) PO SCH ×2 (09:03→22:13)
[2020-01-09] MEDS: ACETAMINOPHEN 325 MG TABLET (FP) PO PRN (09:03)
[2020-01-09] MEDS: BACITRACIN 15 GM TUBE TOPICAL OINTMENT TP SCH (09:03)
[2020-01-09] MEDS: ASCORBIC ACID 500 MG TABLET (FP) PO SCH ×2 (09:03→22:13)
[2020-01-09] MEDS: ARTIFICIAL TEARS (POLYVINYL ALCOHOL) OPTH DROPS OU SCH ×2 (09:03→22:15)
[2020-01-09] MEDS: COLLAGENASE CLOSTRIDIUM HIST. 30 GRAMS TUBE TP SCH (09:04)
[2020-01-09] MEDS: POLYETHYLENE GLYCOL 3350 119 GM BTL PO SCH (09:04)
[2020-01-09] MEDS: FENOFIBRIC ACID 135 MG CAP PO SCH (09:04)
[2020-01-09] MEDS: DAPTOMYCIN 360 MG in SODIUM CHLORIDE 50 ML IVPB SCH (09:14)
[2020-01-09] MEDS: OLANZapine 5 MG TABLET PO SCH (16:55)
[2020-01-09] MEDS: DOCUSATE SODIUM 100 MG CAPSULE (FP) PO SCH (22:13)
[2020-01-10] MEDS ORDERED: DEXTROSE 50%-WATER - 25 GM/50 ML VIAL IVPUSH ONE (06:15)
[2020-01-10] MEDS: INSULIN SLIDING SCALE (NOVOLOG) 1 VIAL SQ SCH ×4 (06:33→21:28)
[2020-01-10] MEDS: INSULIN (LEVEMIR) 100 UNITS/ML UNITS SQ SCH ×2 (06:33→21:28)
[2020-01-10] MEDS ORDERED: INSULIN (NOVOLOG) ASPART 100 UNITS/ML 10ML VIAL ONE (06:40)
[2020-01-10 07:02] LABS: POTASSIUM 4.4 mmol/L (3.5-5.1)
[2020-01-10 07:06] LABS: BLOOD UREA NITROGEN 67.4 mg/dL (7-18); CALCIUM 9.6 mg/dL (8.5-10.1)
[2020-01-10 07:10] LABS: CREATININE 1.7 mg/dL (0.55-1.3)
[2020-01-10] MEDS ORDERED: SODIUM CHLORIDE 50 ML IVPB ONE (10:37)
[2020-01-10] MEDS ORDERED: ERTAPENEM SODIUM 1 GM VIAL ONE (10:37)
[2020-01-10] MEDS: ERTAPENEM SODIUM 1 GM in SODIUM CHLORIDE 50 ML IVPB SCH (10:47)
[2020-01-10] MEDS: MULTIVITAMINS THER W-MINERALS COMBO TABLET (FP) PO SCH (10:47)
[2020-01-10] MEDS: ASCORBIC ACID 500 MG TABLET (FP) PO SCH ×2 (10:47→21:07)
[2020-01-10] MEDS: AMINO ACIDS/PROTEIN HYDROLYS 30 ML LIQUID.PKT PO SCH ×2 (10:48→16:56)
[2020-01-10] MEDS: CITALOPRAM HYDROBROMIDE 20 MG TABLET PO SCH (10:48)
[2020-01-10] MEDS: FENOFIBRIC ACID 135 MG CAP PO SCH (10:48)
[2020-01-10] MEDS: FERROUS SO4 300 MG/5 ML ORAL SOLN UNIT DOSE CUPS PO SCH ×2 (10:48→21:07)
[2020-01-10] MEDS: MAGNESIUM OXIDE 400 MG TABLET (FP) PO SCH ×2 (10:48→21:07)
[2020-01-10] MEDS: BACITRACIN 15 GM TUBE TOPICAL OINTMENT TP SCH (10:49)
[2020-01-10] MEDS: ARTIFICIAL TEARS (POLYVINYL ALCOHOL) OPTH DROPS OU SCH ×2 (10:49→21:07)
[2020-01-10] MEDS: COLLAGENASE CLOSTRIDIUM HIST. 30 GRAMS TUBE TP SCH (10:51)
[2020-01-10] MEDS: POLYETHYLENE GLYCOL 3350 119 GM BTL PO SCH (11:14)
[2020-01-10] MEDS: DAPTOMYCIN 360 MG in SODIUM CHLORIDE 50 ML IVPB SCH (11:29)
[2020-01-10] MEDS: OLANZapine 5 MG TABLET PO SCH (16:55)
[2020-01-10] MEDS: DOCUSATE SODIUM 100 MG CAPSULE (FP) PO SCH (21:07)
[2020-01-10] MEDS: ACETAMINOPHEN 325 MG TABLET (FP) PO PRN (21:46)
[2020-01-11] MEDS: INSULIN SLIDING SCALE (NOVOLOG) 1 VIAL SQ SCH ×4 (06:04→22:11)
[2020-01-11] MEDS: INSULIN (LEVEMIR) 100 UNITS/ML UNITS SQ SCH ×2 (06:04→22:11)
[2020-01-11] MEDS ORDERED: SODIUM CHLORIDE 50 ML IVPB ONE (09:55)
[2020-01-11] MEDS ORDERED: ERTAPENEM SODIUM 1 GM VIAL ONE (09:55)
[2020-01-11] MEDS ORDERED: PT OWN MED DRAWER 7, Y5N ONE ×2 (09:57→16:49)
[2020-01-11] MEDS: FERROUS SO4 300 MG/5 ML ORAL SOLN UNIT DOSE CUPS PO SCH ×2 (09:59→21:50)
[2020-01-11] MEDS: MAGNESIUM OXIDE 400 MG TABLET (FP) PO SCH ×2 (09:59→21:50)
[2020-01-11] MEDS: ACETAMINOPHEN 325 MG TABLET (FP) PO PRN ×3 (09:59→21:48)
[2020-01-11] MEDS: ASCORBIC ACID 500 MG TABLET (FP) PO SCH ×2 (10:00→21:50)
[2020-01-11] MEDS: FENOFIBRIC ACID 135 MG CAP PO SCH (10:01)
[2020-01-11] MEDS: ERTAPENEM SODIUM 1 GM in SODIUM CHLORIDE 50 ML IVPB SCH (10:01)
[2020-01-11] MEDS: AMINO ACIDS/PROTEIN HYDROLYS 30 ML LIQUID.PKT PO SCH ×2 (10:01→17:13)
[2020-01-11] MEDS: CITALOPRAM HYDROBROMIDE 20 MG TABLET PO SCH (10:02)
[2020-01-11] MEDS: MULTIVITAMINS THER W-MINERALS COMBO TABLET (FP) PO SCH (10:02)
[2020-01-11] MEDS: ARTIFICIAL TEARS (POLYVINYL ALCOHOL) OPTH DROPS OU SCH ×2 (10:02→21:48)
[2020-01-11] MEDS: COLLAGENASE CLOSTRIDIUM HIST. 30 GRAMS TUBE TP SCH (10:04)
[2020-01-11] MEDS: POLYETHYLENE GLYCOL 3350 119 GM BTL PO SCH (10:04)
[2020-01-11] MEDS: BACITRACIN 15 GM TUBE TOPICAL OINTMENT TP SCH (10:04)
[2020-01-11] MEDS: DAPTOMYCIN 360 MG in SODIUM CHLORIDE 50 ML IVPB SCH (10:56)
[2020-01-11] MEDS ORDERED: traMADol HCL 50 MG TABLET PO PRN (11:38)
[2020-01-11] MEDS: OLANZapine 5 MG TABLET PO SCH (16:57)
[2020-01-11] MEDS: DOCUSATE SODIUM 100 MG CAPSULE (FP) PO SCH (21:50)
[2020-01-12] MEDS: INSULIN (LEVEMIR) 100 UNITS/ML UNITS SQ SCH ×2 (06:08→22:48)
[2020-01-12] MEDS: ACETAMINOPHEN 325 MG TABLET (FP) PO PRN ×3 (06:09→22:07)
[2020-01-12] MEDS: INSULIN SLIDING SCALE (NOVOLOG) 1 VIAL SQ SCH ×4 (06:09→22:48)
[2020-01-12 08:04] LABS: BASO % 0.5 % (0-2.0); EOS % 3.8 % (0-4.5); HEMATOCRIT 28.9 % (32.4-45.2); HEMOGLOBIN 9.3 GM/dL (10.7-15.3); LYMPH % 54.7 % (8-40); MCH 33.7 pg (25.7-33.7); MEAN CELL VOLUME 105.3 fl (80-96); MEAN PLT VOLUME 8.7 fl (7.5-11.1); MONO % 3.5 % (3.8-10.2); NEUT % 37.5 % (42.8-82.8); PLATELET COUNT 331 K/MM3 (134-434); RBC 2.75 M/mm3 (3.60-5.2); RDW 15.1 % (11.6-15.6); WHITE BLOOD COUNT 9.1 K/mm3 (4.0-10.0)
[2020-01-12 08:26] LABS: POTASSIUM 4.6 mmol/L (3.5-5.1)
[2020-01-12] MEDS: AMINO ACIDS/PROTEIN HYDROLYS 30 ML LIQUID.PKT PO SCH ×2 (08:28→17:06)
[2020-01-12 08:34] LABS: ALBUMIN 2.5 g/dl (3.4-5.0); BLOOD UREA NITROGEN 70.1 mg/dL (7-18); CALCIUM 9.4 mg/dL (8.5-10.1)
[2020-01-12 08:39] LABS: TOT PROT 6.2 g/dl (6.4-8.2)
[2020-01-12 08:59] LABS: ANISOCYTOSIS 1+; MACROCYTOSIS 1+; PLATELET ESTIMATE NORMAL
[2020-01-12 09:05] LABS: BILIRUBIN,TOTAL 0.2 mg/dL (0.2-1)
[2020-01-12] MEDS ORDERED: ERTAPENEM SODIUM 1 GM VIAL ONE (09:12)
[2020-01-12] MEDS ORDERED: SODIUM CHLORIDE 50 ML IVPB ONE (09:13)
[2020-01-12] MEDS ORDERED: PT OWN MED DRAWER 7, Y5N ONE (09:14)
[2020-01-12] MEDS: MULTIVITAMINS THER W-MINERALS COMBO TABLET (FP) PO SCH (09:37)
[2020-01-12] MEDS: MAGNESIUM OXIDE 400 MG TABLET (FP) PO SCH ×2 (09:37→22:07)
[2020-01-12] MEDS: FERROUS SO4 300 MG/5 ML ORAL SOLN UNIT DOSE CUPS PO SCH ×2 (09:37→22:07)
[2020-01-12] MEDS: CITALOPRAM HYDROBROMIDE 20 MG TABLET PO SCH (09:37)
[2020-01-12] MEDS: ERTAPENEM SODIUM 1 GM in SODIUM CHLORIDE 50 ML IVPB SCH (09:37)
[2020-01-12] MEDS: ASCORBIC ACID 500 MG TABLET (FP) PO SCH ×2 (09:37→22:07)
[2020-01-12] MEDS: FENOFIBRIC ACID 135 MG CAP PO SCH (09:38)
[2020-01-12] MEDS: POLYETHYLENE GLYCOL 3350 119 GM BTL PO SCH (09:48)
[2020-01-12] MEDS: BACITRACIN 15 GM TUBE TOPICAL OINTMENT TP SCH (09:49)
[2020-01-12] MEDS: ARTIFICIAL TEARS (POLYVINYL ALCOHOL) OPTH DROPS OU SCH ×2 (09:49→22:08)
[2020-01-12] MEDS: DAPTOMYCIN 360 MG in SODIUM CHLORIDE 50 ML IVPB SCH (11:17)
[2020-01-12] MEDS: COLLAGENASE CLOSTRIDIUM HIST. 30 GRAMS TUBE TP SCH (14:10)
[2020-01-12] MEDS: OLANZapine 5 MG TABLET PO SCH (16:56)
[2020-01-12] MEDS: DOCUSATE SODIUM 100 MG CAPSULE (FP) PO SCH (22:08)
[2020-01-13] MEDS: ACETAMINOPHEN 325 MG TABLET (FP) PO PRN (06:30)
[2020-01-13] MEDS: INSULIN (LEVEMIR) 100 UNITS/ML UNITS SQ SCH (06:38)
[2020-01-13] MEDS: INSULIN SLIDING SCALE (NOVOLOG) 1 VIAL SQ SCH ×3 (06:38→17:26)
[2020-01-13] MEDS ORDERED: ERTAPENEM SODIUM 1 GM VIAL ONE (09:45)
[2020-01-13] MEDS ORDERED: SODIUM CHLORIDE 50 ML IVPB ONE (09:46)
[2020-01-13] MEDS ORDERED: PT OWN MED DRAWER 7, Y5N ONE (09:47)
[2020-01-13] MEDS: COLLAGENASE CLOSTRIDIUM HIST. 30 GRAMS TUBE TP SCH (10:37)
[2020-01-13] MEDS: MULTIVITAMINS THER W-MINERALS COMBO TABLET (FP) PO SCH (10:37)
[2020-01-13] MEDS: ASCORBIC ACID 500 MG TABLET (FP) PO SCH (10:37)
[2020-01-13] MEDS: CITALOPRAM HYDROBROMIDE 20 MG TABLET PO SCH (10:37)
[2020-01-13] MEDS: MAGNESIUM OXIDE 400 MG TABLET (FP) PO SCH (10:37)
[2020-01-13] MEDS: FERROUS SO4 300 MG/5 ML ORAL SOLN UNIT DOSE CUPS PO SCH (10:37)
[2020-01-13] MEDS: ERTAPENEM SODIUM 1 GM in SODIUM CHLORIDE 50 ML IVPB SCH (10:38)
[2020-01-13] MEDS: AMINO ACIDS/PROTEIN HYDROLYS 30 ML LIQUID.PKT PO SCH ×2 (10:38→17:30)
[2020-01-13] MEDS: ARTIFICIAL TEARS (POLYVINYL ALCOHOL) OPTH DROPS OU SCH (10:39)
[2020-01-13] MEDS: FENOFIBRIC ACID 135 MG CAP PO SCH (10:39)
[2020-01-13] MEDS: BACITRACIN 15 GM TUBE TOPICAL OINTMENT TP SCH (10:39)
[2020-01-13] MEDS: DAPTOMYCIN 360 MG in SODIUM CHLORIDE 50 ML IVPB SCH (11:27)
[2020-01-13] MEDS: POLYETHYLENE GLYCOL 3350 119 GM BTL PO SCH (11:27)
[2020-01-13 15:10] VITALS: BP 111/52; PULSE 73; TEMP 97.3
[2020-01-13] MEDS: OLANZapine 5 MG TABLET PO SCH (17:29)
== END 2020-01-13 20:00 | DRG 602 ==
LOC: JER 13:49 → JERBED 16:26 → J7W 20:59
PROVIDERS: ADMIT Family Medicine; ATTEND Family Medicine
PROC: 0Y9630Z Drainage of Left Inguinal Region with Drainage Device, Percutaneous Approach (ICD-10-PCS; principal; 2020-01-07)
PROC: 02HV33Z Insertion of Infusion Device into Superior Vena Cava, Percutaneous Approach (ICD-10-PCS; 2020-01-13)
PROC: B548ZZA Ultrasonography of Superior Vena Cava, Guidance (ICD-10-PCS; 2020-01-13)
DX: L02.214 Cutaneous abscess of groin (principal); L89.154 Pressure ulcer of sacral region, stage 4; N39.0 Urinary tract infection, site not specified; N13.30 Unspecified hydronephrosis; F32.9 Major depressive disorder, single episode, unspecified; E78.5 Hyperlipidemia, unspecified; D64.9 Anemia, unspecified; E11.22 Type 2 diabetes mellitus with diabetic chronic kidney disease; I12.9 Hypertensive chronic kidney disease with stage 1 through stage 4 chronic kidney disease, or unspecified chronic kidney disease; N18.32 Chronic kidney disease, stage 3b; Z88.0 Allergy status to penicillin; Z79.4 Long term (current) use of insulin; I48.0 Paroxysmal atrial fibrillation; I44.7 Left bundle-branch block, unspecified; E87.6 Hypokalemia; R41.0 Disorientation, unspecified; K59.00 Constipation, unspecified
CPT/HCPCS: 20501; 36415; 36430; 36511; 36558; 49407; 72195-TC; 74176-TC; 76080-TC-FY; 77001-TC-FY; 80048; 80053; 81003; 82272; 82550; 82728; 82962; 83036; 83540; 83550; 83735; 84100; 84443; 85025; 85027; 85651; 86140; 86850; 86900; 86901; 86922; 87040; 87070; 87075; 87076; 87077; 87086; 87102; 87116; 87186; 87205; 87206; 87210; 97116-GP; 97161-GP; 99285-25; C1751; C9803; J0878; J1644; P9038; P9058; U0003

== ENCOUNTER 2020-07-29 00:09 | Inpatient (IN) | payer OTHER ==
[2020-07-29 01:23] LABS: BASO % 0.1 % (0-2.0); EOS % 0.1 % (0-4.5); HEMATOCRIT 24.1 % (32.4-45.2); HEMOGLOBIN 7.7 GM/dL (10.7-15.3); LYMPH % 32.2 % (8-40); MCH 34.5 pg (25.7-33.7); MCHC 31.8 g/dl (32.0-36.0); MEAN CELL VOLUME 108.4 fl (80-96); MEAN PLT VOLUME 8.7 fl (7.5-11.1); MONO % 4.2 % (3.8-10.2); NEUT % 63.4 % (42.8-82.8); PLATELET COUNT 501 K/MM3 (134-434); RBC 2.22 M/mm3 (3.60-5.2); RDW 15.9 % (11.6-15.6); WHITE BLOOD COUNT 18.5 K/mm3 (4.0-10.0)
[2020-07-29] MEDS ORDERED: SODIUM CHLORIDE 1,000 ML IV STA (01:25)
[2020-07-29 01:30] LABS: INR 1.11 (0.83-1.09); PROTHROMBIN TIME (PATIENT) 13.4 SEC (9.7-13.0)
[2020-07-29 01:39] LABS: CALCIUM 9.4 mg/dL (8.5-10.1)
[2020-07-29 01:40] LABS: ALBUMIN 2.8 g/dl (3.4-5.0); BLOOD UREA NITROGEN 62.9 mg/dL (7-18); MAGNESIUM 3.7 mg/dL (1.8-2.4)
[2020-07-29 01:44] LABS: BILIRUBIN,TOTAL 0.5 mg/dL (0.2-1); TOT PROT 6.8 g/dl (6.4-8.2)
[2020-07-29 02:36] LABS: EPI CELLS >36 /uL (0-25.1); HYALINE CASTS 15 /uL (0-3.1); PH,URINE 6.5 (5.0-8.0); URINE APPEARANCE TURBID; URINE BACTERIA 731 /uL (0-1359); URINE BILIRUBIN NEGATIVE (NEGATIVE); URINE COLOR YELLOW; URINE GLUCOSE (UA) NEGATIVE (NEGATIVE); URINE KETONE NEGATIVE (NEGATIVE); URINE LEUK ESTERASE 3+ (NEGATIVE); URINE NITRITE NEGATIVE (NEGATIVE); URINE PROTEIN 3+ (NEGATIVE); URINE UROBILINOGEN 0.2 mg/dL (0.2-1.0); URINE WBC 16522 /uL (0-25.8)
[2020-07-29 03:40] LABS: MACROCYTOSIS 2+; TEAR DROP CELLS 1+
[2020-07-29 03:53] LABS: URINE RBC 1007.1 /uL (0-23.9); YEAST NONE SEEN (NEGATIVE)
[2020-07-29] MEDS ORDERED: MEROPENEM 500 MG in DEXTROSE 5%-WATER 100 ML IVPB ONE (04:47)
[2020-07-29] MEDS ORDERED: MEROPENEM 1 GM VIAL (RESTRICTED TO ID) IVPB ONE (04:55)
[2020-07-29] MEDS ORDERED: ACETAMINOPHEN 1000 MG/100 ML VIAL (NON FORMULARY) IVPB ONE (05:16)
[2020-07-29] MEDS ORDERED: ACETAMINOPHEN 325 MG TABLET (FP) PO PRN ×2 (05:31→06:35)
[2020-07-29] MEDS: SODIUM CHLORIDE 1,000 ML IV SCH ×2 (05:36→21:52)
[2020-07-29] MEDS ORDERED: DOCUSATE SODIUM 100 MG CAPSULE (FP) PO ONE (07:50)
[2020-07-29] MEDS: DOCUSATE SODIUM 100 MG CAPSULE (FP) PO SCH ×3 (07:52→21:51)
[2020-07-29] MEDS: INSULIN SLIDING SCALE (NOVOLOG) 1 VIAL SQ SCH ×3 (07:53→20:52)
[2020-07-29] MEDS ORDERED: ASCORBIC ACID 500 MG TABLET (FP) ONE (09:06)
[2020-07-29] MEDS: ASCORBIC ACID 500 MG TABLET (FP) PO SCH ×2 (09:12→21:51)
[2020-07-29] MEDS: MULTIVITAMINS THER W-MINERALS COMBO TABLET (FP) PO SCH (09:12)
[2020-07-29] MEDS: AMINO ACIDS/PROTEIN HYDROLYS 30 ML LIQUID.PKT PO SCH ×2 (09:12→19:13)
[2020-07-29] MEDS ORDERED: POLYETHYLENE GLYCOL 3350 119 GM BTL PO SCH (10:00)
[2020-07-29 10:24] LABS: HEMATOCRIT 27.8 % (32.4-45.2); HEMOGLOBIN 8.9 GM/dL (10.7-15.3); MCH 34.2 pg (25.7-33.7); MCHC 31.9 g/dl (32.0-36.0); MEAN CELL VOLUME 107.4 fl (80-96); MEAN PLT VOLUME 8.7 fl (7.5-11.1); PLATELET COUNT 353 K/MM3 (134-434); RBC 2.58 M/mm3 (3.60-5.2); RDW 15.6 % (11.6-15.6); WHITE BLOOD COUNT 12.3 K/mm3 (4.0-10.0)
[2020-07-29 10:38] LABS: CALCIUM 8.9 mg/dL (8.5-10.1)
[2020-07-29 10:39] LABS: BLOOD UREA NITROGEN 62.9 mg/dL (7-18); MAGNESIUM 3.5 mg/dL (1.8-2.4)
[2020-07-29 10:43] LABS: CREATININE 1.8 mg/dL (0.55-1.3)
[2020-07-29] MEDS: COLLAGENASE CLOSTRIDIUM HIST. 30 GRAMS TUBE TP SCH (12:07)
[2020-07-29] MEDS: POLYETHYLENE GLYCOL 3350 119 GM BTL PO SCH ×2 (15:02→21:51)
[2020-07-29] MEDS ORDERED: ERTAPENEM SODIUM 1 GM VIAL ONE (15:13)
[2020-07-29] MEDS: ERTAPENEM SODIUM 1 GM in SODIUM CHLORIDE 50 ML IVPB SCH (16:11)
[2020-07-29] MEDS: OLANZapine 5 MG TABLET PO SCH (17:47)
[2020-07-29] MEDS ORDERED: MINERAL OIL ENEMA 133 ML ENEMA PR ONE (20:15)
[2020-07-29] MEDS: SENNOSIDES 8.6MG TABLET (FP) PO SCH (21:51)
[2020-07-29] MEDS: ATORVASTATIN CA 20 MG TABLET (FP) PO SCH (21:51)
[2020-07-29] MEDS ORDERED: DOCUSATE SODIUM 100 MG CAPSULE (FP) PO SCH (22:00)
[2020-07-30 01:44] VITALS: BMI 22.0
[2020-07-30] MEDS: SODIUM CHLORIDE 1,000 ML IV SCH ×2 (06:07→11:35)
[2020-07-30] MEDS: POLYETHYLENE GLYCOL 3350 119 GM BTL PO SCH ×3 (06:07→21:07)
[2020-07-30] MEDS: INSULIN SLIDING SCALE (NOVOLOG) 1 VIAL SQ SCH ×3 (06:08→17:38)
[2020-07-30] MEDS: DOCUSATE SODIUM 100 MG CAPSULE (FP) PO SCH ×3 (06:08→21:04)
[2020-07-30 07:35] LABS: BASO % 0.2 % (0-2.0); EOS % 3.2 % (0-4.5); HEMATOCRIT 22.5 % (32.4-45.2); HEMOGLOBIN 7.2 GM/dL (10.7-15.3); LYMPH % 30.5 % (8-40); MCH 34.7 pg (25.7-33.7); MCHC 32.1 g/dl (32.0-36.0); MEAN CELL VOLUME 108.1 fl (80-96); MEAN PLT VOLUME 8.7 fl (7.5-11.1); MONO % 2.8 % (3.8-10.2); NEUT % 63.3 % (42.8-82.8); PLATELET COUNT 306 K/MM3 (134-434); RBC 2.08 M/mm3 (3.60-5.2); RDW 15.7 % (11.6-15.6); WHITE BLOOD COUNT 8.5 K/mm3 (4.0-10.0)
[2020-07-30 07:48] LABS: CALCIUM 8.6 mg/dL (8.5-10.1)
[2020-07-30 07:52] LABS: CREATININE 1.4 mg/dL (0.55-1.3)
[2020-07-30 07:53] LABS: BILIRUBIN,TOTAL 0.4 mg/dL (0.2-1)
[2020-07-30 07:54] LABS: TOT PROT 5.2 g/dl (6.4-8.2)
[2020-07-30] MEDS: AMINO ACIDS/PROTEIN HYDROLYS 30 ML LIQUID.PKT PO SCH ×2 (08:26→17:45)
[2020-07-30] MEDS ORDERED: SODIUM CHLORIDE 50 ML IVPB ONE (09:36)
[2020-07-30] MEDS ORDERED: ERTAPENEM SODIUM 1 GM VIAL ONE (09:36)
[2020-07-30] MEDS: ERTAPENEM SODIUM 1 GM in SODIUM CHLORIDE 50 ML IVPB SCH (09:56)
[2020-07-30] MEDS: MULTIVITAMINS THER W-MINERALS COMBO TABLET (FP) PO SCH (09:56)
[2020-07-30] MEDS: ASCORBIC ACID 500 MG TABLET (FP) PO SCH ×2 (09:57→21:04)
[2020-07-30] MEDS ORDERED: FUROSEMIDE 40 MG/4 ML INJECTABLE VIAL IVPUSH ONE (14:24)
[2020-07-30] MEDS: COLLAGENASE CLOSTRIDIUM HIST. 30 GRAMS TUBE TP SCH (14:30)
[2020-07-30] MEDS: POTASSIUM CHLORIDE TABS 10 MEQ TABLET.ER (FP) PO SCH (15:48)
[2020-07-30] MEDS ORDERED: IRON SUCROSE INJECTION 200 MG in SODIUM CHLORIDE 90 ML IVPB ONE (16:41)
[2020-07-30] MEDS ORDERED: PT OWN MED DRAWER 7, Y5N ONE (17:42)
[2020-07-30] MEDS: OLANZapine 5 MG TABLET PO SCH (17:45)
[2020-07-30] MEDS: SENNOSIDES 8.6MG TABLET (FP) PO SCH (21:04)
[2020-07-30] MEDS: ATORVASTATIN CA 20 MG TABLET (FP) PO SCH (21:04)
[2020-07-30] MEDS: NYSTATIN 100000 UNIT/GM TOPICAL OINTMENT 15 GM TUBE TP SCH (22:39)
[2020-07-31] MEDS: DOCUSATE SODIUM 100 MG CAPSULE (FP) PO SCH ×3 (05:28→21:26)
[2020-07-31] MEDS: POLYETHYLENE GLYCOL 3350 119 GM BTL PO SCH ×3 (05:28→21:26)
[2020-07-31] MEDS: INSULIN SLIDING SCALE (NOVOLOG) 1 VIAL SQ SCH ×3 (06:06→18:18)
[2020-07-31 08:05] LABS: BASO % 0.3 % (0-2.0); EOS % 2.5 % (0-4.5); HEMATOCRIT 27.3 % (32.4-45.2); HEMOGLOBIN 8.5 GM/dL (10.7-15.3); LYMPH % 39.5 % (8-40); MCH 34.4 pg (25.7-33.7); MCHC 31.3 g/dl (32.0-36.0); MEAN PLT VOLUME 8.7 fl (7.5-11.1); MONO % 2.7 % (3.8-10.2); PLATELET COUNT 333 K/MM3 (134-434); RBC 2.48 M/mm3 (3.60-5.2); RDW 16.4 % (11.6-15.6); WHITE BLOOD COUNT 11.8 K/mm3 (4.0-10.0)
[2020-07-31 08:14] LABS: ALBUMIN 2.3 g/dl (3.4-5.0); BLOOD UREA NITROGEN 50.9 mg/dL (7-18)
[2020-07-31 08:18] LABS: CREATININE 1.5 mg/dL (0.55-1.3)
[2020-07-31 08:19] LABS: BILIRUBIN,TOTAL 0.1 mg/dL (0.2-1); TOT PROT 6.1 g/dl (6.4-8.2)
[2020-07-31] MEDS: ERTAPENEM SODIUM 1 GM in SODIUM CHLORIDE 50 ML IVPB SCH (10:41)
[2020-07-31] MEDS: MULTIVITAMINS THER W-MINERALS COMBO TABLET (FP) PO SCH (10:42)
[2020-07-31] MEDS: COLLAGENASE CLOSTRIDIUM HIST. 30 GRAMS TUBE TP SCH (10:42)
[2020-07-31] MEDS: ASCORBIC ACID 500 MG TABLET (FP) PO SCH ×2 (10:42→21:25)
[2020-07-31] MEDS: AMINO ACIDS/PROTEIN HYDROLYS 30 ML LIQUID.PKT PO SCH ×2 (10:42→18:23)
[2020-07-31] MEDS: POTASSIUM CHLORIDE TABS 10 MEQ TABLET.ER (FP) PO SCH (10:42)
[2020-07-31] MEDS: NYSTATIN 100000 UNIT/GM TOPICAL OINTMENT 15 GM TUBE TP SCH ×2 (10:43→21:27)
[2020-07-31 11:24] LABS: ANISOCYTOSIS 1+; MACROCYTOSIS 1+; PLATELET ESTIMATE NORMAL
[2020-07-31 16:08] LABS: GLIADIN ANTIBODY IGA 5 units (0-19); GLIADIN ANTIBODY IGG 2 units (0-19); TRANSGLUTAMINASE IGG < 2 U/mL (0-5)
[2020-07-31] MEDS ORDERED: PT OWN MED DRAWER 7, Y5N ONE (17:23)
[2020-07-31] MEDS: OLANZapine 5 MG TABLET PO SCH (18:23)
[2020-07-31] MEDS: SENNOSIDES 8.6MG TABLET (FP) PO SCH (21:26)
[2020-07-31] MEDS: ATORVASTATIN CA 20 MG TABLET (FP) PO SCH (21:26)
[2020-08-01] MEDS: DOCUSATE SODIUM 100 MG CAPSULE (FP) PO SCH ×3 (05:43→14:04)
[2020-08-01] MEDS: POLYETHYLENE GLYCOL 3350 119 GM BTL PO SCH ×3 (05:43→14:04)
[2020-08-01 05:53] VITALS: BP 124/55; PULSE 88; TEMP 97.9
[2020-08-01] MEDS: INSULIN SLIDING SCALE (NOVOLOG) 1 VIAL SQ SCH ×2 (07:07→11:43)
[2020-08-01] MEDS: POTASSIUM CHLORIDE TABS 10 MEQ TABLET.ER (FP) PO SCH (10:07)
[2020-08-01] MEDS: MULTIVITAMINS THER W-MINERALS COMBO TABLET (FP) PO SCH (10:07)
[2020-08-01] MEDS: AMINO ACIDS/PROTEIN HYDROLYS 30 ML LIQUID.PKT PO SCH (10:07)
[2020-08-01] MEDS: ASCORBIC ACID 500 MG TABLET (FP) PO SCH (10:08)
[2020-08-01] MEDS: NYSTATIN 100000 UNIT/GM TOPICAL OINTMENT 15 GM TUBE TP SCH (14:02)
[2020-08-01] MEDS: COLLAGENASE CLOSTRIDIUM HIST. 30 GRAMS TUBE TP SCH (15:15)
== END 2020-08-01 15:48 | DRG 388 ==
LOC: JER 00:09 → JERBED 05:19 → J7W 20:22
PROVIDERS: ADMIT Internal Medicine; ATTEND Family Medicine
DX: K56.41 Fecal impaction (principal); L89.154 Pressure ulcer of sacral region, stage 4; N13.6 Pyonephrosis; N17.9 Acute kidney failure, unspecified; E78.5 Hyperlipidemia, unspecified; I48.0 Paroxysmal atrial fibrillation; N31.9 Neuromuscular dysfunction of bladder, unspecified; I12.9 Hypertensive chronic kidney disease with stage 1 through stage 4 chronic kidney disease, or unspecified chronic kidney disease; N18.30 Chronic kidney disease, stage 3 unspecified; D63.8 Anemia in other chronic diseases classified elsewhere
CPT/HCPCS: 36415; 74176-TC; 80048; 80053; 81003; 82607; 82728; 82746; 82784; 82962; 83036; 83516; 83540; 83550; 83605; 83735; 84439; 84443; 85025; 85027; 85045; 85610; 86140; 86850; 86900; 86901; 86922; 87040; 87086; 87186; 93005; 93010; 93306-TC; 99285-25; C9803; J0131; J1756; U0003; U0005

== ENCOUNTER 2022-09-27 16:36 | Inpatient (IN) | payer OTHER ==
[2022-09-27 17:18] VITALS: BMI 26.6
[2022-09-27 19:01] LABS: BASO % 0.4 % (0-2.0); EOS % 1.3 % (0-4.5); HEMATOCRIT 31.7 % (32.4-45.2); HEMOGLOBIN 10.6 GM/dL (10.7-15.3); LYMPH % 40.3 % (8-40); MCH 34.2 pg (25.7-33.7); MCHC 33.4 g/dl (32.0-36.0); MEAN CELL VOLUME 102.3 fl (80-96); MONO % 3.1 % (3.8-10.2); NEUT % 54.9 % (42.8-82.8); PLATELET COUNT 244 10^3/uL (134-434); RDW 14.2 % (11.6-15.6)
[2022-09-27 19:08] LABS: INR 1.03 (0.83-1.09)
[2022-09-27 19:10] LABS: ACTIVATED PTT 34.6 SECONDS (25.2-36.5)
[2022-09-27 19:29] LABS: POTASSIUM 4.5 mmol/L (3.5-5.1)
[2022-09-27] MEDS ORDERED: SODIUM CHLORIDE 0.9% 500 ML INFUS.BAG IV ONE (19:31)
[2022-09-27 19:35] LABS: ALBUMIN 2.7 g/dl (3.4-5.0); BLOOD UREA NITROGEN 61.8 mg/dL (7-18); CALCIUM 9.3 mg/dL (8.5-10.1); MAGNESIUM 2.8 mg/dL (1.8-2.4)
[2022-09-27 19:38] LABS: CREATININE 1.7 mg/dL (0.55-1.3)
[2022-09-27 19:40] LABS: BILIRUBIN,TOTAL 0.1 mg/dL (0.2-1); TOT PROT 7.7 g/dl (6.4-8.2)
[2022-09-27 22:15] LABS: EPI CELLS 2 /uL (0-25.1); HYALINE CASTS 0 /uL (0-3.1); PH,URINE 6.5 (5.0-8.0); URINE APPEARANCE CLEAR; URINE BACTERIA 650 /uL (0-1359); URINE BILIRUBIN NEGATIVE (NEGATIVE); URINE COLOR YELLOW; URINE GLUCOSE (UA) NEGATIVE (NEGATIVE); URINE KETONE NEGATIVE (NEGATIVE); URINE LEUK ESTERASE 3+ (NEGATIVE); URINE NITRITE NEGATIVE (NEGATIVE); URINE PROTEIN 2+ (NEGATIVE); URINE RBC 39 /uL (0-23.9); URINE UROBILINOGEN 0.2 mg/dL (0.2-1.0); URINE WBC 1700 /uL (0-25.8)
[2022-09-27] MEDS ORDERED: MEROPENEM 1 GM in DEXTROSE 5%-WATER 100 ML IVPB ONE (22:19)
[2022-09-27] MEDS ORDERED: MEROPENEM 1 GM VIAL (RESTRICTED TO ID) IVPB ONE (23:01)
[2022-09-27] MEDS ORDERED: ACETAMINOPHEN 325 MG TABLET (FP) PO PRN (23:21)
[2022-09-28] MEDS ORDERED: MEROPENEM 1 GM in DEXTROSE 5%-WATER 100 ML IVPB SCH (06:00)
[2022-09-28] MEDS: HEPARIN NA (PORCINE) 5,000 UNITS/ML 1ML VIAL SQ SCH ×2 (06:45→14:49)
[2022-09-28 07:01] LABS: HEMATOCRIT 32.6 % (32.4-45.2); HEMOGLOBIN 10.5 GM/dL (10.7-15.3); MCH 33.8 pg (25.7-33.7); MCHC 32.1 g/dl (32.0-36.0); MEAN CELL VOLUME 105.3 fl (80-96); MEAN PLT VOLUME 8.5 fl (7.5-11.1); PLATELET COUNT 234 10^3/uL (134-434); RDW 14.6 % (11.6-15.6); WHITE BLOOD COUNT 8.1 K/mm3 (4.0-10.0)
[2022-09-28 08:47] LABS: POTASSIUM 4.7 mmol/L (3.5-5.1)
[2022-09-28 08:49] LABS: BLOOD UREA NITROGEN 55.2 mg/dL (7-18); CALCIUM 9.5 mg/dL (8.5-10.1)
[2022-09-28 08:50] LABS: ALBUMIN 2.7 g/dl (3.4-5.0)
[2022-09-28 08:53] LABS: CREATININE 1.4 mg/dL (0.55-1.3)
[2022-09-28 08:54] LABS: BILIRUBIN,TOTAL 0.1 mg/dL (0.2-1); TOT PROT 7.4 g/dl (6.4-8.2)
[2022-09-28] MEDS ORDERED: PNEUMOC 20-VAL CONJ-DIP CRM/PF 0.5 ML SYRINGE IM ONE (09:00)
[2022-09-28] MEDS ORDERED: ARTIFICIAL TEARS (POLYVINYL ALCOHOL) OPTH DROPS OU SCH (10:00)
[2022-09-28] MEDS ORDERED: MULTIVITAMINS THER W-MINERALS COMBO TABLET (FP) PO SCH (10:00)
[2022-09-28] MEDS ORDERED: COLLAGENASE CLOSTRIDIUM HIST. 30 GRAMS TUBE TP SCH (10:00)
[2022-09-28] MEDS ORDERED: ASCORBIC ACID 500 MG TABLET (FP) PO SCH (10:00)
[2022-09-28] MEDS ORDERED: MEMANTINE HCL 10 MG TABLET (FP) PO SCH (10:00)
[2022-09-28] MEDS ORDERED: FAMOTIDINE 20 MG TABLET PO SCH (10:00)
[2022-09-28] MEDS ORDERED: FERROUS SO4 325 MG TABLET (FP) PO SCH (10:00)
[2022-09-28] MEDS ORDERED: CITALOPRAM HYDROBROMIDE 10 MG TABLET PO SCH (10:00)
[2022-09-28] MEDS ORDERED: POLYETHYLENE GLYCOL (HEALTHYLAX) 3350 17 GM PACKET PO SCH (10:00)
[2022-09-28] MEDS: MEROPENEM 1 GM in DEXTROSE 5%-WATER 100 ML IVPB SCH ×2 (10:37→18:11)
[2022-09-28] MEDS ORDERED: LACTATED RINGERS SOLUTION 1,000 ML/1,000 ML INFUS.BAG IV SCH (12:00)
[2022-09-28] MEDS ORDERED: AMINO ACIDS/PROTEIN HYDROLYS 30 ML LIQUID.PKT PO SCH (17:30)
[2022-09-28 18:58] VITALS: BP 157/80; PULSE 89; RESP 18; TEMP 97.6
[2022-09-28] MEDS ORDERED: DOCUSATE SODIUM 100 MG CAPSULE (FP) PO SCH (22:00)
[2022-09-28] MEDS ORDERED: ATORVASTATIN CA 20 MG TABLET (FP) PO SCH (22:00)
[2022-09-28] MEDS ORDERED: INSULIN (LEVEMIR) 100 UNITS/ML UNITS SQ SCH ×2 (22:00)
[2022-09-28] MEDS ORDERED: MIRTAZAPINE 30 MG TABLET PO SCH (22:00)
[2022-09-28] MEDS ORDERED: SENNOSIDES 8.6MG TABLET (FP) PO SCH (22:00)
== END 2022-09-28 21:35 | DRG 690 ==
LOC: JER 16:36 → JERBED 20:54 → OBSVTOIN 22:42 → J4S 09-28 00:49
PROVIDERS: ADMIT Internal Medicine; ATTEND Internal Medicine
DX: N39.0 Urinary tract infection, site not specified (principal); R07.9 Chest pain, unspecified; I10 Essential (primary) hypertension; F03.90 Unspecified dementia, unspecified severity, without behavioral disturbance, psychotic disturbance, mood disturbance, and anxiety; E78.5 Hyperlipidemia, unspecified; E11.9 Type 2 diabetes mellitus without complications; I48.0 Paroxysmal atrial fibrillation
CPT/HCPCS: 0241U-QW; 36415; 70450-TC; 71045-TC-FY; 80053; 81003; 82550; 82553; 83605; 83735; 84484; 85025; 85027; 85610; 85730; 86850; 86900; 86901; 87040; 87081; 87086; 90677; 93005; 93010; 97161-GP; 99285-25; G0378; J1644